=== PATIENT | male | born 1930 | race Caucasian/White ===

== ENCOUNTER 2016-07-27 09:25 | Inpatient (IN) | payer MEDICARE, BC ==
[2016-07-27] MEDS ORDERED: Sodium Chloride 0.9% 1,000 ML IV SCH (10:00)
[2016-07-27] MEDS ORDERED: Sodium Chloride 0.9% 10 ML Syringe FLUSH PRN (10:00)
--- NOTE | 2016-07-27 10:07 | EDM.PDOC ---
ED HPI GENERAL MEDICAL PROBLEM - General Chief Complaint: General Stated Complaint: MEDICAL VIA TRI Time Seen by Provider: 07/27/16 09:48 Source of Information: Reports: Patient, RN notes reviewed History Limitations: Reports: No limitations - History of Present Illness INITIAL COMMENTS - FREE TEXT/NARRATIVE: 86-year-old gentleman presents emergency department today with complaint of blood per rectum, he does have a history of GI bleed thought to be related to complications secondary to polypectomy he estimates about 8 years ago. For this particular event he had a large bloody stool this morning has had difficulty with constipation in the last couple of days denies any symptoms of dizziness chest pain shortness of breath or abdominal discomfort has only had the one event - Related Data Allergies Allergy/AdvReac Type Severity Reaction Status Date / Time aspirin Allergy Unknown Hives Verified 05/08/16 10:55 piroxicam [From Feldene] Allergy Rash Verified 05/08/16 10:55 Home Meds: Home Meds Acetaminophen [Tylenol Extra Strength] 500 mg PO Q4H PRN 01/09/13 [History] Ascorbic Acid [Vitamin C] 100 mg PO DAILY 01/09/13 [History] Aspirin [Elías Chewable Aspirin] 81 mg PO DAILY 01/09/13 [History] Cholecalciferol (Vitamin D3) [Vitamin D3] 1,000 unit PO DAILY 01/09/13 [History] Losartan [Cozaar] 0.5 tab PO DAILY 01/09/13 [History] Nitroglycerin 0.4 mg SL ASDIRECTED PRN 01/09/13 [History] Sennosides/Docusate Sodium [Senna S] 8.6 mg PO ONETIME PRN 01/09/13 [History] diphenhydrAMINE [Benadryl] 25 mg PO BEDTIME PRN 01/09/13 [History] atorvaSTATin [Lipitor] 20 mg PO BEDTIME 07/01/14 [History] Clopidogrel Bisulfate [Clopidogrel] 75 mg PO DAILY 12/21/15 [History] Acetaminophen/oxyCODONE [Percocet 325-5 MG] 1 - 2 tab PO Q4H PRN #80 tablet [Rx] Carvedilol 3.255 mg PO BID 03/26/16 [History] Isosorbide Mononitrate [Imdur] 30 mg PO DAILY #30 tab.er 03/27/16 [Rx] Cyanocobalamin (Vitamin B12) [Vitamin B12] 1,000 mcg PO DAILY 05/06/16 [History] Pregabalin [Lyrica] 50 mg PO TID 05/06/16 [History] Pentoxifylline [TRENtal] 1 tab PO TID 05/07/16 [History] Past Medical History HEENT History: Reports: Cataract, Impaired vision Cardiovascular History: Reports: Angina, Arrhythmia, CAD, High cholesterol, Hypertension, [place], SOB on exertion, Stents Respiratory History: Reports: Other (see below) Other Respiratory History: seeing a lung specialist in [place]. Spot on lung to investigate Gastrointestinal History: Reports: GERD Genitourinary History: Reports: Retention, urinary, Other (see below) Other Genitourinary History: surapubic catheter Musculoskeletal History: Reports: Back pain, chronic, Fracture, Osteoarthritis Hematologic History: Reports: Blood transfusion(s) Oncologic (Cancer) History: Reports: Prostate - Infectious Disease History Infectious Disease History: Reports: Chicken pox, Measles, Mumps - Past Surgical History HEENT Surgical History: Reports: Cataract surgery, Oral surgery, Tonsillectomy Cardiovascular Surgical History: Reports: Coronary artery bypass, Coronary artery stent GI Surgical History: Reports: Colonoscopy, EGD Other Male Surgeries/Procedures: Supra-pubic catheter Musculoskeletal Surgical History: Reports: Knee replacement Other Musculoskeletal Surgeries/Procedures:: both knees Social & Family History - Family History Family Medical History: Noncontributory - Tobacco Use Smoking Status *Q: Never Smoker Second Hand Smoke Exposure: No - Alcohol Use Days Per Week of Alcohol Use: 0 Number of Drinks Per Day: 1 Total Drinks Per Week: 0 - Recreational Drug Use Recreational Drug Use: No ED ROS GENERAL - Review of Systems Review Of Systems: See Below Constitutional: Reports: no symptoms HEENT: Reports: No symptoms Respiratory: Reports: No Symptoms Cardiovascular: Reports: No symptoms GI/Abdominal: Reports: Bloody stool, Constipation. Denies: Abdominal pain, Nausea, Vomiting : Reports: no symptoms Musculoskeletal: Reports: no symptoms ED EXAM, GENERAL - Physical Exam Exam: See Below Free Text/Narrative:: General: Elderly male, not in any distress, alert and oriented x3 HEENT: head is atraumatic normocephalic, eyes pupils equal round reactive to light, sclera clear no conjunctivitis appreciated. Ears tympanic membranes clear and bowles landmarks and light reflex are present bilaterally canals are clear. Nose no septal deviation, nares are clear, no blood present. Mouth mucosa is moist and pink no erythema or exudate noted in soft palate, tongue is midline uvula is midline, dentition is intact. Neck: Supple no thyromegaly no tracheal deviation. Nodes: Cervical nodes subclavicular nodes nontender no palpable lymphadenopathy noted. Lungs: clear to auscultation bilaterally with symmetrical respirations, no adventitious noise appreciated. CV: Regular rate and rhythm S1 and S2 appreciated no murmurs rubs or gallops noted. Abdomen: Soft, nontender, no palpable masses or organomegaly appreciated, no distention no guarding bowel sounds are present, rectal exam in the presence of nursing staff with an anoscope he reveals gross bright red blood with black tarry stool I could not appreciate any fissure there is no hemorrhoids good sphincter tone no masses. Neuro: Cranial nerves II through XII grossly intact Skin: Warm and dry, intact Extremities: No lower extremity edema appreciated, pedal pulse is +2. Course - Vital Signs Last Recorded V/S: Last Vital Signs Temp 98.8 F 07/27/16 09:28 Pulse 84 07/27/16 09:28 Resp 18 07/27/16 09:28 BP 107/57 L 07/27/16 09:28 Pulse Ox 95 07/27/16 09:28 - Orders/Labs/Meds Orders: Active Orders 24 hr Category Date Time Status Peripheral IV Care [RC] . DIRECTED Care 07/27/16 10:00 Active RED BLOOD CELLS LP [BBK] Urgent Lab 07/27/16 10:17 Received TYPE AND SCREEN [BBK] Urgent Lab 07/27/16 10:17 Received Sodium Chloride 0.9% [Normal Saline] 1,000 ml Med 07/27/16 10:00 Active IV ASDIRECTED Sodium Chloride 0.9% [Saline Flush] Med 07/27/16 10:00 Active 10 ml FLUSH ASDIRECTED PRN Peripheral IV Insertion Adult [OM.PC] Urgent Oth 07/27/16 10:00 Ordered Medication Orders Sodium Chloride (Normal Saline) 1,000 mls @ 500 mls/hr IV ASDIRECTED RUTHIE Last Admin: 07/27/16 10:18 Dose: 500 mls/hr Sodium Chloride (Saline Flush) 10 ml FLUSH ASDIRECTED PRN PRN Reason: Keep Vein Open Last Admin: 07/27/16 10:18 Dose: 10 ml Labs: Laboratory Tests 07/27/16 07/27/16 07/27/16 Range/Units 10:17 10:17 10:17 WBC 8.6 (4.5-11.0) K/uL RBC 3.47 L (4.30-5.90) M/uL Hgb 11.2 L D (12.0-15.0) g/dL Hct 35.2 L (40.0-54.0) % MCV 101 H (80-98) fL MCH 32 H (27-31) pg MCHC 32 (32-36) % Plt Count 239 (150-400) K/uL Neut % (Auto) 76 H (36-66) % Lymph % (Auto) 13 L (24-44) % [place] % (Auto) 9 H (2-6) % Eos % (Auto) 2 (2-4) % Baso % (Auto) 1 (0-1) % PT 10.7 (9.5-12.0) sec INR 1.01 (0.80-1.20) APTT 23.1 L (27.0-36.0) sec Sodium 142 (140-148) mmol/L Potassium 4.6 (3.6-5.2) mmol/L Chloride 107 (100-108) mmol/L Carbon Dioxide 27 (21-32) mmol/L Anion Gap 7.8 (5.0-14.0) mmol/L BUN 25 H (7-18) mg/dL Creatinine 1.2 (0.8-1.3) mg/dL Est Cr Clr Drug Dosing 49.01 mL/min Estimated GFR (MDRD) 57 L (>60) Glucose 128 H (74-106) mg/dL Calcium 8.2 L (8.5-10.1) mg/dL Total Bilirubin 0.5 (0.2-1.0) mg/dL AST 15 (15-37) U/L ALT 18 (12-78) U/L Alkaline Phosphatase 94 (46-116) U/L Troponin I (0.000-0.056) ng/mL Total Protein 6.2 L (6.4-8.2) g/dL Albumin 3.1 L (3.4-5.0) g/dL Globulin 3.1 (2.3-3.5) g/dL Albumin/Globulin Ratio 1.0 L (1.2-2.2) 07/27/16 Range/Units 10:17 WBC (4.5-11.0) K/uL RBC (4.30-5.90) M/uL Hgb (12.0-15.0) g/dL Hct (40.0-54.0) % MCV (80-98) fL MCH (27-31) pg MCHC (32-36) % Plt Count (150-400) K/uL Neut % (Auto) (36-66) % Lymph % (Auto) (24-44) % [place] % (Auto) (2-6) % Eos % (Auto) (2-4) % Baso % (Auto) (0-1) % PT (9.5-12.0) sec INR (0.80-1.20) APTT (27.0-36.0) sec Sodium (140-148) mmol/L Potassium (3.6-5.2) mmol/L Chloride (100-108) mmol/L Carbon Dioxide (21-32) mmol/L Anion Gap (5.0-14.0) mmol/L BUN (7-18) mg/dL Creatinine (0.8-1.3) mg/dL Est Cr Clr Drug Dosing mL/min Estimated GFR (MDRD) (>60) Glucose (74-106) mg/dL Calcium (8.5-10.1) mg/dL Total Bilirubin (0.2-1.0) mg/dL AST (15-37) U/L ALT (12-78) U/L Alkaline Phosphatase (46-116) U/L Troponin I 0.021 (0.000-0.056) ng/mL Total Protein (6.4-8.2) g/dL Albumin (3.4-5.0) g/dL Globulin (2.3-3.5) g/dL Albumin/Globulin Ratio (1.2-2.2) Meds: Medications Generic Name Dose Route Start Last Admin Trade Name Freq PRN Reason Stop Dose Admin Sodium Chloride 1,000 mls @ 500 mls/hr 07/27/16 10:00 07/27/16 10:18 Normal Saline IV 500 mls/hr ASDIRECTED RUTHIE Administration Sodium Chloride 10 ml 07/27/16 10:00 07/27/16 10:18 Saline Flush FLUSH 10 ml ASDIRECTED PRN Administration Keep Vein Open Departure - Departure Time of Disposition: 11:01 Disposition: Admitted As Inpatient 65 Condition: good Clinical Impression: Blood per rectum Forms: ED Department Discharge - My Orders Last 24 Hours: My Active Orders 07/27/16 10:00 Peripheral IV Care [RC] . DIRECTED Sodium Chloride 0.9% [Normal Saline] 1,000 ml IV ASDIRECTED Sodium Chloride 0.9% [Saline Flush] 10 ml FLUSH ASDIRECTED PRN Peripheral IV Insertion Adult [OM.PC] Urgent 07/27/16 10:17 RED BLOOD CELLS LP [BBK] Urgent TYPE AND SCREEN [BBK] Urgent - Assessment/Plan Last 24 Hours: My Active Orders 07/27/16 10:00 Peripheral IV Care [RC] . DIRECTED Sodium Chloride 0.9% [Normal Saline] 1,000 ml IV ASDIRECTED Sodium Chloride 0.9% [Saline Flush] 10 ml FLUSH ASDIRECTED PRN Peripheral IV Insertion Adult [OM.PC] Urgent 07/27/16 10:17 RED BLOOD CELLS LP [BBK] Urgent TYPE AND SCREEN [BBK] Urgent Plan: Assessment Acuity = acute Site and laterality = bright red blood per rectum complicating the patient with known history of GI bleed with transfusion, coronary artery disease Etiology = unknown etiology Manifestations = none Location of injury = home Lab values = hemoglobin low at 11.7 consistent with the macro chromic anemia INR normal 1.1 albumin low at 2.1 consistent hypoalbuminemia troponin normal at 0.021 Plan Discussed the case with hospitalist fusion analyst he agreed to come and evaluate the patient in the for admission, 2 units of blood have been cross matched and are held Patient was in agreement with the plan all questions were answered This note was dictated using [employer] voice recognition software please call with any questions.
--- NOTE | 2016-07-27 13:23 | PCM.HP ---
H&P History of Present Illness - General Date of Service: 07/27/16 Admit Problem/Dx: Admission Diagnosis/Problem Admission Diagnosis/Problem Gastrointestinal hemorrhage Source of Information: Patient, Provider History Limitations: Reports: No limitations - History of Present Illness Initial Comments - Free Text/Narative: Ambrosio presents to the emergency room today after having a large bloody bowel movement this morning. He reports that he was feeling well up until this morning. While he was in the process of getting out of bed this morning he suddenly had the urgency to have a bowel movement. Despite his rodriguez to the bathroom he still had some incontinence of bowel and when he did have his bowel movement there was a very large amount of red blood in the toilet bowl. He reports that he had to flush 3 times to get all of it washed down. He reports constipation for the 3 days prior to today. Last night he had to moderate size bowel movements that were very hard and required a lot of straining to pass. He did not notice any blood at that time. He did not have any abdominal pain this morning with a bowel movement or afterwards. He has not had any fevers or chills. No nausea or vomiting. His appetite has been normal. He thinks that he's been drinking about his usual amount of water. He has had one episode of blood in his stool years ago following a polypectomy. This did cause significant enough bleeding to require him to receive 8 units of blood via transfusion and lead to hospitalization and surgical intervention in [place]. Workup in the emergency room has revealed a hemoglobin of 11 and stable vital signs. And there is concern that this represents a significant gastrointestinal hemorrhage and he will require hospital admission for additional workup and management. Lower Posterior Back Pain Score (Numeric/FACES): 2 - Related Data Allergies/Adverse Reactions: Allergies Allergy/AdvReac Type Severity Reaction Status Date / Time aspirin Allergy Unknown Hives Verified 05/08/16 10:55 piroxicam [From Feldene] Allergy Rash Verified 05/08/16 10:55 Home Medications: Home Meds Acetaminophen [Tylenol Extra Strength] 500 mg PO Q4H PRN 01/09/13 [History] Ascorbic Acid [Vitamin C] 100 mg PO DAILY 01/09/13 [History] Aspirin [Elías Chewable Aspirin] 81 mg PO DAILY 01/09/13 [History] Cholecalciferol (Vitamin D3) [Vitamin D3] 1,000 unit PO DAILY 01/09/13 [History] Losartan [Cozaar] 0.5 tab PO DAILY 01/09/13 [History] Nitroglycerin 0.4 mg SL ASDIRECTED PRN 01/09/13 [History] Sennosides/Docusate Sodium [Senna S] 8.6 mg PO ONETIME PRN 01/09/13 [History] diphenhydrAMINE [Benadryl] 25 mg PO BEDTIME PRN 01/09/13 [History] atorvaSTATin [Lipitor] 20 mg PO BEDTIME 07/01/14 [History] Clopidogrel Bisulfate [Clopidogrel] 75 mg PO DAILY 12/21/15 [History] Acetaminophen/oxyCODONE [Percocet 325-5 MG] 1 - 2 tab PO Q4H PRN #80 tablet [Rx] Carvedilol 3.125 mg PO BID 03/26/16 [History] Isosorbide Mononitrate [Imdur] 30 mg PO DAILY #30 tab.er 03/27/16 [Rx] Cyanocobalamin (Vitamin B12) [Vitamin B12] 1,000 mcg PO DAILY 05/06/16 [History] Pregabalin [Lyrica] 50 mg PO TID 05/06/16 [History] Pentoxifylline [TRENtal] 1 tab PO TID 05/07/16 [History] Past Medical History HEENT History: Reports: Cataract, Impaired vision Cardiovascular History: Reports: Angina, Arrhythmia, CAD, High cholesterol, Hypertension, [place], SOB on exertion, Stents Respiratory History: Reports: Other (see below) Other Respiratory History: [place] lung specialist [place] Spot on lung to investigate Gastrointestinal History: Reports: GERD Genitourinary History: Reports: Retention, urinary, Other (see below) Other Genitourinary History: surapubic catheter Musculoskeletal History: Reports: Back pain, chronic, Fracture, Osteoarthritis Hematologic History: Reports: Blood transfusion(s) Oncologic (Cancer) History: Reports: Prostate - Infectious Disease History Infectious Disease History: Reports: Chicken pox, Measles, Mumps - Past Surgical History HEENT Surgical History: Reports: Cataract surgery, Oral surgery, Tonsillectomy Cardiovascular Surgical History: Reports: Coronary artery bypass, Coronary artery stent GI Surgical History: Reports: Colonoscopy, EGD Other Male Surgeries/Procedures: Supra-pubic catheter Musculoskeletal Surgical History: Reports: Knee replacement Other Musculoskeletal Surgeries/Procedures:: both knees Social & Family History - Family History Family Medical History: Noncontributory - Tobacco Use Smoking Status *Q: Never Smoker Second Hand Smoke Exposure: No - Alcohol Use Days Per Week of Alcohol Use: 0 Number of Drinks Per Day: 1 Total Drinks Per Week: 0 - Recreational Drug Use Recreational Drug Use: No H&P Review of Systems - Review of Systems: Review Of Systems: See Below Free Text/Narrative: A complete 12 point review of systems was obtained. Pertinent positives and negatives are noted in the history of present illness. All other systems were reviewed and were negative except as noted. Exam - Exam Exam: See Below - Vital Signs Vital Signs: Last Vital Signs Temp 37.1 C 07/27/16 09:28 Pulse 84 07/27/16 09:28 Resp 18 07/27/16 09:28 BP 107/57 L 07/27/16 09:28 Pulse Ox 95 07/27/16 09:28 Weight: 80.739 kg - Exam Quality Assessment: urinary catheter (suprapubic). No: supplemental oxygen General: alert, oriented, cooperative. No: mild distress HEENT: Conjunctiva clear, Mucosa moist & pink, Posterior pharynx clear. No: Scleral icterus Neck: supple, trachea midline Lungs: Clear to auscultation, Normal respiratory effort Cardiovascular: regular rate, regular rhythm, systolic murmur Abdomen: normal bowel sounds, soft, tenderness (moderate LLQ). No: distention, guarding Back Exam: normal inspection. No: full range of motion Extremities: normal inspection. No: edema Peripheral Pulses: 2+: dorsalis pedis (L), dorsalis pedis (R) Skin: warm, dry Neuro Extensive - Mental Status: alert, oriented x3, nl response to commands Neuro Extensive - Motor, Sensory, Reflexes: CN II-XII intact. No: dysarthria, abnormal motor, tremor Psychiatric: alert, normal affect - Patient Data Lab Results last 24 hrs: Laboratory Results - last 24 hr 07/27/16 07/27/16 07/27/16 Range/Units 10:17 10:17 10:17 WBC 8.6 (4.5-11.0) K/uL RBC 3.47 L (4.30-5.90) M/uL Hgb 11.2 L D (12.0-15.0) g/dL Hct 35.2 L (40.0-54.0) % MCV 101 H (80-98) fL MCH 32 H (27-31) pg MCHC 32 (32-36) % Plt Count 239 (150-400) K/uL Neut % (Auto) 76 H (36-66) % Lymph % (Auto) 13 L (24-44) % [place] % (Auto) 9 H (2-6) % Eos % (Auto) 2 (2-4) % Baso % (Auto) 1 (0-1) % PT 10.7 (9.5-12.0) sec INR 1.01 (0.80-1.20) APTT 23.1 L (27.0-36.0) sec Sodium 142 (140-148) mmol/L Potassium 4.6 (3.6-5.2) mmol/L Chloride 107 (100-108) mmol/L Carbon Dioxide 27 (21-32) mmol/L Anion Gap 7.8 (5.0-14.0) mmol/L BUN 25 H (7-18) mg/dL Creatinine 1.2 (0.8-1.3) mg/dL Est Cr Clr Drug Dosing 49.01 mL/min Estimated GFR (MDRD) 57 L (>60) Glucose 128 H (74-106) mg/dL Calcium 8.2 L (8.5-10.1) mg/dL Total Bilirubin 0.5 (0.2-1.0) mg/dL AST 15 (15-37) U/L ALT 18 (12-78) U/L Alkaline Phosphatase 94 (46-116) U/L Troponin I (0.000-0.056) ng/mL Total Protein 6.2 L (6.4-8.2) g/dL Albumin 3.1 L (3.4-5.0) g/dL Globulin 3.1 (2.3-3.5) g/dL Albumin/Globulin Ratio 1.0 L (1.2-2.2) Blood Type Gel Antibody Screen Crossmatch 07/27/16 07/27/16 Range/Units 10:17 10:17 WBC (4.5-11.0) K/uL RBC (4.30-5.90) M/uL Hgb (12.0-15.0) g/dL Hct (40.0-54.0) % MCV (80-98) fL MCH (27-31) pg MCHC (32-36) % Plt Count (150-400) K/uL Neut % (Auto) (36-66) % Lymph % (Auto) (24-44) % [place] % (Auto) (2-6) % Eos % (Auto) (2-4) % Baso % (Auto) (0-1) % PT (9.5-12.0) sec INR (0.80-1.20) APTT (27.0-36.0) sec Sodium (140-148) mmol/L Potassium (3.6-5.2) mmol/L Chloride (100-108) mmol/L Carbon Dioxide (21-32) mmol/L Anion Gap (5.0-14.0) mmol/L BUN (7-18) mg/dL Creatinine (0.8-1.3) mg/dL Est Cr Clr Drug Dosing mL/min Estimated GFR (MDRD) (>60) Glucose (74-106) mg/dL Calcium (8.5-10.1) mg/dL Total Bilirubin (0.2-1.0) mg/dL AST (15-37) U/L ALT (12-78) U/L Alkaline Phosphatase (46-116) U/L Troponin I 0.021 (0.000-0.056) ng/mL Total Protein (6.4-8.2) g/dL Albumin (3.4-5.0) g/dL Globulin (2.3-3.5) g/dL Albumin/Globulin Ratio (1.2-2.2) Blood Type O POSITIVE Gel Antibody Screen Negative Crossmatch See Detail Result Diagrams: 07/27/16 16:18 07/27/16 10:17 *Q Meaningful Use (ADM) - VTE *Q VTE Criteria *Q: VTE Pharmacological Contraindications *Q: Active Hemorrhage - Stroke *Q Stroke Criteria *Q: - AMI *Q AMI Criteria *Q: - Problem List (1) Acute lower gastrointestinal hemorrhage SNOMED Code(s): 31009195 ICD Code: K92.2 - GASTROINTESTINAL HEMORRHAGE, UNSPECIFIED Status: Acute Current Visit: Yes (2) Coronary artery disease SNOMED Code(s): 02749085 ICD Code: I25.10 - ATHSCL HEART DISEASE OF [place] CORONARY ARTERY W/O ANG PCTRS Status: Chronic Current Visit: No Qualifiers: Coronary Disease-Associated Artery/Lesion type: [place] artery [place] vs. transplanted heart: che[place]-na heart Associated angina: angina presence unspecified Qualified Code(s): I25.10 - Atherosclerotic heart disease of [place] coronary artery without angina pectoris (3) Lumbar radiculopathy, chronic SNOMED Code(s): 855306239 ICD Code: M54.16 - RADICULOPATHY, LUMBAR REGION Status: Chronic Current Visit: No Problem List Initiated/Reviewed/Updated: Yes Orders Last 24hrs: Active Orders 24 hr Category Date Time Status Patient Status Manage Transfer [TRANSFER] Routine ADT 07/27/16 13:11 Ordered Peripheral IV Care [RC] . DIRECTED Care 07/27/16 10:00 Active PATIENT RETYPE [BBK] Urgent Lab 07/27/16 10:17 Results RED BLOOD CELLS LP [BBK] Urgent Lab 07/27/16 10:17 Results TYPE AND SCREEN [BBK] Urgent Lab 07/27/16 10:17 Results Sodium Chloride 0.9% [Normal Saline] 1,000 ml Med 07/27/16 10:00 Active IV ASDIRECTED Sodium Chloride 0.9% [Saline Flush] Med 07/27/16 10:00 Active 10 ml FLUSH ASDIRECTED PRN Peripheral IV Insertion Adult [OM.PC] Urgent Oth 07/27/16 10:00 Ordered Resuscitation Status Routine Resus Stat 07/27/16 13:13 Ordered Medication Orders Sodium Chloride (Normal Saline) 1,000 mls @ 500 mls/hr IV ASDIRECTED RUTHIE Last Admin: 07/27/16 10:18 Dose: 500 mls/hr Sodium Chloride (Saline Flush) 10 ml FLUSH ASDIRECTED PRN PRN Reason: Keep Vein Open Last Admin: 07/27/16 10:18 Dose: 10 ml Assessment/Plan Comment:: Assessment and plan - Acute gastrointestinal hemorrhage - suspect lower GI hemorrhage with red blood. He did have recent constipation and I suspect this may have led to a diverticular bleed. Currently his hemoglobin is 11 but I doubt that he has had time to re-equilibrate and this may be a falsely reassuring level. Blood pressure is currently normal and is not tachycardic. He has [address] He is currently on dual antiplatelet therapy. -Admit to the intensive care unit -IV fluids -Serial hemoglobin levels -hold antiplatelet therapy today -Stay 2 units ahead for potential blood transfusions -Consider surgical consultation if bleeding persists Coronary artery disease - no active symptoms at this time. He is on dual antiplatelet therapy with recent stenting. -Continue medical management -restart dual antiplatelet therapy tomorrow if stable overnight Chronic severe back pain with lumbar radiculopathy - pain not well-controlled, functional status declining inpatient uncomfortable day and night. Surgical intervention very dangerous based on cardiac status and age. Pain pills do help make the pain more bearable. -Trial of OxyContin -as needed oxycodone Maintenance issues - - DVT prophylaxis - mechanical - GI prophylaxis - PPI - Nutrition - full liquids - [place] catheter - chronic indwelling suprapubic catheter CODE STATUS - DO NOT RESUSCITATE/DO NOT INTUBATE Admission justification - This patient will be admitted for inpatient services and is medically appropriate meeting medical necessity for inpatient admission as outlined in my documentation. I reasonably expect the patient will require inpatient services that span a period time over 2 midnights. I reasonably expect this patient to be discharged or transferred within 96 hours [facility]. Disposition - anticipate discharge to home after the hospital stay Primary care physician - Ashwini Rojas NP / Dr Katalina Jaramillo M.D.
[2016-07-27] MEDS ORDERED: Ondansetron 4 MG Tab.DIS PO PRN (14:04)
[2016-07-27] MEDS ORDERED: Albuterol 0.083% 2.5 MG/3 ML Neb Soln NEB PRN (14:04)
[2016-07-27] MEDS ORDERED: Magnesium Hydroxide 400 MG/5 ML Susp 30 ML Cup PO PRN (14:04)
[2016-07-27] MEDS ORDERED: Ondansetron 4 MG/2 ML SDV IV PRN (14:04)
[2016-07-27] MEDS ORDERED: Acetaminophen 325 MG Tab PO PRN (14:04)
[2016-07-27] MEDS: Sodium Chloride 0.9% 1,000 ML IV SCH ×2 (15:05→23:15)
[2016-07-27] MEDS: Acetaminophen/oxyCODONE 325-5 MG Tab PO PRN (15:12)
[2016-07-27] MEDS: Pantoprazole 40 MG Tab.CR PO SCH (16:18)
[2016-07-27] MEDS: atorvaSTATin 20 MG Tab PO SCH (20:45)
[2016-07-27] MEDS: Carvedilol 3.125 MG Tab PO SCH (20:45)
[2016-07-27] MEDS: oxyCODONE ER 10 MG TAB.ER PO SCH (20:47)
[2016-07-27] MEDS ORDERED: Non-Formulary Medication 1 Each (Atorvastatin [Lipitor] 20 MG) PO SCH (21:00)
[2016-07-27] MEDS: diphenhydrAMINE 25 MG Cap PO PRN (23:23)
[2016-07-28] MEDS: Acetaminophen/oxyCODONE 325-5 MG Tab PO PRN ×3 (03:14→21:56)
[2016-07-28] MEDS: Sodium Chloride 0.9% 1,000 ML IV SCH ×3 (06:11→21:58)
[2016-07-28] MEDS: Pantoprazole 40 MG Tab.CR PO SCH ×2 (07:58→20:27)
--- NOTE | 2016-07-28 08:47 | PCM.PN ---
- General Info Date of Service: 07/28/16 Functional Status: Reports: pain controlled, tolerating diet - Review of Systems General: Denies: Fever Gastrointestinal: Reports: Abdominal pain (mild epigastric). Denies: Hematochezia, Melena Systems Review Comment:: No acute events since the time of admission. He has not had additional hematochezia or melena. Blood pressures have been stable though up and down a little bit. No complaints of abdominal pain today. He does endorse moderate back pain as well as some neuropathic pain in his feet. He has not had any fevers, nausea or vomiting. - Patient Data Vitals - most recent: Last Vital Signs Temp 35.9 C 07/28/16 08:00 Pulse 95 07/28/16 08:00 Resp 14 07/28/16 08:00 BP 125/65 07/28/16 08:00 Pulse Ox 95 07/28/16 08:00 Weight - most recent: 80.739 kg I&O - last 24 hours: Intake & Output 07/27/16 07/28/16 07/28/16 22:59 06:59 14:59 Intake Total 991 2269 Output Total 1900 930 Balance -909 1339 Lab Results last 24 hrs: Laboratory Results - last 24 hr 07/27/16 07/27/16 07/28/16 Range/Units 16:18 22:03 05:39 WBC 7.7 (4.5-11.0) K/uL RBC 2.86 L (4.30-5.90) M/uL Hgb 9.9 L 10.0 L 9.1 L (12.0-15.0) g/dL Hct 29.5 L (40.0-54.0) % MCV 103 H (80-98) fL MCH 32 H (27-31) pg MCHC 31 L (32-36) % Plt Count 196 (150-400) K/uL Sodium (140-148) mmol/L Potassium (3.6-5.2) mmol/L Chloride (100-108) mmol/L Carbon Dioxide (21-32) mmol/L Anion Gap (5.0-14.0) mmol/L BUN (7-18) mg/dL Creatinine (0.8-1.3) mg/dL Est Cr Clr Drug Dosing mL/min Estimated GFR (MDRD) (>60) Glucose (74-106) mg/dL Calcium (8.5-10.1) mg/dL Magnesium (1.8-2.4) mg/dL 07/28/16 Range/Units 05:39 WBC (4.5-11.0) K/uL RBC (4.30-5.90) M/uL Hgb (12.0-15.0) g/dL Hct (40.0-54.0) % MCV (80-98) fL MCH (27-31) pg MCHC (32-36) % Plt Count (150-400) K/uL Sodium 145 (140-148) mmol/L Potassium 4.1 (3.6-5.2) mmol/L Chloride 112 H (100-108) mmol/L Carbon Dioxide 28 (21-32) mmol/L Anion Gap 9.1 (5.0-14.0) mmol/L BUN 16 (7-18) mg/dL Creatinine 1.0 (0.8-1.3) mg/dL Est Cr Clr Drug Dosing 58.53 mL/min Estimated GFR (MDRD) > 60 (>60) Glucose 98 (74-106) mg/dL Calcium 7.8 L (8.5-10.1) mg/dL Magnesium 1.8 (1.8-2.4) mg/dL Med Orders - Current: Current Medications Acetaminophen (Tylenol) 650 mg PO Q4H PRN PRN Reason: Pain (Mild 1-3)/fever Albuterol (Proventil Neb Soln) 2.5 mg NEB Q4H PRN PRN Reason: Shortness Of Breath/wheezing Atorvastatin Calcium (Lipitor) 20 mg PO BEDTIME [facility] Last Admin: 07/27/16 20:45 Dose: 20 mg Carvedilol (Coreg) 3.125 mg PO BID [facility] Last Admin: 07/27/16 20:45 Dose: 3.125 mg Diphenhydramine HCl (Benadryl) 25 - 50 mg PO BEDTIME PRN PRN Reason: Sleep Last Admin: 07/27/16 23:23 Dose: 50 mg Sodium Chloride (Normal Saline) 1,000 mls @ 125 mls/hr IV ASDIRECTED [facility] Last Admin: 07/28/16 06:11 Dose: 125 mls/hr Magnesium Hydroxide (Milk Of Magnesia) 30 ml PO Q12H PRN PRN Reason: Constipation Ondansetron HCl (Zofran Odt) 4 mg PO Q6H PRN PRN Reason: Nausea able to take PO Ondansetron HCl (Zofran) 4 mg IV Q6H PRN PRN Reason: Nausea/Vomiting Oxycodone HCl (Oxycontin) 10 mg PO Q12H [facility] Last Admin: 07/27/16 20:47 Dose: 10 mg Oxycodone/Acetaminophen (Percocet 325-5 Mg) 1 - 2 tab PO Q4H PRN PRN Reason: Pain Last Admin: 07/28/16 03:14 Dose: 2 tab Pantoprazole Sodium (Protonix) 40 mg PO BIDAC [facility] Last Admin: 07/28/16 07:58 Dose: 40 mg Polyethylene Glycol (Miralax) 17 gm PO DAILY PRN PRN Reason: Constipation Senna/Docusate Sodium (Senna Plus) 1 tab PO BID [facility] Last Admin: 07/27/16 20:45 Dose: 1 tab Sodium Chloride (Saline Flush) 10 ml FLUSH ASDIRECTED PRN PRN Reason: Keep Vein Open Last Admin: 07/27/16 10:18 Dose: 10 ml Discontinued Medications Sodium Chloride (Normal Saline) 1,000 mls @ 500 mls/hr IV ASDIRECTED [facility] Last Admin: 07/27/16 10:18 Dose: 500 mls/hr - Exam Quality Assessment: No: supplemental oxygen General: alert, oriented, cooperative, no acute distress Neck: supple Lungs: Clear to auscultation, Normal respiratory effort Cardiovascular: Regular Rate, Regular Rhythm, Murmurs Abdomen: bowel sounds present, soft, no tenderness, no distension Extremities: no edema, no cyanosis Skin: warm, dry Psy/Mental Status: alert, normal affect - Problem List & Annotations (1) Acute lower gastrointestinal hemorrhage SNOMED Code(s): 95393336 Code(s): K92.2 - GASTROINTESTINAL HEMORRHAGE, UNSPECIFIED Status: Acute Current Visit: Yes (2) Coronary artery disease SNOMED Code(s): 90196784 Code(s): I25.10 - ATHSCL HEART DISEASE OF [place] CORONARY ARTERY W/O ANG PCTRS Status: Chronic Current Visit: No Qualifiers: Coronary Disease-Associated Artery/Lesion type: [place] artery [place] vs. transplanted heart: [place] heart Associated angina: angina presence unspecified Qualified Code(s): I25.10 - Atherosclerotic heart disease of [place] coronary artery without angina pectoris (3) Lumbar radiculopathy, chronic SNOMED Code(s): 510610461 Code(s): M54.16 - RADICULOPATHY, LUMBAR REGION Status: Chronic Current Visit: No - Problem List Review Problem List Initiated/Reviewed/Updated: Yes - My Orders Last 24 Hours: My Active Orders 07/27/16 13:13 Resuscitation Status Routine 07/27/16 14:04 Patient Status [ADT] Routine Bedrest Bedside Commode [RC] ASDIRECTED Cardiac Monitoring [RC] CONTINUOUS Intake and Output [RC] QSHIFT Notify Provider Vital Signs [RC] ASDIRECTED Oxygen Therapy [RC] PRN Pulse Oximetry [RC] CONTINUOUS RT Aerosol Therapy [RC] ASDIRECTED VTE/DVT Education [RC] Per Unit Routine Vital Signs [RC] Q2HR Acetaminophen [Tylenol] 650 mg PO Q4H PRN Albuterol [Proventil Neb Soln] 2.5 mg NEB Q4H PRN Magnesium Hydroxide [Milk of Magnesia] 30 ml PO Q12H PRN Ondansetron [Zofran ODT] 4 mg PO Q6H PRN Ondansetron [Zofran] 4 mg IV Q6H PRN Polyethylene Glycol 3350 [MiraLAX] 17 gm PO DAILY PRN Sodium Chloride 0.9% [Normal Saline] 1,000 ml IV ASDIRECTED Antiembolic Hose [OM.PC] Per Unit Routine VTE Pharmacological Contraindications [AST] Per Unit Routine 07/27/16 16:30 Pantoprazole [ProTONIX] 40 mg PO BIDAC 07/27/16 21:00 Docusate Sodium/Sennosides [Senna Plus] 1 tab PO BID atorvaSTATin [Lipitor] 20 mg PO BEDTIME oxyCODONE ER [OxyCONTIN] 10 mg PO Q12H 07/27/16 23:07 diphenhydrAMINE [Benadryl] 25 - 50 mg PO BEDTIME PRN 07/28/16 15:00 HGB [HEMOGLOBIN] [HEME] Timed 07/28/16 Lunch Heart Healthy Diet [DIET] 07/29/16 05:00 BASIC METABOLIC PANEL,BMP [CHEM] Timed CBC W/O DIFF,HEMOGRAM [HEME] Timed (1) - Plan Plan:: Assessment and plan - Acute gastrointestinal hemorrhage - suspect lower GI hemorrhage with red blood. He did have recent constipation and I suspect this may have led to a diverticular bleed. Hemoglobin has been trending down but he has not had additional bleeding. I suspect this is diverticular bleeding and I don't believe that endoscopy will be needed unless he has additional episodes of bleeding. -Gentle IV fluids -Serial hemoglobin levels -Restart antiplatelet therapy -Stay 2 units ahead for potential blood transfusions -Consider surgical consultation if bleeding returns Coronary artery disease - no active symptoms at this time. He is on dual antiplatelet therapy with recent stenting. -Continue medical management -restart dual antiplatelet therapy Chronic severe back pain with lumbar radiculopathy - pain not well-controlled, functional status declining inpatient uncomfortable day and night. Surgical intervention very dangerous based on cardiac status and age. Pain pills do help make the pain more bearable. -Trial of OxyContin -as needed oxycodone Maintenance issues - - DVT prophylaxis - mechanical - GI prophylaxis - PPI - Nutrition - heart healthy diet - Christianson catheter - chronic indwelling suprapubic catheter Disposition - anticipate discharge to home after the hospital stay, probably tomorrow if stable overnight Primary care physician - Ashwini Rojas NP / Dr Katalina Jaramillo M.D.
[2016-07-28] MEDS: oxyCODONE ER 10 MG TAB.ER PO SCH ×2 (08:54→20:27)
[2016-07-28] MEDS: Carvedilol 3.125 MG Tab PO SCH ×2 (08:54→20:27)
[2016-07-28] MEDS ORDERED: Sodium Chloride 0.9% 500 ML IV SCH (19:00)
[2016-07-28] MEDS: Aspirin 81 MG Tab.EC PO SCH (19:25)
[2016-07-28] MEDS: Clopidogrel 75 MG Tab PO SCH (19:25)
[2016-07-28] MEDS: atorvaSTATin 20 MG Tab PO SCH (20:27)
[2016-07-28] MEDS ORDERED: Oxybutynin 5 MG Tab PO ONE (21:39)
[2016-07-29] MEDS: diphenhydrAMINE 25 MG Cap PO PRN (00:06)
[2016-07-29] MEDS: Acetaminophen/oxyCODONE 325-5 MG Tab PO PRN ×5 (02:31→22:42)
[2016-07-29] MEDS: Sodium Chloride 0.9% 1,000 ML IV SCH (05:49)
[2016-07-29] MEDS: Pantoprazole 40 MG Tab.CR PO SCH ×2 (07:35→17:08)
[2016-07-29] MEDS: Aspirin 81 MG Tab.EC PO SCH (09:44)
[2016-07-29] MEDS: oxyCODONE ER 10 MG TAB.ER PO SCH ×2 (09:44→20:56)
[2016-07-29] MEDS: Carvedilol 3.125 MG Tab PO SCH ×2 (09:44→20:57)
[2016-07-29] MEDS: Clopidogrel 75 MG Tab PO SCH (09:46)
--- NOTE | 2016-07-29 10:20 | PCM.PN ---
- General Info Date of Service: 07/29/16 Functional Status: Reports: tolerating diet - Review of Systems General: Reports: Weakness. Denies: Fever, Chills Pulmonary: Reports: no symptoms Cardiovascular: Reports: No Symptoms Gastrointestinal: Reports: Constipation. Denies: Hematochezia, Melena, Nausea, Vomiting Musculoskeletal: Reports: back pain Systems Review Comment:: Rev. Light show no further evidence of active bleeding, since yesterday. He has had ongoing difficulty with back pain and now this morning has had severe bladder spasms. He does have an indwelling suprapubic catheter for management of chronic urinary retention. He reports that he typically has more difficulty with bladder spasms when he is constipated. - Patient Data Vitals - most recent: Last Vital Signs Temp 97.1 F 07/29/16 08:00 Pulse 72 07/29/16 09:44 Resp 20 07/29/16 08:00 BP 95/52 L 07/29/16 08:00 Pulse Ox 100 07/29/16 08:00 Weight - most recent: 178 lb I&O - last 24 hours: Intake & Output 07/28/16 07/29/16 07/29/16 22:59 06:59 14:59 Intake Total 1959 1973 Output Total 775 500 Balance 1184 1473 Lab Results last 24 hrs: Laboratory Results - last 24 hr 07/28/16 07/29/16 07/29/16 Range/Units 15:00 05:00 05:00 WBC 8.1 (4.5-11.0) K/uL RBC 2.93 L (4.30-5.90) M/uL Hgb 9.8 L 9.2 L (12.0-15.0) g/dL Hct 30.3 L (40.0-54.0) % MCV 103 H (80-98) fL MCH 31 (27-31) pg MCHC 30 L (32-36) % Plt Count 209 (150-400) K/uL Sodium 148 (140-148) mmol/L Potassium 4.1 (3.6-5.2) mmol/L Chloride 113 H (100-108) mmol/L Carbon Dioxide 26 (21-32) mmol/L Anion Gap 13.1 (5.0-14.0) mmol/L BUN 19 H (7-18) mg/dL Creatinine 1.1 (0.8-1.3) mg/dL Est Cr Clr Drug Dosing 53.21 mL/min Estimated GFR (MDRD) > 60 (>60) Glucose 114 H (74-106) mg/dL Calcium 7.5 L (8.5-10.1) mg/dL Med Orders - Current: Current Medications Acetaminophen (Tylenol) 650 mg PO Q4H PRN PRN Reason: Pain (Mild 1-3)/fever Albuterol (Proventil Neb Soln) 2.5 mg NEB Q4H PRN PRN Reason: Shortness Of Breath/wheezing Aspirin (Halfprin) 81 mg PO DAILY [facility] Last Admin: 07/29/16 09:44 Dose: 81 mg Atorvastatin Calcium (Lipitor) 20 mg PO BEDTIME [facility] Last Admin: 07/28/16 20:27 Dose: 20 mg Carvedilol (Coreg) 3.125 mg PO BID [facility] Last Admin: 07/29/16 09:44 Dose: 3.125 mg Clopidogrel Bisulfate (Plavix) 75 mg PO DAILY [facility] Last Admin: 07/29/16 09:46 Dose: 75 mg Diphenhydramine HCl (Benadryl) 25 - 50 mg PO BEDTIME PRN PRN Reason: Sleep Last Admin: 07/29/16 00:06 Dose: 50 mg Sodium Chloride (Normal Saline) 1,000 mls @ 125 mls/hr IV ASDIRECTED [facility] Last Admin: 07/29/16 05:49 Dose: 125 mls/hr Magnesium Hydroxide (Milk Of Magnesia) 30 ml PO Q12H PRN PRN Reason: Constipation Ondansetron HCl (Zofran Odt) 4 mg PO Q6H PRN PRN Reason: Nausea able to take PO Ondansetron HCl (Zofran) 4 mg IV Q6H PRN PRN Reason: Nausea/Vomiting Oxycodone HCl (Oxycontin) 10 mg PO Q12H [facility] Last Admin: 07/29/16 09:44 Dose: 10 mg Oxycodone/Acetaminophen (Percocet 325-5 Mg) 1 - 2 tab PO Q4H PRN PRN Reason: Pain Last Admin: 07/29/16 07:34 Dose: 2 tab Pantoprazole Sodium (Protonix) 40 mg PO BIDAC [facility] Last Admin: 07/29/16 07:35 Dose: 40 mg Polyethylene Glycol (Miralax) 17 gm PO DAILY PRN PRN Reason: Constipation Senna/Docusate Sodium (Senna Plus) 1 tab PO BID [facility] Last Admin: 07/29/16 09:44 Dose: 1 tab Sodium Chloride (Saline Flush) 10 ml FLUSH ASDIRECTED PRN PRN Reason: Keep Vein Open Last Admin: 07/27/16 10:18 Dose: 10 ml Discontinued Medications Sodium Chloride (Normal Saline) 1,000 mls @ 500 mls/hr IV ASDIRECTED [facility] Last Admin: 07/27/16 10:18 Dose: 500 mls/hr Sodium Chloride (Normal Saline) 500 mls @ 500 mls/hr IV ASDIRECTED [facility] Last Admin: 07/28/16 19:00 Dose: 500 mls/hr Oxybutynin Chloride (Oxybutynin) 5 mg PO DAILY ONE Stop: 07/28/16 21:40 Last Admin: 07/28/16 21:51 Dose: 5 mg - Exam General: alert, oriented, cooperative, moderate distress Lungs: Clear to auscultation, Normal respiratory effort Cardiovascular: Regular Rate, Regular Rhythm, Murmurs Abdomen: bowel sounds present, soft, no tenderness, no distension Extremities: no edema Skin: warm, dry, intact - Problem List Review Problem List Initiated/Reviewed/Updated: Yes - My Orders Last 24 Hours: My Active Orders 07/29/16 09:10 UA W/MICROSCOPIC [URIN] Stat 07/29/16 10:01 Patient Status Manage Transfer [TRANSFER] Routine - Plan Plan:: Assessment and plan - Acute gastrointestinal hemorrhage - suspect lower GI hemorrhage with red blood. He did have recent constipation and I suspect this may have led to a diverticular bleed. No further evidence of active bleeding over the past 24 hours. -Saline lock IV -Serial hemoglobin levels -Restart antiplatelet therapy -Stay 2 units ahead for potential blood transfusions -Consider surgical consultation if bleeding returns Severe bladder spasms-typically does have bladder spasms every day but they're fairly limited in frequency and duration. This morning is had several more prolonged spasms that had been very uncomfortable. -Urinalysis -Hyoscyamine 0.125 mg by mouth every 4 hours Constipation-likely that this causes difficulty with recent lower GI bleed and may be contributing to current bladder spasm -Senna-S 3 tablets this morning -Consider daily bowel regimen as long as he is on narcotics Coronary artery disease - no active symptoms at this time. He is on dual antiplatelet therapy with recent stenting. -Continue medical management -restart dual antiplatelet therapy Chronic severe back pain with lumbar radiculopathy - pain not well-controlled, functional status declining inpatient uncomfortable day and night. Surgical intervention very dangerous based on cardiac status and age. Pain pills do help make the pain more bearable. -Trial of OxyContin -as needed oxycodone Maintenance issues - - DVT prophylaxis - mechanical - GI prophylaxis - PPI - Nutrition - heart healthy diet - Christianson catheter - chronic indwelling suprapubic catheter Disposition - anticipate discharge to home after the hospital stay, probably tomorrow if stable overnight Primary care physician - Ashwini Rojas NP / Dr Darden
[2016-07-29] MEDS: Hyoscyamine 0.125 MG Tab.SL SL PRN ×2 (12:34→17:56)
[2016-07-29] MEDS: cefTRIAXone 1 GM in Sodium Chloride 0.9% 50 ML IV SCH (14:26)
[2016-07-29] MEDS: atorvaSTATin 20 MG Tab PO SCH (20:56)
[2016-07-30] MEDS: diphenhydrAMINE 25 MG Cap PO PRN ×2 (00:39→22:18)
[2016-07-30] MEDS: Hyoscyamine 0.125 MG Tab.SL SL PRN ×4 (00:48→15:29)
[2016-07-30] MEDS: Acetaminophen/oxyCODONE 325-5 MG Tab PO PRN ×4 (04:06→22:18)
[2016-07-30] MEDS: Pantoprazole 40 MG Tab.CR PO SCH ×2 (09:12→16:57)
[2016-07-30] MEDS: Carvedilol 3.125 MG Tab PO SCH ×2 (09:12→20:58)
[2016-07-30] MEDS: Aspirin 81 MG Tab.EC PO SCH (09:12)
[2016-07-30] MEDS: Clopidogrel 75 MG Tab PO SCH (09:13)
[2016-07-30] MEDS: oxyCODONE ER 10 MG TAB.ER PO SCH ×2 (09:21→20:59)
[2016-07-30] MEDS: Polyethylene Glycol 3350 Powder 17 GM Packet PO PRN (09:36)
[2016-07-30] MEDS: cefTRIAXone 1 GM in Sodium Chloride 0.9% 50 ML IV SCH (15:09)
--- NOTE | 2016-07-30 17:46 | PCM.PN ---
- General Info Date of Service: 07/30/16 Functional Status: Reports: pain controlled, tolerating diet - Review of Systems General: Reports: Weakness. Denies: Fever, Chills Pulmonary: Reports: no symptoms Cardiovascular: Reports: No Symptoms Gastrointestinal: Reports: Constipation. 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 He did have a small bowel movement yesterday, but none today. Likely that constipation and bladder infection or contributing to current bladder spasms. Hemoglobin has remained stable with no evidence of further active bleeding. Vital signs have been stable and he has remained afebrile. - Patient Data Vitals - most recent: Last Vital Signs Temp 97.8 F 07/30/16 16:26 Pulse 82 07/30/16 16:26 Resp 16 07/30/16 16:26 BP 118/67 07/30/16 16:26 Pulse Ox 96 07/30/16 16:26 Weight - most recent: 178 lb I&O - last 24 hours: Intake & Output 07/30/16 07/30/16 07/30/16 06:59 14:59 22:59 Intake Total 200 1260 Output Total 217 439 3220 Balance -700 510 -1400 Lab Results last 24 hrs: Laboratory Results - last 24 hr 07/30/16 07/30/16 Range/Units 04:33 04:33 WBC 8.4 (4.5-11.0) K/uL RBC 2.88 L (4.30-5.90) M/uL Hgb 9.3 L (12.0-15.0) g/dL Hct 29.5 L (40.0-54.0) % MCV 102 H (80-98) fL MCH 32 H (27-31) pg MCHC 32 (32-36) % Plt Count 216 (150-400) K/uL Neut % (Auto) 60 (36-66) % Lymph % (Auto) 23 L (24-44) % [place] % (Auto) 11 H (2-6) % Eos % (Auto) 7 H (2-4) % Baso % (Auto) 0 (0-1) % Sodium 145 (140-148) mmol/L Potassium 4.0 (3.6-5.2) mmol/L Chloride 111 H (100-108) mmol/L Carbon Dioxide 27 (21-32) mmol/L Anion Gap 11.0 (5.0-14.0) mmol/L BUN 16 (7-18) mg/dL Creatinine 1.1 (0.8-1.3) mg/dL Est Cr Clr Drug Dosing 53.21 mL/min Estimated GFR (MDRD) > 60 (>60) Glucose 115 H (74-106) mg/dL Calcium 7.9 L (8.5-10.1) mg/dL Med Orders - Current: Current Medications Acetaminophen (Tylenol) 650 mg PO Q4H PRN PRN Reason: Pain (Mild 1-3)/fever Albuterol (Proventil Neb Soln) 2.5 mg NEB Q4H PRN PRN Reason: Shortness Of Breath/wheezing Aspirin (Halfprin) 81 mg PO DAILY [facility] Last Admin: 07/30/16 09:12 Dose: 81 mg Atorvastatin Calcium (Lipitor) 20 mg PO BEDTIME [facility] Last Admin: 07/29/16 20:56 Dose: 20 mg Carvedilol (Coreg) 3.125 mg PO BID [facility] Last Admin: 07/30/16 09:12 Dose: 3.125 mg Clopidogrel Bisulfate (Plavix) 75 mg PO DAILY [facility] Last Admin: 07/30/16 09:13 Dose: 75 mg Diphenhydramine HCl (Benadryl) 25 - 50 mg PO BEDTIME PRN PRN Reason: Sleep Last Admin: 07/30/16 00:39 Dose: 50 mg Hyoscyamine (Hyomax-Sl) 0.125 mg SL Q4H PRN PRN Reason: Other Last Admin: 07/30/16 15:29 Dose: 0.125 mg Ceftriaxone Sodium 1 gm/ (Sodium Chloride) 50 mls @ 100 mls/hr IV Q24H [facility] Last Admin: 07/30/16 15:09 Dose: 100 mls/hr Magnesium Hydroxide (Milk Of Magnesia) 30 ml PO Q12H PRN PRN Reason: Constipation Ondansetron HCl (Zofran Odt) 4 mg PO Q6H PRN PRN Reason: Nausea able to take PO Ondansetron HCl (Zofran) 4 mg IV Q6H PRN PRN Reason: Nausea/Vomiting Oxycodone HCl (Oxycontin) 10 mg PO Q12H [facility] Last Admin: 07/30/16 09:21 Dose: 10 mg Oxycodone/Acetaminophen (Percocet 325-5 Mg) 1 - 2 tab PO Q4H PRN PRN Reason: Pain Last Admin: 07/30/16 16:57 Dose: 2 tab Pantoprazole Sodium (Protonix) 40 mg PO BIDAC [facility] Last Admin: 07/30/16 16:57 Dose: 40 mg Polyethylene Glycol (Miralax) 17 gm PO DAILY PRN PRN Reason: Constipation Last Admin: 07/30/16 09:36 Dose: 17 gm Senna/Docusate Sodium (Senna Plus) 1 tab PO BID [facility] Last Admin: 07/30/16 09:13 Dose: 1 tab Sodium Chloride (Saline Flush) 10 ml FLUSH ASDIRECTED PRN PRN Reason: Keep Vein Open Last Admin: 07/27/16 10:18 Dose: 10 ml Discontinued Medications Sodium Chloride (Normal Saline) 1,000 mls @ 500 mls/hr IV ASDIRECTED [facility] Last Admin: 07/27/16 10:18 Dose: 500 mls/hr Sodium Chloride (Normal Saline) 1,000 mls @ 125 mls/hr IV ASDIRECTED [facility] Last Admin: 07/29/16 05:49 Dose: 125 mls/hr Sodium Chloride (Normal Saline) 500 mls @ 500 mls/hr IV ASDIRECTED [facility] Last Admin: 07/28/16 19:00 Dose: 500 mls/hr Oxybutynin Chloride (Oxybutynin) 5 mg PO DAILY ONE Stop: 07/28/16 21:40 Last Admin: 07/28/16 21:51 Dose: 5 mg Senna/Docusate Sodium (Senna Plus) 2 tab PO ONETIME ONE Stop: 07/29/16 11:01 Last Admin: 07/29/16 10:36 Dose: 2 tab - Exam Quality Assessment: urine catheter General: alert, oriented, cooperative, mild distress Lungs: Clear to auscultation, Normal respiratory effort Cardiovascular: Regular Rate, Regular Rhythm, No Murmurs Abdomen: bowel sounds present, soft, no tenderness, no distension Extremities: no edema Skin: warm, dry, intact - Problem List Review Problem List Initiated/Reviewed/Updated: Yes - My Orders Last 24 Hours: My Active Orders 07/31/16 05:11 HGB [HEMOGLOBIN] [HEME] AM - Plan Plan:: Assessment and plan - Acute gastrointestinal hemorrhage - suspect lower GI hemorrhage with red blood. He did have recent constipation and I suspect this may have led to a diverticular bleed. No further evidence of active bleeding over the past 48 hours. Discussed options for further management including colonoscopy, unless he has further bleeding patient does not want to consider further evaluation area -Saline lock IV -Serial hemoglobin levels -Restart antiplatelet therapy Severe bladder spasms-typically does have bladder spasms every day but they're fairly limited in frequency and duration. He has had ongoing difficulty with bladder spasms over the past 24 hours. Urinalysis did show evidence of urinary tract infection. -Urine culture pending -Continue Rocephin 1 g IV every 24 hours -Hyoscyamine 0.125 mg by mouth every 4 hours Constipation-likely that this causes difficulty with recent lower GI bleed and may be contributing to current bladder spasm. He did have a small bowel movement yesterday but none yet today -Consider daily bowel regimen as long as he is on narcotics Coronary artery disease - no active symptoms at this time. He is on dual antiplatelet therapy with recent stenting. -Continue medical management -restart dual antiplatelet therapy Chronic severe back pain with lumbar radiculopathy - pain not well-controlled, functional status declining inpatient uncomfortable day and night. Surgical intervention very dangerous based on cardiac status and age. Pain pills do help make the pain more bearable. -Trial of OxyContin -as needed oxycodone Maintenance issues - - DVT prophylaxis - mechanical - GI prophylaxis - PPI - Nutrition - heart healthy diet - Christianson catheter - chronic indwelling suprapubic catheter Disposition - anticipate discharge to home after the hospital stay, probably tomorrow if stable overnight Primary care physician - Ashwini Rojas NP / Dr Darden
[2016-07-30] MEDS: atorvaSTATin 20 MG Tab PO SCH (20:58)
[2016-07-31] MEDS: Acetaminophen/oxyCODONE 325-5 MG Tab PO PRN ×3 (02:19→16:17)
[2016-07-31] MEDS: Hyoscyamine 0.125 MG Tab.SL SL PRN ×3 (02:30→11:15)
[2016-07-31] MEDS: Polyethylene Glycol 3350 Powder 17 GM Packet PO PRN (03:39)
[2016-07-31] MEDS: Pantoprazole 40 MG Tab.CR PO SCH ×2 (07:34→17:19)
[2016-07-31] MEDS: Carvedilol 3.125 MG Tab PO SCH ×2 (08:26→20:51)
[2016-07-31] MEDS: Aspirin 81 MG Tab.EC PO SCH (08:26)
[2016-07-31] MEDS: Clopidogrel 75 MG Tab PO SCH (08:27)
[2016-07-31] MEDS: oxyCODONE ER 10 MG TAB.ER PO SCH ×2 (08:31→20:50)
--- NOTE | 2016-07-31 11:51 | PCM.PN ---
- General Info Date of Service: 07/31/16 Functional Status: Reports: tolerating diet, ambulating - Review of Systems General: Reports: Weakness. 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 Will signs have been stable and he has remained afebrile. Globulin level has been stable with no further evidence of active bleeding. - Patient Data Vitals - most recent: Last Vital Signs Temp 97.9 F 07/31/16 10:45 Pulse 63 07/31/16 10:45 Resp 16 07/31/16 10:45 BP 111/77 07/31/16 10:45 Pulse Ox 92 L 07/31/16 10:45 Weight - most recent: 178 lb I&O - last 24 hours: Intake & Output 07/30/16 07/31/16 07/31/16 22:59 06:59 14:59 Intake Total 1040 Output Total 1600 250 Balance -560 -250 Lab Results last 24 hrs: Laboratory Results - last 24 hr 07/31/16 Range/Units 05:01 Hgb 10.2 L (12.0-15.0) g/dL [facility] Results last 24 hrs: Microbiology 07/29/16 13:48 Urine Culture - Preliminary Urine, Suprapubic Bladder Asp Med Orders - Current: Current Medications Acetaminophen (Tylenol) 650 mg PO Q4H PRN PRN Reason: Pain (Mild 1-3)/fever Albuterol (Proventil Neb Soln) 2.5 mg NEB Q4H PRN PRN Reason: Shortness Of Breath/wheezing Aspirin (Halfprin) 81 mg PO DAILY [facility] Last Admin: 07/31/16 08:26 Dose: 81 mg Atorvastatin Calcium (Lipitor) 20 mg PO BEDTIME [facility] Last Admin: 07/30/16 20:58 Dose: 20 mg Carvedilol (Coreg) 3.125 mg PO BID [facility] Last Admin: 07/31/16 08:26 Dose: 3.125 mg Clopidogrel Bisulfate (Plavix) 75 mg PO DAILY [facility] Last Admin: 07/31/16 08:27 Dose: 75 mg Diphenhydramine HCl (Benadryl) 25 - 50 mg PO BEDTIME PRN PRN Reason: Sleep Last Admin: 07/30/16 22:18 Dose: 50 mg Hyoscyamine (Hyomax-Sl) 0.125 mg SL Q4H [facility] Ceftriaxone Sodium 1 gm/ (Sodium Chloride) 50 mls @ 100 mls/hr IV Q24H [facility] Last Admin: 07/30/16 15:09 Dose: 100 mls/hr Magnesium Hydroxide (Milk Of Magnesia) 30 ml PO Q12H PRN PRN Reason: Constipation Last Admin: 07/31/16 07:09 Dose: 30 ml Ondansetron HCl (Zofran Odt) 4 mg PO Q6H PRN PRN Reason: Nausea able to take PO Ondansetron HCl (Zofran) 4 mg IV Q6H PRN PRN Reason: Nausea/Vomiting Oxycodone HCl (Oxycontin) 10 mg PO Q12H [facility] Last Admin: 07/31/16 08:31 Dose: 10 mg Oxycodone/Acetaminophen (Percocet 325-5 Mg) 1 - 2 tab PO Q4H PRN PRN Reason: Pain Last Admin: 07/31/16 06:26 Dose: 2 tab Pantoprazole Sodium (Protonix) 40 mg PO BIDAC [facility] Last Admin: 07/31/16 07:34 Dose: 40 mg Polyethylene Glycol (Miralax) 17 gm PO DAILY PRN PRN Reason: Constipation Last Admin: 07/31/16 03:39 Dose: 17 gm Senna/Docusate Sodium (Senna Plus) 1 tab PO BID [facility] Last Admin: 07/31/16 08:27 Dose: 1 tab Senna/Docusate Sodium (Senna Plus) 2 tab PO ONETIME ONE Stop: 07/31/16 11:47 Sodium Chloride (Saline Flush) 10 ml FLUSH ASDIRECTED PRN PRN Reason: Keep Vein Open Last Admin: 07/27/16 10:18 Dose: 10 ml Discontinued Medications Hyoscyamine (Hyomax-Sl) 0.125 mg SL Q4H PRN PRN Reason: Other Last Admin: 07/31/16 11:15 Dose: 0.125 mg Sodium Chloride (Normal Saline) 1,000 mls @ 500 mls/hr IV ASDIRECTED [facility] Last Admin: 07/27/16 10:18 Dose: 500 mls/hr Sodium Chloride (Normal Saline) 1,000 mls @ 125 mls/hr IV ASDIRECTED [facility] Last Admin: 07/29/16 05:49 Dose: 125 mls/hr Sodium Chloride (Normal Saline) 500 mls @ 500 mls/hr IV ASDIRECTED [facility] Last Admin: 07/28/16 19:00 Dose: 500 mls/hr Oxybutynin Chloride (Oxybutynin) 5 mg PO DAILY ONE Stop: 07/28/16 21:40 Last Admin: 07/28/16 21:51 Dose: 5 mg Senna/Docusate Sodium (Senna Plus) 2 tab PO ONETIME ONE Stop: 07/29/16 11:01 Last Admin: 07/29/16 10:36 Dose: 2 tab - Exam Quality Assessment: urine catheter, DVT prophylaxis General: alert, oriented, cooperative, moderate distress Lungs: Clear to auscultation, Normal respiratory effort Cardiovascular: Regular Rate, Regular Rhythm, Murmurs Abdomen: bowel sounds present, soft, no tenderness, no distension Extremities: no edema Skin: warm, dry, intact - Problem List Review Problem List Initiated/Reviewed/Updated: Yes - My Orders Last 24 Hours: My Active Orders 07/31/16 11:45 Hyoscyamine [Hyomax-SL] 0.125 mg SL Q4H 07/31/16 11:46 Docusate Sodium/Sennosides [Senna Plus] 2 tab PO ONETIME ONE - Plan Plan:: Assessment and plan - Acute gastrointestinal hemorrhage - no further evidence of active bleeding, hemoglobin level has remained stable -Saline lock IV -Restart antiplatelet therapy Severe bladder spasms-typically does have bladder spasms every day but they're fairly limited in frequency and duration. He has had ongoing difficulty with bladder spasms over the past 24 hours. Urinalysis did show evidence of urinary tract infection. -Urine culture pending -Continue Rocephin 1 g IV every 24 hours -Hyoscyamine 0.125 mg by mouth every 4 hours Constipation-likely that this causes difficulty with recent lower GI bleed and may be contributing to current bladder spasm. He did have a small bowel movement yesterday but none yet today -Consider daily bowel regimen as long as he is on narcotics -Senokot S 2 additional tablets by mouth today Coronary artery disease - no active symptoms at this time. He is on dual antiplatelet therapy with recent stenting. 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
[2016-07-31] MEDS: cefTRIAXone 1 GM in Sodium Chloride 0.9% 50 ML IV SCH (15:09)
[2016-07-31] MEDS: Hyoscyamine 0.125 MG Tab.SL SL SCH ×3 (17:19→23:57)
[2016-07-31] MEDS: diphenhydrAMINE 25 MG Cap PO PRN (20:50)
[2016-07-31] MEDS: atorvaSTATin 20 MG Tab PO SCH (20:52)
[2016-08-01] MEDS: Acetaminophen/oxyCODONE 325-5 MG Tab PO PRN ×3 (02:17→23:25)
[2016-08-01] MEDS: Hyoscyamine 0.125 MG Tab.SL SL SCH ×6 (03:48→23:29)
[2016-08-01] MEDS: Pantoprazole 40 MG Tab.CR PO SCH ×2 (07:08→16:35)
[2016-08-01] MEDS: Aspirin 81 MG Tab.EC PO SCH (08:25)
[2016-08-01] MEDS: oxyCODONE ER 10 MG TAB.ER PO SCH ×2 (08:26→20:50)
[2016-08-01] MEDS: Clopidogrel 75 MG Tab PO SCH (08:26)
[2016-08-01] MEDS: Carvedilol 3.125 MG Tab PO SCH ×2 (08:26→20:51)
[2016-08-01] MEDS ORDERED: Furosemide 40 MG/4 ML VIAL IVPUSH ONE (12:30)
[2016-08-01] MEDS: cefTRIAXone 1 GM in Sodium Chloride 0.9% 50 ML IV SCH (14:37)
--- NOTE | 2016-08-01 15:01 | PCM.PN ---
- General Info Date of Service: 08/01/16 Functional Status: Reports: pain controlled, tolerating diet, ambulating - Review of Systems General: Reports: Weakness. Denies: Fever, Chills Pulmonary: Reports: no symptoms Cardiovascular: Reports: No Symptoms Gastrointestinal: Reports: No symptoms Genitourinary: Reports: other (Recurrent frequent bladder spasms) Systems Review Comment:: Rev. Cruz continues to experience difficulty with bladder spasms, over the past 24 hours is had 3 bowel movements. He is still concerned that he has ongoing constipation which is contributing to the bladder spasms. Urine has cleared, final ID and sensitivities are pending an Escherichia coli grown from the urine. Vital signs have been stable and he has remained afebrile - Patient Data Vitals - most recent: Last Vital Signs Temp 98.4 F 08/01/16 11:02 Pulse 74 08/01/16 11:02 Resp 20 08/01/16 11:02 BP 92/53 L 08/01/16 11:02 Pulse Ox 96 08/01/16 11:02 Weight - most recent: 178 lb I&O - last 24 hours: Intake & Output 07/31/16 08/01/16 08/01/16 22:59 06:59 14:59 Intake Total 50 480 600 Output Total 2131 782 4630 Balance -1200 -320 -400 [facility] Results last 24 hrs: Microbiology 07/29/16 13:48 Urine Culture - Final Urine, Suprapubic Bladder Asp Escherichia Coli#2 Escherichia Coli Med Orders - Current: Current Medications Acetaminophen (Tylenol) 650 mg PO Q4H PRN PRN Reason: Pain (Mild 1-3)/fever Albuterol (Proventil Neb Soln) 2.5 mg NEB Q4H PRN PRN Reason: Shortness Of Breath/wheezing Aspirin (Halfprin) 81 mg PO DAILY [facility] Last Admin: 08/01/16 08:25 Dose: 81 mg Atorvastatin Calcium (Lipitor) 20 mg PO BEDTIME [facility] Last Admin: 07/31/16 20:52 Dose: 20 mg Carvedilol (Coreg) 3.125 mg PO BID [facility] Last Admin: 08/01/16 08:26 Dose: 3.125 mg Clopidogrel Bisulfate (Plavix) 75 mg PO DAILY [facility] Last Admin: 08/01/16 08:26 Dose: 75 mg Diphenhydramine HCl (Benadryl) 25 - 50 mg PO BEDTIME PRN PRN Reason: Sleep Last Admin: 07/31/16 20:50 Dose: 50 mg Hyoscyamine (Hyomax-Sl) 0.25 mg SL Q4H [facility] Ceftriaxone Sodium 1 gm/ (Sodium Chloride) 50 mls @ 100 mls/hr IV Q24H [facility] Last Admin: 08/01/16 14:37 Dose: 100 mls/hr Magnesium Hydroxide (Milk Of Magnesia) 30 ml PO Q12H PRN PRN Reason: Constipation Last Admin: 07/31/16 07:09 Dose: 30 ml Ondansetron HCl (Zofran Odt) 4 mg PO Q6H PRN PRN Reason: Nausea able to take PO Ondansetron HCl (Zofran) 4 mg IV Q6H PRN PRN Reason: Nausea/Vomiting Oxycodone HCl (Oxycontin) 10 mg PO Q12H [facility] Last Admin: 08/01/16 08:26 Dose: 10 mg Oxycodone/Acetaminophen (Percocet 325-5 Mg) 1 - 2 tab PO Q4H PRN PRN Reason: Pain Last Admin: 08/01/16 14:41 Dose: 2 tab Pantoprazole Sodium (Protonix) 40 mg PO BIDAC [facility] Last Admin: 08/01/16 07:08 Dose: 40 mg Polyethylene Glycol (Miralax) 17 gm PO DAILY PRN PRN Reason: Constipation Last Admin: 07/31/16 03:39 Dose: 17 gm Senna/Docusate Sodium (Senna Plus) 1 tab PO BID [facility] Last Admin: 08/01/16 08:26 Dose: 1 tab Sodium Chloride (Saline Flush) 10 ml FLUSH ASDIRECTED PRN PRN Reason: Keep Vein Open Last Admin: 07/27/16 10:18 Dose: 10 ml Discontinued Medications Furosemide (Lasix) 40 mg IVPUSH NOW ONE Stop: 08/01/16 12:31 Last Admin: 08/01/16 13:11 Dose: 40 mg Hyoscyamine (Hyomax-Sl) 0.125 mg SL Q4H PRN PRN Reason: Other Last Admin: 07/31/16 11:15 Dose: 0.125 mg Hyoscyamine (Hyomax-Sl) 0.125 mg SL Q4H [facility] Last Admin: 08/01/16 12:05 Dose: 0.125 mg Sodium Chloride (Normal Saline) 1,000 mls @ 500 mls/hr IV ASDIRECTED [facility] Last Admin: 07/27/16 10:18 Dose: 500 mls/hr Sodium Chloride (Normal Saline) 1,000 mls @ 125 mls/hr IV ASDIRECTED [facility] Last Admin: 07/29/16 05:49 Dose: 125 mls/hr Sodium Chloride (Normal Saline) 500 mls @ 500 mls/hr IV ASDIRECTED [facility] Last Admin: 07/28/16 19:00 Dose: 500 mls/hr Oxybutynin Chloride (Oxybutynin) 5 mg PO DAILY ONE Stop: 07/28/16 21:40 Last Admin: 07/28/16 21:51 Dose: 5 mg Senna/Docusate Sodium (Senna Plus) 2 tab PO ONETIME ONE Stop: 07/29/16 11:01 Last Admin: 07/29/16 10:36 Dose: 2 tab Senna/Docusate Sodium (Senna Plus) 2 tab PO ONETIME ONE Stop: 07/31/16 13:01 Last Admin: 07/31/16 13:43 Dose: 2 tab Senna/Docusate Sodium (Senna Plus) 2 tab PO ONETIME ONE Stop: 08/01/16 13:01 Last Admin: 08/01/16 13:07 Dose: 2 tab - Exam Quality Assessment: urine catheter, DVT prophylaxis General: alert, oriented, cooperative, moderate distress Lungs: Clear to auscultation, Normal respiratory effort Cardiovascular: Regular Rate, No Murmurs, Irregular Rhythm, Murmurs. No: Bradycardia, Tachycardia Abdomen: bowel sounds present, soft, no tenderness, no distension Extremities: edema Skin: warm, dry, intact - Problem List Review Problem List Initiated/Reviewed/Updated: Yes - My Orders Last 24 Hours: My Active Orders 08/01/16 16:00 Hyoscyamine [Hyomax-SL] 0.25 mg SL Q4H 08/02/16 05:00 BASIC METABOLIC PANEL,BMP [CHEM] Timed - Plan Plan:: Assessment and plan - Acute gastrointestinal hemorrhage - no further evidence of active bleeding, hemoglobin level has remained stable -Saline lock IV -Restart antiplatelet therapy Severe bladder spasms-typically does have bladder spasms every day but they're fairly limited in frequency and duration. He has had ongoing difficulty with bladder spasms over the past 24 hours. Urinalysis did show evidence of urinary tract infection. -Urine culture pending -Continue Rocephin 1 g IV every 24 hours -Hyoscyamine 0.25 mg by mouth every 4 hours Constipation-likely that this causes difficulty with recent lower GI bleed and may be contributing to current bladder spasm. He's had 3 bowel movements over the past 24 hours, still feels as though he is constipated -Consider daily bowel regimen as long as he is on narcotics -Senokot S 2 additional tablets by mouth today Coronary artery disease - no active symptoms at this time. He is on dual antiplatelet therapy with recent stenting. 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
[2016-08-01] MEDS ORDERED: Bisacodyl 10 MG Supp RECTAL ONE (16:31)
[2016-08-01] MEDS: atorvaSTATin 20 MG Tab PO SCH (20:52)
[2016-08-01] MEDS: diphenhydrAMINE 25 MG Cap PO PRN (23:25)
[2016-08-02] MEDS: Hyoscyamine 0.125 MG Tab.SL SL SCH ×3 (03:18→11:24)
[2016-08-02] MEDS: Pantoprazole 40 MG Tab.CR PO SCH (07:08)
[2016-08-02] MEDS: oxyCODONE ER 10 MG TAB.ER PO SCH (08:45)
[2016-08-02] MEDS: Clopidogrel 75 MG Tab PO SCH (08:45)
[2016-08-02] MEDS: Aspirin 81 MG Tab.EC PO SCH (08:45)
[2016-08-02] MEDS: Carvedilol 3.125 MG Tab PO SCH (08:46)
[2016-08-02 10:23] VITALS: BP 129/69
[2016-08-02] MEDS ORDERED: Furosemide 40 MG/4 ML VIAL IVPUSH ONE (11:15)
[2016-08-02] MEDS: Acetaminophen/oxyCODONE 325-5 MG Tab PO PRN (11:25)
--- NOTE | 2016-08-02 11:47 | PCM.DCSUM1 ---
Discharge Summary - Hospital Course Brief History: RevShiela Cruz 76-year-old gentleman who was admitted through the emergency department for further evaluation and management of acute blood loss anemia secondary to a lower GI bleed. - Discharge Data Discharge Date: 08/02/16 Discharge Disposition: Home, Self-Care 01 Condition: Fair - Discharge Diagnosis/Problem(s) (1) UTI (urinary tract infection) SNOMED Code(s): 28504554 ICD Code: N39.0 - URINARY TRACT INFECTION, SITE NOT SPECIFIED Status: Acute Current Visit: Yes (2) Bladder spasm Status: Acute Current Visit: Yes (3) Constipation SNOMED Code(s): 35457221 ICD Code: K59.00 - CONSTIPATION, UNSPECIFIED Status: Acute Current Visit : Yes (4) Acute lower gastrointestinal hemorrhage SNOMED Code(s): 50086027 ICD Code: K92.2 - GASTROINTESTINAL HEMORRHAGE, UNSPECIFIED Status: Acute Current Visit: Yes (5) Coronary artery disease SNOMED Code(s): 38596509 ICD Code: I25.10 - ATHSCL HEART DISEASE OF [place] CORONARY ARTERY W/O ANG PCTRS Status: Chronic Current Visit: No Qualifiers: Coronary Disease-Associated Artery/Lesion type: [place] artery [place] vs. 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 He had a large bowel movement prior to admission and following that did have significant lower GI bleeding. On evaluation emergency room department his hemoglobin was down from baseline. He was admitted and given IV fluids for hydration. Serial hemoglobin levels were monitored and remained stable throughout his hospital stay. There was no further evidence of active or significant GI bleeding. Further evaluation with colonoscopy was discussed with the patient, because of his severe coronary artery disease it was decided to forego the colonoscopy unless he develops further significant bleeding. He understands that there is some risk of undiagnosed malignancy or other problem in his colon without proceeding with the colonoscopy. His hospital course was otherwise complicated by persistent constipation as well as recurrent severe bladder spasms. He received aggressive bowel regimen and by the time of discharge was having regular bowel movements. Improvement in the constipation also seemed to improve the bladder spasms although they remain in intermittent problem occurring several times per day in leaving him very uncomfortable. Because of the ongoing severe pain additional pain medication was added to his regimen and he will be discharged on OxyContin 10 mg twice daily in addition to his usual oxycodone. He will also be discharged on hyoscyamine for management of his bladder spasms. Urinalysis obtained during hospital stay did show evidence of obvious urinary tract infection and he was treated with Rocephin while hospitalized. Prior to discharge ID and sensitivities are cultures were available, there were 2 species of Escherichia coli, resistant to fluoroquinolones but otherwise pansensitive. He will be discharged with an additional 3 days of trimethoprim sulfamethoxazole double strength one twice daily. Activity will be as tolerated and he will be scheduled to see his primary care provider within one week. He will plan to resume his usual diet. - Patient Instructions Diet: Usual Diet as Tolerated Activity: As Tolerated Other/Special Instructions: Schedule followup appointment with primary care provider within one week. Please obtain CBC for followup of hemoglobin at the time of followup appointment. - Discharge Plan Prescriptions/Med Rec: Hyoscyamine [Hyomax-SL] 0.125 mg SL Q4H PRN #60 tab.sl PRN Reason: Other Sulfamethoxazole/Trimethoprim [Septra DS] 1 each PO BID #6 tab oxyCODONE ER [OxyCONTIN] 10 mg PO Q12H #30 tab.er Home Medications: Home Meds Acetaminophen [Tylenol Extra Strength] 500 mg PO Q4H PRN 01/09/13 [History] Ascorbic Acid [Vitamin C] 100 mg PO DAILY 01/09/13 [History] Aspirin [Elías Chewable Aspirin] 81 mg PO DAILY 01/09/13 [History] Cholecalciferol (Vitamin D3) [Vitamin D3] 1,000 unit PO DAILY 01/09/13 [History] Losartan [Cozaar] 0.5 tab PO DAILY 01/09/13 [History] Nitroglycerin 0.4 mg SL ASDIRECTED PRN 01/09/13 [History] Sennosides/Docusate Sodium [Senna S] 8.6 mg PO ONETIME PRN 01/09/13 [History] diphenhydrAMINE [Benadryl] 25 mg PO BEDTIME PRN 01/09/13 [History] atorvaSTATin [Lipitor] 20 mg PO BEDTIME 07/01/14 [History] Clopidogrel Bisulfate [Clopidogrel] 75 mg PO DAILY 12/21/15 [History] Acetaminophen/oxyCODONE [Percocet 325-5 MG] 1 - 2 tab PO Q4H PRN #80 tablet [Rx] Carvedilol 3.125 mg PO BID 03/26/16 [History] Isosorbide Mononitrate [Imdur] 30 mg PO DAILY #30 tab.er 03/27/16 [Rx] Cyanocobalamin (Vitamin B12) [Vitamin B12] 1,000 mcg PO DAILY 05/06/16 [History] Pregabalin [Lyrica] 50 mg PO TID 05/06/16 [History] Pentoxifylline [TRENtal] 1 tab PO TID 05/07/16 [History] Hyoscyamine [Hyomax-SL] 0.125 mg SL Q4H PRN #60 tab.sl 08/02/16 [Rx] Sulfamethoxazole/Trimethoprim [Septra DS] 1 each PO BID #6 tab 08/02/16 [Rx] oxyCODONE ER [OxyCONTIN] 10 mg PO Q12H #30 tab.er 08/02/16 [Rx] Referrals: Ashwini Rojas, [employer] [Primary Care Provider] - - Patient Data Vitals - Most Recent: Last Vital Signs Temp 97.9 F 08/02/16 10:21 Pulse 92 08/02/16 10:21 Resp 20 08/02/16 10:21 BP 129/69 08/02/16 11:24 Pulse Ox 97 08/02/16 10:21 Weight - Most Recent: 178 lb I&O - Last 24 hours: Intake & Output 08/01/16 08/02/16 08/02/16 22:59 06:59 14:59 Intake Total 120 520 Output Total 1250 200 Balance -1130 320 Lab Results - Last 24 hrs: Laboratory Results - last 24 hr 08/02/16 Range/Units 05:00 Sodium 143 (140-148) mmol/L Potassium 4.0 (3.6-5.2) mmol/L Chloride 106 (100-108) mmol/L Carbon Dioxide 30 (21-32) mmol/L Anion Gap 7.0 (5.0-14.0) mmol/L BUN 18 (7-18) mg/dL Creatinine 1.3 (0.8-1.3) mg/dL Est Cr Clr Drug Dosing 45.03 mL/min Estimated GFR (MDRD) 52 L (>60) Glucose 113 H (74-106) mg/dL Calcium 8.2 L (8.5-10.1) mg/dL [facility] Results - Last 24 hrs: Microbiology 07/29/16 13:48 Urine Culture - Final Urine, Suprapubic Bladder Asp Escherichia Coli#2 Escherichia Coli Med Orders - Current: Current Medications Acetaminophen (Tylenol) 650 mg PO Q4H PRN PRN Reason: Pain (Mild 1-3)/fever Albuterol (Proventil Neb Soln) 2.5 mg NEB Q4H PRN PRN Reason: Shortness Of Breath/wheezing Aspirin (Halfprin) 81 mg PO DAILY [facility] Last Admin: 08/02/16 08:45 Dose: 81 mg Atorvastatin Calcium (Lipitor) 20 mg PO BEDTIME [facility] Last Admin: 08/01/16 20:52 Dose: 20 mg Carvedilol (Coreg) 3.125 mg PO BID [facility] Last Admin: 08/02/16 08:46 Dose: 3.125 mg Clopidogrel Bisulfate (Plavix) 75 mg PO DAILY [facility] Last Admin: 08/02/16 08:45 Dose: 75 mg Diphenhydramine HCl (Benadryl) 25 - 50 mg PO BEDTIME PRN PRN Reason: Sleep Last Admin: 08/01/16 23:25 Dose: 50 mg Hyoscyamine (Hyomax-Sl) 0.25 mg SL Q4H [facility] Last Admin: 08/02/16 11:24 Dose: 0.25 mg Ceftriaxone Sodium 1 gm/ (Sodium Chloride) 50 mls @ 100 mls/hr IV Q24H [facility] Last Admin: 08/01/16 14:37 Dose: 100 mls/hr Magnesium Hydroxide (Milk Of Magnesia) 30 ml PO Q12H PRN PRN Reason: Constipation Last Admin: 07/31/16 07:09 Dose: 30 ml Ondansetron HCl (Zofran Odt) 4 mg PO Q6H PRN PRN Reason: Nausea able to take PO Ondansetron HCl (Zofran) 4 mg IV Q6H PRN PRN Reason: Nausea/Vomiting Oxycodone HCl (Oxycontin) 10 mg PO Q12H [facility] Last Admin: 08/02/16 08:45 Dose: 10 mg Oxycodone/Acetaminophen (Percocet 325-5 Mg) 1 - 2 tab PO Q4H PRN PRN Reason: Pain Last Admin: 08/02/16 11:25 Dose: 2 tab Pantoprazole Sodium (Protonix) 40 mg PO BIDAC [facility] Last Admin: 08/02/16 07:08 Dose: 40 mg Polyethylene Glycol (Miralax) 17 gm PO DAILY PRN PRN Reason: Constipation Last Admin: 07/31/16 03:39 Dose: 17 gm Senna/Docusate Sodium (Senna Plus) 1 tab PO BID [facility] Last Admin: 08/02/16 08:45 Dose: 1 tab Sodium Chloride (Saline Flush) 10 ml FLUSH ASDIRECTED PRN PRN Reason: Keep Vein Open Last Admin: 07/27/16 10:18 Dose: 10 ml Discontinued Medications Bisacodyl (Dulcolax) 10 mg RECTAL ONETIME ONE Stop: 08/01/16 16:32 Last Admin: 08/01/16 17:22 Dose: 10 mg Furosemide (Lasix) 40 mg IVPUSH NOW ONE Stop: 08/01/16 12:31 Last Admin: 08/01/16 13:11 Dose: 40 mg Furosemide (Lasix) 40 mg IVPUSH NOW ONE Stop: 08/02/16 11:16 Last Admin: 08/02/16 11:24 Dose: 40 mg Hyoscyamine (Hyomax-Sl) 0.125 mg SL Q4H PRN PRN Reason: Other Last Admin: 07/31/16 11:15 Dose: 0.125 mg Hyoscyamine (Hyomax-Sl) 0.125 mg SL Q4H [facility] Last Admin: 08/01/16 12:05 Dose: 0.125 mg Sodium Chloride (Normal Saline) 1,000 mls @ 500 mls/hr IV ASDIRECTED [facility] Last Admin: 07/27/16 10:18 Dose: 500 mls/hr Sodium Chloride (Normal Saline) 1,000 mls @ 125 mls/hr IV ASDIRECTED [facility] Last Admin: 07/29/16 05:49 Dose: 125 mls/hr Sodium Chloride (Normal Saline) 500 mls @ 500 mls/hr IV ASDIRECTED [facility] Last Admin: 07/28/16 19:00 Dose: 500 mls/hr Oxybutynin Chloride (Oxybutynin) 5 mg PO DAILY ONE Stop: 07/28/16 21:40 Last Admin: 07/28/16 21:51 Dose: 5 mg Senna/Docusate Sodium (Senna Plus) 2 tab PO ONETIME ONE Stop: 07/29/16 11:01 Last Admin: 07/29/16 10:36 Dose: 2 tab Senna/Docusate Sodium (Senna Plus) 2 tab PO ONETIME ONE Stop: 07/31/16 13:01 Last Admin: 07/31/16 13:43 Dose: 2 tab Senna/Docusate Sodium (Senna Plus) 2 tab PO ONETIME ONE Stop: 08/01/16 13:01 Last Admin: 08/01/16 13:07 Dose: 2 tab *Q Meaningful Use (DIS) - VTE *Q VTE Criteria *Q: VTE Pharmacological Contraindications *Q: Active Hemorrhage - Stroke *Q Stroke Criteria *Q: - AMI *Q AMI Criteria *Q:
[2016-08-02] MEDS: cefTRIAXone 1 GM in Sodium Chloride 0.9% 50 ML IV SCH (12:09)
== END 2016-08-02 14:58 | disposition home or self-care (01) | DRG 378 ==
LOC: JP.ED 09:25 → JP.ICU 13:11 → JP.MS 07-29 15:25
PROVIDERS: ADMIT Internal Medicine; ATTEND Hospitalist
DX: K92.2 Gastrointestinal hemorrhage, unspecified (principal); D62 Acute posthemorrhagic anemia; N39.0 Urinary tract infection, site not specified; M54.9 Dorsalgia, unspecified; M54.16 Radiculopathy, lumbar region; G89.29 Other chronic pain; Z66 Do not resuscitate; K62.5 Hemorrhage of anus and rectum; K59.00 Constipation, unspecified; N32.89 Other specified disorders of bladder; I25.119 Atherosclerotic heart disease of native coronary artery with unspecified angina pectoris; I10 Essential (primary) hypertension; Z95.1 Presence of aortocoronary bypass graft; Z95.5 Presence of coronary angioplasty implant and graft; E78.00 Pure hypercholesterolemia, unspecified; I25.2 Old myocardial infarction; M19.90 Unspecified osteoarthritis, unspecified site; B96.20 Unspecified Escherichia coli [E. coli] as the cause of diseases classified elsewhere; R33.8 Other retention of urine; H54.7 Unspecified visual loss; Z88.6 Allergy status to analgesic agent; Z88.8 Allergy status to other drugs, medicaments and biological substances; Z79.82 Long term (current) use of aspirin; Z96.659 Presence of unspecified artificial knee joint
CPT/HCPCS: 36415; 80053; 84484; 85025; 85610; 85730; 86850; 86900; 86901; 86920; 86922; 96360; 96361; 99284; 99285; J7040; J7050; 80048; 81001; 83735; 85018; 85027; 87086; 87088; 87186; A9270-GY; J0696; J1940

== ENCOUNTER 2016-08-09 01:33 | Emergency (ER) | payer MEDICARE, BC ==
[2016-08-09 01:52] VITALS: BP 139/76
--- NOTE | 2016-08-09 03:31 | EDM.PDOC ---
ED HPI RENAL/ - General Chief Complaint: Genitourinary Problem Stated Complaint: SUPRA PUBIC CATH ISSUE Time Seen by Provider: 08/09/16 03:27 Source: Reports: Patient History Limitations: Reports: No limitations - History of Present Illness INITIAL COMMENTS - FREE TEXT/NARRATIVE: History of present illness: [86-year-old male presenting with a suprapubic catheter overall which she is leaking. It was recently changed and so this is somewhat confusing to him that he is having trouble. He is having some bladder spasms as well. He tried to irrigate it at home without success. He's had no fevers or chills no nausea or vomiting and is otherwise feeling well.] Review of systems: As per history of present illness and below otherwise all systems reviewed and negative. Past medical history: As per history of present illness and as reviewed below otherwise noncontributory. Surgical history: As per history of present illness and as reviewed below otherwise noncontributory. Social history: No reported history of drug or alcohol abuse. Family history: As per history of present illness and as reviewed below otherwise noncontributory. Physical exam: HEENT: Atraumatic, normocephalic, pupils reactive, negative for conjunctival pallor or scleral icterus, mucous membranes moist, throat clear, neck supple, nontender, trachea midline. Lungs: Clear to auscultation, breath sounds equal bilaterally, chest nontender. Heart: S1S2, regular, negative for clicks, rubs, or JVD. Abdomen: Soft, nondistended, nontender. Negative for masses or hepatosplenomegaly. Negative for costovertebral tenderness. Pelvis: Stable nontender. Genitourinary: We attempted to irrigate the suprapubic catheter but were unsuccessful and so it was replaced by one of the RNs without incident. It is now draining successfully and his spasms have resolved. He is happy. Diagnostics: [] Therapeutics: [] Impression: [Suprapubic cath replacement] Plan: [Followup as needed] Definitive disposition and diagnosis as appropriate pending reevaluation and review of above. - Related Data Allergies/ADRs: Allergies Allergy/AdvReac Type Severity Reaction Status Date / Time aspirin Allergy Unknown Hives Verified 05/08/16 10:55 piroxicam [From Feldene] Allergy Rash Verified 05/08/16 10:55 Home Meds: Home Meds Acetaminophen [Tylenol Extra Strength] 500 mg PO Q4H PRN 01/09/13 [History] Ascorbic Acid [Vitamin C] 100 mg PO DAILY 01/09/13 [History] Aspirin [Elías Chewable Aspirin] 81 mg PO DAILY 01/09/13 [History] Cholecalciferol (Vitamin D3) [Vitamin D3] 1,000 unit PO DAILY 01/09/13 [History] Losartan [Cozaar] 0.5 tab PO DAILY 01/09/13 [History] Nitroglycerin 0.4 mg SL ASDIRECTED PRN 01/09/13 [History] Sennosides/Docusate Sodium [Senna S] 8.6 mg PO ONETIME PRN 01/09/13 [History] diphenhydrAMINE [Benadryl] 25 mg PO BEDTIME PRN 01/09/13 [History] atorvaSTATin [Lipitor] 20 mg PO BEDTIME 07/01/14 [History] Clopidogrel Bisulfate [Clopidogrel] 75 mg PO DAILY 12/21/15 [History] Acetaminophen/oxyCODONE [Percocet 325-5 MG] 1 - 2 tab PO Q4H PRN #80 tablet [Rx] Carvedilol 3.125 mg PO BID 03/26/16 [History] Isosorbide Mononitrate [Imdur] 30 mg PO DAILY #30 tab.er 03/27/16 [Rx] Cyanocobalamin (Vitamin B12) [Vitamin B12] 1,000 mcg PO DAILY 05/06/16 [History] Pregabalin [Lyrica] 50 mg PO TID 05/06/16 [History] Pentoxifylline [TRENtal] 1 tab PO TID 05/07/16 [History] Benzocaine/Menthol [Cepacol Sore Throat Lozenge] 1 each MM Q4H PRN #30 lozenge 08/02/16 [Rx] Hyoscyamine [Hyomax-SL] 0.125 mg SL Q4H PRN #60 tab.sl 08/02/16 [Rx] Sulfamethoxazole/Trimethoprim [Septra DS] 1 each PO BID #6 tab 08/02/16 [Rx] oxyCODONE ER [OxyCONTIN] 10 mg PO Q12H #30 tab.er 08/02/16 [Rx] Past Medical History HEENT History: Reports: Cataract, Impaired vision Cardiovascular History: Reports: Angina, Arrhythmia, CAD, High cholesterol, Hypertension, [place], SOB on exertion, Stents Respiratory History: Reports: Other (see below) Other Respiratory History: seeing a lung specialist in [place]. Spot on lung to investigate Gastrointestinal History: Reports: GERD Genitourinary History: Reports: Retention, urinary, Other (see below) Other Genitourinary History: surapubic catheter Musculoskeletal History: Reports: Back pain, chronic, Fracture, Osteoarthritis Hematologic History: Reports: Blood transfusion(s) Oncologic (Cancer) History: Reports: Prostate - Infectious Disease History Infectious Disease History: Reports: Chicken pox, Measles, Mumps - Past Surgical History HEENT Surgical History: Reports: Cataract surgery, Oral surgery, Tonsillectomy Cardiovascular Surgical History: Reports: Coronary artery bypass, Coronary artery stent GI Surgical History: Reports: Colonoscopy, EGD Other Male Surgeries/Procedures: Supra-pubic catheter Musculoskeletal Surgical History: Reports: Knee replacement Other Musculoskeletal Surgeries/Procedures:: both knees Social & Family History - Family History Family Medical History: Noncontributory - Tobacco Use Smoking Status *Q: Never Smoker Second Hand Smoke Exposure: No - Caffeine Use Caffeine Use: Reports: None - Alcohol Use Days Per Week of Alcohol Use: 0 Number of Drinks Per Day: 1 Total Drinks Per Week: 0 - Recreational Drug Use Recreational Drug Use: No Recreational Drug Type: Reports: Marijuana/Hashish Recreational Drug Use Frequency: Rarely ED ROS GENERAL - Review of Systems Review Of Systems: ROS reveals no pertinent complaints other than HPI. ED EXAM, RENAL/ - Physical Exam Exam: See Below Course - Vital Signs Last Recorded V/S: Last Vital Signs Temp 36.4 C 08/09/16 01:52 Pulse 96 08/09/16 01:52 Resp 20 08/09/16 01:52 BP 139/76 08/09/16 01:52 Pulse Ox 94 L 08/09/16 01:52 - Orders/Labs/Meds Orders: Active Orders 24 hr Category Date Time Status Urinary Catheter Assessment [RC] ASDIRECTED Care 08/09/16 03:18 Active Urinary Catheter Insertion [Insert Urinary Catheter] [ Care 08/09/16 03:00 Ordered OM.PC] Stat Departure - Departure Time of Disposition: 03:30 Disposition: Home, Self-Care 01 Condition: good Clinical Impression: Suprapubic catheter dysfunction Qualifiers: Encounter type: initial encounter Qualified Code(s): T83.010A - Breakdown ( mechanical) of cystostomy catheter, initial encounter Forms: ED Department Discharge Additional Instructions: We're happy to have been able to help you and we are always available if you need help in the future - My Orders Last 24 Hours: My Active Orders 08/09/16 03:00 Urinary Catheter Insertion [Insert Urinary Catheter] [OM.PC] Stat 08/09/16 03:18 Urinary Catheter Assessment [RC] ASDIRECTED - Assessment/Plan Last 24 Hours: My Active Orders 08/09/16 03:00 Urinary Catheter Insertion [Insert Urinary Catheter] [OM.PC] Stat 08/09/16 03:18 Urinary Catheter Assessment [RC] ASDIRECTED
== END 2016-08-09 03:45 | disposition home or self-care (01) ==
LOC: JP.ED 01:33
DX: T83.010A Breakdown (mechanical) of cystostomy catheter, initial encounter (principal); I20.9 Angina pectoris, unspecified; I25.10 Atherosclerotic heart disease of native coronary artery without angina pectoris; I10 Essential (primary) hypertension; I25.2 Old myocardial infarction; E78.00 Pure hypercholesterolemia, unspecified; K21.9 Gastro-esophageal reflux disease without esophagitis; Z95.1 Presence of aortocoronary bypass graft; Z85.46 Personal history of malignant neoplasm of prostate; Z95.5 Presence of coronary angioplasty implant and graft; Z96.652 Presence of left artificial knee joint; Z96.651 Presence of right artificial knee joint; Z98.890 Other specified postprocedural states; Z79.82 Long term (current) use of aspirin; Z79.02 Long term (current) use of antithrombotics/antiplatelets; Z79.899 Other long term (current) drug therapy; Z88.8 Allergy status to other drugs, medicaments and biological substances
CPT/HCPCS: 51702; 99282; 99283; A4217

== ENCOUNTER 2016-08-13 10:13 | Inpatient (IN) | payer MEDICARE, BC ==
--- NOTE | 2016-08-13 10:41 | EDM.PDOC ---
ED HPI GI/ABDOMINAL - General Chief Complaint: Gastrointestinal Problem Stated Complaint: MED VIA TRI Time Seen by Provider: 08/13/16 10:35 Source: Reports: Patient History Limitations: Reports: No limitations - History of Present Illness INITIAL COMMENTS - FREE TEXT/NARRATIVE: Pt arrived with a history of a fair amount of bright red bleeding. He had a normal soft bm yesterday and just started to pass the blood this am. About 2 weeks ago he had bleeding which he was hospitalized for. He did not have a colonoscopy. Timing/Duration: Reports: Hour(s): Location: other (Pt is not having pain.) Associated Symptoms: Reports: bloody stools - Related Data Allergies/ADRs: Allergies Allergy/AdvReac Type Severity Reaction Status Date / Time aspirin Allergy Unknown Hives Verified 05/08/16 10:55 piroxicam [From Feldene] Allergy Rash Verified 05/08/16 10:55 Home Meds: Home Meds Acetaminophen [Tylenol Extra Strength] 500 mg PO Q4H PRN 01/09/13 [History] Ascorbic Acid [Vitamin C] 100 mg PO DAILY 01/09/13 [History] Aspirin [Elías Chewable Aspirin] 81 mg PO DAILY 01/09/13 [History] Cholecalciferol (Vitamin D3) [Vitamin D3] 1,000 unit PO DAILY 01/09/13 [History] Losartan [Cozaar] 0.5 tab PO DAILY 01/09/13 [History] Nitroglycerin 0.4 mg SL ASDIRECTED PRN 01/09/13 [History] Sennosides/Docusate Sodium [Senna S] 8.6 mg PO ONETIME PRN 01/09/13 [History] diphenhydrAMINE [Benadryl] 25 mg PO BEDTIME PRN 01/09/13 [History] atorvaSTATin [Lipitor] 20 mg PO BEDTIME 07/01/14 [History] Clopidogrel Bisulfate [Clopidogrel] 75 mg PO DAILY 12/21/15 [History] Acetaminophen/oxyCODONE [Percocet 325-5 MG] 1 - 2 tab PO Q4H PRN #80 tablet [Rx] Carvedilol 3.125 mg PO BID 03/26/16 [History] Isosorbide Mononitrate [Imdur] 30 mg PO DAILY #30 tab.er 03/27/16 [Rx] Cyanocobalamin (Vitamin B12) [Vitamin B12] 1,000 mcg PO DAILY 05/06/16 [History] Pregabalin [Lyrica] 50 mg PO TID 05/06/16 [History] Pentoxifylline [TRENtal] 1 tab PO TID 05/07/16 [History] Benzocaine/Menthol [Cepacol Sore Throat Lozenge] 1 each MM Q4H PRN #30 lozenge 08/02/16 [Rx] Hyoscyamine [Hyomax-SL] 0.125 mg SL Q4H PRN #60 tab.sl 08/02/16 [Rx] Sulfamethoxazole/Trimethoprim [Septra DS] 1 each PO BID #6 tab 08/02/16 [Rx] oxyCODONE ER [OxyCONTIN] 10 mg PO Q12H #30 tab.er 08/02/16 [Rx] Past Medical History HEENT History: Reports: Cataract, Impaired vision Cardiovascular History: Reports: Angina, Arrhythmia, CAD, High cholesterol, Hypertension, [place], SOB on exertion, Stents Respiratory History: Reports: Other (see below) Other Respiratory History: seeing a lung specialist in [place]. Spot on lung to investigate Gastrointestinal History: Reports: GERD Genitourinary History: Reports: Retention, urinary, Other (see below) Other Genitourinary History: surapubic catheter Musculoskeletal History: Reports: Back pain, chronic, Fracture, Osteoarthritis Hematologic History: Reports: Blood transfusion(s) Oncologic (Cancer) History: Reports: Prostate - Infectious Disease History Infectious Disease History: Reports: Chicken pox, Measles, Mumps - Past Surgical History HEENT Surgical History: Reports: Cataract surgery, Oral surgery, Tonsillectomy Cardiovascular Surgical History: Reports: Coronary artery bypass, Coronary artery stent GI Surgical History: Reports: Colonoscopy, EGD Other Male Surgeries/Procedures: Supra-pubic catheter Musculoskeletal Surgical History: Reports: Knee replacement Other Musculoskeletal Surgeries/Procedures:: both knees Social & Family History - Family History Family Medical History: Noncontributory - Tobacco Use Smoking Status *Q: Never Smoker Second Hand Smoke Exposure: No - Caffeine Use Caffeine Use: Reports: None - Alcohol Use Days Per Week of Alcohol Use: 0 Number of Drinks Per Day: 1 Total Drinks Per Week: 0 - Recreational Drug Use Recreational Drug Use: No Recreational Drug Type: Reports: Marijuana/Hashish Recreational Drug Use Frequency: Rarely ED ROS GENERAL - Review of Systems Review Of Systems: See Below Constitutional: Reports: no symptoms HEENT: Reports: No symptoms Respiratory: Reports: No Symptoms Cardiovascular: Reports: No symptoms Endocrine: Reports: no symptoms GI/Abdominal: Reports: Bloody stool, Other (Pt passed a painless bright red bloody stool. ) : Reports: no symptoms Musculoskeletal: Reports: no symptoms Skin: Reports: no symptoms ED EXAM, GI/ABD - Physical Exam Exam: See Below Text/Narrative:: Pt arrived with a bp of 124/80. He gave a history of bloody stool which was fairly large this am. There was no pain connected to the bm. Exam Limited By: No limitations General Appearance: alert, anxious, mild distress, other ( very pale appearing. ) Ears: normal TMs Nose: normal inspection Throat/Mouth: Normal inspection Head: atraumatic Neck: normal inspection Respiratory/Chest: no respiratory distress Cardiovascular: regular rate, rhythm GI/Abdominal: soft, non tender (Male) Exam: Deferred Rectal (Males) Exam: Other ( There is no mass present. The rectum is filled with current jelly colored blood. There does not appear to be blood connected to the stool. ) Extremities: normal inspection Neurological: alert, oriented, normal cognition, other ( very pale. ) Psychiatric: normal affect Course - Vital Signs Last Recorded V/S: Last Vital Signs Temp 36.2 C 08/13/16 10:19 Pulse 79 08/13/16 10:19 Resp 14 08/13/16 10:19 BP 124/65 08/13/16 10:19 Pulse Ox 98 08/13/16 10:19 - Orders/Labs/Meds Orders: Active Orders 24 hr Category Date Time Status RED BLOOD CELLS LP [BBK] Stat Lab 08/13/16 10:58 Ordered TYPE AND SCREEN [BBK] Stat Lab 08/13/16 10:58 Ordered UA W/MICROSCOPIC [URIN] Urgent Lab 08/13/16 10:26 Uncollected Sodium Chloride 0.9% [Normal Saline] 1,000 ml Med 08/13/16 11:00 Active IV ASDIRECTED Medication Orders Sodium Chloride (Normal Saline) 1,000 mls @ 250 mls/hr IV ASDIRECTED RUTHIE Last Admin: 08/13/16 11:02 Dose: 250 mls/hr Labs: Laboratory Tests 08/13/16 08/13/16 08/13/16 Range/Units 10:25 10:25 10:34 WBC 8.3 (4.5-11.0) K/uL RBC 2.77 L (4.30-5.90) M/uL Hgb 8.5 L (12.0-15.0) g/dL Hct 27.8 L (40.0-54.0) % MCV 100 H (80-98) fL MCH 31 (27-31) pg MCHC 31 L (32-36) % Plt Count 363 (150-400) K/uL Neut % (Auto) 65 (36-66) % Lymph % (Auto) 21 L (24-44) % Potter % (Auto) 10 H (2-6) % Eos % (Auto) 3 (2-4) % Baso % (Auto) 0 (0-1) % PT (9.5-12.0) sec INR (0.80-1.20) APTT 21.8 L (27.0-36.0) sec Sodium 141 (140-148) mmol/L Potassium 4.3 (3.6-5.2) mmol/L Chloride 107 (100-108) mmol/L Carbon Dioxide 28 (21-32) mmol/L Anion Gap 6.5 (5.0-14.0) mmol/L BUN 27 H (7-18) mg/dL Creatinine 1.0 (0.8-1.3) mg/dL Est Cr Clr Drug Dosing 58.53 mL/min Estimated GFR (MDRD) > 60 (>60) Glucose 129 H (74-106) mg/dL Calcium 8.0 L (8.5-10.1) mg/dL Total Bilirubin 0.4 (0.2-1.0) mg/dL AST 20 (15-37) U/L ALT 18 (12-78) U/L Alkaline Phosphatase 75 (46-116) U/L Total Protein 6.1 L (6.4-8.2) g/dL Albumin 3.0 L (3.4-5.0) g/dL Globulin 3.1 (2.3-3.5) g/dL Albumin/Globulin Ratio 1.0 L (1.2-2.2) 08/13/16 Range/Units 10:34 WBC (4.5-11.0) K/uL RBC (4.30-5.90) M/uL Hgb (12.0-15.0) g/dL Hct (40.0-54.0) % MCV (80-98) fL MCH (27-31) pg MCHC (32-36) % Plt Count (150-400) K/uL Neut % (Auto) (36-66) % Lymph % (Auto) (24-44) % Potter % (Auto) (2-6) % Eos % (Auto) (2-4) % Baso % (Auto) (0-1) % PT 10.9 (9.5-12.0) sec INR 1.03 (0.80-1.20) APTT (27.0-36.0) sec Sodium (140-148) mmol/L Potassium (3.6-5.2) mmol/L Chloride (100-108) mmol/L Carbon Dioxide (21-32) mmol/L Anion Gap (5.0-14.0) mmol/L BUN (7-18) mg/dL Creatinine (0.8-1.3) mg/dL Est Cr Clr Drug Dosing mL/min Estimated GFR (MDRD) (>60) Glucose (74-106) mg/dL Calcium (8.5-10.1) mg/dL Total Bilirubin (0.2-1.0) mg/dL AST (15-37) U/L ALT (12-78) U/L Alkaline Phosphatase (46-116) U/L Total Protein (6.4-8.2) g/dL Albumin (3.4-5.0) g/dL Globulin (2.3-3.5) g/dL Albumin/Globulin Ratio (1.2-2.2) Meds: Medications Generic Name Dose Route Start Last Admin Trade Name Freq PRN Reason Stop Dose Admin Sodium Chloride 1,000 mls @ 250 mls/hr 08/13/16 11:00 08/13/16 11:02 Normal Saline IV 250 mls/hr ASDIRECTED [facility] Administration - Re-Assessments/Exams Free Text/Narrative Re-Assessment/Exam: 08/13/16 11:36 Pt was found to have a hg of 8.5. He has been typed for 2 units of packed cells. He has not had any bloody stools while he is in the hosp. He is painfree. 08/13/16 11:41 will plan to admit to Dr guerrero. Departure - Departure Time of Disposition: 11:42 Disposition: Admitted As Inpatient 65 Condition: fair Clinical Impression: GI bleeding, Anemia Coronary artery disease Qualifiers: Coronary Disease-Associated Artery/Lesion type: kaw artery [place] vs. transplanted heart: kaw heart Associated angina: angina presence unspecified Qualified Code(s): I25.10 - Atherosclerotic heart disease of kaw coronary artery without angina pectoris Forms: ED Department Discharge Care Plan Goals: admit to Dr guerrero. - My Orders Last 24 Hours: My Active Orders 08/13/16 10:26 UA W/MICROSCOPIC [URIN] Urgent 08/13/16 10:58 RED BLOOD CELLS LP [BBK] Stat TYPE AND SCREEN [BBK] Stat 08/13/16 11:00 Sodium Chloride 0.9% [Normal Saline] 1,000 ml IV ASDIRECTED - Assessment/Plan Last 24 Hours: My Active Orders 08/13/16 10:26 UA W/MICROSCOPIC [URIN] Urgent 08/13/16 10:58 RED BLOOD CELLS LP [BBK] Stat TYPE AND SCREEN [BBK] Stat 08/13/16 11:00 Sodium Chloride 0.9% [Normal Saline] 1,000 ml IV ASDIRECTED
[2016-08-13] MEDS ORDERED: Sodium Chloride 0.9% 1,000 ML IV SCH (11:00)
--- NOTE | 2016-08-13 13:18 | PCM.HP ---
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 He was hospitalized at this facility about 3 weeks ago, at that time he had an isolated episode of lower GI bleeding. There was no recurrent bleeding after admission and his hemoglobin level remains stable. Because of his history of significant cardiac disease as well as his advanced age and other medical issues it was decided not to pursue colonoscopy at that time. He is done relatively well since discharge with no further evidence of GI bleeding until this morning when he had a large bloody bowel movement. He's felt weak and lightheaded with this but denies any symptoms of chest pain or shortness of breath. On evaluation in the emergency department he is been found to have a hemoglobin level of 8.5, it was 10.2 prior to discharge from his previous hospitalization. - Related Data Allergies/Adverse Reactions: Allergies Allergy/AdvReac Type Severity Reaction Status Date / Time aspirin Allergy Unknown Hives Verified 05/08/16 10:55 piroxicam [From Feldene] Allergy Rash Verified 05/08/16 10:55 Home Medications: Home Meds Acetaminophen [Tylenol Extra Strength] 500 mg PO Q4H PRN 01/09/13 [History] Ascorbic Acid [Vitamin C] 100 mg PO DAILY 01/09/13 [History] Aspirin [Elías Chewable Aspirin] 81 mg PO DAILY 01/09/13 [History] Cholecalciferol (Vitamin D3) [Vitamin D3] 1,000 unit PO DAILY 01/09/13 [History] Losartan [Cozaar] 0.5 tab PO DAILY 01/09/13 [History] Nitroglycerin 0.4 mg SL ASDIRECTED PRN 01/09/13 [History] Sennosides/Docusate Sodium [Senna S] 8.6 mg PO ONETIME PRN 01/09/13 [History] diphenhydrAMINE [Benadryl] 25 mg PO BEDTIME PRN 09/14/13 [History] atorvaSTATin [Lipitor] 20 mg PO BEDTIME 07/01/14 [History] Clopidogrel Bisulfate [Clopidogrel] 75 mg PO DAILY 12/21/15 [History] Acetaminophen/oxyCODONE [Percocet 325-5 MG] 1 - 2 tab PO Q4H PRN #80 tablet [Rx] Carvedilol 3.125 mg PO BID 03/26/16 [History] Isosorbide Mononitrate [Imdur] 30 mg PO DAILY #30 tab.er 03/27/16 [Rx] Cyanocobalamin (Vitamin B12) [Vitamin B12] 1,000 mcg PO DAILY 05/06/16 [History] Pregabalin [Lyrica] 50 mg PO TID 05/06/16 [History] Pentoxifylline [TRENtal] 1 tab PO TID 05/07/16 [History] Benzocaine/Menthol [Cepacol Sore Throat Lozenge] 1 each MM Q4H PRN #30 lozenge 08/02/16 [Rx] Hyoscyamine [Hyomax-SL] 0.125 mg SL Q4H PRN #60 tab.sl 08/02/16 [Rx] Sulfamethoxazole/Trimethoprim [Septra DS] 1 each PO BID #6 tab 08/02/16 [Rx] oxyCODONE ER [OxyCONTIN] 10 mg PO Q12H #30 tab.er 08/02/16 [Rx] Past Medical History HEENT History: Reports: Cataract, Impaired vision Cardiovascular History: Reports: Angina, Arrhythmia, CAD, High cholesterol, Hypertension, [place], SOB on exertion, Stents Respiratory History: Reports: Other (see below) Other Respiratory History: seeing a lung specialist in [place]. Spot on lung to investigate Gastrointestinal History: Reports: GERD Genitourinary History: Reports: Retention, urinary, Other (see below) Other Genitourinary History: surapubic catheter Musculoskeletal History: Reports: Back pain, chronic, Fracture, Osteoarthritis Hematologic History: Reports: Blood transfusion(s) Oncologic (Cancer) History: Reports: Prostate - Infectious Disease History Infectious Disease History: Reports: Chicken pox, Measles, Mumps - Past Surgical History HEENT Surgical History: Reports: Cataract surgery, Oral surgery, Tonsillectomy Cardiovascular Surgical History: Reports: Coronary artery bypass, Coronary artery stent GI Surgical History: Reports: Colonoscopy, EGD Other Male Surgeries/Procedures: Supra-pubic catheter Musculoskeletal Surgical History: Reports: Knee replacement Other Musculoskeletal Surgeries/Procedures:: both knees Social & Family History - Family History Family Medical History: Noncontributory - Tobacco Use Smoking Status *Q: Never Smoker Second Hand Smoke Exposure: No - Caffeine Use Caffeine Use: Reports: None - Alcohol Use Days Per Week of Alcohol Use: 0 Number of Drinks Per Day: 1 Total Drinks Per Week: 0 - Recreational Drug Use Recreational Drug Use: No Recreational Drug Type: Reports: Marijuana/Hashish Recreational Drug Use Frequency: Rarely H&P Review of Systems - Review of Systems: Review Of Systems: See Below General: Reports: weakness. Denies: fever, chills, diaphoresis HEENT: Reports: no symptoms Pulmonary: Reports: No Symptoms Cardiovascular: Reports: no symptoms Gastrointestinal: Reports: Decreased appetite, Hematochezia. Denies: Abdominal pain, Constipation, Diarrhea, Difficulty swallowing, Distension, Nausea, Vomiting Genitourinary: Reports: other (Suprapubic catheter, occasional bladder spasms) Musculoskeletal: Reports: back pain Skin: Reports: no symptoms Psychiatric: Reports: no symptoms Neurological: Reports: No Symptoms Hematologic/Lymphatic: Reports: no symptoms Immunologic: Reports: no symptoms Exam - Exam Exam: See Below - Vital Signs Vital Signs: Last Vital Signs Temp 97.2 F 08/13/16 10:19 Pulse 79 08/13/16 10:19 Resp 14 08/13/16 10:19 BP 124/65 08/13/16 10:19 Pulse Ox 98 08/13/16 10:19 Weight: 177 lb 15.984 oz - Exam Quality Assessment: urinary catheter, DVT prophylaxis General: alert, oriented, cooperative, mild distress HEENT: Conjunctiva clear, Hearing intact, Mucosa moist & pink, Nares patent, Normal nasal septum, Posterior pharynx clear, Pupils equal, Pupils reactive Neck: supple, trachea midline, +2 carotid pulse wo bruit Lungs: Clear to auscultation, Normal respiratory effort Cardiovascular: regular rate, regular rhythm, normal S1, normal S2 Abdomen: normal bowel sounds, soft Back Exam: normal inspection, full range of motion, NT Extremities: 3, normal inspection, 10 Skin: warm, dry, intact Neurological: cranial nerves intact, strength equal bilateral, normal speech, normal tone, sensation intact. No: focal deficit Neuro Extensive - Mental Status: alert, oriented x3, normal mood/affect, normal cognition, memory intact - Patient Data Lab Results last 24 hrs: Laboratory Results - last 24 hr 08/13/16 08/13/16 08/13/16 Range/Units 10:25 10:25 10:34 WBC 8.3 (4.5-11.0) K/uL RBC 2.77 L (4.30-5.90) M/uL Hgb 8.5 L (12.0-15.0) g/dL Hct 27.8 L (40.0-54.0) % MCV 100 H (80-98) fL MCH 31 (27-31) pg MCHC 31 L (32-36) % Plt Count 363 (150-400) K/uL Neut % (Auto) 65 (36-66) % Lymph % (Auto) 21 L (24-44) % [place] % (Auto) 10 H (2-6) % Eos % (Auto) 3 (2-4) % Baso % (Auto) 0 (0-1) % PT (9.5-12.0) sec INR (0.80-1.20) APTT 21.8 L (27.0-36.0) sec Sodium 141 (140-148) mmol/L Potassium 4.3 (3.6-5.2) mmol/L Chloride 107 (100-108) mmol/L Carbon Dioxide 28 (21-32) mmol/L Anion Gap 6.5 (5.0-14.0) mmol/L BUN 27 H (7-18) mg/dL Creatinine 1.0 (0.8-1.3) mg/dL Est Cr Clr Drug Dosing 58.53 mL/min Estimated GFR (MDRD) > 60 (>60) Glucose 129 H (74-106) mg/dL Calcium 8.0 L (8.5-10.1) mg/dL Total Bilirubin 0.4 (0.2-1.0) mg/dL AST 20 (15-37) U/L ALT 18 (12-78) U/L Alkaline Phosphatase 75 (46-116) U/L Total Protein 6.1 L (6.4-8.2) g/dL Albumin 3.0 L (3.4-5.0) g/dL Globulin 3.1 (2.3-3.5) g/dL Albumin/Globulin Ratio 1.0 L (1.2-2.2) Blood Type Gel Antibody Screen Crossmatch 08/13/16 08/13/16 Range/Units 10:34 10:58 WBC (4.5-11.0) K/uL RBC (4.30-5.90) M/uL Hgb (12.0-15.0) g/dL Hct (40.0-54.0) % MCV (80-98) fL MCH (27-31) pg MCHC (32-36) % Plt Count (150-400) K/uL Neut % (Auto) (36-66) % Lymph % (Auto) (24-44) % [place] % (Auto) (2-6) % Eos % (Auto) (2-4) % Baso % (Auto) (0-1) % PT 10.9 (9.5-12.0) sec INR 1.03 (0.80-1.20) APTT (27.0-36.0) sec Sodium (140-148) mmol/L Potassium (3.6-5.2) mmol/L Chloride (100-108) mmol/L Carbon Dioxide (21-32) mmol/L Anion Gap (5.0-14.0) mmol/L BUN (7-18) mg/dL Creatinine (0.8-1.3) mg/dL Est Cr Clr Drug Dosing mL/min Estimated GFR (MDRD) (>60) Glucose (74-106) mg/dL Calcium (8.5-10.1) mg/dL Total Bilirubin (0.2-1.0) mg/dL AST (15-37) U/L ALT (12-78) U/L Alkaline Phosphatase (46-116) U/L Total Protein (6.4-8.2) g/dL Albumin (3.4-5.0) g/dL Globulin (2.3-3.5) g/dL Albumin/Globulin Ratio (1.2-2.2) Blood Type O POSITIVE Gel Antibody Screen Negative Crossmatch See Detail Result Diagrams: 08/13/16 10:25 08/13/16 10:25 *Q Meaningful Use (ADM) - VTE *Q VTE Criteria *Q: VTE Pharmacological Contraindications *Q: Active Hemorrhage - VTE Risk Assess *Q Each Risk Factor Represents 1 Point: None Total Score 1 Point Risk Factors: 0 Each Risk Factor Represents 2 Points: Previous Malignancy Total Score 2 Point Risk Factors: 2 Each Risk Factor Represents 3 Points: Age 75 Years or Greater Total Score 3 Point Risk Factors: 3 Each Risk Factor Represents 5 Points: None Total Score 5 Point Risk Factors: 0 Venous Thromboembolism Risk Factor Score *Q: 5 - Stroke *Q Stroke Criteria *Q: - AMI *Q AMI Criteria *Q: Problem List Initiated/Reviewed/Updated: Yes Orders Last 24hrs: Active Orders 24 hr Category Date Time Status Patient Status Manage Transfer [TRANSFER] Routine ADT 08/13/16 12:39 Active Cardiac Monitoring [RC] .As Directed Care 08/13/16 12:39 Active RED BLOOD CELLS LP [BBK] Stat Lab 08/13/16 10:58 Results TYPE AND SCREEN [BBK] Stat Lab 08/13/16 10:58 Results UA W/MICROSCOPIC [URIN] Urgent Lab 08/13/16 10:26 Uncollected Sodium Chloride 0.9% [Normal Saline] 1,000 ml Med 08/13/16 11:00 Active IV ASDIRECTED Resuscitation Status Routine Resus Stat 08/13/16 12:44 Ordered Medication Orders Sodium Chloride (Normal Saline) 1,000 mls @ 250 mls/hr IV ASDIRECTED RUTHIE Last Admin: 08/13/16 11:02 Dose: 250 mls/hr Assessment/Plan Comment:: ASSESSMENT AND PLAN ACUTE LOWER GI HEMORRHAGE-previous episode occurred over 2 weeks ago, with no further bleeding during hospitalization. Because of his significant cardiac disease, decision was made not to pursue further invasive evaluation. He now is had a recurrent episode of bleeding this morning and his hemoglobin is down to 8.5. -Given active bleeding will transfuse 2 units of red blood cells -Type and cross to hold 4 units of red blood cells -Serial hemoglobin levels -Admit to ICU for more close observation and hemodynamic monitoring -Protonix 40 mg IV daily -Consult Dr. Trejo for colonoscopy in a.m. -Colonoscopy prep CORONARY ARTERY DISEASE-status post angioplasty and stent one month ago -Because of recent stent will need to continue aspirin and Plavix -Continue outpatient medical management CHRONIC LOW BACK PAIN-he is in the process of exploring placement of a nerve block implant -Continue pain medication during hospitalization INDWELLING SUPRAPUBIC CATHETER -Urinalysis pending -Hyoscyamine as needed for bladder spasms MAINTENANCE ISSUES -DVT prophylaxis; SCUDs, hold on anticoagulation given acute GI bleed -GI prophylaxis; Protonix as above -[place] catheter; suprapubic catheter -Nutrition; n.p.o. -Nicotine dependence; not required CODE STATUS-DNR/DNI ADMISSION STATUS-patient will be admitted to inpatient status, expect at least a 2 night hospital stay for evaluation and management of problems as outlined above. At the time of this admission I do not reasonably expected evaluation and management of this problem will require more than a 96 hour hospital stay. DISPOSITION-anticipate discharge to home after the hospital stay. PRIMARY CARE PROVIDER-Dr. Darden
[2016-08-13] MEDS ORDERED: Acetaminophen 325 MG Tab PO PRN (13:57)
[2016-08-13] MEDS ORDERED: Sodium Chloride 0.9% 10 ML Syringe FLUSH PRN (13:57)
[2016-08-13] MEDS ORDERED: Albuterol 0.083% 2.5 MG/3 ML Neb Soln NEB PRN (13:57)
[2016-08-13] MEDS ORDERED: Ondansetron 4 MG/2 ML SDV IV PRN (13:57)
[2016-08-13] MEDS ORDERED: Hyoscyamine 0.125 MG Tab.SL SL PRN (13:57)
[2016-08-13] MEDS ORDERED: Magnesium Hydroxide 400 MG/5 ML Susp 30 ML Cup PO PRN (13:57)
[2016-08-13] MEDS ORDERED: Polyethylene Glycol 3350 Powder 17 GM Packet PO PRN (13:57)
[2016-08-13] MEDS ORDERED: Docusate Sodium 100 MG Cap PO PRN (13:57)
[2016-08-13] MEDS ORDERED: Sodium Chloride 0.9% 500 ML IV SCH (13:57)
[2016-08-13] MEDS ORDERED: Bisacodyl 5 MG Tab PO ONE ×2 (14:15→21:00)
[2016-08-13] MEDS: Pregabalin 50 MG Cap PO SCH ×2 (14:46→22:58)
[2016-08-13] MEDS: Pentoxifylline 400 MG Tab.ER PO SCH ×2 (14:58→20:58)
[2016-08-13] MEDS ORDERED: Pantoprazole 40 MG Vial IV SCH (15:00)
[2016-08-13] MEDS: Acetaminophen/oxyCODONE 325-5 MG Tab PO PRN ×2 (16:00→22:50)
[2016-08-13] MEDS ORDERED: Polyethylene Glycol 3350 Powder 238 GM Bot PO ONE (17:00)
[2016-08-13] MEDS: oxyCODONE ER 10 MG TAB.ER PO SCH (19:36)
[2016-08-13] MEDS: Sodium Chloride 0.9% 1,000 ML IV SCH (20:50)
[2016-08-13] MEDS: atorvaSTATin 20 MG Tab PO SCH (20:57)
[2016-08-13] MEDS: Carvedilol 3.125 MG Tab PO SCH (20:57)
[2016-08-13] MEDS: Pantoprazole 40 MG Vial IV SCH (20:57)
[2016-08-13] MEDS ORDERED: Non-Formulary Medication 1 Each (Atorvastatin [Lipitor] 20 MG) PO SCH (21:00)
[2016-08-13] MEDS: diphenhydrAMINE 25 MG Cap PO PRN (22:50)
[2016-08-14] MEDS: Sodium Chloride 0.9% 1,000 ML IV SCH (04:17)
[2016-08-14] MEDS ORDERED: fentaNYL 100 MCG/2 ML SDV ONE (07:06)
[2016-08-14] MEDS ORDERED: Propofol 200 MG/20 ML SDV ONE (07:06)
[2016-08-14] MEDS: Losartan 50 MG Tab PO SCH (08:49)
[2016-08-14] MEDS: Isosorbide Mononitrate 30 MG Tab.ER PO SCH (08:49)
[2016-08-14] MEDS: Pentoxifylline 400 MG Tab.ER PO SCH ×3 (08:49→20:03)
[2016-08-14] MEDS: Carvedilol 3.125 MG Tab PO SCH ×2 (08:49→20:00)
[2016-08-14] MEDS: Aspirin 81 MG Tab.Chew PO SCH (08:50)
[2016-08-14] MEDS: Clopidogrel 75 MG Tab PO SCH (08:50)
[2016-08-14] MEDS: oxyCODONE ER 10 MG TAB.ER PO SCH ×2 (08:51→19:58)
--- NOTE | 2016-08-14 09:03 | PCM.PN ---
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 EGD was performed this morning by Dr. Trjeo and showed mild gastritis , this was not likely felt to be a bleeding source. Colonoscopy showed only diverticulosis with no evidence of active bleeding or fresh blood. Assuming that the diverticular disease is the likely source of recent bleeding. He is otherwise feeling well and denies any chest pain or pressure shortness of breath or abdominal pain. - Patient Data Vitals - most recent: Last Vital Signs Temp 97.9 F 08/14/16 08:22 Pulse 72 08/14/16 08:49 Resp 16 08/14/16 08:25 BP 135/58 L 08/14/16 08:49 Pulse Ox 99 08/14/16 08:25 Weight - most recent: 170 lb 13.732 oz I&O - last 24 hours: Intake & Output 08/13/16 08/14/16 08/14/16 22:59 06:59 14:59 Intake Total 650 3006 Output Total 500 3000 Balance 150 6 Lab Results last 24 hrs: Laboratory Results - last 24 hr 08/13/16 08/13/16 08/13/16 Range/Units 14:29 17:53 23:00 WBC (4.5-11.0) K/uL RBC (4.30-5.90) M/uL Hgb 9.4 L 11.1 L (12.0-15.0) g/dL Hct (40.0-54.0) % MCV (80-98) fL MCH (27-31) pg MCHC (32-36) % Plt Count (150-400) K/uL Neut % (Auto) (36-66) % Lymph % (Auto) (24-44) % [place] % (Auto) (2-6) % Eos % (Auto) (2-4) % Baso % (Auto) (0-1) % Sodium (140-148) mmol/L Potassium (3.6-5.2) mmol/L Chloride (100-108) mmol/L Carbon Dioxide (21-32) mmol/L Anion Gap (5.0-14.0) mmol/L BUN (7-18) mg/dL Creatinine (0.8-1.3) mg/dL Est Cr Clr Drug Dosing mL/min Estimated GFR (MDRD) (>60) Glucose (74-106) mg/dL Calcium (8.5-10.1) mg/dL Urine Color Yellow Urine Appearance Clear Urine pH 7.0 (4.5-8.0) Ur Specific [place] 1.010 (1.008-1.030) Urine Protein Negative (NEGATIVE) mg/dL Urine Glucose (UA) Normal (NEGATIVE) mg/dL Urine Ketones Negative (NEGATIVE) mg/dL Urine Occult Blood Trace (NEGATIVE) Urine Nitrite Negative (NEGAITVE) Urine Bilirubin Negative (NEGATIVE) Urine Urobilinogen Normal (NORMAL) mg/dL Ur Leukocyte Esterase Negative (NEGATIVE) Urine RBC 5-10 H (0-5) Urine WBC 0-5 (0-5) Ur Epithelial Cells Few Amorphous Sediment Not seen Urine Bacteria Few Urine Mucus Few 08/14/16 08/14/16 Range/Units 04:30 04:30 WBC 6.8 (4.5-11.0) K/uL RBC 3.40 L (4.30-5.90) M/uL Hgb 10.4 L (12.0-15.0) g/dL Hct 32.8 L (40.0-54.0) % MCV 97 (80-98) fL MCH 31 (27-31) pg MCHC 32 (32-36) % Plt Count 321 (150-400) K/uL Neut % (Auto) 57 (36-66) % Lymph % (Auto) 29 (24-44) % [place] % (Auto) 10 H (2-6) % Eos % (Auto) 4 (2-4) % Baso % (Auto) 1 (0-1) % Sodium 143 (140-148) mmol/L Potassium 4.1 (3.6-5.2) mmol/L Chloride 110 H (100-108) mmol/L Carbon Dioxide 25 (21-32) mmol/L Anion Gap 12.1 (5.0-14.0) mmol/L BUN 19 H (7-18) mg/dL Creatinine 0.9 (0.8-1.3) mg/dL Est Cr Clr Drug Dosing 63.39 mL/min Estimated GFR (MDRD) > 60 (>60) Glucose 88 (74-106) mg/dL Calcium 7.9 L (8.5-10.1) mg/dL Urine Color Urine Appearance Urine pH (4.5-8.0) Ur Specific [place] (1.008-1.030) Urine Protein (NEGATIVE) mg/dL Urine Glucose (UA) (NEGATIVE) mg/dL Urine Ketones (NEGATIVE) mg/dL Urine Occult Blood (NEGATIVE) Urine Nitrite (NEGAITVE) Urine Bilirubin (NEGATIVE) Urine Urobilinogen (NORMAL) mg/dL Ur Leukocyte Esterase (NEGATIVE) Urine RBC (0-5) Urine WBC (0-5) Ur Epithelial Cells Amorphous Sediment Urine Bacteria Urine Mucus Med Orders - Current: Current Medications Acetaminophen (Tylenol) 650 mg PO Q4H PRN PRN Reason: Pain (Mild 1-3)/fever Albuterol (Proventil Neb Soln) 2.5 mg NEB Q4H PRN PRN Reason: Shortness Of Breath/wheezing Aspirin (Aspirin) 81 mg PO DAILY [facility] Last Admin: 08/14/16 08:50 Dose: 81 mg Atorvastatin Calcium (Lipitor) 20 mg PO BEDTIME [facility] Last Admin: 08/13/16 20:57 Dose: 20 mg Carvedilol (Coreg) 3.125 mg PO BID [facility] Last Admin: 08/14/16 08:49 Dose: 3.125 mg Clopidogrel Bisulfate (Plavix) 75 mg PO DAILY [facility] Last Admin: 08/14/16 08:50 Dose: 75 mg Diphenhydramine HCl (Benadryl) 25 mg PO BEDTIME PRN PRN Reason: Allergies Last Admin: 08/13/16 22:50 Dose: 25 mg Docusate Sodium (Colace) 100 mg PO BID PRN PRN Reason: Constipation Hyoscyamine (Hyomax-Sl) 0.125 mg SL Q4H PRN PRN Reason: Other Isosorbide Mononitrate (Imdur) 30 mg PO DAILY [facility] Last Admin: 08/14/16 08:49 Dose: 30 mg Losartan Potassium (Cozaar) 12.5 mg PO DAILY [facility] Last Admin: 08/14/16 08:49 Dose: 12.5 mg Magnesium Hydroxide (Milk Of Magnesia) 30 ml PO Q12H PRN PRN Reason: Constipation Ondansetron HCl (Zofran) 4 mg IV Q4H PRN PRN Reason: Nausea/Vomiting Oxycodone HCl (Oxycontin) 10 mg PO Q12H [facility] Last Admin: 08/14/16 08:51 Dose: 10 mg Oxycodone/Acetaminophen (Percocet 325-5 Mg) 1 - 2 tab PO Q4H PRN PRN Reason: Pain Last Admin: 08/13/16 22:50 Dose: 2 tab Pantoprazole Sodium (Protonix Iv) 40 mg IV Q24H [facility] Last Admin: 08/13/16 20:57 Dose: 40 mg Pentoxifylline (Trental) 400 mg PO TID [facility] Last Admin: 08/14/16 08:49 Dose: 400 mg Polyethylene Glycol (Miralax) 17 gm PO DAILY PRN PRN Reason: Constipation Senna/Docusate Sodium (Senna Plus) 1 tab PO BID PRN PRN Reason: Constipation Sodium Chloride (Saline Flush) 10 ml FLUSH ASDIRECTED PRN PRN Reason: Keep Vein Open Discontinued Medications Bisacodyl (Dulcolax) 10 mg PO ONETIME ONE Stop: 08/13/16 14:16 Last Admin: 08/13/16 14:59 Dose: 10 mg Bisacodyl (Dulcolax) 10 mg PO ONETIME ONE Stop: 08/13/16 21:01 Last Admin: 08/13/16 20:57 Dose: 10 mg Fentanyl (Sublimaze) Confirm Administered Dose 100 mcg .ROUTE .STK-MED ONE Stop: 08/14/16 07:07 Sodium Chloride (Normal Saline) 1,000 mls @ 250 mls/hr IV ASDIRECTED [facility] Last Admin: 08/13/16 11:02 Dose: 250 mls/hr Sodium Chloride (Normal Saline) 1,000 mls @ 125 mls/hr IV ASDIRECTED [facility] Last Admin: 08/14/16 04:17 Dose: 125 mls/hr Sodium Chloride (Normal Saline) 500 mls @ 250 mls/hr IV .BOLUS [facility] Stop: 08/13/16 17:58 Polyethylene Glycol (Miralax) 238 gm PO ONETIME ONE Stop: 08/13/16 17:01 Last Admin: 08/13/16 17:15 Dose: 1 applic Pregabalin (Lyrica) 50 mg PO TID [facility] Last Admin: 08/13/16 22:58 Dose: Not Given Propofol (Diprivan 20 Ml) Confirm Administered Dose 200 mg .ROUTE .STK-MED ONE Stop: 08/14/16 07:07 - Exam Quality Assessment: urine catheter, DVT prophylaxis General: alert, oriented, cooperative, no acute distress Lungs: Clear to auscultation, Normal respiratory effort Cardiovascular: Regular Rate, Regular Rhythm, Murmurs Abdomen: bowel sounds present, soft, no tenderness, no distension Extremities: no edema Skin: warm, dry, intact - Problem List Review Problem List Initiated/Reviewed/Updated: Yes - My Orders Last 24 Hours: My Active Orders 08/13/16 12:44 Resuscitation Status Routine 08/13/16 13:57 Patient Status [ADT] Routine Intake and Output [RC] QSHIFT Notify Provider Consults [RC] ASDIRECTED Notify Provider Vital Signs [RC] ASDIRECTED Oxygen Therapy [RC] PRN Peripheral IV Care [RC] . DIRECTED RT Aerosol Therapy [RC] ASDIRECTED Up With Assistance [RC] ASDIRECTED Vital Signs [RC] Q4H Acetaminophen [Tylenol] 650 mg PO Q4H PRN Albuterol [Proventil Neb Soln] 2.5 mg NEB Q4H PRN Docusate Sodium [Colace] 100 mg PO BID PRN Docusate Sodium/Sennosides [Senna Plus] 1 tab PO BID PRN Magnesium Hydroxide [Milk of Magnesia] 30 ml PO Q12H PRN Ondansetron [Zofran] 4 mg IV Q4H PRN Polyethylene Glycol 3350 [MiraLAX] 17 gm PO DAILY PRN Sodium Chloride 0.9% [Saline Flush] 10 ml FLUSH ASDIRECTED PRN Peripheral IV Insertion Adult [OM.PC] Routine Sequential Compression Device [OM.PC] Per Unit Routine Transfuse Red Blood Cells [COMM] Stat VTE Pharmacological Contraindications [AST] Per Unit Routine 08/13/16 21:00 Pantoprazole [ProTONIX IV] 40 mg IV Q24H atorvaSTATin [Lipitor] 20 mg PO BEDTIME 08/14/16 07:00 Consult to Physician [CONS] Routine 08/14/16 08:56 Convert IV to Saline Lock [OM.PC] Routine 08/14/16 17:00 HGB [HEMOGLOBIN] [HEME] Stat 08/14/16 Lunch Post Surgical Soft [Soft Diet] [DIET] 08/15/16 05:00 BASIC METABOLIC PANEL,BMP [CHEM] Timed CBC WITH AUTO DIFF [HEME] Timed - Plan Plan:: ASSESSMENT AND PLAN ACUTE LOWER GI HEMORRHAGE-likely diverticular in nature, no active bleeding since admission. Hemoglobin stable following transfusion of 2 units of red blood cells. -Soft diet -Type and cross to hold 4 units of red blood cells -Serial hemoglobin levels -Admit to ICU for more close observation and hemodynamic monitoring -Protonix 40 mg IV daily -Surgical followup per Dr. Trejo CORONARY ARTERY DISEASE-status post angioplasty and stent one month ago -Because of recent stent will need to continue aspirin and Plavix -Continue outpatient medical management CHRONIC LOW BACK PAIN-he is in the process of exploring placement of a nerve block implant -Continue pain medication during hospitalization INDWELLING SUPRAPUBIC CATHETER -Urinalysis pending -Hyoscyamine as needed for bladder spasms MAINTENANCE ISSUES -DVT prophylaxis; SCUDs, hold on anticoagulation given acute GI bleed -GI prophylaxis; Protonix as above -[place] catheter; suprapubic catheter -Nutrition; n.p.o. -Nicotine dependence; not required CODE STATUS-DNR/DNI ADMISSION STATUS-patient will be admitted to inpatient status, expect at least a 2 night hospital stay for evaluation and management of problems as outlined above. At the time of this admission I do not reasonably expected evaluation and management of this problem will require more than a 96 hour hospital stay. DISPOSITION-anticipate discharge to home after the hospital stay. PRIMARY CARE PROVIDER-Dr. Darden
[2016-08-14] MEDS: Acetaminophen/oxyCODONE 325-5 MG Tab PO PRN (14:54)
[2016-08-14] MEDS: Pantoprazole 40 MG Vial IV SCH (20:01)
[2016-08-14] MEDS: atorvaSTATin 20 MG Tab PO SCH (20:01)
[2016-08-15] MEDS: oxyCODONE ER 10 MG TAB.ER PO SCH ×2 (08:42→19:44)
[2016-08-15] MEDS: Isosorbide Mononitrate 30 MG Tab.ER PO SCH (08:43)
[2016-08-15] MEDS: Carvedilol 3.125 MG Tab PO SCH ×2 (08:43→21:28)
[2016-08-15] MEDS: Pentoxifylline 400 MG Tab.ER PO SCH ×3 (08:43→21:30)
[2016-08-15] MEDS: Losartan 50 MG Tab PO SCH (08:43)
[2016-08-15] MEDS: Aspirin 81 MG Tab.Chew PO SCH (08:44)
[2016-08-15] MEDS: Clopidogrel 75 MG Tab PO SCH (08:45)
--- NOTE | 2016-08-15 10:35 | PCM.PN ---
- General Info Date of Service: 08/15/16 Functional Status: Reports: pain controlled, tolerating diet - Review of Systems General: Reports: Weakness. Denies: Fever, Chills Pulmonary: Reports: no symptoms Cardiovascular: Reports: No Symptoms Gastrointestinal: Reports: No symptoms Systems Review Comment:: Patient stable over the past 24 hours with no further evidence of active bleeding. Vital signs have remained stable and he has been afebrile. Hemoglobin levels decreased yesterday afternoon, this morning are stable from then. Currently tolerating a soft low residue diet. - Patient Data Vitals - most recent: Last Vital Signs Temp 98.6 F 08/15/16 08:48 Pulse 73 08/15/16 08:48 Resp 16 08/15/16 08:48 BP 128/64 08/15/16 08:48 Pulse Ox 96 08/15/16 08:48 Weight - most recent: 170 lb 13.732 oz I&O - last 24 hours: Intake & Output 08/14/16 08/15/16 08/15/16 22:59 06:59 14:59 Intake Total 320 Output Total 525 250 Balance -205 -250 Lab Results last 24 hrs: Laboratory Results - last 24 hr 08/14/16 08/15/16 08/15/16 Range/Units 17:00 05:00 05:00 WBC 7.4 (4.5-11.0) K/uL RBC 2.99 L (4.30-5.90) M/uL Hgb 9.0 L 9.3 L (12.0-15.0) g/dL Hct 29.1 L (40.0-54.0) % MCV 97 (80-98) fL MCH 31 (27-31) pg MCHC 32 (32-36) % Plt Count 291 (150-400) K/uL Neut % (Auto) 53 (36-66) % Lymph % (Auto) 26 (24-44) % [place] % (Auto) 13 H (2-6) % Eos % (Auto) 8 H (2-4) % Baso % (Auto) 1 (0-1) % Sodium 143 (140-148) mmol/L Potassium 4.1 (3.6-5.2) mmol/L Chloride 111 H (100-108) mmol/L Carbon Dioxide 25 (21-32) mmol/L Anion Gap 11.1 (5.0-14.0) mmol/L BUN 17 (7-18) mg/dL Creatinine 0.9 (0.8-1.3) mg/dL Est Cr Clr Drug Dosing 63.39 mL/min Estimated GFR (MDRD) > 60 (>60) Glucose 93 (74-106) mg/dL Calcium 7.8 L (8.5-10.1) mg/dL [place] Results last 24 hrs: Microbiology 08/14/16 07:46 CLOtest - Final Stomach NEGATIVE CLOTEST Med Orders - Current: Current Medications Acetaminophen (Tylenol) 650 mg PO Q4H PRN PRN Reason: Pain (Mild 1-3)/fever Albuterol (Proventil Neb Soln) 2.5 mg NEB Q4H PRN PRN Reason: Shortness Of Breath/wheezing Aspirin (Aspirin) 81 mg PO DAILY [facility] Last Admin: 08/15/16 08:44 Dose: 81 mg Atorvastatin Calcium (Lipitor) 20 mg PO BEDTIME [facility] Last Admin: 08/14/16 20:01 Dose: 20 mg Carvedilol (Coreg) 3.125 mg PO BID [facility] Last Admin: 08/15/16 08:43 Dose: 3.125 mg Clopidogrel Bisulfate (Plavix) 75 mg PO DAILY [facility] Last Admin: 08/15/16 08:45 Dose: 75 mg Diphenhydramine HCl (Benadryl) 25 mg PO BEDTIME PRN PRN Reason: Allergies Last Admin: 08/13/16 22:50 Dose: 25 mg Docusate Sodium (Colace) 100 mg PO BID PRN PRN Reason: Constipation Hyoscyamine (Hyomax-Sl) 0.125 mg SL Q4H PRN PRN Reason: Other Isosorbide Mononitrate (Imdur) 30 mg PO DAILY [facility] Last Admin: 08/15/16 08:43 Dose: 30 mg Losartan Potassium (Cozaar) 12.5 mg PO DAILY [facility] Last Admin: 08/15/16 08:43 Dose: 12.5 mg Magnesium Hydroxide (Milk Of Magnesia) 30 ml PO Q12H PRN PRN Reason: Constipation Ondansetron HCl (Zofran) 4 mg IV Q4H PRN PRN Reason: Nausea/Vomiting Oxycodone HCl (Oxycontin) 10 mg PO Q12H [facility] Last Admin: 08/15/16 08:42 Dose: 10 mg Oxycodone/Acetaminophen (Percocet 325-5 Mg) 1 - 2 tab PO Q4H PRN PRN Reason: Pain Last Admin: 08/14/16 14:54 Dose: 2 tab Pantoprazole Sodium (Protonix) 40 mg PO DAILY [facility] Pentoxifylline (Trental) 400 mg PO TID [facility] Last Admin: 08/15/16 08:43 Dose: 400 mg Polyethylene Glycol (Miralax) 17 gm PO DAILY PRN PRN Reason: Constipation Senna/Docusate Sodium (Senna Plus) 1 tab PO BID PRN PRN Reason: Constipation Sodium Chloride (Saline Flush) 10 ml FLUSH ASDIRECTED PRN PRN Reason: Keep Vein Open Discontinued Medications Bisacodyl (Dulcolax) 10 mg PO ONETIME ONE Stop: 08/13/16 14:16 Last Admin: 08/13/16 14:59 Dose: 10 mg Bisacodyl (Dulcolax) 10 mg PO ONETIME ONE Stop: 08/13/16 21:01 Last Admin: 08/13/16 20:57 Dose: 10 mg Fentanyl (Sublimaze) Confirm Administered Dose 100 mcg .ROUTE .STK-MED ONE Stop: 08/14/16 07:07 Sodium Chloride (Normal Saline) 1,000 mls @ 250 mls/hr IV ASDIRECTED [facility] Last Admin: 08/13/16 11:02 Dose: 250 mls/hr Sodium Chloride (Normal Saline) 1,000 mls @ 125 mls/hr IV ASDIRECTED [facility] Last Admin: 08/14/16 04:17 Dose: 125 mls/hr Sodium Chloride (Normal Saline) 500 mls @ 250 mls/hr IV .BOLUS [facility] Stop: 08/13/16 17:58 Pantoprazole Sodium (Protonix Iv) 40 mg IV Q24H [facility] Last Admin: 08/14/16 20:01 Dose: 40 mg Polyethylene Glycol (Miralax) 238 gm PO ONETIME ONE Stop: 08/13/16 17:01 Last Admin: 08/13/16 17:15 Dose: 1 applic Pregabalin (Lyrica) 50 mg PO TID [facility] Last Admin: 08/13/16 22:58 Dose: Not Given Propofol (Diprivan 20 Ml) Confirm Administered Dose 200 mg .ROUTE .STK-MED ONE Stop: 08/14/16 07:07 - Exam Quality Assessment: urine catheter, DVT prophylaxis General: alert, oriented, cooperative, no acute distress Lungs: Clear to auscultation, Normal respiratory effort Cardiovascular: Regular Rate, Regular Rhythm, No Murmurs Abdomen: bowel sounds present, soft, no tenderness, no distension Extremities: no edema Skin: warm, dry, intact - Problem List Review Problem List Initiated/Reviewed/Updated: Yes - My Orders Last 24 Hours: My Active Orders 08/14/16 Lunch Post Surgical Soft [Soft Diet] [DIET] 08/15/16 10:32 Vital Signs [RC] Q4H 08/15/16 17:00 HGB [HEMOGLOBIN] [HEME] Stat 08/16/16 05:11 HGB [HEMOGLOBIN] [HEME] AM 08/16/16 09:00 Pantoprazole [ProTONIX] 40 mg PO DAILY - Plan Plan:: ASSESSMENT AND PLAN ACUTE LOWER GI HEMORRHAGE-likely diverticular in nature, no active bleeding over the past 24 hours. Hemoglobin stable since yesterday afternoon -Soft diet -Type and cross to hold 4 units of red blood cells -Serial hemoglobin levels -Transfer to medical surgical status -Protonix 40 mg by mouth daily -Surgical followup per Dr. Trejo CORONARY ARTERY DISEASE-status post angioplasty and stent one month ago -Because of recent stent will need to continue aspirin and Plavix -Continue outpatient medical management CHRONIC LOW BACK PAIN-he is in the process of exploring placement of a nerve block implant -Continue pain medication during hospitalization INDWELLING SUPRAPUBIC CATHETER -Urinalysis pending -Hyoscyamine as needed for bladder spasms MAINTENANCE ISSUES -DVT prophylaxis; SCUDs, hold on anticoagulation given acute GI bleed -GI prophylaxis; Protonix as above -[place] catheter; suprapubic catheter -Nutrition; n.p.o. -Nicotine dependence; not required CODE STATUS-DNR/DNI ADMISSION STATUS-patient will be admitted to inpatient status, expect at least a 2 night hospital stay for evaluation and management of problems as outlined above. At the time of this admission I do not reasonably expected evaluation and management of this problem will require more than a 96 hour hospital stay. DISPOSITION-anticipate discharge to home after the hospital stay. PRIMARY CARE PROVIDER-Dr. Darden
[2016-08-15] MEDS: Acetaminophen/oxyCODONE 325-5 MG Tab PO PRN (16:37)
[2016-08-15] MEDS ORDERED: Pantoprazole 40 MG Tab.CR PO SCH (21:00)
[2016-08-15] MEDS: atorvaSTATin 20 MG Tab PO SCH (21:29)
[2016-08-15] MEDS: diphenhydrAMINE 25 MG Cap PO PRN (22:37)
[2016-08-16 07:35] VITALS: BP 117/66
[2016-08-16] MEDS: oxyCODONE ER 10 MG TAB.ER PO SCH (07:47)
[2016-08-16] MEDS: Pentoxifylline 400 MG Tab.ER PO SCH (09:22)
[2016-08-16] MEDS: Aspirin 81 MG Tab.Chew PO SCH (09:22)
[2016-08-16] MEDS: Isosorbide Mononitrate 30 MG Tab.ER PO SCH (09:23)
[2016-08-16] MEDS: Clopidogrel 75 MG Tab PO SCH (09:24)
[2016-08-16] MEDS: Losartan 50 MG Tab PO SCH (09:24)
[2016-08-16] MEDS: Carvedilol 3.125 MG Tab PO SCH (09:25)
--- NOTE | 2016-08-16 10:58 | PCM.DCSUM1 ---
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 - Discharge Data Discharge Date: 08/16/16 Discharge Disposition: DC/Tfer to SNF 03 Condition: Good - Discharge Diagnosis/Problem(s) (1) Lower gastrointestinal hemorrhage SNOMED Code(s): 04889867 ICD Code: K92.2 - GASTROINTESTINAL HEMORRHAGE, UNSPECIFIED Status: Acute Current Visit: Yes (2) Acute blood loss anemia SNOMED Code(s): 318764749 ICD Code: D62 - ACUTE POSTHEMORRHAGIC ANEMIA Status: Acute Current Visit : Yes (3) Coronary artery disease SNOMED Code(s): 14168873 ICD Code: I25.10 - ATHSCL HEART DISEASE OF [place] CORONARY ARTERY W/O ANG PCTRS Status: Chronic Current Visit: No Qualifiers: Coronary Disease-Associated Artery/Lesion type: [place] artery [facility] vs. 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 Hemoglobin was found to be stable when checked in the emergency department but he did have bloody stool on rectal exam. He recently been hospitalized at this facility for lower GI bleed, because of several associated medical problems was decided not to pursue lower GI endoscopy at that time. After admission serial hemoglobin levels were obtained and he did receive transfusion of 2 units of red blood cells. He had no further evidence of active bleeding while in the hospital. Surgical consult was obtained with Dr. Trejo in upper and lower GI endoscopy were performed. EGD showed only mild gastritis which was not felt to be the source of probable bleeding. Colonoscopy showed evidence of old blood but no evidence of active bleeding. He was noted to have several diverticuli in this was felt to be likely source of his recent bleeding. Hemoglobin remains stable prior to discharge. Activity will be as tolerated and he will resume his usual diet. He will be discharged to [facility] for restorative physical therapy and occupational therapy. - Patient Instructions Diet: Usual Diet as Tolerated Activity: As Tolerated - Discharge Plan Home Medications: Home Meds Acetaminophen [Tylenol Extra Strength] 500 mg PO Q4H PRN 01/09/13 [History] Ascorbic Acid [Vitamin C] 100 mg PO DAILY 01/09/13 [History] Aspirin [Elías Chewable Aspirin] 81 mg PO DAILY 01/09/13 [History] Cholecalciferol (Vitamin D3) [Vitamin D3] 1,000 unit PO DAILY 01/09/13 [History] Losartan [Cozaar] 0.5 tab PO DAILY 01/09/13 [History] Nitroglycerin 0.4 mg SL ASDIRECTED PRN 01/09/13 [History] Sennosides/Docusate Sodium [Senna S] 8.6 mg PO ONETIME PRN 01/09/13 [History] diphenhydrAMINE [Benadryl] 25 mg PO BEDTIME PRN 01/09/13 [History] atorvaSTATin [Lipitor] 20 mg PO BEDTIME 07/01/14 [History] Clopidogrel Bisulfate [Clopidogrel] 75 mg PO DAILY 12/21/15 [History] Acetaminophen/oxyCODONE [Percocet 325-5 MG] 1 - 2 tab PO Q4H PRN #80 tablet [Rx] Carvedilol 3.125 mg PO BID 03/26/16 [History] Isosorbide Mononitrate [Imdur] 30 mg PO DAILY #30 tab.er 03/27/16 [Rx] Cyanocobalamin (Vitamin B12) [Vitamin B12] 1,000 mcg PO DAILY 05/06/16 [History] Pregabalin [Lyrica] 50 mg PO TID 05/06/16 [History] Pentoxifylline [TRENtal] 1 tab PO TID 05/07/16 [History] Benzocaine/Menthol [Cepacol Sore Throat Lozenge] 1 each MM Q4H PRN #30 lozenge 08/02/16 [Rx] Hyoscyamine [Hyomax-SL] 0.125 mg SL Q4H PRN #60 tab.sl 08/02/16 [Rx] oxyCODONE ER [OxyCONTIN] 10 mg PO Q12H #30 tab.er 08/02/16 [Rx] Forms: ED Department Discharge Referrals: Ashwini Rojas NP [Primary Care Provider] - - Patient Data Vitals - Most Recent: Last Vital Signs Temp 98.4 F 08/16/16 07:34 Pulse 72 08/16/16 09:25 Resp 18 08/16/16 07:34 BP 117/66 08/16/16 09:25 Pulse Ox 95 08/16/16 07:34 Weight - Most Recent: 170 lb 13.732 oz I&O - Last 24 hours: Intake & Output 08/15/16 08/16/16 08/16/16 22:59 06:59 14:59 Intake Total 240 200 300 Output Total 700 1150 Balance -460 -950 300 Lab Results - Last 24 hrs: Laboratory Results - last 24 hr 08/15/16 08/16/16 Range/Units 16:56 05:37 Hgb 9.2 L 9.1 L (12.0-15.0) g/dL [facility]RA Results - Last 24 hrs: Microbiology 08/14/16 07:46 CLOtest - Final Stomach NEGATIVE CLOTEST Med Orders - Current: Current Medications Acetaminophen (Tylenol) 650 mg PO Q4H PRN PRN Reason: Pain (Mild 1-3)/fever Albuterol (Proventil Neb Soln) 2.5 mg NEB Q4H PRN PRN Reason: Shortness Of Breath/wheezing Aspirin (Aspirin) 81 mg PO DAILY [facility] Last Admin: 08/16/16 09:22 Dose: 81 mg Atorvastatin Calcium (Lipitor) 20 mg PO BEDTIME [facility] Last Admin: 08/15/16 21:29 Dose: 20 mg Carvedilol (Coreg) 3.125 mg PO BID [facility] Last Admin: 08/16/16 09:25 Dose: 3.125 mg Clopidogrel Bisulfate (Plavix) 75 mg PO DAILY [facility] Last Admin: 08/16/16 09:24 Dose: 75 mg Diphenhydramine HCl (Benadryl) 25 mg PO BEDTIME PRN PRN Reason: Allergies Last Admin: 08/15/16 22:37 Dose: 25 mg Docusate Sodium (Colace) 100 mg PO BID PRN PRN Reason: Constipation Hyoscyamine (Hyomax-Sl) 0.125 mg SL Q4H PRN PRN Reason: Other Isosorbide Mononitrate (Imdur) 30 mg PO DAILY [facility] Last Admin: 08/16/16 09:23 Dose: 30 mg Losartan Potassium (Cozaar) 12.5 mg PO DAILY [facility] Last Admin: 08/16/16 09:24 Dose: 12.5 mg Magnesium Hydroxide (Milk Of Magnesia) 30 ml PO Q12H PRN PRN Reason: Constipation Ondansetron HCl (Zofran) 4 mg IV Q4H PRN PRN Reason: Nausea/Vomiting Oxycodone HCl (Oxycontin) 10 mg PO Q12H [facility] Last Admin: 08/16/16 07:47 Dose: 10 mg Oxycodone/Acetaminophen (Percocet 325-5 Mg) 1 - 2 tab PO Q4H PRN PRN Reason: Pain Last Admin: 08/15/16 16:37 Dose: 2 tab Pantoprazole Sodium (Protonix) 40 mg PO BEDTIME [facility] Last Admin: 08/15/16 21:29 Dose: 40 mg Pentoxifylline (Trental) 400 mg PO TID [facility] Last Admin: 08/16/16 09:22 Dose: 400 mg Polyethylene Glycol (Miralax) 17 gm PO DAILY PRN PRN Reason: Constipation Senna/Docusate Sodium (Senna Plus) 1 tab PO BID PRN PRN Reason: Constipation Sodium Chloride (Saline Flush) 10 ml FLUSH ASDIRECTED PRN PRN Reason: Keep Vein Open Discontinued Medications Bisacodyl (Dulcolax) 10 mg PO ONETIME ONE Stop: 08/13/16 14:16 Last Admin: 08/13/16 14:59 Dose: 10 mg Bisacodyl (Dulcolax) 10 mg PO ONETIME ONE Stop: 08/13/16 21:01 Last Admin: 08/13/16 20:57 Dose: 10 mg Fentanyl (Sublimaze) Confirm Administered Dose 100 mcg .ROUTE .STK-MED ONE Stop: 08/14/16 07:07 Sodium Chloride (Normal Saline) 1,000 mls @ 250 mls/hr IV ASDIRECTED [facility] Last Admin: 08/13/16 11:02 Dose: 250 mls/hr Sodium Chloride (Normal Saline) 1,000 mls @ 125 mls/hr IV ASDIRECTED [facility] Last Admin: 08/14/16 04:17 Dose: 125 mls/hr Sodium Chloride (Normal Saline) 500 mls @ 250 mls/hr IV .BOLUS RUTHIE Stop: 08/13/16 17:58 Pantoprazole Sodium (Protonix Iv) 40 mg IV Q24H [facility] Last Admin: 08/14/16 20:01 Dose: 40 mg Polyethylene Glycol (Miralax) 238 gm PO ONETIME ONE Stop: 08/13/16 17:01 Last Admin: 08/13/16 17:15 Dose: 1 applic Pregabalin (Lyrica) 50 mg PO TID [facility] Last Admin: 08/13/16 22:58 Dose: Not Given Propofol (Diprivan 20 Ml) Confirm Administered Dose 200 mg .ROUTE .STK-MED ONE Stop: 08/14/16 07:07 *Q Meaningful Use (DIS) - VTE *Q VTE Criteria *Q: VTE Pharmacological Contraindications *Q: Active Hemorrhage - Stroke *Q Stroke Criteria *Q: - AMI *Q AMI Criteria *Q:
--- NOTE | 2016-08-16 12:26 | OR ---
DATE OF PROCEDURE: 08/14/2016 PREOPERATIVE DIAGNOSIS: Gastrointestinal bleeding. POSTOPERATIVE DIAGNOSES: 1. Gastrointestinal bleeding most likely, but not definitively related to sigmoid colon diverticulosis. 2. Mild antral gastritis and duodenitis (clearly not likely a bleeding source recently). OPERATIVE PROCEDURE: 1. Esophagogastroduodenoscopy with biopsies of antrum for CLOtest. 2. Colonoscopy. ANESTHESIA: IV sedation. INDICATION FOR PROCEDURE: This is an 86-year-old male presenting with some recurrent GI bleeding. Plan is to proceed with an upper and lower endoscopy with biopsies as indicated. Potential risks including bleeding and perforation were discussed, and the patient wishes to proceed. DETAILS OF PROCEDURE: The patient was taken to the operating room and placed in a left lateral decubitus position. IV sedation was administered, after which the upper GI endoscope was passed orally through the length of the esophagus and the stomach with retroflexion view of the fundus, thereafter through the pyloric channel and into the proximal duodenum. Findings included a normal hypopharynx, larynx, upper esophageal sphincter, and esophageal body. At the EG junction, no significant inflammation was noted. A small hiatal hernia was present, but minimal inflammation identified. Proximal stomach was unremarkable. The antrum and the proximal duodenum did have some streaks of inflammation, but without erosions or ulcers, and the upper endoscopic exam no likely sites of recent bleeding. Biopsies obtained from the antrum and sent for CLOtest for H. pylori, and the upper GI endoscope removed. Attention was then taken to the colonoscopy. Initial digital rectal exam was performed and was unremarkable. Colonoscope was then passed into the rectum with retroflexion revealing uncomplicated hemorrhoidal columns. The scope was then passed eventually to the level of the cecum. The prep was actually quite good with there only being a small amount of blood- tinged fluid, as no fresh blood or active bleeding was noted at any point. The only abnormality noted was some diverticulosis on the left side of the colon. Otherwise, there were no areas of colitis and no polyps or other signs of neoplasia. No blood or bleeding seen. The scope was then withdrawn. The above findings reconfirmed, and the endoscope removed. The patient was taken to the recovery room in satisfactory condition. Overall statistically given the patient's bleeding history that was abrupt, fairly large red blood per rectum, the likely source of this has been the diverticulosis, although without active bleeding seen or blood lodged within the diverticular per se, this was not by any means definitive. Sarmad Trejo MD /[id number]
== END 2016-08-16 12:22 | DRG 378 ==
LOC: JP.ED 10:13 → JP.ICU 12:39 → JP.MS 08-15 13:39
PROVIDERS: ADMIT Hospitalist; ATTEND Hospitalist
PROC: 30233N1 Transfusion of Nonautologous Red Blood Cells into Peripheral Vein, Percutaneous Approach (ICD-10-PCS; principal; 2016-08-13)
PROC: 0DB68ZX Excision of Stomach, Via Natural or Artificial Opening Endoscopic, Diagnostic (ICD-10-PCS; 2016-08-15)
DX: K92.2 Gastrointestinal hemorrhage, unspecified (principal); K57.31 Diverticulosis of large intestine without perforation or abscess with bleeding; D62 Acute posthemorrhagic anemia; R53.1 Weakness; K62.5 Hemorrhage of anus and rectum; R42 Dizziness and giddiness; Z66 Do not resuscitate; K29.70 Gastritis, unspecified, without bleeding; K44.9 Diaphragmatic hernia without obstruction or gangrene; I25.119 Atherosclerotic heart disease of native coronary artery with unspecified angina pectoris; E78.00 Pure hypercholesterolemia, unspecified; I25.2 Old myocardial infarction; Z95.5 Presence of coronary angioplasty implant and graft; Z95.1 Presence of aortocoronary bypass graft; M54.9 Dorsalgia, unspecified; G89.29 Other chronic pain; H54.7 Unspecified visual loss; Z79.82 Long term (current) use of aspirin; Z88.6 Allergy status to analgesic agent; Z88.8 Allergy status to other drugs, medicaments and biological substances; Z85.46 Personal history of malignant neoplasm of prostate; Z96.659 Presence of unspecified artificial knee joint
CPT/HCPCS: 36415; 80053; 85025; 85610; 85730; 86850; 86900; 86901; 86920 ×2; 86922 ×2; 96360; 96361; 99285; J7040; 36430; 80048; 81001; 85018; 87081; A9270-GY; C9113; J2704; J3010; P9016

== ENCOUNTER 2016-11-21 13:36 | Emergency (ER) | payer MEDICARE, BC ==
--- NOTE | 2016-11-21 14:42 | EDM.PDOC ---
ED HPI GENERAL MEDICAL PROBLEM - General Chief Complaint: Gastrointestinal Problem Stated Complaint: GI BLEED Time Seen by Provider: 11/21/16 14:00 Source of Information: Reports: Patient History Limitations: Reports: No Limitations - History of Present Illness INITIAL COMMENTS - FREE TEXT/NARRATIVE: 86-year-old male with a known GI bleed received 2 units of packed RBCs just 3 days ago, has redeveloped melanotic stools today and his hemoglobin has dropped to 8.5. He has had an upper and lower GI in the last 3 months. His primary provider was arranging a gastroenterology consult for the patient before these latest symptoms develop. I discussed this with his primary provider and the hospitalist service and both recommended transferring to where there is gastroenterology available. The patient has no significant pain, shortness of breath, palpitations, but he does feel weak. Onset: Gradual (Over the past 1-2 days) Denies Pain Score (Numeric/FACES): 0 - Related Data Allergies Allergy/AdvReac Type Severity Reaction Status Date / Time aspirin Allergy Unknown Hives Verified 11/21/16 13:53 piroxicam [From Feldene] Allergy Rash Verified 11/21/16 13:53 Home Meds: Home Meds Acetaminophen [Tylenol Extra Strength] 500 mg PO Q4H PRN 01/09/13 [History] Ascorbic Acid [Vitamin C] 250 mg PO DAILY 01/09/13 [History] Aspirin [Elías Chewable Aspirin] 81 mg PO DAILY 01/09/13 [History] Cholecalciferol (Vitamin D3) [Vitamin D3] 1,000 unit PO DAILY 01/09/13 [History] Losartan [Cozaar] 0.5 tab PO DAILY 01/09/13 [History] Nitroglycerin 0.4 mg SL ASDIRECTED PRN 01/09/13 [History] Sennosides/Docusate Sodium [Senna S] 8.6 mg PO ONETIME PRN 01/09/13 [History] diphenhydrAMINE [Benadryl] 25 mg PO BEDTIME PRN 01/09/13 [History] atorvaSTATin [Lipitor] 20 mg PO BEDTIME 07/01/14 [History] Clopidogrel Bisulfate [Clopidogrel] 75 mg PO DAILY 12/21/15 [History] Acetaminophen/oxyCODONE [Percocet 325-5 MG] 1 - 2 tab PO Q4H PRN #80 tablet 08/ 26/16 [Rx] Carvedilol 3.125 mg PO BID 03/26/16 [History] Isosorbide Mononitrate [Imdur] 30 mg PO DAILY #30 tab.er 03/27/16 [Rx] Cyanocobalamin (Vitamin B12) [Vitamin B12] 1,000 mcg PO DAILY 05/06/16 [History] Pentoxifylline [TRENtal] 1 tab PO TID 05/07/16 [History] Benzocaine/Menthol [Cepacol Sore Throat Lozenge] 1 each MM Q4H PRN #30 lozenge 08/02/16 [Rx] Hyoscyamine [Hyomax-SL] 0.125 mg SL Q4H PRN #60 tab.sl 08/02/16 [Rx] oxyCODONE ER [OxyCONTIN] 10 mg PO Q12H #30 tab.er 08/02/16 [Rx] Pantoprazole Sodium [Protonix] 40 mg PO DAILY 11/21/16 [History] Past Medical History HEENT History: Reports: Cataract, Impaired Vision Cardiovascular History: Reports: Angina, Arrhythmia, CAD, High Cholesterol, Hypertension, [place], SOB on Exertion, Stents Respiratory History: Reports: Other (See Below) Other Respiratory History: [place] lung [place] in [place]. Spot on lung to investigate Gastrointestinal History: Reports: GERD Genitourinary History: Reports: Retention, Urinary Other Genitourinary History: surapubic catheter Musculoskeletal History: Reports: Back Pain, Chronic, Fracture, Osteoarthritis Hematologic History: Reports: Blood Transfusion(s) Oncologic (Cancer) History: Reports: Prostate - Infectious Disease History Infectious Disease History: Reports: Chicken Pox, Measles, Mumps - Past Surgical History HEENT Surgical History: Reports: Cataract Surgery, Oral Surgery, Tonsillectomy Cardiovascular Surgical History: Reports: Coronary Artery Bypass, Coronary Artery Stent GI Surgical History: Reports: Colonoscopy, EGD Male Surgical History: Reports: Suprapubic Catheter Placement Musculoskeletal Surgical History: Reports: Knee Replacement Social & Family History - Family History Family Medical History: Noncontributory - Tobacco Use Smoking Status *Q: Never Smoker Second Hand Smoke Exposure: No - Caffeine Use Caffeine Use: Reports: None - Alcohol Use Days Per Week of Alcohol Use: 0 Number of Drinks Per Day: 1 Total Drinks Per Week: 0 - Recreational Drug Use Recreational Drug Use: No Recreational Drug Type: Reports: Marijuana/Hashish Recreational Drug Use Frequency: Rarely ED ROS GENERAL - Review of Systems Review Of Systems: See Below Constitutional: Reports: Malaise. Denies: Fever, Chills Respiratory: Denies: Shortness of Breath, Cough Cardiovascular: Denies: Chest Pain GI/Abdominal: Reports: Abdominal Pain (Intermittent mild discomfort), Black Stool. Denies: Nausea, Vomiting Skin: Reports: Pallor ED EXAM, GI/ABD - Physical Exam Exam: See Below Exam Limited By: No Limitations General Appearance: Alert, No Apparent Distress Eyes: Bilateral: Pale Conjunctiva Respiratory/Chest: No Respiratory Distress, Lungs Clear Cardiovascular: Regular Rate, Rhythm GI/Abdominal Exam: Normal Bowel Sounds, Soft Extremities: No: Pedal Edema Neurological: Alert, Oriented Skin Exam: Pallor Course - Vital Signs Last Recorded V/S: Last Vital Signs Temp 98.8 F 11/21/16 15:01 Pulse 71 11/21/16 15:01 Resp 16 11/21/16 15:01 BP 106/63 11/21/16 15:01 Pulse Ox 96 11/21/16 15:01 - Orders/Labs/Meds Labs: Laboratory Tests 11/21/16 11/21/16 Range/Units 14:07 14:07 WBC 8.2 (4.5-11.0) K/uL RBC 3.02 L (4.30-5.90) M/uL Hgb 8.5 L (12.0-15.0) g/dL Hct 27.7 L (40.0-54.0) % MCV 92 (80-98) fL MCH 28 (27-31) pg MCHC 31 L (32-36) % Plt Count 314 (150-400) K/uL Neut % (Auto) 64 (36-66) % Lymph % (Auto) 21 L (24-44) % Ross % (Auto) 11 H (2-6) % Eos % (Auto) 4 (2-4) % Baso % (Auto) 0 (0-1) % Sodium 141 (140-148) mmol/L Potassium 3.9 (3.6-5.2) mmol/L Chloride 107 (100-108) mmol/L Carbon Dioxide 28 (21-32) mmol/L Anion Gap 5.8 (5.0-14.0) mmol/L BUN 20 H (7-18) mg/dL Creatinine 1.2 (0.8-1.3) mg/dL Est Cr Clr Drug Dosing 48.41 mL/min Estimated GFR (MDRD) 57 L (>60) Glucose 152 H (74-106) mg/dL Calcium 8.2 L (8.5-10.1) mg/dL Meds: Medications Discontinued Medications Generic Name Dose Route Start Last Admin Trade Name Freq PRN Reason Stop Dose Admin Sodium Chloride 1,000 mls @ 500 mls/hr 11/21/16 14:45 11/21/16 14:48 Normal Saline IV 500 mls/hr ASDIRECTED RUTHIE Administration Sodium Chloride 10 ml 11/21/16 15:08 Saline Flush FLUSH ASDIRECTED PRN Keep Vein Open - Re-Assessments/Exams Free Text/Narrative Re-Assessment/Exam: 11/21/16 14:39 An IV was initiated and a CBC and BMP were obtained. The BMP was reassuring with a slight elevation and BUN of only 20, other electrolytes are normal. However his CBC revealed a hemoglobin of 8.5. These findings were discussed with the hospitalist service in [place] at [facility] and Dr. Novoa kindly accepted the patient to transfer for further evaluation. Departure - Departure Time of Disposition: 15:25 Disposition: DC/Tfer to Other Condition: Fair Clinical Impression: GI bleeding Qualifiers: GI bleed type/associated pathology: melena Qualified Code(s): K92.1 - Melena Anemia Qualifiers: Iron deficiency anemia type: chronic blood loss - Discharge Information Referrals: Jayden Darden MD [Primary Care Provider] - Forms: ED Department Discharge Care Plan Goals: Patient is to be transferred by ambulance to [facility] for inpatient evaluation of gastrointestinal blood loss.
[2016-11-21] MEDS ORDERED: Sodium Chloride 0.9% 1,000 ML IV SCH (14:45)
[2016-11-21 15:03] VITALS: BP 106/63
[2016-11-21] MEDS ORDERED: Ketorolac 30 MG/ML SDV IVPUSH ONE (15:07)
[2016-11-21] MEDS ORDERED: Sodium Chloride 0.9% 10 ML Syringe FLUSH PRN (15:08)
== END 2016-11-21 15:25 | disposition other institution (70) ==
LOC: JP.ED 13:36
DX: K92.2 Gastrointestinal hemorrhage, unspecified (principal); K92.1 Melena; D50.0 Iron deficiency anemia secondary to blood loss (chronic); I25.10 Atherosclerotic heart disease of native coronary artery without angina pectoris; E78.00 Pure hypercholesterolemia, unspecified; I10 Essential (primary) hypertension; I25.2 Old myocardial infarction; K21.9 Gastro-esophageal reflux disease without esophagitis; M19.90 Unspecified osteoarthritis, unspecified site; Z98.49 Cataract extraction status, unspecified eye; Z98.890 Other specified postprocedural states; Z95.1 Presence of aortocoronary bypass graft; Z95.5 Presence of coronary angioplasty implant and graft; Z96.659 Presence of unspecified artificial knee joint; Z79.82 Long term (current) use of aspirin; Z79.899 Other long term (current) drug therapy; Z96.0 Presence of urogenital implants; Z88.8 Allergy status to other drugs, medicaments and biological substances; Z88.6 Allergy status to analgesic agent
CPT/HCPCS: 36415; 80048; 85025; 96360; 96361; 99283; J7040; 99284

== ENCOUNTER 2017-01-04 22:23 | Emergency (ER) | payer MEDICARE, BC ==
[2017-01-04 23:59] VITALS: BP 130/66
--- NOTE | 2017-01-05 00:23 | EDM.PDOC ---
ED HPI GENERAL MEDICAL PROBLEM - General Chief Complaint: Genitourinary Problem Stated Complaint: BLADDER SPASMS Time Seen by Provider: 01/05/17 00:11 Source of Information: Reports: Patient History Limitations: Reports: No Limitations - History of Present Illness INITIAL COMMENTS - FREE TEXT/NARRATIVE: History of present illness: [86-year-old male presenting with bladder spasms. He has a suprapubic catheter and this evening he was having many more spasms than usual and finally decided to come in. His catheter is functioning well is not leaking his bags got three quarters of urine in it but since he's arrived here is only had one spasm and he is been here for about an hour and a half waiting and so he is feeling much better now and isn't sure that he really needed to be seen. 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 Past medical history: As per history of present illness and as reviewed below otherwise noncontributory. Surgical history: As per history of present illness and as reviewed below otherwise noncontributory. Social history: No reported history of drug or alcohol abuse. Family history: As per history of present illness and as reviewed below otherwise noncontributory. Physical exam: HEENT: Atraumatic, normocephalic, pupils reactive, negative for conjunctival pallor or scleral icterus, mucous membranes moist, throat clear, neck supple, nontender, trachea midline. Lungs: Clear to auscultation, breath sounds equal bilaterally, chest nontender. Heart: S1S2, regular, negative for clicks, rubs, or JVD. Abdomen: Soft, nondistended, nontender. Negative for masses or hepatosplenomegaly. Negative for costovertebral tenderness. Suprapubic catheter in place Pelvis: Stable nontender. Genitourinary: Deferred. Rectal: Deferred. Extremities: Atraumatic, negative for cords or calf pain. Neurovascular unremarkable. Neuro: Awake, alert, oriented. Cranial nerves II through XII unremarkable. Cerebellum unremarkable. Motor and sensory unremarkable throughout. Exam nonfocal. Diagnostics: [] Therapeutics: [] Impression: [Bladder spasms] Plan: [He does have anaspaz didn't understand that he could take 1-2 every 4 hours as needed for spasm and so he'll just go ahead and increase the dose and he plans to call in and get his catheter changed next Friday] Definitive disposition and diagnosis as appropriate pending reevaluation and review of above. - Related Data Allergies Allergy/AdvReac Type Severity Reaction Status Date / Time aspirin Allergy Unknown Hives Verified 01/05/17 00:12 piroxicam [From Feldene] Allergy Rash Verified 01/05/17 00:12 Home Meds: Home Meds Acetaminophen [Tylenol Extra Strength] 500 mg PO Q4H PRN 01/09/13 [History] Ascorbic Acid [Vitamin C] 250 mg PO DAILY 01/09/13 [History] Aspirin [Elías Chewable Aspirin] 81 mg PO DAILY 01/09/13 [History] Cholecalciferol (Vitamin D3) [Vitamin D3] 1,000 unit PO DAILY 01/09/13 [History] Losartan [Cozaar] 0.5 tab PO DAILY 01/09/13 [History] Nitroglycerin 0.4 mg SL ASDIRECTED PRN 01/09/13 [History] Sennosides/Docusate Sodium [Senna S] 8.6 mg PO ONETIME PRN 01/09/13 [History] diphenhydrAMINE [Benadryl] 25 mg PO BEDTIME PRN 01/09/13 [History] atorvaSTATin [Lipitor] 20 mg PO BEDTIME 07/01/14 [History] Clopidogrel Bisulfate [Clopidogrel] 75 mg PO DAILY 12/21/15 [History] Acetaminophen/oxyCODONE [Percocet 325-5 MG] 1 - 2 tab PO Q4H PRN #80 tablet [Rx] Carvedilol 3.125 mg PO BID 03/26/16 [History] Isosorbide Mononitrate [Imdur] 30 mg PO DAILY #30 tab.er 03/27/16 [Rx] Cyanocobalamin (Vitamin B12) [Vitamin B12] 1,000 mcg PO DAILY 05/06/16 [History] Pentoxifylline [TRENtal] 1 tab PO TID 05/07/16 [History] Benzocaine/Menthol [Cepacol Sore Throat Lozenge] 1 each MM Q4H PRN #30 lozenge 08/02/16 [Rx] Hyoscyamine [Hyomax-SL] 0.125 mg SL Q4H PRN #60 tab.sl 08/02/16 [Rx] oxyCODONE ER [OxyCONTIN] 10 mg PO Q12H #30 tab.er 08/02/16 [Rx] Pantoprazole Sodium [Protonix] 40 mg PO DAILY 11/21/16 [History] Past Medical History HEENT History: Reports: Cataract, Impaired Vision Cardiovascular History: Reports: Angina, Arrhythmia, CAD, High Cholesterol, Hypertension, [place], SOB on Exertion, Stents Respiratory History: Reports: Other (See Below) Other Respiratory History: seeing a lung specialist in [place]. Spot on lung to investigate Gastrointestinal History: Reports: GERD Genitourinary History: Reports: Retention, Urinary Other Genitourinary History: surapubic catheter Musculoskeletal History: Reports: Back Pain, Chronic, Fracture, Osteoarthritis Hematologic History: Reports: Blood Transfusion(s) Oncologic (Cancer) History: Reports: Prostate - Infectious Disease History Infectious Disease History: Reports: Chicken Pox, Measles, Mumps - Past Surgical History HEENT Surgical History: Reports: Cataract Surgery, Oral Surgery, Tonsillectomy Cardiovascular Surgical History: Reports: Coronary Artery Bypass, Coronary Artery Stent GI Surgical History: Reports: Colonoscopy, EGD Male Surgical History: Reports: Suprapubic Catheter Placement Musculoskeletal Surgical History: Reports: Knee Replacement Social & Family History - Family History Family Medical History: Noncontributory - Tobacco Use Smoking Status *Q: Never Smoker Second Hand Smoke Exposure: No - Caffeine Use Caffeine Use: Reports: None - Alcohol Use Days Per Week of Alcohol Use: 0 Number of Drinks Per Day: 1 Total Drinks Per Week: 0 - Recreational Drug Use Recreational Drug Use: No Recreational Drug Type: Reports: Marijuana/Hashish Recreational Drug Use Frequency: Rarely ED ROS GENERAL - Review of Systems Review Of Systems: ROS reveals no pertinent complaints other than HPI. ED EXAM, GENERAL - Physical Exam Exam: See Below Course - Vital Signs Last Recorded V/S: Last Vital Signs Temp 36.3 C 01/04/17 23:57 Pulse 72 01/04/17 23:57 Resp 16 01/04/17 23:57 BP 130/66 01/04/17 23:57 Pulse Ox 97 01/04/17 23:57 Departure - Departure Time of Disposition: 00:21 Disposition: Home, Self-Care 01 Condition: Good Clinical Impression: Bladder spasms - Discharge Information Referrals: Ashwini Rojas NP [Primary Care Provider] - Additional Instructions: As per our discussion you can take 1-2 of your anti-spasmodic medication pills every 4 hours as needed for spasm and as you're already planning I do think it would be good to get your catheter changed on Friday as you've planned.
== END 2017-01-05 00:43 | disposition home or self-care (01) ==
LOC: JP.ED 22:23
DX: N32.89 Other specified disorders of bladder (principal); I25.10 Atherosclerotic heart disease of native coronary artery without angina pectoris; E78.00 Pure hypercholesterolemia, unspecified; I10 Essential (primary) hypertension; I25.2 Old myocardial infarction; K21.9 Gastro-esophageal reflux disease without esophagitis; M19.90 Unspecified osteoarthritis, unspecified site; Z98.49 Cataract extraction status, unspecified eye; Z95.1 Presence of aortocoronary bypass graft; Z96.659 Presence of unspecified artificial knee joint; Z79.82 Long term (current) use of aspirin; Z79.899 Other long term (current) drug therapy; Z88.6 Allergy status to analgesic agent; Z88.8 Allergy status to other drugs, medicaments and biological substances
CPT/HCPCS: 99283

== ENCOUNTER 2017-01-08 17:05 | Observation (INO) | payer MEDICARE, BC ==
[2017-01-08] MEDS ORDERED: Belladonna Alkaloids/Opium 16.2-30 MG Supp RECTAL ONE (17:39)
--- NOTE | 2017-01-08 17:50 | EDM.PDOC ---
<Vesta Prieto - Last Filed: 01/08/17 18:03> ED HPI GENERAL MEDICAL PROBLEM - General Chief Complaint: Genitourinary Problem Stated Complaint: MEDICAL VIA TRI Time Seen by Provider: 01/08/17 17:46 Source of Information: Reports: Patient History Limitations: Reports: No Limitations - History of Present Illness INITIAL COMMENTS - FREE TEXT/NARRATIVE: pt is having nearly nonstop bladder spasms. He had his suprapupic changed last pm and he did well for a few hours and since that time he has been very uncomfortable. Onset: Today, Other ( started about 10 pm. ) Duration: Hour(s): Associated Symptoms: Reports: Other (p has a known UTI. ) Pelvic Pain Score (Numeric/FACES): 9 - Related Data Allergies Allergy/AdvReac Type Severity Reaction Status Date / Time aspirin Allergy Unknown Hives Verified 01/05/17 00:12 piroxicam [From Feldene] Allergy Rash Verified 01/05/17 00:12 Home Meds: Home Meds Acetaminophen [Tylenol Extra Strength] 500 mg PO Q4H PRN 01/09/13 [History] Ascorbic Acid [Vitamin C] 250 mg PO DAILY 01/09/13 [History] Aspirin [Elías Chewable Aspirin] 81 mg PO DAILY 01/09/13 [History] Cholecalciferol (Vitamin D3) [Vitamin D3] 1,000 unit PO DAILY 01/09/13 [History] Losartan [Cozaar] 0.5 tab PO DAILY 01/09/13 [History] Nitroglycerin 0.4 mg SL ASDIRECTED PRN 01/09/13 [History] Sennosides/Docusate Sodium [Senna S] 8.6 mg PO ONETIME PRN 01/09/13 [History] diphenhydrAMINE [Benadryl] 25 mg PO BEDTIME PRN 01/09/13 [History] atorvaSTATin [Lipitor] 20 mg PO BEDTIME 07/01/14 [History] Clopidogrel Bisulfate [Clopidogrel] 75 mg PO DAILY 12/21/15 [History] Acetaminophen/oxyCODONE [Percocet 325-5 MG] 1 - 2 tab PO Q4H PRN #80 tablet [Rx] Carvedilol 3.125 mg PO BID 03/26/16 [History] Isosorbide Mononitrate [Imdur] 30 mg PO DAILY #30 tab.er 03/27/16 [Rx] Cyanocobalamin (Vitamin B12) [Vitamin B12] 1,000 mcg PO DAILY 05/06/16 [History] Pentoxifylline [TRENtal] 1 tab PO TID 05/07/16 [History] Benzocaine/Menthol [Cepacol Sore Throat Lozenge] 1 each MM Q4H PRN #30 lozenge 08/02/16 [Rx] Hyoscyamine [Hyomax-SL] 0.125 mg SL Q4H PRN #60 tab.sl 08/02/16 [Rx] oxyCODONE ER [OxyCONTIN] 10 mg PO Q12H #30 tab.er 08/02/16 [Rx] Pantoprazole Sodium [Protonix] 40 mg PO DAILY 11/21/16 [History] Past Medical History HEENT History: Reports: Cataract, Impaired Vision Cardiovascular History: Reports: Angina, Arrhythmia, CAD, High Cholesterol, Hypertension, [place], SOB on Exertion, Stents Respiratory History: Reports: Other (See Below) Other Respiratory History: seeing a lung specialist in [place]. Spot on lung to investigate Gastrointestinal History: Reports: GERD Genitourinary History: Reports: Retention, Urinary Other Genitourinary History: surapubic catheter Musculoskeletal History: Reports: Back Pain, Chronic, Fracture, Osteoarthritis Neurological History: Reports: None Psychiatric History: Reports: None Endocrine/Metabolic History: Reports: None Hematologic History: Reports: Blood Transfusion(s) Immunologic History: Reports: None Oncologic (Cancer) History: Reports: Prostate Dermatologic History: Reports: None - Infectious Disease History Infectious Disease History: Reports: Chicken Pox, Measles, Mumps - Past Surgical History HEENT Surgical History: Reports: Cataract Surgery, Oral Surgery, Tonsillectomy Cardiovascular Surgical History: Reports: Coronary Artery Bypass, Coronary Artery Stent GI Surgical History: Reports: Colonoscopy, EGD Male Surgical History: Reports: Suprapubic Catheter Placement Endocrine Surgical History: Reports: None Neurological Surgical History: Reports: None Musculoskeletal Surgical History: Reports: Knee Replacement Dermatological Surgical History: Reports: None Social & Family History - Family History Family Medical History: Noncontributory - Tobacco Use Smoking Status *Q: Never Smoker Second Hand Smoke Exposure: No - Caffeine Use Caffeine Use: Reports: None - Alcohol Use Days Per Week of Alcohol Use: 0 Number of Drinks Per Day: 1 Total Drinks Per Week: 0 - Recreational Drug Use Recreational Drug Use: No Recreational Drug Type: Reports: Marijuana/Hashish Recreational Drug Use Frequency: Rarely ED ROS GENERAL - Review of Systems Review Of Systems: See Below Constitutional: Reports: No Symptoms HEENT: Reports: No Symptoms Respiratory: Reports: No Symptoms Cardiovascular: Reports: No Symptoms Endocrine: Reports: No Symptoms GI/Abdominal: Reports: No Symptoms : Reports: Other (pt is having severe bladder spasms since the cath was changed last nite. He had several hours where he was comfortable and about 10 am hestarted having spasms and they have been continuous since that time. ) Musculoskeletal: Reports: No Symptoms Skin: Reports: No Symptoms Neurological: Reports: No Symptoms Psychiatric: Reports: No Symptoms ED EXAM, RENAL/ - Physical Exam Exam: See Below Text/Narrative:: pt arrived having severe bladder spasms . He has a known UTI which ihe is being treated. Exam Limited By: No Limitations General Appearance: Alert, Anxious Ears: Normal External Exam Nose: Normal Inspection Throat/Mouth: Normal Inspection Head: Atraumatic Neck: Normal Inspection GI/Abdominal: Other ( bladder did not appear distended. He had a bladder scn which show 40 some cc. ) (Male) Exam: Other ( supra pupic which is draining normally. ) Rectal (Males) Exam: Deferred Back Exam: Normal Inspection Extremities: Normal Inspection Neurological: Alert, Oriented, Normal Cognition Psychiatric: Anxious Course - Vital Signs Last Recorded V/S: Last Vital Signs Temp 37.4 C 01/08/17 21:03 Pulse 99 01/08/17 23:17 Resp 16 01/08/17 23:17 BP 114/73 01/08/17 23:17 Pulse Ox 98 01/08/17 23:17 - Orders/Labs/Meds Orders: Active Orders 24 hr Category Date Time Status Abdomen Pelvis wo Cont [CT] Stat Exams 01/08/17 21:30 Taken Acetaminophen/oxyCODONE [Percocet 325-10 MG] Med 01/08/17 22:11 Active 1 tab PO ONETIME PRN Sodium Chloride 0.9% [Normal Saline] 1,000 ml Med 01/08/17 18:15 Active IV ASDIRECTED Medication Orders Sodium Chloride (Normal Saline) 1,000 mls @ 300 mls/hr IV ASDIRECTED RUTHIE Last Admin: 01/08/17 18:24 Dose: 300 mls/hr Oxycodone/Acetaminophen (Percocet 325-10 Mg) 1 tab PO ONETIME PRN PRN Reason: Abdominal Pain Last Admin: 01/08/17 22:19 Dose: 1 tab Labs: Laboratory Tests 01/08/17 Range/Units 17:51 Urine Color Yellow Urine Appearance Slightly cloudy Urine pH 7.0 (4.5-8.0) Ur Specific [place] 1.010 (1.008-1.030) Urine Protein 30 H (NEGATIVE) mg/dL Urine Glucose (UA) Normal (NEGATIVE) mg/dL Urine Ketones Negative (NEGATIVE) mg/dL Urine Occult Blood Large (NEGATIVE) Urine Nitrite Positive H (NEGAITVE) Urine Bilirubin Negative (NEGATIVE) Urine Urobilinogen Normal (NORMAL) mg/dL Ur Leukocyte Esterase Large (NEGATIVE) Urine RBC 10-20 H (0-5) Urine WBC 10-20 H (0-5) Ur Epithelial Cells Rare Amorphous Sediment Not seen Urine Bacteria Few Urine Mucus Not seen Meds: Medications Generic Name Dose Route Start Last Admin Trade Name Freq PRN Reason Stop Dose Admin Sodium Chloride 1,000 mls @ 300 mls/hr 01/08/17 18:15 01/08/17 18:24 Normal Saline IV 300 mls/hr ASDIRECTED [facility] Administration Oxycodone/Acetaminophen 1 tab 01/08/17 22:11 01/08/17 22:19 Percocet 325-10 Mg PO 1 tab ONETIME PRN Administration Abdominal Pain Discontinued Medications Generic Name Dose Route Start Last Admin Trade Name Freq PRN Reason Stop Dose Admin Belladonna Alkaloids/Opium 1 supp 01/08/17 17:39 01/08/17 17:48 B & O Supprettes No. 15a RECTAL 01/08/17 17:40 1 supp ONETIME ONE Administration Diazepam 5 mg 01/08/17 20:06 01/08/17 20:31 Valium IVPUSH 01/08/17 20:07 5 mg ONETIME ONE Administration Hydromorphone HCl 1 mg 01/08/17 19:39 01/08/17 19:43 Dilaudid IVPUSH 01/08/17 19:40 1 mg ONETIME ONE Administration Hydromorphone HCl 1 mg 01/08/17 23:06 01/08/17 23:10 Dilaudid IVPUSH 01/08/17 23:07 1 mg ONETIME ONE Administration Ciprofloxacin/Dextrose 400 mg/ 200 mls @ 200 mls/hr 01/08/17 21:37 01/08/17 21:47 Premix IV 01/08/17 22:36 200 mls/hr ONETIME ONE Administration Oxybutynin Chloride 5 mg 01/08/17 19:11 Oxybutynin PO 01/08/17 19:12 NOW STA Oxybutynin Chloride 5 mg 01/08/17 21:38 01/08/17 21:46 Oxybutynin PO 01/08/17 21:39 5 mg NOW STA Administration - Re-Assessments/Exams Free Text/Narrative Re-Assessment/Exam: 01/08/17 18:09 pt was given a b and o supp. He had an iv started and a liter of fluid was given. Departure - Departure Disposition: Admitted As Inpatient 65 Clinical Impression: UTI, Urinary tract infectious disease, Bladder spasms - Discharge Information Referrals: PCP,None [Primary Care Provider] - Forms: ED Department Discharge - My Orders Last 24 Hours: My Active Orders 01/08/17 21:30 Abdomen Pelvis wo Cont [CT] Stat 01/08/17 22:11 Acetaminophen/oxyCODONE [Percocet 325-10 MG] 1 tab PO ONETIME PRN - Assessment/Plan Last 24 Hours: My Active Orders 01/08/17 21:30 Abdomen Pelvis wo Cont [CT] Stat 01/08/17 22:11 Acetaminophen/oxyCODONE [Percocet 325-10 MG] 1 tab PO ONETIME PRN <Aureliano Krause - Last Filed: 01/08/17 23:28> Course - Vital Signs Text/Narrative:: We've elected to admit Mr. ferraro to the hospital for pain control. I believe his spasms are likely due to a bladder infection. I did give him 400 mg of Cipro IV in the emergency room. He's had multiple doses of Dilaudid and Ditropan while here in the ER as well as benzodiazepines and still is suffering with the spasms. Hopefully the sensitivities will be out tomorrow on the culture that was obtained today and once his infection is under control the hope would be that spasms would resolve I think he would benefit from a [employer] pump tonight and in making that recommendation. Departure - Departure Time of Disposition: 23:28 Condition: Fair
[2017-01-08] MEDS ORDERED: Sodium Chloride 0.9% 1,000 ML IV SCH (18:15)
[2017-01-08] MEDS ORDERED: OXYBUTYNIN 5 MG/5 ML PO STA (19:11)
[2017-01-08] MEDS ORDERED: HYDROmorphone 1 MG/ML Syringe IVPUSH ONE ×2 (19:39→23:06)
[2017-01-08] MEDS ORDERED: Ciprofloxacin in D5W 400 MG in Premix Bag 1 BAG IV ONE ×2 (21:37)
[2017-01-08] MEDS ORDERED: Oxybutynin 5 MG Tab PO STA (21:38)
[2017-01-08] MEDS ORDERED: Acetaminophen/oxyCODONE 325-10 MG Tab PO PRN (22:11)
[2017-01-08] MEDS ORDERED: HYDROmorphone/Normal Saline 15 MG/30 ML PCA IV PRN (23:53)
[2017-01-08] MEDS ORDERED: Ondansetron 4 MG/2 ML SDV IV PRN (23:53)
[2017-01-08] MEDS ORDERED: Naloxone 0.4 MG/ML SDV IVPUSH PRN (23:53)
[2017-01-08] MEDS ORDERED: Albuterol 0.083% 2.5 MG/3 ML Neb Soln NEB PRN (23:53)
[2017-01-08] MEDS ORDERED: Ondansetron 4 MG Tab.DIS PO PRN (23:53)
[2017-01-08] MEDS ORDERED: Nitroglycerin 0.4 MG Tab.SL SL PRN (23:53)
[2017-01-08] MEDS ORDERED: Docusate Sodium 100 MG Cap PO PRN (23:53)
[2017-01-08] MEDS ORDERED: Temazepam 15 MG Cap PO PRN (23:53)
--- NOTE | 2017-01-08 23:54 | PCM.HP ---
H&P History of Present Illness - General Date of Service: 01/08/17 Admit Problem/Dx: Admission Diagnosis/Problem Admission Diagnosis/Problem Bladder spasm Source of Information: Patient, Provider, RN Notes Reviewed History Limitations: Reports: No Limitations - History of Present Illness Initial Comments - Free Text/Narative: pt is having nearly nonstop bladder spasms. He had his suprapubic for the past 2 years, changed last pm and he did well for a few hours and since that time he has been very uncomfortable. We've elected to admit Mr. cruz to the hospital for pain control. I believe his spasms are likely due to a bladder infection. I did give him 400 mg of Cipro IV in the emergency room. He's had multiple doses of Dilaudid and Ditropan while here in the ER as well as benzodiazepines and still is suffering with the spasms. Hopefully the sensitivities will be out tomorrow on the culture that was obtained today and once his infection is under control the hope would be that spasms would resolve I think he would benefit from a MACHINE ACCOUNTANT pump tonight and in making that recommendation. Onset of Symptoms: Reports: Today Duration of Symptoms: Reports: Hour(s): Location: Reports: Abdomen Quality: Reports: Sharp, Stabbing (spasm in bladder/pelvis) Severity: Severe Improves with: Reports: Medication (given frequent doses of pain medication to control spasm.) Worsens with: Reports: None Context: Reports: Other (bladder spasm with uncontrolled pain) Associated Symptoms: Reports: Other (current treatment for UTI) Pelvic Pain Score (Numeric/FACES): 9 - Related Data Allergies/Adverse Reactions: Allergies Allergy/AdvReac Type Severity Reaction Status Date / Time aspirin Allergy Unknown Hives Verified 01/05/17 00:12 piroxicam [From Feldene] Allergy Rash Verified 01/05/17 00:12 Home Medications: Home Meds Acetaminophen [Tylenol Extra Strength] 500 mg PO Q4H PRN 01/09/13 [History] Ascorbic Acid [Vitamin C] 250 mg PO DAILY 01/09/13 [History] Aspirin [Elías Chewable Aspirin] 81 mg PO DAILY 01/09/13 [History] Cholecalciferol (Vitamin D3) [Vitamin D3] 1,000 unit PO DAILY 01/09/13 [History] Losartan [Cozaar] 0.5 tab PO DAILY 01/09/13 [History] Nitroglycerin 0.4 mg SL ASDIRECTED PRN 01/09/13 [History] Sennosides/Docusate Sodium [Senna S] 8.6 mg PO ONETIME PRN 01/09/13 [History] diphenhydrAMINE [Benadryl] 25 mg PO BEDTIME PRN 01/09/13 [History] atorvaSTATin [Lipitor] 20 mg PO BEDTIME 07/01/14 [History] Clopidogrel Bisulfate [Clopidogrel] 75 mg PO DAILY 12/21/15 [History] Acetaminophen/oxyCODONE [Percocet 325-5 MG] 1 - 2 tab PO Q4H PRN #80 tablet [Rx] Carvedilol 3.125 mg PO BID 03/26/16 [History] Isosorbide Mononitrate [Imdur] 30 mg PO DAILY #30 tab.er 03/27/16 [Rx] Cyanocobalamin (Vitamin B12) [Vitamin B12] 1,000 mcg PO DAILY 05/06/16 [History] Pentoxifylline [TRENtal] 1 tab PO TID 05/07/16 [History] Benzocaine/Menthol [Cepacol Sore Throat Lozenge] 1 each MM Q4H PRN #30 lozenge 08/02/16 [Rx] Hyoscyamine [Hyomax-SL] 0.125 mg SL Q4H PRN #60 tab.sl 08/02/16 [Rx] oxyCODONE ER [OxyCONTIN] 10 mg PO Q12H #30 tab.er 08/02/16 [Rx] Pantoprazole Sodium [Protonix] 40 mg PO DAILY 11/21/16 [History] Past Medical History HEENT History: Reports: Cataract, Impaired Vision Cardiovascular History: Reports: Angina, Arrhythmia, CAD, High Cholesterol, Hypertension, SD, SOB on Exertion, Stents Respiratory History: Reports: Other (See Below) Other Respiratory History: seeing a lung specialist in [place]. Spot on lung to investigate Gastrointestinal History: Reports: GERD Genitourinary History: Reports: Retention, Urinary Other Genitourinary History: surapubic catheter Musculoskeletal History: Reports: Back Pain, Chronic, Fracture, Osteoarthritis Neurological History: Reports: None Psychiatric History: Reports: None Endocrine/Metabolic History: Reports: None Hematologic History: Reports: Blood Transfusion(s) Immunologic History: Reports: None Oncologic (Cancer) History: Reports: Prostate Dermatologic History: Reports: None - Infectious Disease History Infectious Disease History: Reports: Chicken Pox, Measles, Mumps - Past Surgical History HEENT Surgical History: Reports: Cataract Surgery, Oral Surgery, Tonsillectomy Cardiovascular Surgical History: Reports: Coronary Artery Bypass, Coronary Artery Stent GI Surgical History: Reports: Colonoscopy, EGD Male Surgical History: Reports: Suprapubic Catheter Placement Endocrine Surgical History: Reports: None Neurological Surgical History: Reports: None Musculoskeletal Surgical History: Reports: Knee Replacement Dermatological Surgical History: Reports: None Social & Family History - Family History Family Medical History: Noncontributory - Tobacco Use Smoking Status *Q: Never Smoker Second Hand Smoke Exposure: No - Caffeine Use Caffeine Use: Reports: None - Alcohol Use Days Per Week of Alcohol Use: 0 Number of Drinks Per Day: 1 Total Drinks Per Week: 0 - Recreational Drug Use Recreational Drug Use: No Recreational Drug Type: Reports: Marijuana/Hashish Recreational Drug Use Frequency: Rarely - Living Situation & Occupation Living situation: Reports: ( 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 ) Musculoskeletal: Reports: Back Pain (chronic), Muscle Pain Skin: Reports: Dryness Psychiatric: Reports: No Symptoms Neurological: Reports: Pre-Existing Deficit (ambulates with a cane) Hematologic/Lymphatic: Reports: No Symptoms Immunologic: Reports: No Symptoms Exam - Exam Exam: See Below - Vital Signs Vital Signs: Last Vital Signs Temp 37.4 C 01/08/17 21:03 Pulse 99 01/08/17 23:17 Resp 16 01/08/17 23:17 BP 114/73 01/08/17 23:17 Pulse Ox 98 01/08/17 23:17 Weight: 78 kg - Exam General: Alert, Oriented, Cooperative, Other (intermittent bladder spasm causing Mr. Light to clutch side rail and moan in laxmi) HEENT: EOMI, Pupils Equal, Pupils Reactive Neck: Supple, Trachea Midline Lungs: Clear to Auscultation, Normal Respiratory Effort Cardiovascular: Regular Rate, Regular Rhythm, Normal S1, Normal S2 GI/Abdominal Exam: Normal Bowel Sounds, Soft, Non-Tender, Other (pubic cath site ; well healed, no redness or rash is seen.) (Male) Exam: Deferred Rectal (Males) Exam: Deferred Extremities: Normal Inspection, Normal Range of Motion, Non-Tender, No Pedal Edema, Normal Capillary Refill Peripheral Pulses: 2+: Radial (L), Radial (R), Dorsalis Pedis (L), Dorsalis Pedis (R) Skin: Warm, Dry, Intact Neurological: Cranial Nerves Intact, Reflexes Equal Bilateral, Strength Equal Bilateral Neuro Extensive - Mental Status: Alert, Oriented x3, Normal Mood/Affect Psychiatric: Alert, Normal Affect, Normal Mood, Depressed (reports for the past year, low quality of life to illness and pain. 3 years ago.) *Q Meaningful Use (ADM) - VTE *Q VTE Criteria *Q: - Stroke *Q Stroke Criteria *Q: - AMI *Q AMI Criteria *Q: - Problem List (1) Bladder spasms Status: Acute Priority: High Current Visit: Yes (2) UTI, Urinary tract infectious disease SNOMED Code(s): 75711935 ICD Code: N39.0 - URINARY TRACT INFECTION, SITE NOT SPECIFIED Status: Acute Priority: High Current Visit: Yes (3) Suprapubic catheter dysfunction SNOMED Code(s): 781729005 ICD Code: T83.010A - BREAKDOWN (MECHANICAL) OF CYSTOSTOMY CATHETER, INIT ENCNTR Status: Acute Priority: High Current Visit: Yes Qualifiers: Encounter type: initial encounter Qualified Code(s): T83.010A - Breakdown ( mechanical) of cystostomy catheter, initial encounter Problem List Initiated/Reviewed/Updated: Yes Orders Last 24hrs: Active Orders 24 hr Category Date Time Status Patient Status [ADT] Routine ADT 01/08/17 23:53 Ordered Communication Order [RC] STAT Care 01/08/17 23:53 Ordered Intake and Output [RC] QSHIFT Care 01/08/17 23:53 Ordered Notify Provider [RC] PRN Care 01/08/17 23:53 Ordered Oxygen Therapy [RC] PRN Care 01/08/17 23:53 Ordered MACHINE ACCOUNTANT Record [RC] PER UNIT ROUTINE Care 01/08/17 23:53 Ordered Pulse Oximetry [RC] CONTINUOUS Care 01/08/17 23:53 Ordered RT Aerosol Therapy [RC] ASDIRECTED Care 01/08/17 23:53 Ordered Up With Assistance [RC] ASDIRECTED Care 01/08/17 23:53 Ordered VTE/DVT Education [RC] Per Unit Routine Care 01/08/17 23:53 Ordered Vital Signs [RC] Q4H Care 01/08/17 23:53 Ordered Consult to Spiritual Care [CONS] Routine Cons 01/08/17 23:53 Ordered Regular Diet [DIET] Diet 01/08/17 Breakfast Ordered Medication Discontinuation Instructions [OM.PC] Stat Oth 01/08/17 23:53 Ordered Resuscitation Status Routine Resus Stat 01/08/17 23:15 Ordered Assessment/Plan Comment:: ASSESSMENT AND PLAN OF CARE: BLADDER SPASM, URINARY TRACT INFECTION, SUPRAPUBIC CATH Mr. Cruz is having nearly nonstop bladder spasms. He had his suprapubic for the past 2 years, changed last pm and he did well for a few hours, since that time he has been very uncomfortable. Decision made to admit Mr. cruz to the hospital for pain control. His spasms are likely due to a bladder infection. He was treated with 400 mg of Cipro IV in the emergency room. He's had multiple doses of Dilaudid and Ditropan while here in the ER as well as benzodiazepines and still is suffering with the spasms. Hopefully the sensitivities will be out tomorrow on the culture that was obtained today and once his infection is under control, the hope would be that spasms would resolve I think he would benefit from a MACHINE ACCOUNTANT pump tonight and in making that recommendation. plan; will admit to Observation status for IV fluids, pain control and monitoring. Mr. Cruz agrees with plan of care. BLADDER SPASM, URINARY TRACT INFECTION, SUPRAPUBIC CATH -IV Normal Saline 125ml/hr -IV Cipro 400mg, next dose at 0900 -Dilaudid MACHINE ACCOUNTANT -am labs including cbc, bmp, urine culture and sensitivity pending Maintenance issues - - DVT prophylaxis - scd - GI prophylaxis - PPI , PO Protonix 40mg daily - Nutrition - regular diet - Christianson catheter - suprapubic cath -Spiritual consult CODE STATUS - DNR/DNI/COMFORT MEASURES Observation Status- This patient will be admitted for Observation services. I reasonably expect the patient will not require inpatient services that span a period time over 2 midnights. I reasonably expect this patient to be discharged or transferred within 48 hours after admission to the [facility]. Disposition - anticipate discharge back to home after the hospital stay Primary care physician - no Primary Care Provider listed Hospitalist: Sandra Jaramillo M.D.
[2017-01-09] MEDS: Sodium Chloride 0.9% 1,000 ML IV SCH ×2 (00:29→07:44)
[2017-01-09] MEDS: diphenhydrAMINE 25 MG Cap PO PRN ×2 (01:05→23:40)
[2017-01-09] MEDS: LORazepam 2 MG/ML MDV IV PRN ×3 (01:33→21:19)
[2017-01-09] MEDS: Pantoprazole 40 MG Tab.CR (PTOM) PO SCH (07:50)
[2017-01-09] MEDS ORDERED: Losartan 50 MG Tab PO SCH (09:00)
[2017-01-09] MEDS ORDERED: Ciprofloxacin in D5W 400 MG in Premix Bag 1 BAG IV SCH ×2 (09:00)
--- NOTE | 2017-01-09 10:54 | PCM.PN ---
- General Info Date of Service: 01/09/17 Functional Status: Denies: Pain Controlled - Review of Systems General: Reports: Weakness Gastrointestinal: Reports: Abdominal Pain Systems Review Comment:: Ongoing difficulty with bladder spasms overnight. These happen several times per hour and are quite intense. He does not think that the IV pain medications are helping much. He has not had any fevers. Urine culture is pending. We did deflate the balloon and made a slight readjustment with his suprapubic catheter. He has felt much better since that time and has not had a spasm as of yet. - Patient Data Vitals - Most Recent: Last Vital Signs Temp 36.8 C 01/09/17 07:51 Pulse 86 01/09/17 07:51 Resp 16 01/09/17 07:51 BP 110/84 01/09/17 07:51 Pulse Ox 99 01/09/17 07:51 Weight - Most Recent: 81.193 kg I&O - Last 24 Hours: Intake & Output 01/08/17 01/09/17 01/09/17 22:59 06:59 14:59 Intake Total 627 Output Total 400 Balance 227 Lab Results Last 24 Hours: Laboratory Results - last 24 hr 01/09/17 01/09/17 Range/Units 04:45 04:45 WBC 8.2 (4.5-11.0) K/uL RBC 3.20 L (4.30-5.90) M/uL Hgb 8.5 L (12.0-15.0) g/dL Hct 28.4 L (40.0-54.0) % MCV 89 (80-98) fL MCH 27 (27-31) pg MCHC 30 L (32-36) % Plt Count 293 (150-400) K/uL Sodium 140 (140-148) mmol/L Potassium 3.8 (3.6-5.2) mmol/L Chloride 108 (100-108) mmol/L Carbon Dioxide 26 (21-32) mmol/L Anion Gap 6.0 (5.0-14.0) mmol/L BUN 19 H (7-18) mg/dL Creatinine 1.2 (0.8-1.3) mg/dL Est Cr Clr Drug Dosing 49.01 mL/min Estimated GFR (MDRD) 57 L (>60) Glucose 115 H (74-106) mg/dL Calcium 7.6 L (8.5-10.1) mg/dL Med Orders - Current: Current Medications Albuterol (Proventil Neb Soln) 2.5 mg NEB Q4H PRN PRN Reason: Shortness Of Breath/wheezing Belladonna Alkaloids/Opium (B & O Supprettes No. 15a) 1 supp RECTAL Q4H PRN PRN Reason: Pain (moderate 4-6) Carvedilol (Coreg) 3.125 mg PO BID [facility] Clopidogrel Bisulfate (Plavix) 75 mg PO DAILY [facility] Cyanocobalamin (Vitamin B12) 1,000 mcg PO DAILY [facility] Diphenhydramine HCl (Benadryl) 25 mg PO BEDTIME PRN PRN Reason: Allergies Last Admin: 01/09/17 01:05 Dose: 25 mg Docusate Sodium (Colace) 100 mg PO BID PRN PRN Reason: Constipation Hyoscyamine (Hyomax-Sl) 0.125 mg SL Q4H PRN PRN Reason: Other Isosorbide Mononitrate (Imdur) 30 mg PO DAILY [facility] Lorazepam (Ativan) 0.5 - 1 mg IV Q4H PRN PRN Reason: Spasms Last Admin: 01/09/17 07:32 Dose: 0.5 mg Losartan Potassium (Cozaar) 12.5 mg PO DAILY [facility] Naloxone HCl (Narcan) 0.4 mg IVPUSH Q2M PRN PRN Reason: Respiratory Distress Nitroglycerin (Nitrostat) 0.4 mg SL Q5M PRN PRN Reason: Pain Ondansetron HCl (Zofran Odt) 4 mg PO Q6H PRN PRN Reason: Nausea able to take PO Ondansetron HCl (Zofran) 4 mg IV Q4H PRN PRN Reason: Nausea/Vomiting Pantoprazole Sodium (Protonix) 40 mg PO ACBREAKFAST [facility] Last Admin: 01/09/17 07:50 Dose: 40 mg Temazepam (Restoril) 15 mg PO BEDTIME PRN PRN Reason: Sleep Discontinued Medications Belladonna Alkaloids/Opium (B & O Supprettes No. 15a) 1 supp RECTAL ONETIME ONE Stop: 01/08/17 17:40 Last Admin: 01/08/17 17:48 Dose: 1 supp Diazepam (Valium) 5 mg IVPUSH ONETIME ONE Stop: 01/08/17 20:07 Last Admin: 01/08/17 20:31 Dose: 5 mg Hydromorphone HCl (Dilaudid) 1 mg IVPUSH ONETIME ONE Stop: 01/08/17 19:40 Last Admin: 01/08/17 19:43 Dose: 1 mg Hydromorphone HCl (Dilaudid) 1 mg IVPUSH ONETIME ONE Stop: 01/08/17 23:07 Last Admin: 01/08/17 23:10 Dose: 1 mg Hydromorphone HCl (Dilaudid Toddler Teacher 15 Mg In Ns 30 Ml) 0 mg IV ASDIRECTED PRN; Protocol PRN Reason: Pain Last Admin: 01/09/17 00:28 Dose: 15 mg Sodium Chloride (Normal Saline) 1,000 mls @ 300 mls/hr IV ASDIRECTED [facility] Last Admin: 01/08/17 18:24 Dose: 300 mls/hr Ciprofloxacin/Dextrose 400 mg/ (Premix) 200 mls @ 200 mls/hr IV ONETIME ONE Stop: 01/08/17 22:36 Last Admin: 01/08/17 21:47 Dose: 200 mls/hr Ciprofloxacin/Dextrose 400 mg/ (Premix) 200 mls @ 200 mls/hr IV Q12H [facility] Last Admin: 01/09/17 09:30 Dose: 200 mls/hr Sodium Chloride (Normal Saline) 1,000 mls @ 125 mls/hr IV ASDIRECTED [facility] Last Admin: 01/09/17 07:44 Dose: 125 mls/hr Oxybutynin Chloride (Oxybutynin) 5 mg PO NOW STA Stop: 01/08/17 19:12 Last Admin: 01/09/17 01:00 Dose: Not Given Oxybutynin Chloride (Oxybutynin) 5 mg PO NOW STA Stop: 01/08/17 21:39 Last Admin: 01/08/17 21:46 Dose: 5 mg Oxycodone/Acetaminophen (Percocet 325-10 Mg) 1 tab PO ONETIME PRN PRN Reason: Abdominal Pain Last Admin: 01/08/17 22:19 Dose: 1 tab - Exam Quality Assessment: Supplemental Oxygen General: Alert, Oriented, Cooperative, Moderate Distress Neck: Supple Lungs: Clear to Auscultation, Normal Respiratory Effort Cardiovascular: Regular Rate, Regular Rhythm, Murmurs GI/Abdominal Exam: Soft, No Distention (Male) Exam: Other (suprapubic catheter) Extremities: No Pedal Edema. No: Increased Warmth Skin: Warm, Dry Psy/Mental Status: Alert, Normal Affect - Problem List Review Problem List Initiated/Reviewed/Updated: Yes - My Orders Last 24 Hours: My Active Orders 01/09/17 10:50 Acetaminophen/oxyCODONE [Percocet 325-5 MG] 1 - 2 tab PO Q4H PRN 01/09/17 11:00 Pantoprazole [ProTONIX] 40 mg PO DAILY 01/09/17 14:00 Pentoxifylline [TRENtal] 1 tab PO TID 01/09/17 21:00 Ciprofloxacin [Ciprofloxacin HCl] 500 mg PO BID oxyCODONE ER [OxyCONTIN] 10 mg PO Q12H 01/10/17 09:00 Aspirin 81 mg PO DAILY - Plan Plan:: ASSESSMENT AND PLAN OF CARE: SEVERE BLADDER SPASM, URINARY TRACT INFECTION, SUPRAPUBIC CATH - suboptimal pain control and multiple episodes of spasm overnight but seems to be doing a little better as the morning has progressed, especially after slight repositioning of the catheter. Urine culture is pending. -Gentle IV fluids -Change ciprofloxacin to oral -DC the Dilaudid CARD SETTER -By mouth pain control -As needed antispasmodics Coronary artery disease - no obvious active symptoms at this time. -Continue medical management Chronic lower back pain - intermittent episodes overnight though this pain has been better controlled with the CARD SETTER. -Restart oxycodone/acetaminophen Maintenance issues - - DVT prophylaxis - scd - GI prophylaxis - PPI - Nutrition - regular diet - Christianson catheter - suprapubic cath -Spiritual consult CODE STATUS - DNR/DNI Observation Status- This patient will be admitted for Observation services. I reasonably expect the patient will not require inpatient services that span a period time over 2 midnights. I reasonably expect this patient to be discharged or transferred within 48 hours [facility]. Disposition - anticipate discharge back to home after the hospital stay, possibly later today or more likely tomorrow Bebo Jaramillo M.D.
[2017-01-09] MEDS ORDERED: Pantoprazole 40 MG Tab.CR PO SCH (11:30)
[2017-01-09] MEDS: CARVEDILOL 3.125 MG PO SCH ×2 (13:07→21:22)
[2017-01-09] MEDS: ISOSORBIDE MONO 30 MG PO SCH (13:07)
[2017-01-09] MEDS: Clopidogrel 75 MG Tab (PTOM) PO SCH ×2 (13:07→14:09)
[2017-01-09] MEDS: Cyanocobalamin (Vitamin B12) 1,000 MCG Tab PO SCH (13:08)
[2017-01-09] MEDS: LOSARTAN 25 MG PO SCH (14:06)
[2017-01-09] MEDS: PENTOXIFYLLINE 400 MG PO SCH ×2 (14:07→21:29)
[2017-01-09] MEDS: Ciprofloxacin 500 MG Tab PO SCH (17:04)
[2017-01-09] MEDS: Acetaminophen/oxyCODONE 325-5 MG Tab PO PRN (17:22)
[2017-01-09] MEDS: Belladonna Alkaloids/Opium 16.2-30 MG Supp RECTAL PRN (21:20)
[2017-01-09] MEDS: oxyCODONE ER 10 MG TAB.ER PO SCH (21:20)
[2017-01-10] MEDS: HYOSCYAMINE 0.125 MG SL PRN ×2 (00:35→00:39)
[2017-01-10] MEDS: Belladonna Alkaloids/Opium 16.2-30 MG Supp RECTAL PRN ×2 (06:20→12:31)
[2017-01-10] MEDS: Ciprofloxacin 500 MG Tab PO SCH ×2 (07:23→17:33)
[2017-01-10] MEDS: Pantoprazole 40 MG Tab.CR (PTOM) PO SCH (07:23)
[2017-01-10] MEDS: PENTOXIFYLLINE 400 MG PO SCH ×3 (09:16→20:43)
[2017-01-10] MEDS: Aspirin 81 MG Tab.Chew PO SCH (09:16)
[2017-01-10] MEDS: Clopidogrel 75 MG Tab (PTOM) PO SCH (09:17)
[2017-01-10] MEDS: Cyanocobalamin (Vitamin B12) 1,000 MCG Tab PO SCH (09:17)
[2017-01-10] MEDS: oxyCODONE ER 10 MG TAB.ER PO SCH ×2 (09:20→22:16)
--- NOTE | 2017-01-10 09:52 | PCM.PN ---
- General Info Date of Service: 01/10/17 Functional Status: Reports: Pain Controlled, Tolerating Diet - Review of Systems General: Reports: Weakness Genitourinary: Reports: Other (bladder spasms) Systems Review Comment:: no acute events overnight other than ongoing difficulty with bladder spasms. In general had a pretty good afternoon but bladder spasms increased as the day went on. Did have a fairly good night of sleep but woke up with more bladder spasms this morning. These last 3-5 minutes and are fairly intense. He's not had any fevers. Urine is nice and clear. - Patient Data Vitals - Most Recent: Last Vital Signs Temp 36.9 C 01/10/17 07:00 Pulse 92 01/10/17 07:00 Resp 18 01/10/17 07:00 BP 96/67 01/10/17 07:00 Pulse Ox 97 01/10/17 07:00 Weight - Most Recent: 81.193 kg I&O - Last 24 Hours: Intake & Output 01/09/17 01/10/17 01/10/17 22:59 06:59 14:59 Intake Total 1691 360 Output Total 1400 1000 Balance 291 -1000 360 Med Orders - Current: Current Medications Albuterol (Proventil Neb Soln) 2.5 mg NEB Q4H PRN PRN Reason: Shortness Of Breath/wheezing Aspirin (Aspirin) 81 mg PO DAILY [facility] Last Admin: 01/10/17 09:16 Dose: 81 mg Belladonna Alkaloids/Opium (B & O Supprettes No. 15a) 1 supp RECTAL Q4H PRN PRN Reason: Pain (moderate 4-6) Last Admin: 01/10/17 06:20 Dose: 1 supp Carvedilol (Coreg) 3.125 mg PO BID [facility] Last Admin: 01/09/17 21:22 Dose: 3.125 mg [facility] Admin: 01/10/17 07:23 Dose: 500 mg Clopidogrel Bisulfate (Plavix) 75 mg PO DAILY [facility] Last Admin: 01/10/17 09:17 Dose: 75 mg Cyanocobalamin (Vitamin B12) 1,000 mcg PO DAILY [facility] Last Admin: 01/10/17 09:17 Dose: 1,000 mcg Diphenhydramine HCl (Benadryl) 25 mg PO BEDTIME PRN PRN Reason: Allergies Last Admin: 01/09/17 23:40 Dose: 25 mg Docusate Sodium (Colace) 100 mg PO BID PRN PRN Reason: Constipation Isosorbide Mononitrate (Imdur) 30 mg PO DAILY [facility] Last Admin: 01/09/17 13:07 Dose: Not Given Lorazepam (Ativan) 0.5 - 1 mg IV Q4H PRN PRN Reason: Spasms Last Admin: 01/09/17 21:19 Dose: 0.5 mg Nitroglycerin (Nitrostat) 0.4 mg SL Q5M PRN PRN Reason: Pain Ondansetron HCl (Zofran Odt) 4 mg PO Q6H PRN PRN Reason: Nausea able to take PO Ondansetron HCl (Zofran) 4 mg IV Q4H PRN PRN Reason: Nausea/Vomiting Oxycodone HCl (Oxycontin) 10 mg PO Q12H [facility] Last Admin: 01/10/17 09:20 Dose: 10 mg Oxycodone/Acetaminophen (Percocet 325-5 Mg) 1 - 2 tab PO Q4H PRN PRN Reason: Pain Last Admin: 01/09/17 17:22 Dose: 2 tab Pantoprazole Sodium (Protonix) 40 mg PO ACBREAKFAST [facility] Last Admin: 01/10/17 07:23 Dose: 40 mg Losartan 25mg (Ptom 0 each PO DAILY [facility] Last Admin: 01/09/17 14:06 Dose: 1 each Pentoxifylline (Trental) 400 mg PO TID [facility] Last Admin: 01/10/17 09:16 Dose: 400 mg Temazepam (Restoril) 15 mg PO BEDTIME PRN PRN Reason: Sleep Discontinued Medications Belladonna Alkaloids/Opium (B & O Supprettes No. 15a) 1 supp RECTAL ONETIME ONE Stop: 01/08/17 17:40 Last Admin: 01/08/17 17:48 Dose: 1 supp Diazepam (Valium) 5 mg IVPUSH ONETIME ONE Stop: 01/08/17 20:07 Last Admin: 01/08/17 20:31 Dose: 5 mg Hydromorphone HCl (Dilaudid) 1 mg IVPUSH ONETIME ONE Stop: 01/08/17 19:40 Last Admin: 01/08/17 19:43 Dose: 1 mg Hydromorphone HCl (Dilaudid) 1 mg IVPUSH ONETIME ONE Stop: 01/08/17 23:07 Last Admin: 01/08/17 23:10 Dose: 1 mg Hydromorphone HCl (Dilaudid [employer] 15 Mg In Ns 30 Ml) 0 mg IV ASDIRECTED PRN; Protocol PRN Reason: Pain Last Admin: 01/09/17 00:28 Dose: 15 mg Hyoscyamine (Hyomax-Sl) 0.125 mg SL Q4H PRN PRN Reason: Other Last Admin: 01/10/17 00:39 Dose: 0.125 mg Sodium Chloride (Normal Saline) 1,000 mls @ 300 mls/hr IV ASDIRECTED [facility] Last Admin: 01/08/17 18:24 Dose: 300 mls/hr Ciprofloxacin/Dextrose 400 mg/ (Premix) 200 mls @ 200 mls/hr IV ONETIME ONE Stop: 01/08/17 22:36 Last Admin: 01/08/17 21:47 Dose: 200 mls/hr Ciprofloxacin/Dextrose 400 mg/ (Premix) 200 mls @ 200 mls/hr IV Q12H [facility] Last Admin: 01/09/17 09:30 Dose: 200 mls/hr Sodium Chloride (Normal Saline) 1,000 mls @ 125 mls/hr IV ASDIRECTED [facility] Last Admin: 01/09/17 07:44 Dose: 125 mls/hr Naloxone HCl (Narcan) 0.4 mg IVPUSH Q2M PRN PRN Reason: Respiratory Distress Oxybutynin Chloride (Oxybutynin) 5 mg PO NOW STA Stop: 01/08/17 19:12 Last Admin: 01/09/17 01:00 Dose: Not Given Oxybutynin Chloride (Oxybutynin) 5 mg PO NOW STA Stop: 01/08/17 21:39 Last Admin: 01/08/17 21:46 Dose: 5 mg Oxycodone/Acetaminophen (Percocet 325-10 Mg) 1 tab PO ONETIME PRN PRN Reason: Abdominal Pain Last Admin: 01/08/17 22:19 Dose: 1 tab - Exam Quality Assessment: No: Supplemental Oxygen General: Alert, Oriented, Cooperative, No Acute Distress Neck: Supple Lungs: Normal Respiratory Effort GI/Abdominal Exam: Soft, No Distention Extremities: No Pedal Edema Skin: Warm, Dry Psy/Mental Status: Alert, Normal Affect - Problem List Review Problem List Initiated/Reviewed/Updated: Yes - My Orders Last 24 Hours: My Active Orders 01/09/17 10:50 Acetaminophen/oxyCODONE [Percocet 325-5 MG] 1 - 2 tab PO Q4H PRN 01/09/17 14:00 Pentoxifylline [TRENtal] 400 mg PO TID 01/09/17 16:30 Ciprofloxacin [Ciprofloxacin HCl] 500 mg PO BIDAC 01/09/17 21:00 oxyCODONE ER [OxyCONTIN] 10 mg PO Q12H 01/10/17 09:00 Aspirin 81 mg PO DAILY 01/10/17 10:00 Oxybutynin 5 mg PO TID - Plan Plan:: ASSESSMENT AND PLAN OF CARE: SEVERE BLADDER SPASM, URINARY TRACT INFECTION, SUPRAPUBIC CATH - better today but still suboptimal pain control. Having frequent and intense episodes. Discussed case with Dr. Gomez and trial of tolterodine recommended. -trial of tolterodine -Continue cipro (No cx set up in the ER) -TID oxybutynin -By mouth pain controlsymmetric spelled oxybutyninthat gastric -As needed antispasmodics Coronary artery disease - no obvious active symptoms at this time. -Continue medical management Chronic lower back pain - intermittent episodes overnight though this pain has been better controlled with the SECURITY [employer]N. -continue oxycodone/acetaminophen Maintenance issues - - DVT prophylaxis - scd - GI prophylaxis - PPI - Nutrition - regular diet - Christians[place] catheter - suprapubic cath -Spiritual consult CODE STATUS - DNR/DNI Admission Status- This patient will be admitted for Observation services. I reasonably expect the patient will not require inpatient services that span a period time over 2 midnights. I reasonably expect this patient to be discharged or transferred within 48 hours [facility]. Disposition - anticipate discharge back to home after the hospital stay, hopefully tomorrow Bebo Jaramillo M.D.
[2017-01-10] MEDS: Oxybutynin 5 MG Tab PO SCH ×3 (10:37→20:42)
[2017-01-10] MEDS ORDERED: Tolterodine 2 MG Tab PO ONE (15:00)
[2017-01-10] MEDS: CARVEDILOL 3.125 MG PO SCH ×2 (17:04→20:40)
[2017-01-10] MEDS: LOSARTAN 25 MG PO SCH (17:05)
[2017-01-10] MEDS: ISOSORBIDE MONO 30 MG PO SCH (17:05)
[2017-01-10] MEDS: diphenhydrAMINE 25 MG Cap PO PRN (22:16)
[2017-01-11] MEDS: Belladonna Alkaloids/Opium 16.2-30 MG Supp RECTAL PRN ×2 (01:46→09:58)
[2017-01-11] MEDS: Acetaminophen/oxyCODONE 325-5 MG Tab PO PRN ×2 (01:46→09:57)
[2017-01-11] MEDS: Pantoprazole 40 MG Tab.CR (PTOM) PO SCH (08:20)
[2017-01-11] MEDS: Aspirin 81 MG Tab.Chew PO SCH (08:21)
[2017-01-11] MEDS: CARVEDILOL 3.125 MG PO SCH (08:21)
[2017-01-11] MEDS: ISOSORBIDE MONO 30 MG PO SCH (08:22)
[2017-01-11] MEDS: LOSARTAN 25 MG PO SCH (08:23)
[2017-01-11] MEDS: Clopidogrel 75 MG Tab (PTOM) PO SCH (08:23)
[2017-01-11] MEDS: Oxybutynin 5 MG Tab PO SCH (08:23)
[2017-01-11] MEDS: PENTOXIFYLLINE 400 MG PO SCH (08:24)
[2017-01-11] MEDS: Cyanocobalamin (Vitamin B12) 1,000 MCG Tab PO SCH (08:24)
[2017-01-11] MEDS: Ciprofloxacin 500 MG Tab PO SCH (08:25)
[2017-01-11] MEDS: oxyCODONE ER 10 MG TAB.ER PO SCH (08:26)
[2017-01-11] MEDS ORDERED: Tolterodine 2 MG Tab PO SCH (09:00)
[2017-01-11 11:01] VITALS: BP 116/74
--- NOTE | 2017-01-11 11:25 | PCM.DCSUM1 ---
Discharge Summary - Hospital Course Brief History: 86-year-old male with history of coronary artery disease, spinal stenosis with chronic back pain and indwelling suprapubic catheter due to bladder outlet obstruction who presented with severe bladder spasms and was admitted for pain control and management of a complicated urinary tract infection. - Discharge Data Discharge Date: 01/11/17 Discharge Disposition: Home, Self-Care 01 Condition: Fair - Discharge Diagnosis/Problem(s) (1) Acute cystitis SNOMED Code(s): 98539889 ICD Code: N30.00 - ACUTE CYSTITIS WITHOUT HEMATURIA Status: Acute Qualifiers: Hematuria presence: without hematuria Qualified Code(s): N30.00 - Acute cystitis without hematuria (2) Bladder spasms Status: Acute Priority: High (3) Suprapubic catheter dysfunction SNOMED Code(s): 523439405 ICD Code: T83.010A - BREAKDOWN (MECHANICAL) OF CYSTOSTOMY CATHETER, INIT ENCNTR Status: Acute Priority: High Qualifiers: Encounter type: initial encounter Qualified Code(s): T83.010A - Breakdown ( mechanical) of cystostomy catheter, initial encounter (4) Coronary artery disease SNOMED Code(s): 59841219 ICD Code: I25.10 - ATHSCL HEART DISEASE OF [place] CORONARY ARTERY W/O ANG PCTRS Status: Chronic Qualifiers: Coronary Disease-Associated Artery/Lesion type: [place] artery [place] vs. transplanted heart: [place] heart Associated angina: angina presence unspecified Qualified Code(s): I25.10 - Atherosclerotic heart disease of [place] coronary artery without angina pectoris (5) Lumbar stenosis with neurogenic claudication SNOMED Code(s): 52135769 ICD Code: M48.06 - SPINAL STENOSIS, LUMBAR REGION Status: Chronic - Patient Summary/Data Consults: Consultations 01/08/17 23:53 Consult to Spiritual Care [CONS] Routine Hospital Course: Ambrosio presented to the emergency room with severe lower abdominal pain and bladder spasms. Workup in the emergency room was suggestive of a urinary tract infection and antibiotics were initiated. He was admitted to the hospital for pain control. Overnight following admission there was not a significant improvement in his pain despite a trial of oxybutynin as well as B and O suppositories. The morning after admission we did deflate the balloon from his suprapubic catheter and readjusted his catheter slightly. This did provide some benefit but did not resolve the bladder spasms. Because he was doing better the day after we elected not to make many medication changes but with ongoing pain the next day I did contact the urology services at [facility]. Dr Gomez felt that complete relief from the spasms would be very unlikely unless the catheter was removed and he initiated intermittent catheterization. The patient was not excited about this idea and we elected additional medication trials. He was started on tolterodine in addition to the oxybutynin and as needed B and O suppositories. He had significant relief and improvement with this medication adjustment. On the day of discharge she is feeling much better and has had only 3 mild spasms over the past 16-18 hours. He feels well enough to be safe at home at this time. We elected to utilize tolterodine twice daily as the prophylactic medication and he will have B and O suppositories available as needed. If he has additional difficulties oxybutynin could be considered but we elected to hold off on this medication because of potential side effects. He is aware that the catheter in place is likely of the cause for his spasms but at this time feels that the benefits of the catheter away the spasms as they have been for the past 24 hours. He'll be discharged home with close clinic follow-up. I did also elect to treat his urinary tract infection for an additional 5 days. Unfortunately a urine culture was not set up at the time of admission. - Patient Instructions Diet: Heart Healthy Diet Activity: As Tolerated Driving: Do Not Drive (if taking pain pills) Showering/Bathing: May Shower Notify Provider of: Fever, Increased Pain, Nausea and/or Vomiting Other/Special Instructions: 1. You were in the hospital for management of severe bladder spasms likely caused by your chronic indwelling suprapubic catheter. We have made some medication adjustments to help relieve the spasm. As long as you have the catheter in place she will likely have some degree of spasm. Medication changes are listed below -. - Start taking tolterodine Detrol 2 mg twice daily to help reduce bladder spasms. - Use the belladonna suppositories for severe bladder spasms. - If you continue to have difficulty despite the above medication changes start taking oxybutynin 5 mg 3 times a day. I have hand written a prescription for this medication which you should have filled only if you have spasms not relieved by the above medications. 2. continue your other medications as previously prescribed. 3. Follow-up with Ashwini Rojas or one of her partners in the internal medicine clinic in the next week to ensure that you continue to do better. 4. Your urine sample was suggestive of infection and I recommend 5 additional days of antibiotic therapy with ciprofloxacin taken twice daily. 5. Please seek medical attention if you develop fever greater than 101 or if you have severe spasms not relieved by the new medications - Discharge Plan Prescriptions/Med Rec: Acetaminophen/oxyCODONE [Percocet 325-5 MG] 1 - 2 tab PO Q4H PRN #20 tablet PRN Reason: Pain Belladonna/Opium [Belladonna-Opium 16.2-30] 1 supp RECTAL Q4H PRN #30 supp PRN Reason: bladder spasm Belladonna/Opium [B & O Supprettes No. 15A] 1 supp RECTAL Q4H PRN #30 supp PRN Reason: bladder spasm Ciprofloxacin [Ciprofloxacin HCl] 500 mg PO BIDAC #10 tablet Tolterodine [Detrol] 2 mg PO DAILY #60 tablet Home Medications: Home Meds Acetaminophen [Tylenol Extra Strength] 500 mg PO Q4H PRN 01/09/13 [History] Ascorbic Acid [Vitamin C] 250 mg PO DAILY 01/09/13 [History] Aspirin [Elías Chewable Aspirin] 81 mg PO DAILY 01/09/13 [History] Cholecalciferol (Vitamin D3) [Vitamin D3] 1,000 unit PO DAILY 01/09/13 [History] Losartan [Cozaar] 0.5 tab PO DAILY 01/09/13 [History] Nitroglycerin 0.4 mg SL ASDIRECTED PRN 01/09/13 [History] Sennosides/Docusate Sodium [Senna S] 8.6 mg PO ONETIME PRN 01/09/13 [History] diphenhydrAMINE [Benadryl] 25 mg PO BEDTIME PRN 01/09/13 [History] atorvaSTATin [Lipitor] 20 mg PO BEDTIME 07/01/14 [History] Clopidogrel Bisulfate [Clopidogrel] 75 mg PO DAILY 12/21/15 [History] Carvedilol 3.125 mg PO BID 03/26/16 [History] Isosorbide Mononitrate [Imdur] 30 mg PO DAILY #30 tab.er 03/27/16 [Rx] Cyanocobalamin (Vitamin B12) [Vitamin B12] 1,000 mcg PO DAILY 05/06/16 [History] Pentoxifylline [TRENtal] 1 tab PO TID 05/07/16 [History] Hyoscyamine [Hyomax-SL] 0.125 mg SL Q4H PRN #60 tab.sl 08/02/16 [Rx] oxyCODONE ER [OxyCONTIN] 10 mg PO Q12H #30 tab.er 08/02/16 [Rx] Pantoprazole Sodium [Protonix] 40 mg PO DAILY 11/21/16 [History] Acetaminophen/oxyCODONE [Percocet 325-5 MG] 1 - 2 tab PO Q4H PRN #20 tablet [Rx] Belladonna/Opium [B & O Supprettes No. 15A] 1 supp RECTAL Q4H PRN #30 supp 01/11 [Rx] Belladonna/Opium [Belladonna-Opium 16.2-30] 1 supp RECTAL Q4H PRN #30 supp 01/11 [Rx] Ciprofloxacin [Ciprofloxacin HCl] 500 mg PO BIDAC #10 tablet 01/11/17 [Rx] Tolterodine [Detrol] 2 mg PO DAILY #60 tablet 01/11/17 [Rx] Patient Handouts: Tolterodine tablets, Oxybutynin tablets Referrals: PCP,None [Primary Care Provider] - - Discharge Summary/Plan Comment DC Time >30 min.: No (25) - Patient Data Vitals - Most Recent: Last Vital Signs Temp 36.2 C 01/11/17 11:00 Pulse 70 01/11/17 11:00 Resp 18 01/11/17 11:00 BP 116/74 01/11/17 11:00 Pulse Ox 95 01/11/17 11:00 Weight - Most Recent: 81.193 kg I&O - Last 24 hours: Intake & Output 01/10/17 01/11/17 01/11/17 22:59 06:59 14:59 Intake Total 150 600 240 Output Total 2100 900 Balance -1950 600 -660 Med Orders - Current: Current Medications Albuterol (Proventil Neb Soln) 2.5 mg NEB Q4H PRN PRN Reason: Shortness Of Breath/wheezing Aspirin (Aspirin) 81 mg PO DAILY [facility] Last Admin: 01/11/17 08:21 Dose: 81 mg Belladonna Alkaloids/Opium (B & O Supprettes No. 15a) 1 supp RECTAL Q4H PRN PRN Reason: Pain (moderate 4-6) Last Admin: 01/11/17 09:58 Dose: 1 supp Carvedilol (Coreg) 3.125 mg PO BID [facility] Last Admin: 01/11/17 08:21 Dose: 3.125 mg Ciprofloxacin (Ciprofloxacin Hcl) 500 mg PO BIDAC [facility] Last Admin: 01/11/17 08:25 Dose: 500 mg Clopidogrel Bisulfate (Plavix) 75 mg PO DAILY [facility] Last Admin: 01/11/17 08:23 Dose: 75 mg Cyanocobalamin (Vitamin B12) 1,000 mcg PO DAILY [facility] Last Admin: 01/11/17 08:24 Dose: 1,000 mcg Diphenhydramine HCl (Benadryl) 25 mg PO BEDTIME PRN PRN Reason: Allergies Last Admin: 01/10/17 22:16 Dose: 25 mg Docusate Sodium (Colace) 100 mg PO BID PRN PRN Reason: Constipation Isosorbide Mononitrate (Imdur) 30 mg PO DAILY [facility] Last Admin: 01/11/17 08:22 Dose: 30 mg Lorazepam (Ativan) 0.5 - 1 mg IV Q4H PRN PRN Reason: Spasms Last Admin: 01/09/17 21:19 Dose: 0.5 mg Nitroglycerin (Nitrostat) 0.4 mg SL Q5M PRN PRN Reason: Pain Ondansetron HCl (Zofran Odt) 4 mg PO Q6H PRN PRN Reason: Nausea able to take PO Ondansetron HCl (Zofran) 4 mg IV Q4H PRN PRN Reason: Nausea/Vomiting Oxybutynin Chloride (Oxybutynin) 5 mg PO TID [facility] Last Admin: 01/11/17 08:23 Dose: 5 mg Oxycodone HCl (Oxycontin) 10 mg PO Q12H [facility] Last Admin: 01/11/17 08:26 Dose: 10 mg Oxycodone/Acetaminophen (Percocet 325-5 Mg) 1 - 2 tab PO Q4H PRN PRN Reason: Pain Last Admin: 01/11/17 09:57 Dose: 1 tab Pantoprazole Sodium (Protonix) 40 mg PO ACBREAKFAST [facility] Last Admin: 01/11/17 08:20 Dose: 40 mg Losartan 25mg (Ptom 0 each PO DAILY [facility] Last Admin: 01/11/17 08:23 Dose: 1 each Pentoxifylline (Trental) 400 mg PO TID [facility] Last Admin: 01/11/17 08:24 Dose: 400 mg Temazepam (Restoril) 15 mg PO BEDTIME PRN PRN Reason: Sleep Tolterodine Tartrate (Detrol) 2 mg PO DAILY [facility] Last Admin: 01/11/17 08:22 Dose: 2 mg Discontinued Medications Belladonna Alkaloids/Opium (B & O Supprettes No. 15a) 1 supp RECTAL ONETIME ONE Stop: 01/08/17 17:40 Last Admin: 01/08/17 17:48 Dose: 1 supp Diazepam (Valium) 5 mg IVPUSH ONETIME ONE Stop: 01/08/17 20:07 Last Admin: 01/08/17 20:31 Dose: 5 mg Hydromorphone HCl (Dilaudid) 1 mg IVPUSH ONETIME ONE Stop: 01/08/17 19:40 Last Admin: 01/08/17 19:43 Dose: 1 mg Hydromorphone HCl (Dilaudid) 1 mg IVPUSH ONETIME ONE Stop: 01/08/17 23:07 Last Admin: 01/08/17 23:10 Dose: 1 mg Hydromorphone HCl (Dilaudid [employer] 15 Mg In Ns 30 Ml) 0 mg IV ASDIRECTED PRN; Protocol PRN Reason: Pain Last Admin: 01/09/17 00:28 Dose: 15 mg Hyoscyamine (Hyomax-Sl) 0.125 mg SL Q4H PRN PRN Reason: Other Last Admin: 01/10/17 00:39 Dose: 0.125 mg Sodium Chloride (Normal Saline) 1,000 mls @ 300 mls/hr IV ASDIRECTED [facility] Last Admin: 01/08/17 18:24 Dose: 300 mls/hr Ciprofloxacin/Dextrose 400 mg/ (Premix) 200 mls @ 200 mls/hr IV ONETIME ONE Stop: 01/08/17 22:36 Last Admin: 01/08/17 21:47 Dose: 200 mls/hr Ciprofloxacin/Dextrose 400 mg/ (Premix) 200 mls @ 200 mls/hr IV Q12H [facility] Last Admin: 01/09/17 09:30 Dose: 200 mls/hr Sodium Chloride (Normal Saline) 1,000 mls @ 125 mls/hr IV ASDIRECTED [facility] Last Admin: 01/09/17 07:44 Dose: 125 mls/hr Naloxone HCl (Narcan) 0.4 mg IVPUSH Q2M PRN PRN Reason: Respiratory Distress Oxybutynin Chloride (Oxybutynin) 5 mg PO NOW STA Stop: 01/08/17 19:12 Last Admin: 01/09/17 01:00 Dose: Not Given Oxybutynin Chloride (Oxybutynin) 5 mg PO NOW STA Stop: 01/08/17 21:39 Last Admin: 01/08/17 21:46 Dose: 5 mg Oxycodone/Acetaminophen (Percocet 325-10 Mg) 1 tab PO ONETIME PRN PRN Reason: Abdominal Pain Last Admin: 01/08/17 22:19 Dose: 1 tab Tolterodine Tartrate (Detrol) 2 mg PO ONETIME ONE Stop: 01/10/17 15:01 Last Admin: 01/10/17 15:19 Dose: 2 mg *Q Meaningful Use (DIS) - VTE *Q VTE Criteria *Q: - Stroke *Q Stroke Criteria *Q: - AMI *Q AMI Criteria *Q:
== END 2017-01-11 13:00 | disposition home or self-care (01) ==
LOC: JP.ED 17:05 → JP.MS 23:13
PROVIDERS: ADMIT Internal Medicine; ATTEND Internal Medicine
DX: N30.00 Acute cystitis without hematuria (principal); I25.10 Atherosclerotic heart disease of native coronary artery without angina pectoris; T83.010A Breakdown (mechanical) of cystostomy catheter, initial encounter; M48.06 Spinal stenosis, lumbar region; E78.00 Pure hypercholesterolemia, unspecified; I10 Essential (primary) hypertension; K21.9 Gastro-esophageal reflux disease without esophagitis; M19.90 Unspecified osteoarthritis, unspecified site; Z90.89 Acquired absence of other organs; Z98.41 Cataract extraction status, right eye; Z98.42 Cataract extraction status, left eye; Z95.1 Presence of aortocoronary bypass graft; Z95.5 Presence of coronary angioplasty implant and graft; Z98.890 Other specified postprocedural states; Z96.659 Presence of unspecified artificial knee joint
CPT/HCPCS: 36415; 51798; 74176; 80048; 81001; 85027; 96361; 96365; 96366; 96375; 96376; 99285; A9270; G0378; J0744; J1170; J2060; J3360; J7040; 99217; 99219; 99225; 99284

== ENCOUNTER 2017-01-27 18:15 | Emergency (ER) | payer MEDICARE, BC ==
[2017-01-27 18:33] VITALS: BP 119/47
--- NOTE | 2017-01-27 20:03 | EDM.PDOC ---
ED HPI GENERAL MEDICAL PROBLEM - General Chief Complaint: Genitourinary Problem Stated Complaint: NEEDS CATHETER CHANGE Time Seen by Provider: 01/27/17 19:30 Source of Information: Reports: Patient, Provider History Limitations: Reports: No Limitations - History of Present Illness INITIAL COMMENTS - FREE TEXT/NARRATIVE: 86-year-old male with chronic recurring bladder spasms due to a suprapubic catheter was seen at the clinic after being started on Pyridium to rule out a UTI. He just finished Cipro yesterday. He has no fever or chills. He took some medical marijuana earlier today prior to going to the clinic and has now had no bladder spasms over the past hour. They deflated the bulb at the clinic and tried to remove it and was unsuccessful. They therefore sent him over the emergency room. Onset: Unknown/Unsure (Spasms are waxing and waning) Severity: Moderate Associated Symptoms: Denies: Fever/Chills, Nausea/Vomiting Bladder Pain Score (Numeric/FACES): 10 - Related Data Allergies Allergy/AdvReac Type Severity Reaction Status Date / Time aspirin Allergy Unknown Hives Verified 01/27/17 20:36 piroxicam [From Feldene] Allergy Rash Verified 01/27/17 20:36 Home Meds: Home Meds Acetaminophen [Tylenol Extra Strength] 500 mg PO Q4H PRN 01/09/13 [History] Ascorbic Acid [Vitamin C] 250 mg PO DAILY 01/09/13 [History] Aspirin [Elías Chewable Aspirin] 81 mg PO DAILY 01/09/13 [History] Cholecalciferol (Vitamin D3) [Vitamin D3] 1,000 unit PO DAILY 01/09/13 [History] Losartan [Cozaar] 0.5 tab PO DAILY 01/09/13 [History] Nitroglycerin 0.4 mg SL ASDIRECTED PRN 01/09/13 [History] Sennosides/Docusate Sodium [Senna S] 8.6 mg PO ONETIME PRN 01/09/13 [History] diphenhydrAMINE [Benadryl] 25 mg PO BEDTIME PRN 01/09/13 [History] atorvaSTATin [Lipitor] 20 mg PO BEDTIME 07/01/14 [History] Clopidogrel Bisulfate [Clopidogrel] 75 mg PO DAILY 12/21/15 [History] Carvedilol 3.125 mg PO BID 03/26/16 [History] Isosorbide Mononitrate [Imdur] 30 mg PO DAILY #30 tab.er 03/27/16 [Rx] Cyanocobalamin (Vitamin B12) [Vitamin B12] 1,000 mcg PO DAILY 05/06/16 [History] Pentoxifylline [TRENtal] 1 tab PO TID 05/07/16 [History] Hyoscyamine [Hyomax-SL] 0.125 mg SL Q4H PRN #60 tab.sl 08/02/16 [Rx] Pantoprazole Sodium [Protonix] 40 mg PO DAILY 11/21/16 [History] Acetaminophen/oxyCODONE [Percocet 325-5 MG] 1 - 2 tab PO Q4H PRN #20 tablet [Rx] Belladonna/Opium [B & O Supprettes No. 15A] 1 supp RECTAL Q4H PRN #30 supp 01/11 [Rx] Belladonna/Opium [Belladonna-Opium 16.2-30] 1 supp RECTAL Q4H PRN #30 supp 01/11 [Rx] Ciprofloxacin [Ciprofloxacin HCl] 500 mg PO BIDAC #10 tablet 01/11/17 [Rx] Melatonin 10 mg PO BEDTIME 01/27/17 [History] Tolterodine [Detrol] 2 mg PO BID 01/27/17 [History] Past Medical History HEENT History: Reports: Cataract, Impaired Vision Cardiovascular History: Reports: Angina, Arrhythmia, CAD, High Cholesterol, Hypertension, DC, SOB on Exertion, Stents Respiratory History: Reports: Other (See Below) Other Respiratory History: seeing a lung specialist in [place]. Spot on lung to investigate Gastrointestinal History: Reports: GERD Genitourinary History: Reports: Retention, Urinary Other Genitourinary History: surapubic catheter Musculoskeletal History: Reports: Back Pain, Chronic, Fracture, Osteoarthritis Neurological History: Reports: None Psychiatric History: Reports: None Endocrine/Metabolic History: Reports: None Hematologic History: Reports: Blood Transfusion(s) Immunologic History: Reports: None Oncologic (Cancer) History: Reports: Prostate Dermatologic History: Reports: None - Infectious Disease History Infectious Disease History: Reports: C-Difficile, Mumps - Past Surgical History HEENT Surgical History: Reports: Cataract Surgery, Oral Surgery, Tonsillectomy Cardiovascular Surgical History: Reports: Coronary Artery Bypass, Coronary Artery Stent GI Surgical History: Reports: Colonoscopy, EGD Male Surgical History: Reports: Suprapubic Catheter Placement Endocrine Surgical History: Reports: None Neurological Surgical History: Reports: None Musculoskeletal Surgical History: Reports: Knee Replacement Dermatological Surgical History: Reports: None Social & Family History - Family History Family Medical History: Noncontributory - Tobacco Use Smoking Status *Q: Never Smoker Second Hand Smoke Exposure: No - Caffeine Use Caffeine Use: Reports: None - Alcohol Use Days Per Week of Alcohol Use: 0 Number of Drinks Per Day: 1 Total Drinks Per Week: 0 - Recreational Drug Use Recreational Drug Use: No Recreational Drug Type: Reports: Marijuana/Hashish Recreational Drug Use Frequency: Rarely - Living Situation & Occupation Living situation: Reports: ( 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 There is no lower abdominal distention, slight discomfort with palpation around the catheter) Neurological: Alert, Oriented Skin Exam: Warm, Dry Course - Vital Signs Last Recorded V/S: Last Vital Signs Temp 99.0 F 01/27/17 19:13 Pulse 66 01/27/17 19:13 Resp 20 01/27/17 19:13 BP 119/47 L 01/27/17 19:13 Pulse Ox 91 L 01/27/17 19:13 - Re-Assessments/Exams Free Text/Narrative Re-Assessment/Exam: 01/27/17 20:00 A bladder scan was done and showed no significant volume in the bladder. After discussion with urology, it was recommended to inflate the balloon partially with 8 mL and have the patient seen by urology tomorrow in [place]. Departure - Departure Time of Disposition: 20:32 Disposition: Home, Self-Care 01 Condition: Good Clinical Impression: Bladder spasms Suprapubic catheter dysfunction Qualifiers: Encounter type: initial encounter Qualified Code(s): T83.010A - Breakdown ( mechanical) of cystostomy catheter, initial encounter - Discharge Information Instructions: Suprapubic Catheter Home Guide Referrals: Jose Atwood MD [Primary Care Provider] - Forms: ED Department Discharge Care Plan Goals: Continue with your regular medications. Dr. Claire, urologist in [place], would like to see you at some point tomorrow to assess your catheter function. If symptoms are markedly improved and you are unable to travel to [place], you may recheck at your next available time you are able to get to urology.
== END 2017-01-27 20:32 | disposition home or self-care (01) ==
LOC: JP.ED 18:15
DX: T83.010A Breakdown (mechanical) of cystostomy catheter, initial encounter (principal); I10 Essential (primary) hypertension; I25.10 Atherosclerotic heart disease of native coronary artery without angina pectoris; E78.00 Pure hypercholesterolemia, unspecified; K21.9 Gastro-esophageal reflux disease without esophagitis; M19.90 Unspecified osteoarthritis, unspecified site; Z98.49 Cataract extraction status, unspecified eye; Z98.890 Other specified postprocedural states; Z95.1 Presence of aortocoronary bypass graft; Z95.5 Presence of coronary angioplasty implant and graft; Z96.659 Presence of unspecified artificial knee joint; Z79.02 Long term (current) use of antithrombotics/antiplatelets; Z79.899 Other long term (current) drug therapy; Z79.82 Long term (current) use of aspirin; Z88.6 Allergy status to analgesic agent; Z88.8 Allergy status to other drugs, medicaments and biological substances
CPT/HCPCS: 51798; 99283; 99283-25

== ENCOUNTER 2017-02-13 15:11 | Inpatient (IN) | payer MEDICARE, BC ==
[2017-02-13] MEDS ORDERED: Sodium Chloride 0.9% 1,000 ML IV SCH ×2 (16:30→19:23)
--- NOTE | 2017-02-13 16:32 | EDM.PDOC ---
ED HPI GENERAL MEDICAL PROBLEM - General Chief Complaint: Cardiovascular Problem Stated Complaint: ILLNESS Time Seen by Provider: 02/13/17 15:20 Source of Information: Reports: Patient, EMS History Limitations: Reports: No Limitations - History of Present Illness INITIAL COMMENTS - FREE TEXT/NARRATIVE: pt arrived slightly sob and having a history of shoulder pain after walking a short distance. As soon as he sat down the shoulder pain stopped. He was not sweaty . He did feel that he was going to pass out. The pt had been ok earlier in the day. Onset: Today, Sudden, Other (Pain accross the shoulder blades. ) Duration: Hour(s):, Getting Worse Location: Reports: Other ( Pain accross the shoulders. ) Quality: Reports: Sharp Severity: Moderate Associated Symptoms: Reports: Other ( shoulder pain which was rated at a 6-7/ ) Lower Back Pain Score (Numeric/FACES): 2 - Related Data Allergies Allergy/AdvReac Type Severity Reaction Status Date / Time aspirin Allergy Unknown Hives Verified 01/27/17 20:36 piroxicam [From Feldene] Allergy Rash Verified 01/27/17 20:36 Home Meds: Home Meds Acetaminophen [Tylenol Extra Strength] 500 mg PO Q4H PRN 01/09/13 [History] Ascorbic Acid [Vitamin C] 250 mg PO DAILY 01/09/13 [History] Aspirin [Elías Chewable Aspirin] 81 mg PO DAILY 01/09/13 [History] Cholecalciferol (Vitamin D3) [Vitamin D3] 1,000 unit PO DAILY 01/09/13 [History] Losartan [Cozaar] 0.5 tab PO DAILY 01/09/13 [History] Nitroglycerin 0.4 mg SL ASDIRECTED PRN 01/09/13 [History] Sennosides/Docusate Sodium [Senna S] 8.6 mg PO ONETIME PRN 01/09/13 [History] diphenhydrAMINE [Benadryl] 25 mg PO BEDTIME PRN 01/09/13 [History] atorvaSTATin [Lipitor] 20 mg PO BEDTIME 07/01/14 [History] Clopidogrel Bisulfate [Clopidogrel] 75 mg PO DAILY 12/21/15 [History] Carvedilol 3.125 mg PO BID 03/26/16 [History] Isosorbide Mononitrate [Imdur] 30 mg PO DAILY #30 tab.er 03/27/16 [Rx] Cyanocobalamin (Vitamin B12) [Vitamin B12] 1,000 mcg PO DAILY 05/06/16 [History] Pentoxifylline [TRENtal] 1 tab PO TID 05/07/16 [History] Hyoscyamine [Hyomax-SL] 0.125 mg SL Q4H PRN #60 tab.sl 08/02/16 [Rx] Pantoprazole Sodium [Protonix] 40 mg PO DAILY 11/21/16 [History] Acetaminophen/oxyCODONE [Percocet 325-5 MG] 1 - 2 tab PO Q4H PRN #20 tablet [Rx] Belladonna/Opium [B & O Supprettes No. 15A] 1 supp RECTAL Q4H PRN #30 supp 01/11 [Rx] Belladonna/Opium [Belladonna-Opium 16.2-30] 1 supp RECTAL Q4H PRN #30 supp 01/11 [Rx] Ciprofloxacin [Ciprofloxacin HCl] 500 mg PO BIDAC #10 tablet 01/11/17 [Rx] Melatonin 10 mg PO BEDTIME 01/27/17 [History] Tolterodine [Detrol] 2 mg PO BID 01/27/17 [History] Past Medical History HEENT History: Reports: Cataract, Impaired Vision Cardiovascular History: Reports: Angina, Arrhythmia, CAD, High Cholesterol, Hypertension, PA, SOB on Exertion, Stents Respiratory History: Reports: Other (See Below) Other Respiratory History: seeing a lung specialist in [place]. Spot on lung to investigate Gastrointestinal History: Reports: GERD Genitourinary History: Reports: Retention, Urinary Other Genitourinary History: surapubic catheter Musculoskeletal History: Reports: Back Pain, Chronic, Fracture, Osteoarthritis Neurological History: Reports: None Psychiatric History: Reports: None Endocrine/Metabolic History: Reports: None Hematologic History: Reports: Blood Transfusion(s) Immunologic History: Reports: None Oncologic (Cancer) History: Reports: Prostate Dermatologic History: Reports: None - Infectious Disease History Infectious Disease History: Reports: C-Difficile, Mumps - Past Surgical History HEENT Surgical History: Reports: Cataract Surgery, Oral Surgery, Tonsillectomy Cardiovascular Surgical History: Reports: Coronary Artery Bypass, Coronary Artery Stent GI Surgical History: Reports: Colonoscopy, EGD Male Surgical History: Reports: Suprapubic Catheter Placement Endocrine Surgical History: Reports: None Neurological Surgical History: Reports: None Musculoskeletal Surgical History: Reports: Knee Replacement Dermatological Surgical History: Reports: None Social & Family History - Family History Family Medical History: Noncontributory - Tobacco Use Smoking Status *Q: Never Smoker Second Hand Smoke Exposure: No - Caffeine Use Caffeine Use: Reports: Coffee - Alcohol Use Days Per Week of Alcohol Use: 0 Number of Drinks Per Day: 1 Total Drinks Per Week: 0 - Recreational Drug Use Recreational Drug Use: No Recreational Drug Type: Reports: Marijuana/Hashish Recreational Drug Use Frequency: Rarely - Living Situation & Occupation Living situation: Reports: ( 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 ) Endocrine: Reports: No Symptoms GI/Abdominal: Reports: No Symptoms : Reports: No Symptoms Musculoskeletal: Reports: No Symptoms Skin: Reports: No Symptoms Neurological: Reports: No Symptoms Psychiatric: Reports: No Symptoms ED EXAM, GENERAL - Physical Exam Exam: See Below Free Text/Narrative:: pt arrived with a history of pain accross his shoulder blades and feeling like he was going to pass out. Exam Limited By: No Limitations General Appearance: Alert, Anxious, Other ( no distress at this time. ) Ears: Normal TMs Nose: Normal Inspection Throat/Mouth: Normal Inspection Head: Atraumatic Neck: Normal Inspection Respiratory/Chest: Crackles Cardiovascular: Regular Rate, Rhythm GI/Abdominal: Soft, Non-Tender (Male) Exam: Deferred Rectal (Males) Exam: Deferred Back Exam: Normal Inspection Extremities: Normal Inspection Neurological: Alert, Oriented, Normal Cognition Psychiatric: Normal Affect Course - Vital Signs Last Recorded V/S: Last Vital Signs Temp 35.4 C 02/15/17 03:00 Pulse 64 02/15/17 03:00 Resp 16 02/15/17 03:00 BP 120/48 L 02/15/17 03:00 Pulse Ox 94 L 02/15/17 03:00 - Orders/Labs/Meds Orders: Medication Orders Acetaminophen (Tylenol) 650 mg PO Q4H PRN PRN Reason: Pain (Mild 1-3)/fever Aspirin (Aspirin) 81 mg PO DAILY [facility] Last Admin: 02/14/17 09:57 Dose: 81 mg Atorvastatin Calcium (Lipitor) 20 mg PO BEDTIME [facility] Last Admin: 02/14/17 21:15 Dose: 20 mg Admin: 02/13/17 21:09 Dose: 20 mg Belladonna Alkaloids/Opium (B & O Supprettes No. 15a) 1 supp RECTAL Q4H PRN PRN Reason: bladder spasm Carvedilol (Coreg) 3.125 mg PO BID [facility] Last Admin: 02/14/17 21:14 Dose: 3.125 mg Admin: 02/14/17 09:55 Dose: 3.125 mg Admin: 02/13/17 21:09 Dose: 3.125 mg Cephalexin (Keflex) 500 mg PO Q6H [facility] Last Admin: 02/15/17 03:30 Dose: 500 mg Admin: 02/14/17 21:14 Dose: 500 mg Admin: 02/14/17 16:45 Dose: 500 mg Admin: 02/14/17 10:35 Dose: 500 mg Clopidogrel Bisulfate (Plavix) 75 mg PO DAILY [facility] Last Admin: 02/14/17 09:56 Dose: 75 mg Admin: 02/13/17 22:02 Dose: 75 mg Diphenhydramine HCl (Benadryl) 25 mg PO BEDTIME PRN PRN Reason: Sleep Last Admin: 02/14/17 21:17 Dose: 25 mg Admin: 02/13/17 22:01 Dose: 25 mg Docusate Sodium (Colace) 100 mg PO BID PRN PRN Reason: Constipation Enoxaparin Sodium (Lovenox) 40 mg SUBCUT BEDTIME [facility] Last Admin: 02/14/17 21:16 Dose: 40 mg Admin: 02/13/17 21:09 Dose: 40 mg Isosorbide Mononitrate (Imdur) 30 mg PO DAILY@0730 [facility] Last Admin: 02/14/17 09:55 Dose: 30 mg Losartan Potassium (Cozaar) 12.5 mg PO DAILY [facility] Last Admin: 02/14/17 10:00 Dose: Not Given Magnesium Hydroxide (Milk Of Magnesia) 30 ml PO Q12H PRN PRN Reason: Constipation Melatonin (Melatonin) 9 mg PO BEDTIME [facility] Last Admin: 02/14/17 21:16 Dose: 9 mg Admin: 02/13/17 22:03 Dose: 9 mg Nitroglycerin (Nitrostat) 0.4 mg SL ASDIRECTED PRN PRN Reason: Pain Ondansetron HCl (Zofran) 4 mg IV Q4H PRN PRN Reason: Nausea/Vomiting Oxycodone/Acetaminophen (Percocet 325-5 Mg) 1 - 2 tab PO Q4H PRN PRN Reason: Pain Last Admin: 02/14/17 21:17 Dose: 2 tab Admin: 02/14/17 08:23 Dose: 2 tab Admin: 02/14/17 00:24 Dose: 2 tab Pantoprazole Sodium (Protonix) 40 mg PO DAILY@0730 [facility] Last Admin: 02/14/17 08:15 Dose: 40 mg Pentoxifylline (Trental) 400 mg PO TID [facility] Last Admin: 02/14/17 21:15 Dose: 400 mg Admin: 02/14/17 14:02 Dose: 400 mg Admin: 02/14/17 09:57 Dose: 400 mg Admin: 02/13/17 21:09 Dose: 400 mg Polyethylene Glycol (Miralax) 17 gm PO DAILY PRN PRN Reason: Constipation Senna/Docusate Sodium (Senna Plus) 1 tab PO ONETIME PRN PRN Reason: Constipation Sodium Chloride (Saline Flush) 10 ml FLUSH ASDIRECTED PRN PRN Reason: Keep Vein Open Labs: Laboratory Tests 02/13/17 02/13/17 02/13/17 Range/Units 15:38 15:38 15:38 WBC 5.9 (4.5-11.0) K/uL RBC 3.78 L (4.30-5.90) M/uL Hgb 9.4 L (12.0-15.0) g/dL Hct 32.3 L (40.0-54.0) % MCV 85 (80-98) fL MCH 25 L (27-31) pg MCHC 29 L (32-36) % Plt Count 352 (150-400) K/uL Neut % (Auto) 67 H (36-66) % Lymph % (Auto) 19 L (24-44) % [place] % (Auto) 12 H (2-6) % Eos % (Auto) 2 (2-4) % Baso % (Auto) 1 (0-1) % Sodium 138 L (140-148) mmol/L Potassium 4.3 (3.6-5.2) mmol/L Chloride 105 (100-108) mmol/L Carbon Dioxide 27 (21-32) mmol/L Anion Gap 10.3 (5.0-14.0) mmol/L BUN 27 H (7-18) mg/dL Creatinine 1.3 (0.8-1.3) mg/dL Est Cr Clr Drug Dosing 44.95 mL/min Estimated GFR (MDRD) 52 L (>60) Glucose 138 H (74-106) mg/dL Lactic Acid (0.4-2.0) mmol/L Calcium 8.1 L (8.5-10.1) mg/dL Total Bilirubin 0.4 (0.2-1.0) mg/dL AST 19 (15-37) U/L ALT 18 (12-78) U/L Alkaline Phosphatase 77 (46-116) U/L Creatine Kinase 34 L (39-308) U/L Troponin I < 0.017 (0.000-0.056) ng/mL NT-Pro-B Natriuret Pep (5-450) pg/mL Total Protein 6.4 (6.4-8.2) g/dL Albumin 2.8 L (3.4-5.0) g/dL Globulin 3.6 H (2.3-3.5) g/dL Albumin/Globulin Ratio 0.8 L (1.2-2.2) 02/13/17 02/13/17 Range/Units 15:38 16:43 WBC (4.5-11.0) K/uL RBC (4.30-5.90) M/uL Hgb (12.0-15.0) g/dL Hct (40.0-54.0) % MCV (80-98) fL MCH (27-31) pg MCHC (32-36) % Plt Count (150-400) K/uL Neut % (Auto) (36-66) % Lymph % (Auto) (24-44) % [place] % (Auto) (2-6) % Eos % (Auto) (2-4) % Baso % (Auto) (0-1) % Sodium (140-148) mmol/L Potassium (3.6-5.2) mmol/L Chloride (100-108) mmol/L Carbon Dioxide (21-32) mmol/L Anion Gap (5.0-14.0) mmol/L BUN (7-18) mg/dL Creatinine (0.8-1.3) mg/dL Est Cr Clr Drug Dosing mL/min Estimated GFR (MDRD) (>60) Glucose (74-106) mg/dL Lactic Acid 2.4 H (0.4-2.0) mmol/L Calcium (8.5-10.1) mg/dL Total Bilirubin (0.2-1.0) mg/dL AST (15-37) U/L ALT (12-78) U/L Alkaline Phosphatase (46-116) U/L Creatine Kinase (39-308) U/L Troponin I (0.000-0.056) ng/mL NT-Pro-B Natriuret Pep 676 H (5-450) pg/mL Total Protein (6.4-8.2) g/dL Albumin (3.4-5.0) g/dL Globulin (2.3-3.5) g/dL Albumin/Globulin Ratio (1.2-2.2) Meds: Medications Generic Name Dose Route Start Last Admin Trade Name Freq PRN Reason Stop Dose Admin Acetaminophen 650 mg 02/13/17 19:23 Tylenol PO Q4H PRN Pain (Mild 1-3)/fever Aspirin 81 mg 02/14/17 09:00 02/14/17 09:57 Aspirin PO 81 mg DAILY [facility]IE Administration Atorvastatin Calcium 20 mg 02/13/17 21:00 02/14/17 21:15 Lipitor PO 20 mg BEDTIME RUTHIE Administration Belladonna Alkaloids/Opium 1 supp 02/13/17 19:23 B & O Supprettes No. 15a RECTAL Q4H PRN bladder spasm Carvedilol 3.125 mg 02/13/17 21:00 02/14/17 21:14 Coreg PO 3.125 mg BID [facility]IE Administration Cephalexin 500 mg 02/14/17 10:00 02/15/17 03:30 Keflex PO 500 mg Q6H [facility]IE Administration Clopidogrel Bisulfate 75 mg 02/14/17 09:00 02/14/17 09:56 Plavix PO 75 mg DAILY [facility] Administration Diphenhydramine HCl 25 mg 02/13/17 21:44 02/14/17 21:17 Benadryl PO 25 mg BEDTIME PRN Administration Sleep Docusate Sodium 100 mg 02/13/17 19:23 Colace PO BID PRN Constipation Enoxaparin Sodium 40 mg 02/13/17 21:00 02/14/17 21:16 Lovenox SUBCUT 40 mg BEDTIME [facility] Administration Isosorbide Mononitrate 30 mg 02/14/17 07:30 02/14/17 09:55 Imdur PO 30 mg DAILY@0730 [facility] Administration Losartan Potassium 12.5 mg 02/14/17 09:00 02/14/17 10:00 Cozaar PO Not Given DAILY [facility] Magnesium Hydroxide 30 ml 02/13/17 19:23 Milk Of Magnesia PO Q12H PRN Constipation Melatonin 9 mg 02/13/17 21:00 02/14/17 21:16 Melatonin PO 9 mg BEDTIME [facility] Administration Nitroglycerin 0.4 mg 02/13/17 19:23 Nitrostat SL ASDIRECTED PRN Pain Ondansetron HCl 4 mg 02/13/17 19:23 Zofran IV Q4H PRN Nausea/Vomiting Oxycodone/Acetaminophen 1 - 2 tab 02/13/17 19:23 02/14/17 21:17 Percocet 325-5 Mg PO 2 tab Q4H PRN Administration Pain Pantoprazole Sodium 40 mg 02/14/17 07:30 02/14/17 08:15 Protonix PO 40 mg DAILY@0730 [facility] Administration Pentoxifylline 400 mg 02/13/17 21:00 02/14/17 21:15 Trental PO 400 mg TID [facility] Administration Polyethylene Glycol 17 gm 02/13/17 19:23 Miralax PO DAILY PRN Constipation Senna/Docusate Sodium 1 tab 02/13/17 19:23 Senna Plus PO ONETIME PRN Constipation Sodium Chloride 10 ml 02/13/17 19:23 Saline Flush FLUSH ASDIRECTED PRN Keep Vein Open Discontinued Medications Generic Name Dose Route Start Last Admin Trade Name Freq PRN Reason Stop Dose Admin Sodium Chloride 1,000 mls @ 400 mls/hr 02/13/17 16:30 02/13/17 16:32 Normal Saline IV 400 mls/hr ASDIRECTED RTUHIE Administration Sodium Chloride 1,000 mls @ 75 mls/hr 02/13/17 19:23 02/13/17 21:14 Normal Saline IV 75 mls/hr ASDIRECTED [facility]UTHIE Administration - Re-Assessments/Exams Free Text/Narrative Re-Assessment/Exam: 02/13/17 16:57 pt has a normal trop. He has a chest xray which may show some failure. He has no further pain. His bp continues to be low. Departure - Departure Time of Disposition: 16:59 Disposition: Admitted As Inpatient 65 Condition: Fair Clinical Impression: Acute shoulder pain, SOB (shortness of breath), Hypotension
--- NOTE | 2017-02-13 18:48 | PCM.HP ---
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 Symptoms of upper back pain lasted approximately 15 minutes and had resolved by the time he arrived in the emergency department. He does have a known history of severe coronary artery disease and occasionally still experiences some anginal pain. He had previous episodes of back pain but not as severe or as long in duration is seen had early this afternoon. When he was evaluated in the emergency department also found to be hypotensive with systolic pressures in the 80s. He get up relatively late today, approximately at noon, took his morning medications and had a small amount to eat. He was then physically active and this is when he developed the upper back pain and associated weakness with lightheadedness. He' s feeling better since having arrived in the emergency department, after IV fluid infusion his blood pressure is back to baseline. Initial troponin level was normal and EKG shows baseline bundle branch block with no acute ST segment changes. - Related Data Allergies/Adverse Reactions: Allergies Allergy/AdvReac Type Severity Reaction Status Date / Time aspirin Allergy Unknown Hives Verified 01/27/17 20:36 piroxicam [From Feldene] Allergy Rash Verified 01/27/17 20:36 Home Medications: Home Meds Acetaminophen [Tylenol Extra Strength] 500 mg PO Q4H PRN 01/09/13 [History] Ascorbic Acid [Vitamin C] 250 mg PO DAILY 01/09/13 [History] Aspirin [Elías Chewable Aspirin] 81 mg PO DAILY 01/09/13 [History] Cholecalciferol (Vitamin D3) [Vitamin D3] 1,000 unit PO DAILY 01/09/13 [History] Losartan [Cozaar] 0.5 tab PO DAILY 01/09/13 [History] Nitroglycerin 0.4 mg SL ASDIRECTED PRN 01/09/13 [History] Sennosides/Docusate Sodium [Senna S] 8.6 mg PO ONETIME PRN 01/09/13 [History] diphenhydrAMINE [Benadryl] 25 mg PO BEDTIME PRN 01/09/13 [History] atorvaSTATin [Lipitor] 20 mg PO BEDTIME 07/01/14 [History] Clopidogrel Bisulfate [Clopidogrel] 75 mg PO DAILY 12/21/15 [History] Carvedilol 3.125 mg PO BID 03/26/16 [History] Isosorbide Mononitrate [Imdur] 30 mg PO DAILY #30 tab.er 03/27/16 [Rx] Cyanocobalamin (Vitamin B12) [Vitamin B12] 1,000 mcg PO DAILY 05/06/16 [History] Pentoxifylline [TRENtal] 1 tab PO TID 05/07/16 [History] Hyoscyamine [Hyomax-SL] 0.125 mg SL Q4H PRN #60 tab.sl 08/02/16 [Rx] Pantoprazole Sodium [Protonix] 40 mg PO DAILY 11/21/16 [History] Acetaminophen/oxyCODONE [Percocet 325-5 MG] 1 - 2 tab PO Q4H PRN #20 tablet [Rx] Belladonna/Opium [B & O Supprettes No. 15A] 1 supp RECTAL Q4H PRN #30 supp 01/11 [Rx] Belladonna/Opium [Belladonna-Opium 16.2-30] 1 supp RECTAL Q4H PRN #30 supp 01/11 [Rx] Ciprofloxacin [Ciprofloxacin HCl] 500 mg PO BIDAC #10 tablet 01/11/17 [Rx] Melatonin 10 mg PO BEDTIME 01/27/17 [History] Tolterodine [Detrol] 2 mg PO BID 01/27/17 [History] Past Medical History HEENT History: Reports: Cataract, Impaired Vision Cardiovascular History: Reports: Angina, Arrhythmia, CAD, High Cholesterol, Hypertension, [place], SOB on Exertion, Stents Respiratory History: Reports: Other (See Below) Other Respiratory History: seeing a lung specialist in [place]. Spot on lung to investigate Gastrointestinal History: Reports: GERD Genitourinary History: Reports: Retention, Urinary Other Genitourinary History: surapubic catheter Musculoskeletal History: Reports: Back Pain, Chronic, Fracture, Osteoarthritis Neurological History: Reports: None Psychiatric History: Reports: None Endocrine/Metabolic History: Reports: None Hematologic History: Reports: Blood Transfusion(s) Immunologic History: Reports: None Oncologic (Cancer) History: Reports: Prostate Dermatologic History: Reports: None - Infectious Disease History Infectious Disease History: Reports: C-Difficile, Mumps - Past Surgical History HEENT Surgical History: Reports: Cataract Surgery, Oral Surgery, Tonsillectomy Cardiovascular Surgical History: Reports: Coronary Artery Bypass, Coronary Artery Stent GI Surgical History: Reports: Colonoscopy, EGD Male Surgical History: Reports: Suprapubic Catheter Placement Endocrine Surgical History: Reports: None Neurological Surgical History: Reports: None Musculoskeletal Surgical History: Reports: Knee Replacement Dermatological Surgical History: Reports: None Social & Family History - Family History Family Medical History: Noncontributory - Tobacco Use Smoking Status *Q: Never Smoker Second Hand Smoke Exposure: No - Caffeine Use Caffeine Use: Reports: Coffee - Alcohol Use Days Per Week of Alcohol Use: 0 Number of Drinks Per Day: 1 Total Drinks Per Week: 0 - Recreational Drug Use Recreational Drug Use: No Recreational Drug Type: Reports: Marijuana/Hashish Recreational Drug Use Frequency: Rarely - Living Situation & Occupation Living situation: Reports: ( 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 Denies: Fever, Chills HEENT: Reports: No Symptoms Pulmonary: Reports: Shortness of Breath, Cough. Denies: Wheezing, Pleuritic Chest Pain, Sputum, Hemoptysis Cardiovascular: Reports: Chest Pain, Dyspnea on Exertion, Lightheadedness. Denies: Palpitations, Orthopnea, PND, Edema, Syncope Gastrointestinal: Reports: No Symptoms Genitourinary: Reports: No Symptoms Musculoskeletal: Reports: No Symptoms Skin: Reports: No Symptoms Psychiatric: Reports: No Symptoms Neurological: Reports: No Symptoms Hematologic/Lymphatic: Reports: No Symptoms Immunologic: Reports: No Symptoms Exam - Exam Exam: See Below - Vital Signs Vital Signs: Last Vital Signs Temp 97.5 F 02/13/17 15:18 Pulse 73 02/13/17 16:43 Resp 20 02/13/17 16:43 BP 97/60 02/13/17 16:43 Pulse Ox 98 02/13/17 16:43 Weight: 175 lb - Exam Quality Assessment: Urinary Catheter, DVT Prophylaxis General: Alert, Oriented, Cooperative HEENT: Conjunctiva Clear, Hearing Intact, Mucosa Moist & Continental, Normal Nasal Septum, Posterior Pharynx Clear, Pupils Equal Neck: Supple, Trachea Midline, +2 Carotid Pulse wo Bruit Lungs: Clear to Auscultation, Normal Respiratory Effort Cardiovascular: Regular Rate, Regular Rhythm, Normal S1, Normal S2, Systolic Murmur. No: Tachycardia, Diastolic Murmur GI/Abdominal Exam: Normal Bowel Sounds, Soft, Non-Tender, No Organomegaly, No Distention Extremities: Non-Tender, No Pedal Edema Skin: Warm, Dry, Intact Neurological: Cranial Nerves Intact, Strength Equal Bilateral, Normal Speech, Normal Tone, Sensation Intact. No: Focal Deficit Neuro Extensive - Mental Status: Alert, Oriented x3, Normal Mood/Affect, Normal Cognition, Memory Intact - Patient Data Lab Results Last 24 hrs: Laboratory Results - last 24 hr 02/13/17 02/13/17 02/13/17 Range/Units 15:38 15:38 15:38 WBC 5.9 (4.5-11.0) K/uL RBC 3.78 L (4.30-5.90) M/uL Hgb 9.4 L (12.0-15.0) g/dL Hct 32.3 L (40.0-54.0) % MCV 85 (80-98) fL MCH 25 L (27-31) pg MCHC 29 L (32-36) % Plt Count 352 (150-400) K/uL Neut % (Auto) 67 H (36-66) % Lymph % (Auto) 19 L (24-44) % [place] % (Auto) 12 H (2-6) % Eos % (Auto) 2 (2-4) % Baso % (Auto) 1 (0-1) % Sodium 138 L (140-148) mmol/L Potassium 4.3 (3.6-5.2) mmol/L Chloride 105 (100-108) mmol/L Carbon Dioxide 27 (21-32) mmol/L Anion Gap 10.3 (5.0-14.0) mmol/L BUN 27 H (7-18) mg/dL Creatinine 1.3 (0.8-1.3) mg/dL Est Cr Clr Drug Dosing 44.95 mL/min Estimated GFR (MDRD) 52 L (>60) Glucose 138 H (74-106) mg/dL Lactic Acid (0.4-2.0) mmol/L Calcium 8.1 L (8.5-10.1) mg/dL Total Bilirubin 0.4 (0.2-1.0) mg/dL AST 19 (15-37) U/L ALT 18 (12-78) U/L Alkaline Phosphatase 77 (46-116) U/L Creatine Kinase 34 L (39-308) U/L Troponin I < 0.017 (0.000-0.056) ng/mL NT-Pro-B Natriuret Pep (5-450) pg/mL Total Protein 6.4 (6.4-8.2) g/dL Albumin 2.8 L (3.4-5.0) g/dL Globulin 3.6 H (2.3-3.5) g/dL Albumin/Globulin Ratio 0.8 L (1.2-2.2) 02/13/17 02/13/17 Range/Units 15:38 16:43 WBC (4.5-11.0) K/uL RBC (4.30-5.90) M/uL Hgb (12.0-15.0) g/dL Hct (40.0-54.0) % MCV (80-98) fL MCH (27-31) pg MCHC (32-36) % Plt Count (150-400) K/uL Neut % (Auto) (36-66) % Lymph % (Auto) (24-44) % [place] % (Auto) (2-6) % Eos % (Auto) (2-4) % Baso % (Auto) (0-1) % Sodium (140-148) mmol/L Potassium (3.6-5.2) mmol/L Chloride (100-108) mmol/L Carbon Dioxide (21-32) mmol/L Anion Gap (5.0-14.0) mmol/L BUN (7-18) mg/dL Creatinine (0.8-1.3) mg/dL Est Cr Clr Drug Dosing mL/min Estimated GFR (MDRD) (>60) Glucose (74-106) mg/dL Lactic Acid 2.4 H (0.4-2.0) mmol/L Calcium (8.5-10.1) mg/dL Total Bilirubin (0.2-1.0) mg/dL AST (15-37) U/L ALT (12-78) U/L Alkaline Phosphatase (46-116) U/L Creatine Kinase (39-308) U/L Troponin I (0.000-0.056) ng/mL NT-Pro-B Natriuret Pep 676 H (5-450) pg/mL Total Protein (6.4-8.2) g/dL Albumin (3.4-5.0) g/dL Globulin (2.3-3.5) g/dL Albumin/Globulin Ratio (1.2-2.2) Result Diagrams: 02/13/17 15:38 02/13/17 15:38 *Q Meaningful Use (ADM) - VTE *Q VTE Criteria *Q: - VTE Risk Assess *Q Each Risk Factor Represents 1 Point: None Total Score 1 Point Risk Factors: 0 Each Risk Factor Represents 2 Points: None Total Score 2 Point Risk Factors: 0 Each Risk Factor Represents 3 Points: Age 75 Years or Greater Total Score 3 Point Risk Factors: 3 Each Risk Factor Represents 5 Points: None Total Score 5 Point Risk Factors: 0 Venous Thromboembolism Risk Factor Score *Q: 3 - Stroke *Q Stroke Criteria *Q: - AMI *Q AMI Criteria *Q: Problem List Initiated/Reviewed/Updated: Yes Orders Last 24hrs: Active Orders 24 hr Category Date Time Status Patient Status Manage Transfer [TRANSFER] Routine ADT 02/13/17 18:19 Active EKG Documentation Completion [RC] ASDIRECTED Care 02/13/17 15:16 Active Chest 1V Frontal [CR] Stat Exams 02/13/17 15:44 Taken CULTURE BLOOD [BC] Urgent Lab 02/13/17 16:50 Received CULTURE BLOOD [BC] Urgent Lab 02/13/17 16:55 Received UA W/MICROSCOPIC [URIN] Urgent Lab 02/13/17 15:16 Uncollected Sodium Chloride 0.9% [Normal Saline] 1,000 ml Med 02/13/17 16:30 Active IV ASDIRECTED Blood Culture x2 Reflex Set [OM.PC] Urgent Oth 02/13/17 16:43 Ordered Resuscitation Status Routine Resus Stat 02/13/17 18:24 Ordered EKG 12 Lead [EK] Routine Ther 02/13/17 15:16 Ordered Medication Orders Sodium Chloride (Normal Saline) 1,000 mls @ 400 mls/hr IV ASDIRECTED RUTHIE Last Admin: 02/13/17 16:32 Dose: 400 mls/hr Assessment/Plan Comment:: ASSESSMENT AND PLAN UPPER BACK PAIN-occurred with activity and may represent an anginal equivalent. Associated with weakness, lightheadedness, and shortness of breath. Initial EKG and cardiac enzymes are unremarkable. 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 DISPOSITION-anticipate discharge to home after the hospital stay. PRIMARY CARE PROVIDER-Dr. Atwood
[2017-02-13] MEDS ORDERED: Acetaminophen 325 MG Tab PO PRN (19:23)
[2017-02-13] MEDS ORDERED: Ondansetron 4 MG/2 ML SDV IV PRN (19:23)
[2017-02-13] MEDS ORDERED: Polyethylene Glycol 3350 Powder 17 GM Packet PO PRN (19:23)
[2017-02-13] MEDS ORDERED: Magnesium Hydroxide 400 MG/5 ML Susp 30 ML Cup PO PRN (19:23)
[2017-02-13] MEDS ORDERED: Sodium Chloride 0.9% 10 ML Syringe FLUSH PRN (19:23)
[2017-02-13] MEDS ORDERED: Docusate Sodium 100 MG Cap PO PRN (19:23)
[2017-02-13] MEDS ORDERED: Belladonna Alkaloids/Opium 16.2-30 MG Supp RECTAL PRN (19:23)
[2017-02-13] MEDS ORDERED: Nitroglycerin 0.4 MG Tab.SL SL PRN (19:23)
[2017-02-13] MEDS ORDERED: MELATONIN 10 MG PO SCH (21:00)
[2017-02-13] MEDS: Enoxaparin 40 MG/0.4 ML Syringe SUBCUT SCH (21:09)
[2017-02-13] MEDS: Pentoxifylline 400 MG Tab.ER PO SCH (21:09)
[2017-02-13] MEDS: atorvaSTATin 20 MG Tab PO SCH (21:09)
[2017-02-13] MEDS: Carvedilol 3.125 MG Tab PO SCH (21:09)
[2017-02-13] MEDS: diphenhydrAMINE 25 MG Cap PO PRN (22:01)
[2017-02-13] MEDS: Clopidogrel 75 MG Tab PO SCH (22:02)
[2017-02-13] MEDS: Melatonin 3 MG Tab PO SCH (22:03)
[2017-02-14] MEDS: Acetaminophen/oxyCODONE 325-5 MG Tab PO PRN ×3 (00:24→21:17)
[2017-02-14] MEDS ORDERED: Isosorbide Mononitrate 30 MG Tab.ER PO SCH (07:30)
[2017-02-14] MEDS: Pantoprazole 40 MG Tab.CR PO SCH (08:15)
[2017-02-14] MEDS ORDERED: Losartan 50 MG Tab PO SCH (09:00)
--- NOTE | 2017-02-14 09:17 | CR ---
Cardiomegaly. Sternotomy. Fibrotic changes evident within the peripheries of the lungs similar. Faint density left midlung zone is likely scarring as well. Difficult to exclude developing pneumonitis. C onsider two-view chest x-ray follow-up
[2017-02-14] MEDS: Carvedilol 3.125 MG Tab PO SCH ×2 (09:55→21:14)
[2017-02-14] MEDS: Clopidogrel 75 MG Tab PO SCH (09:56)
[2017-02-14] MEDS: Aspirin 81 MG Tab.Chew PO SCH (09:57)
[2017-02-14] MEDS: Pentoxifylline 400 MG Tab.ER PO SCH ×3 (09:57→21:15)
--- NOTE | 2017-02-14 10:02 | PCM.PN ---
- General Info Date of Service: 02/14/17 Functional Status: Reports: Pain Controlled, Tolerating Diet - Review of Systems General: Reports: Weakness. Denies: Fever, Chills Pulmonary: Reports: No Symptoms Cardiovascular: Reports: Lightheadedness. Denies: Chest Pain, Palpitations, Dyspnea on Exertion, Orthopnea, PND, Edema Gastrointestinal: Reports: No Symptoms Systems Review Comment:: Rev. Nancy is been stable overnight, troponin levels were all within normal range and he is experienced no further upper back pain. Blood pressure remains somewhat low, denies current shortness of breath, but is not yet been up to determine if he feels lightheaded. Other than lower blood pressure vital signs have been stable and he has remained afebrile. - Patient Data Vitals - Most Recent: Last Vital Signs Temp 98.5 F 02/14/17 08:26 Pulse 87 02/14/17 08:26 Resp 14 02/14/17 08:26 BP 89/56 L 02/14/17 08:26 Pulse Ox 94 L 02/14/17 08:26 Weight - Most Recent: 165 lb 15.988 oz I&O - Last 24 Hours: Intake & Output 02/13/17 02/14/17 02/14/17 22:59 06:59 14:59 Intake Total 240 1305 Output Total 450 Balance 240 855 Lab Results Last 24 Hours: Laboratory Results - last 24 hr 02/13/17 02/13/17 02/14/17 Range/Units 18:49 21:00 05:12 WBC (4.5-11.0) K/uL RBC (4.30-5.90) M/uL Hgb (12.0-15.0) g/dL Hct (40.0-54.0) % MCV (80-98) fL MCH (27-31) pg MCHC (32-36) % Plt Count (150-400) K/uL Neut % (Auto) (36-66) % Lymph % (Auto) (24-44) % [place] % (Auto) (2-6) % Eos % (Auto) (2-4) % Baso % (Auto) (0-1) % Sodium (140-148) mmol/L Potassium (3.6-5.2) mmol/L Chloride (100-108) mmol/L Carbon Dioxide (21-32) mmol/L Anion Gap (5.0-14.0) mmol/L BUN (7-18) mg/dL Creatinine (0.8-1.3) mg/dL Est Cr Clr Drug Dosing mL/min Estimated GFR (MDRD) (>60) Glucose (74-106) mg/dL Lactic Acid 0.7 (0.4-2.0) mmol/L Calcium (8.5-10.1) mg/dL Troponin I < 0.017 (0.000-0.056) ng/mL Urine Color Yellow Urine Appearance Slightly cloudy Urine pH 5.0 (4.5-8.0) Ur Specific [place] 1.020 (1.008-1.030) Urine Protein Negative (NEGATIVE) mg/dL Urine Glucose (UA) Normal (NEGATIVE) mg/dL Urine Ketones Negative (NEGATIVE) mg/dL Urine Occult Blood Negative (NEGATIVE) Urine Nitrite Negative (NEGAITVE) Urine Bilirubin Negative (NEGATIVE) Urine Urobilinogen Normal (NORMAL) mg/dL Ur Leukocyte Esterase Large (NEGATIVE) Urine RBC 0-5 (0-5) Urine WBC Semi-packed H (0-5) Ur Epithelial Cells Few Amorphous Sediment Urine Bacteria Few Urine Mucus Few 02/14/17 02/14/17 02/14/17 Range/Units 05:12 05:12 08:14 WBC 6.3 (4.5-11.0) K/uL RBC 3.20 L (4.30-5.90) M/uL Hgb 7.9 L (12.0-15.0) g/dL Hct 27.3 L (40.0-54.0) % MCV 85 (80-98) fL MCH 25 L (27-31) pg MCHC 29 L (32-36) % Plt Count 302 (150-400) K/uL Neut % (Auto) 49 (36-66) % Lymph % (Auto) 34 (24-44) % [place] % (Auto) 12 H (2-6) % Eos % (Auto) 4 (2-4) % Baso % (Auto) 1 (0-1) % Sodium 138 L (140-148) mmol/L Potassium 4.3 (3.6-5.2) mmol/L Chloride 108 (100-108) mmol/L Carbon Dioxide 26 (21-32) mmol/L Anion Gap 8.3 (5.0-14.0) mmol/L BUN 25 H (7-18) mg/dL Creatinine 1.1 (0.8-1.3) mg/dL Est Cr Clr Drug Dosing 50.39 mL/min Estimated GFR (MDRD) > 60 (>60) Glucose 80 (74-106) mg/dL Lactic Acid (0.4-2.0) mmol/L Calcium 7.7 L (8.5-10.1) mg/dL Troponin I < 0.017 (0.000-0.056) ng/mL Urine Color Urine Appearance Urine pH (4.5-8.0) Ur Specific [place] (1.008-1.030) Urine Protein (NEGATIVE) mg/dL Urine Glucose (UA) (NEGATIVE) mg/dL Urine Ketones (NEGATIVE) mg/dL Urine Occult Blood (NEGATIVE) Urine Nitrite (NEGAITVE) Urine Bilirubin (NEGATIVE) Urine Urobilinogen (NORMAL) mg/dL Ur Leukocyte Esterase (NEGATIVE) Urine RBC (0-5) Urine WBC (0-5) Ur Epithelial Cells Amorphous Sediment Urine Bacteria Urine Mucus Med Orders - Current: Current Medications Acetaminophen (Tylenol) 650 mg PO Q4H PRN PRN Reason: Pain (Mild 1-3)/fever Aspirin (Aspirin) 81 mg PO DAILY [facility] Atorvastatin Calcium (Lipitor) 20 mg PO BEDTIME [facility] Last Admin: 02/13/17 21:09 Dose: 20 mg Belladonna Alkaloids/Opium (B & O Supprettes No. 15a) 1 supp RECTAL Q4H PRN PRN Reason: bladder spasm Carvedilol (Coreg) 3.125 mg PO BID [facility] Last Admin: 02/13/17 21:09 Dose: 3.125 mg Cephalexin (Keflex) 500 mg PO Q6H [facility] Clopidogrel Bisulfate (Plavix) 75 mg PO DAILY [facility] Last Admin: 02/13/17 22:02 Dose: 75 mg Diphenhydramine HCl (Benadryl) 25 mg PO BEDTIME PRN PRN Reason: Sleep Last Admin: 02/13/17 22:01 Dose: 25 mg Docusate Sodium (Colace) 100 mg PO BID PRN PRN Reason: Constipation Enoxaparin Sodium (Lovenox) 40 mg SUBCUT BEDTIME [facility] Last Admin: 02/13/17 21:09 Dose: 40 mg Isosorbide Mononitrate (Imdur) 30 mg PO DAILY@0730 [facility] Losartan Potassium (Cozaar) 12.5 mg PO DAILY [facility] Magnesium Hydroxide (Milk Of Magnesia) 30 ml PO Q12H PRN PRN Reason: Constipation Melatonin (Melatonin) 9 mg PO BEDTIME [facility] Last Admin: 02/13/17 22:03 Dose: 9 mg Nitroglycerin (Nitrostat) 0.4 mg SL ASDIRECTED PRN PRN Reason: Pain Ondansetron HCl (Zofran) 4 mg IV Q4H PRN PRN Reason: Nausea/Vomiting Oxycodone/Acetaminophen (Percocet 325-5 Mg) 1 - 2 tab PO Q4H PRN PRN Reason: Pain Last Admin: 02/14/17 08:23 Dose: 2 tab Pantoprazole Sodium (Protonix) 40 mg PO DAILY@0730 [facility] Last Admin: 02/14/17 08:15 Dose: 40 mg Pentoxifylline (Trental) 400 mg PO TID [facility] Last Admin: 02/13/17 21:09 Dose: 400 mg Polyethylene Glycol (Miralax) 17 gm PO DAILY PRN PRN Reason: Constipation Senna/Docusate Sodium (Senna Plus) 1 tab PO ONETIME PRN PRN Reason: Constipation Sodium Chloride (Saline Flush) 10 ml FLUSH ASDIRECTED PRN PRN Reason: Keep Vein Open Discontinued Medications Sodium Chloride (Normal Saline) 1,000 mls @ 400 mls/hr IV ASDIRECTED [facility] Last Admin: 02/13/17 16:32 Dose: 400 mls/hr Sodium Chloride (Normal Saline) 1,000 mls @ 75 mls/hr IV ASDIRECTED [facility] Last Admin: 02/13/17 21:14 Dose: 75 mls/hr - Exam Quality Assessment: Urine Catheter, DVT Prophylaxis General: Alert, Oriented, Cooperative, Mild Distress Lungs: Clear to Auscultation, Normal Respiratory Effort Cardiovascular: Regular Rate, Regular Rhythm, Murmurs. No: Irregular Rhythm, Bradycardia, Tachycardia GI/Abdominal Exam: Normal Bowel Sounds, Soft, Non-Tender, No Organomegaly, No Distention Extremities: Non-Tender, No Pedal Edema Skin: Warm, Dry, Intact - Problem List Review Problem List Initiated/Reviewed/Updated: Yes - My Orders Last 24 Hours: My Active Orders 02/13/17 18:24 Resuscitation Status Routine 02/13/17 19:23 Patient Status [ADT] Routine Ambulate [RC] QID Cardiac Monitoring [RC] Q6H Height and Weight [RC] DAILY Intake and Output [RC] QSHIFT Notify Provider Vital Signs [RC] ASDIRECTED Oxygen Therapy [RC] PRN Peripheral IV Care [RC] Q12H Up With Assistance [RC] ASDIRECTED Up to Chair [RC] QID VTE/DVT Education [RC] Per Unit Routine Vital Signs [RC] Q2H Acetaminophen [Tylenol] 650 mg PO Q4H PRN Docusate Sodium [Colace] 100 mg PO BID PRN Magnesium Hydroxide [Milk of Magnesia] 30 ml PO Q12H PRN Ondansetron [Zofran] 4 mg IV Q4H PRN Polyethylene Glycol 3350 [MiraLAX] 17 gm PO DAILY PRN Sodium Chloride 0.9% [Saline Flush] 10 ml FLUSH ASDIRECTED PRN Peripheral IV Insertion Adult [OM.PC] Routine 02/13/17 21:00 Enoxaparin [Lovenox] 40 mg SUBCUT BEDTIME Melatonin 9 mg PO BEDTIME 02/13/17 21:44 diphenhydrAMINE [Benadryl] 25 mg PO BEDTIME PRN 02/13/17 Dinner Regular Diet [DIET] 02/14/17 09:48 Consult to Physical Therapy [PT Evaluation and Treatment] [CONS] Routine 02/14/17 09:51 Convert IV to Saline Lock [OM.PC] Routine 02/14/17 10:00 Cephalexin [Keflex] 500 mg PO Q6H 02/15/17 05:00 BASIC METABOLIC PANEL,BMP [CHEM] Timed CBC WITH AUTO DIFF [HEME] Timed - Plan Plan:: ASSESSMENT AND PLAN UPPER BACK PAIN-occurred with activity and may represent an anginal equivalent. Associated with weakness, lightheadedness, and shortness of breath. No further episodes of pain since admission, serial troponin levels have been within normal range. HYPOTENSION-likely multifactorial, related to dehydration and medication effect. 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 DISPOSITION-anticipate discharge to home after the hospital stay. PRIMARY CARE PROVIDER-Dr. Atwood
[2017-02-14] MEDS: Cephalexin 250 MG Cap PO SCH ×3 (10:35→21:14)
[2017-02-14] MEDS: atorvaSTATin 20 MG Tab PO SCH (21:15)
[2017-02-14] MEDS: Melatonin 3 MG Tab PO SCH (21:16)
[2017-02-14] MEDS: Enoxaparin 40 MG/0.4 ML Syringe SUBCUT SCH (21:16)
[2017-02-14] MEDS: diphenhydrAMINE 25 MG Cap PO PRN (21:17)
[2017-02-15] MEDS: Cephalexin 250 MG Cap PO SCH ×2 (03:30→09:54)
[2017-02-15] MEDS: Aspirin 81 MG Tab.Chew PO SCH (08:09)
[2017-02-15] MEDS: Pantoprazole 40 MG Tab.CR PO SCH (08:09)
[2017-02-15] MEDS: Clopidogrel 75 MG Tab PO SCH (08:10)
[2017-02-15] MEDS: Pentoxifylline 400 MG Tab.ER PO SCH ×2 (08:10→15:42)
[2017-02-15] MEDS: Carvedilol 3.125 MG Tab PO SCH (08:10)
[2017-02-15] MEDS: Acetaminophen/oxyCODONE 325-5 MG Tab PO PRN (09:58)
--- NOTE | 2017-02-15 11:00 | PCM.DCSUM1 ---
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 - Discharge Data Discharge Date: 02/15/17 Discharge Disposition: Home, Self-Care 01 Condition: Fair - Discharge Diagnosis/Problem(s) (1) Hypotension SNOMED Code(s): 64117745 ICD Code: I95.9 - HYPOTENSION, UNSPECIFIED Status: Acute Current Visit: Yes (2) Chronic anemia SNOMED Code(s): 642035525 ICD Code: D64.9 - ANEMIA, UNSPECIFIED Status: Acute Current Visit: Yes (3) Lightheadedness SNOMED Code(s): 635620059 ICD Code: R42 - DIZZINESS AND GIDDINESS Status: Acute Current Visit: Yes (4) Coronary artery disease SNOMED Code(s): 07723437 ICD Code: I25.10 - ATHSCL HEART DISEASE OF [place] CORONARY ARTERY W/O ANG PCTRS Status: Chronic Current Visit: No (5) Lumbar radiculopathy, chronic SNOMED Code(s): 051449716 ICD Code: M54.16 - RADICULOPATHY, LUMBAR REGION Status: Chronic Current Visit: No - Patient Summary/Data Consults: Consultations 02/14/17 09:48 Consult to Physical Therapy [PT Evaluation and Treatment] [CONS] Routine Please Evaluate and Treat. PT Reason for Consult: weakness This query below is only for informational purposes and is not editable. 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 On the day of admission he had been exerting himself and then walking around for a period of time and noted onset of upper back pain associated with weakness and lightheadedness as well as shortness of breath. He came into the emergency department for further evaluation, by the time he arrived here the back pain and resolved but continued to feel weak and lightheaded. Blood pressure was noted to be low when he was given IV fluids for hydration. EKG was obtained which showed no acute ST segment changes and a troponin level was obtained which was within normal range. He was admitted to observation status, IV fluids were continued through the night and serial troponin levels were obtained which remained normal. He had no further symptoms of back pain, which was felt to represent a possible anginal equivalent. Blood pressure remained low the next day so he was changed to inpatient status, losartan was held in by the following morning his blood pressure was back to usual range. We'll plan to discharge him to home off of the losartan. The episode that he experienced was felt to be secondary to exertion and having just taken his morning medications. Hemoglobin and dropped to the 8 range after hydration, given his significant coronary artery disease it was felt that he would do better with a higher hemoglobin level. He was transfused one unit of red blood cells prior to discharge. Activity will be as tolerated and he will resume his usual diet. Follow-up appointment will be scheduled with his primary care provider within one week. - Patient Instructions Diet: Heart Healthy Diet Activity: As Tolerated Other/Special Instructions: Please schedule follow-up appointment with Dr. Atwood within one week. - Discharge Plan Home Medications: Home Meds Acetaminophen [Tylenol Extra Strength] 500 mg PO Q4H PRN 01/09/13 [History] Ascorbic Acid [Vitamin C] 250 mg PO DAILY 01/09/13 [History] Aspirin [Elías Chewable Aspirin] 81 mg PO DAILY 01/09/13 [History] Cholecalciferol (Vitamin D3) [Vitamin D3] 1,000 unit PO DAILY 01/09/13 [History] Nitroglycerin 0.4 mg SL ASDIRECTED PRN 01/09/13 [History] Sennosides/Docusate Sodium [Senna S] 8.6 mg PO ONETIME PRN 01/09/13 [History] diphenhydrAMINE [Benadryl] 25 mg PO BEDTIME PRN 01/09/13 [History] atorvaSTATin [Lipitor] 20 mg PO BEDTIME 07/01/14 [History] Clopidogrel Bisulfate [Clopidogrel] 75 mg PO DAILY 12/21/15 [History] Carvedilol 3.125 mg PO BID 03/26/16 [History] Isosorbide Mononitrate [Imdur] 30 mg PO DAILY #30 tab.er 03/27/16 [Rx] Cyanocobalamin (Vitamin B12) [Vitamin B12] 1,000 mcg PO DAILY 05/06/16 [History] Pentoxifylline [TRENtal] 1 tab PO TID 05/07/16 [History] Hyoscyamine [Hyomax-SL] 0.125 mg SL Q4H PRN #60 tab.sl 08/02/16 [Rx] Pantoprazole Sodium [Protonix] 40 mg PO DAILY 11/21/16 [History] Acetaminophen/oxyCODONE [Percocet 325-5 MG] 1 - 2 tab PO Q4H PRN #20 tablet [Rx] Belladonna/Opium [Belladonna-Opium 16.2-30] 1 supp RECTAL Q4H PRN #30 supp 01/11 [Rx] Belladonna/Opium [Belladonna-Opium 16.2-30] 1 supp RECTAL Q4H PRN #30 supp 01/11 [Rx] Melatonin 10 mg PO BEDTIME 01/27/17 [History] Tolterodine [Detrol] 2 mg PO BID 01/27/17 [History] Referrals: Jose Atwood MD [Physician] - - Patient Data Vitals - Most Recent: Last Vital Signs Temp 96.2 F 02/15/17 08:34 Pulse 70 02/15/17 08:34 Resp 16 02/15/17 08:34 BP 119/82 02/15/17 08:34 Pulse Ox 95 02/15/17 08:34 Weight - Most Recent: 171 lb I&O - Last 24 hours: Intake & Output 02/14/17 02/15/17 02/15/17 22:59 06:59 14:59 Intake Total 2118 1500 Output Total 250 975 Balance 1868 -975 1500 Lab Results - Last 24 hrs: Laboratory Results - last 24 hr 02/15/17 02/15/17 Range/Units 05:30 05:30 WBC 5.7 (4.5-11.0) K/uL RBC 3.20 L (4.30-5.90) M/uL Hgb 8.1 L (12.0-15.0) g/dL Hct 27.5 L (40.0-54.0) % MCV 86 (80-98) fL MCH 25 L (27-31) pg MCHC 30 L (32-36) % Plt Count 269 (150-400) K/uL Neut % (Auto) 42 (36-66) % Lymph % (Auto) 38 (24-44) % Converse % (Auto) 14 H (2-6) % Eos % (Auto) 6 H (2-4) % Baso % (Auto) 1 (0-1) % Sodium 142 (140-148) mmol/L Potassium 4.0 (3.6-5.2) mmol/L Chloride 109 H (100-108) mmol/L Carbon Dioxide 26 (21-32) mmol/L Anion Gap 11.0 (5.0-14.0) mmol/L BUN 21 H (7-18) mg/dL Creatinine 1.0 (0.8-1.3) mg/dL Est Cr Clr Drug Dosing 55.43 mL/min Estimated GFR (MDRD) > 60 (>60) Glucose 87 (74-106) mg/dL Calcium 8.1 L (8.5-10.1) mg/dL Med Orders - Current: Current Medications Acetaminophen (Tylenol) 650 mg PO Q4H PRN PRN Reason: Pain (Mild 1-3)/fever Aspirin (Aspirin) 81 mg PO DAILY [facility] Last Admin: 02/15/17 08:09 Dose: 81 mg Atorvastatin Calcium (Lipitor) 20 mg PO BEDTIME [facility] Last Admin: 02/14/17 21:15 Dose: 20 mg Belladonna Alkaloids/Opium (B & O Supprettes No. 15a) 1 supp RECTAL Q4H PRN PRN Reason: bladder spasm Carvedilol (Coreg) 3.125 mg PO BID [facility] Last Admin: 02/15/17 08:10 Dose: 3.125 mg Cephalexin (Keflex) 500 mg PO Q6H [facility] Last Admin: 02/15/17 09:54 Dose: 500 mg Clopidogrel Bisulfate (Plavix) 75 mg PO DAILY [facility] Last Admin: 02/15/17 08:10 Dose: 75 mg Diphenhydramine HCl (Benadryl) 25 mg PO BEDTIME PRN PRN Reason: Sleep Last Admin: 02/14/17 21:17 Dose: 25 mg Docusate Sodium (Colace) 100 mg PO BID PRN PRN Reason: Constipation Enoxaparin Sodium (Lovenox) 40 mg SUBCUT BEDTIME [facility] Last Admin: 02/14/17 21:16 Dose: 40 mg Isosorbide Mononitrate (Imdur) 30 mg PO DAILY@0730 [facility] Last Admin: 02/14/17 09:55 Dose: 30 mg Losartan Potassium (Cozaar) 12.5 mg PO DAILY [facility] Last Admin: 02/14/17 10:00 Dose: Not Given Magnesium Hydroxide (Milk Of Magnesia) 30 ml PO Q12H PRN PRN Reason: Constipation Melatonin (Melatonin) 9 mg PO BEDTIME [facility] Last Admin: 02/14/17 21:16 Dose: 9 mg Nitroglycerin (Nitrostat) 0.4 mg SL ASDIRECTED PRN PRN Reason: Pain Ondansetron HCl (Zofran) 4 mg IV Q4H PRN PRN Reason: Nausea/Vomiting Oxycodone/Acetaminophen (Percocet 325-5 Mg) 1 - 2 tab PO Q4H PRN PRN Reason: Pain Last Admin: 02/15/17 09:58 Dose: 2 tab Pantoprazole Sodium (Protonix) 40 mg PO DAILY@0730 [facility] Last Admin: 02/15/17 08:09 Dose: 40 mg Pentoxifylline (Trental) 400 mg PO TID [facility] Last Admin: 02/15/17 08:10 Dose: 400 mg Polyethylene Glycol (Miralax) 17 gm PO DAILY PRN PRN Reason: Constipation Senna/Docusate Sodium (Senna Plus) 1 tab PO ONETIME PRN PRN Reason: Constipation Sodium Chloride (Saline Flush) 10 ml FLUSH ASDIRECTED PRN PRN Reason: Keep Vein Open Discontinued Medications Sodium Chloride (Normal Saline) 1,000 mls @ 400 mls/hr IV ASDIRECTED [facility] Last Admin: 02/13/17 16:32 Dose: 400 mls/hr Sodium Chloride (Normal Saline) 1,000 mls @ 75 mls/hr IV ASDIRECTED [facility] Last Admin: 02/13/17 21:14 Dose: 75 mls/hr *Q Meaningful Use (DIS) - VTE *Q VTE Criteria *Q: - Stroke *Q Stroke Criteria *Q: - AMI *Q AMI Criteria *Q:
[2017-02-15 14:39] VITALS: BP 105/60
== END 2017-02-15 15:43 | disposition home or self-care (01) | DRG 316 ==
LOC: JP.ED 15:11 → JP.ICU 18:19 → UNDOADMIN 18:19 → JP.ICU 18:19 → OBSVTOIN 02-14 09:45 → JP.ICU 02-14 14:26 → JP.MS 02-14 14:26 → UNDODISIN 02-15 15:43
PROVIDERS: ADMIT Hospitalist; ATTEND Hospitalist
PROC: 30233N1 Transfusion of Nonautologous Red Blood Cells into Peripheral Vein, Percutaneous Approach (ICD-10-PCS; principal; 2017-02-15)
DX: I95.9 Hypotension, unspecified (principal); D64.9 Anemia, unspecified; I25.119 Atherosclerotic heart disease of native coronary artery with unspecified angina pectoris; I10 Essential (primary) hypertension; R42 Dizziness and giddiness; R06.02 Shortness of breath; R53.1 Weakness; M54.89 Other dorsalgia; E78.00 Pure hypercholesterolemia, unspecified; I25.2 Old myocardial infarction; M19.90 Unspecified osteoarthritis, unspecified site; G89.29 Other chronic pain; K21.9 Gastro-esophageal reflux disease without esophagitis; Z95.5 Presence of coronary angioplasty implant and graft; Z95.1 Presence of aortocoronary bypass graft; H54.7 Unspecified visual loss; Z96.659 Presence of unspecified artificial knee joint; Z79.82 Long term (current) use of aspirin; Z88.6 Allergy status to analgesic agent; Z88.8 Allergy status to other drugs, medicaments and biological substances; M54.16 Radiculopathy, lumbar region; Z85.46 Personal history of malignant neoplasm of prostate; R33.9 Retention of urine, unspecified; E86.0 Dehydration
CPT/HCPCS: 36415 ×2; 71010 ×2; 80048; 80053; 81001; 82550; 83605 ×2; 83880; 84484 ×3; 85025 ×2; 87040 ×2; 93005; 96360; 99285; A9270 ×9; J1650; J7040 ×2; 36430; 86850; 86900; 86901; 86920; 86922; 93010; 97161-GP; 97530-GP; 99284; P9016

== ENCOUNTER 2017-03-07 16:51 | Emergency (ER) | payer MEDICARE, BC ==
[2017-03-07 17:17] VITALS: BP 156/89
--- NOTE | 2017-03-07 17:46 | EDM.PDOC ---
ED HPI GENERAL MEDICAL PROBLEM - General Chief Complaint: Genitourinary Problem Stated Complaint: FAILED CATHETER Time Seen by Provider: 03/07/17 17:37 Source of Information: Reports: Patient, RN Notes Reviewed History Limitations: Reports: No Limitations - History of Present Illness INITIAL COMMENTS - FREE TEXT/NARRATIVE: 86-year-old gentleman presents emergency department today with difficulty with his suprapubic catheter, he has had difficulty with any outflow he is experiencing abdominal pain - Related Data Allergies Allergy/AdvReac Type Severity Reaction Status Date / Time aspirin Allergy Unknown Hives Verified 01/27/17 20:36 piroxicam [From Feldene] Allergy Rash Verified 01/27/17 20:36 Home Meds: Home Meds Acetaminophen [Tylenol Extra Strength] 500 mg PO Q4H PRN 01/09/13 [History] Ascorbic Acid [Vitamin C] 250 mg PO DAILY 01/09/13 [History] Aspirin [Elías Chewable Aspirin] 81 mg PO DAILY 01/09/13 [History] Cholecalciferol (Vitamin D3) [Vitamin D3] 1,000 unit PO DAILY 01/09/13 [History] Nitroglycerin 0.4 mg SL ASDIRECTED PRN 01/09/13 [History] Sennosides/Docusate Sodium [Senna S] 8.6 mg PO ONETIME PRN 01/09/13 [History] diphenhydrAMINE [Benadryl] 25 mg PO BEDTIME PRN 01/09/13 [History] atorvaSTATin [Lipitor] 20 mg PO BEDTIME 07/01/14 [History] Clopidogrel Bisulfate [Clopidogrel] 75 mg PO DAILY 12/21/15 [History] Carvedilol 3.125 mg PO BID 03/26/16 [History] Isosorbide Mononitrate [Imdur] 30 mg PO DAILY #30 tab.er 03/27/16 [Rx] Cyanocobalamin (Vitamin B12) [Vitamin B12] 1,000 mcg PO DAILY 05/06/16 [History] Pentoxifylline [TRENtal] 1 tab PO TID 05/07/16 [History] Hyoscyamine [Hyomax-SL] 0.125 mg SL Q4H PRN #60 tab.sl 08/02/16 [Rx] Pantoprazole Sodium [Protonix] 40 mg PO DAILY 11/21/16 [History] Acetaminophen/oxyCODONE [Percocet 325-5 MG] 1 - 2 tab PO Q4H PRN #20 tablet [Rx] Belladonna/Opium [Belladonna-Opium 16.2-30] 1 supp RECTAL Q4H PRN #30 supp 01/11 [Rx] Belladonna/Opium [Belladonna-Opium 16.2-30] 1 supp RECTAL Q4H PRN #30 supp 01/11 [Rx] Melatonin 10 mg PO BEDTIME 01/27/17 [History] Tolterodine [Detrol] 2 mg PO BID 01/27/17 [History] Past Medical History HEENT History: Reports: Cataract, Impaired Vision Cardiovascular History: Reports: Angina, Arrhythmia, CAD, High Cholesterol, Hypertension, [place], SOB on Exertion, Stents Respiratory History: Reports: Other (See Below) Other Respiratory History: seeing a lung specialist in [place]. Spot on lung to investigate Gastrointestinal History: Reports: GERD Genitourinary History: Reports: Retention, Urinary Other Genitourinary History: surapubic catheter Musculoskeletal History: Reports: Back Pain, Chronic, Fracture, Osteoarthritis Neurological History: Reports: None Psychiatric History: Reports: None Endocrine/Metabolic History: Reports: None Hematologic History: Reports: Blood Transfusion(s) Immunologic History: Reports: None Oncologic (Cancer) History: Reports: Prostate Dermatologic History: Reports: None - Infectious Disease History Infectious Disease History: Reports: C-Difficile, Mumps - Past Surgical History HEENT Surgical History: Reports: Cataract Surgery, Oral Surgery, Tonsillectomy Cardiovascular Surgical History: Reports: Coronary Artery Bypass, Coronary Artery Stent GI Surgical History: Reports: Colonoscopy, EGD Male Surgical History: Reports: Suprapubic Catheter Placement Endocrine Surgical History: Reports: None Neurological Surgical History: Reports: None Musculoskeletal Surgical History: Reports: Knee Replacement Dermatological Surgical History: Reports: None Social & Family History - Family History Family Medical History: Noncontributory - Tobacco Use Smoking Status *Q: Never Smoker Second Hand Smoke Exposure: No - Caffeine Use Caffeine Use: Reports: Coffee - Alcohol Use Days Per Week of Alcohol Use: 0 Number of Drinks Per Day: 1 Total Drinks Per Week: 0 - Recreational Drug Use Recreational Drug Use: No Recreational Drug Type: Reports: Marijuana/Hashish Recreational Drug Use Frequency: Rarely - Living Situation & Occupation Living situation: Reports: ( 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) ED ROS GENERAL - Review of Systems Review Of Systems: See Below Constitutional: Reports: No Symptoms GI/Abdominal: Reports: Abdominal Pain : Reports: Urinary Retention ED EXAM, RENAL/ - Physical Exam Exam: See Below Exam Limited By: No Limitations General Appearance: Alert, WD/WN, No Apparent Distress Respiratory/Chest: No Respiratory Distress GI/Abdominal: Soft, Non-Tender Course - Vital Signs Last Recorded V/S: Last Vital Signs Temp 98.1 F 03/07/17 17:15 Pulse 111 H 03/07/17 17:15 Resp 16 03/07/17 17:15 BP 156/89 H 03/07/17 17:15 Pulse Ox 97 03/07/17 17:15 - Orders/Labs/Meds Orders: Active Orders 24 hr Category Date Time Status Bladder Scan [RC] ONETIME Care 03/07/17 17:25 Active - Re-Assessments/Exams Free Text/Narrative Re-Assessment/Exam: 03/07/17 17:43 Initial evaluation by nursing staff the catheter was flushed and then a large amount of over 600 mL of urine was collected abdominal pain resolved Departure - Departure Time of Disposition: 17:44 Disposition: Home, Self-Care 01 Condition: Good Clinical Impression: Urinary retention - Discharge Information Referrals: Jose Atwood MD [Primary Care Provider] - Additional Instructions: Follow-up with her primary care as needed, call or return to the emergency department with worsening of symptoms - My Orders Last 24 Hours: My Active Orders 03/07/17 17:25 Bladder Scan [RC] ONETIME - Assessment/Plan Last 24 Hours: My Active Orders 03/07/17 17:25 Bladder Scan [RC] ONETIME Plan: Assessment Acuity = acute Site and laterality = urinary retention Etiology = [secondary to Christianson catheter dysfunction Manifestations = none Location of injury = Home Lab values = none Plan Follow-up with his primary care as needed Patient was in agreement with the plan all questions were answered, they were instructed to return to the emergency department or call for worsening symptoms. This note was dictated using [employer] voice recognition software please call with any questions.
== END 2017-03-07 18:24 | disposition home or self-care (01) ==
LOC: JP.ED 16:51
DX: T83.098A Other mechanical complication of other urinary catheter, initial encounter (principal); R33.9 Retention of urine, unspecified; I10 Essential (primary) hypertension; E78.00 Pure hypercholesterolemia, unspecified; Z79.899 Other long term (current) drug therapy; Z79.82 Long term (current) use of aspirin; Z88.6 Allergy status to analgesic agent; Z88.8 Allergy status to other drugs, medicaments and biological substances
CPT/HCPCS: 51700; 51798; 99284; A4217; 99283

== ENCOUNTER 2017-03-16 20:27 | Emergency (ER) | payer MEDICARE, BC ==
[2017-03-16 20:40] VITALS: BP 100/71
[2017-03-16] MEDS ORDERED: Aspirin 81 MG Tab.Chew PO ONE (21:01)
[2017-03-16] MEDS ORDERED: Nitroglycerin 0.4 MG Tab.SL SL PRN (21:01)
[2017-03-16] MEDS ORDERED: Sodium Chloride 0.9% 10 ML Syringe FLUSH PRN (21:01)
[2017-03-16] MEDS ORDERED: Belladonna Alkaloids/Opium 16.2-30 MG Supp RECTAL ONE (21:14)
--- NOTE | 2017-03-16 21:19 | EDM.PDOC ---
ED HPI GENERAL MEDICAL PROBLEM - General Chief Complaint: Genitourinary Problem Stated Complaint: BLADDER SPASMS Time Seen by Provider: 03/16/17 21:10 Source of Information: Reports: Patient, Old Records, RN History Limitations: Reports: No Limitations - History of Present Illness INITIAL COMMENTS - FREE TEXT/NARRATIVE: 86 yo male here with bladder spasms that he has had before. Has a suprapubic catheter. No fever. Take Detrol without apparent relief. His insurance will not pay for B&O suppositories, but he has gotten relief from them in the past. Spasms worse and more frequent today since 6 pm. Is currently taking cephalexin for surgical wound prophylaxis after placement this past week of a pain pump in his back. Onset: Today Onset Date: 03/16/17 Duration: Week(s):, Getting Worse Location: Reports: Abdomen (bladder) Quality: Reports: Other (cramping) Severity: Moderate Improves with: Reports: None Worsens with: Reports: Other (? 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: Reports: Other Medication(s) (Detrol, generic) - Related Data Allergies Allergy/AdvReac Type Severity Reaction Status Date / Time aspirin Allergy Unknown Hives Verified 03/16/17 20:45 piroxicam [From Feldene] Allergy Rash Verified 03/16/17 20:45 Home Meds: Home Meds Acetaminophen [Tylenol Extra Strength] 500 mg PO Q4H PRN 01/09/13 [History] Ascorbic Acid [Vitamin C] 250 mg PO DAILY 01/09/13 [History] Aspirin [Elías Chewable Aspirin] 81 mg PO DAILY 01/09/13 [History] Cholecalciferol (Vitamin D3) [Vitamin D3] 1,000 unit PO DAILY 01/09/13 [History] Nitroglycerin 0.4 mg SL ASDIRECTED PRN 01/09/13 [History] Sennosides/Docusate Sodium [Senna S] 8.6 mg PO ONETIME PRN 01/09/13 [History] diphenhydrAMINE [Benadryl] 25 mg PO BEDTIME PRN 01/09/13 [History] atorvaSTATin [Lipitor] 20 mg PO BEDTIME 07/01/14 [History] Clopidogrel Bisulfate [Clopidogrel] 75 mg PO DAILY 12/21/15 [History] Carvedilol 3.125 mg PO BID 03/26/16 [History] Isosorbide Mononitrate [Imdur] 30 mg PO DAILY #30 tab.er 03/27/16 [Rx] Cyanocobalamin (Vitamin B12) [Vitamin B12] 1,000 mcg PO DAILY 05/06/16 [History] Pentoxifylline [TRENtal] 1 tab PO TID 05/07/16 [History] Pantoprazole Sodium [Protonix] 40 mg PO DAILY 11/21/16 [History] Acetaminophen/oxyCODONE [Percocet 325-5 MG] 1 - 2 tab PO Q4H PRN #20 tablet [Rx] Melatonin 10 mg PO BEDTIME 01/27/17 [History] Tolterodine [Detrol] 2 mg PO BID 01/27/17 [History] Cephalexin [Cephalexin] 1 tab PO TID 03/16/17 [History] Ciprofloxacin [Ciprofloxacin HCl] 250 mg PO BID #9 tab 03/16/17 [Rx] Past Medical History HEENT History: Reports: Cataract, Impaired Vision Cardiovascular History: Reports: Angina, Arrhythmia, CAD, High Cholesterol, Hypertension, [place], SOB on Exertion, Stents Respiratory History: Reports: Other (See Below) Other Respiratory History: seeing [place] lung specialist in [place]. Spot on lung to investigate = growth on bottom on lungs, nothing to do aboutit Gastrointestinal History: Reports: GERD Genitourinary History: Reports: Prostate Disorder, Retention, Urinary, Other ( See Below) Other Genitourinary History: surapubic catheter. pt has bladder spasms Musculoskeletal History: Reports: Back Pain, Chronic, Fracture, Osteoarthritis Neurological History: Reports: Other (See Below) Other Neuro History: ciatic pain - with a nerve blocking unit placed on 2016 in [place], [place] Psychiatric History: Reports: None Endocrine/Metabolic History: Reports: None Hematologic History: Reports: Anemia, Blood Transfusion(s) Immunologic History: Reports: None Oncologic (Cancer) History: Reports: Prostate Dermatologic History: Reports: None - Infectious Disease History Infectious Disease History: Reports: Chicken Pox, Measles, Mumps - Past Surgical History HEENT Surgical History: Reports: Cataract Surgery, Oral Surgery, Tonsillectomy Cardiovascular Surgical History: Reports: Coronary Artery Bypass, Coronary Artery Stent GI Surgical History: Reports: Colonoscopy, EGD Male Surgical History: Reports: Prostate Biopsy, Suprapubic Catheter Placement Endocrine Surgical History: Reports: None Neurological Surgical History: Reports: None Musculoskeletal Surgical History: Reports: Knee Replacement Dermatological Surgical History: Reports: None Social & Family History - Family History Family Medical History: Noncontributory - Tobacco Use Smoking Status *Q: Never Smoker Second Hand Smoke Exposure: No - Caffeine Use Caffeine Use: Reports: None - Alcohol Use Days Per Week of Alcohol Use: 0 Number of Drinks Per Day: 1 Total Drinks Per Week: 0 - Recreational Drug Use Recreational Drug Use: No Recreational Drug Type: Reports: Marijuana/Hashish Recreational Drug Use Frequency: Rarely - Living Situation & Occupation Living situation: Reports: ( 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) ED ROS GENERAL - Review of Systems Review Of Systems: See Below Constitutional: Reports: No Symptoms Respiratory: Reports: No Symptoms Cardiovascular: Reports: No Symptoms GI/Abdominal: Reports: No Symptoms : Reports: Other (Bladder spasms) Skin: Reports: No Symptoms ED EXAM, RENAL/ - Physical Exam Exam: See Below Exam Limited By: No Limitations General Appearance: Alert, WD/WN, No Apparent Distress Eye Exam: Bilateral Eye: Normal Inspection Ears: Normal External Exam, Normal Canal, Hearing Grossly Normal Nose: Normal Inspection, Normal Mucosa, No Blood Throat/Mouth: Normal Inspection, Normal Lips, Normal Oropharynx, Normal Voice, No Airway Compromise Head: Atraumatic, Normocephalic Neck: Normal Inspection Respiratory/Chest: No Respiratory Distress, Lungs Clear, Normal Breath Sounds, No Accessory Muscle Use Cardiovascular: Regular Rate, Rhythm GI/Abdominal: Soft Back Exam: Normal Inspection. No: CVA Tenderness (R), CVA Tenderness (L) Extremities: Normal Inspection Neurological: Alert, Oriented, CN II-XII Intact, Normal Cognition, No Motor/ Sensory Deficits Psychiatric: Normal Affect, Normal Mood Skin Exam: Warm, Dry, Intact, Normal Color, No Rash Lymphatic: No Adenopathy Course - Vital Signs Last Recorded V/S: Last Vital Signs Temp 37.1 C 03/16/17 20:56 Pulse 116 H 03/16/17 20:56 Resp 18 03/16/17 20:56 BP 100/71 03/16/17 20:56 Pulse Ox 94 L 03/16/17 20:56 - Orders/Labs/Meds Orders: Active Orders 24 hr Category Date Time Status CULTURE URINE [RM] Stat Lab 03/16/17 21:31 Received Labs: Laboratory Tests 03/16/17 Range/Units 21:20 Urine Color Yellow Urine Appearance Slightly cloudy Urine pH 6.0 (4.5-8.0) Ur Specific [place] 1.015 (1.008-1.030) Urine Protein 500 H (NEGATIVE) mg/dL Urine Glucose (UA) Normal (NEGATIVE) mg/dL Urine Ketones Negative (NEGATIVE) mg/dL Urine Occult Blood Large (NEGATIVE) Urine Nitrite Positive H (NEGAITVE) Urine Bilirubin Moderate (NEGATIVE) Urine Urobilinogen 4 (NORMAL) mg/dL Ur Leukocyte Esterase Large (NEGATIVE) Urine RBC 10-20 H (0-5) Urine WBC 5-10 H (0-5) Ur Epithelial Cells Not seen Amorphous Sediment Not seen Urine Bacteria Rare Urine Mucus Not seen Urine Other Meds: Medications Discontinued Medications Generic Name Dose Route Start Last Admin Trade Name Freq PRN Reason Stop Dose Admin Aspirin 324 mg 03/16/17 21:01 03/16/17 21:46 Aspirin PO 03/16/17 21:02 Not Given ONETIME ONE Belladonna Alkaloids/Opium 1 supp 03/16/17 21:14 03/16/17 21:39 B & O Supprettes No. 15a RECTAL 03/16/17 21:15 1 supp ONETIME ONE Administration Ciprofloxacin 500 mg 03/16/17 21:31 03/16/17 21:39 Ciprofloxacin Hcl PO 03/16/17 21:32 500 mg ONETIME ONE Administration Nitroglycerin 0.4 mg 03/16/17 21:01 Nitrostat SL Q5M PRN Chest Pain Sodium Chloride 10 ml 03/16/17 21:01 Saline Flush FLUSH ASDIRECTED PRN Keep Vein Open Departure - Departure Time of Disposition: 22:06 Disposition: Home, Self-Care 01 Condition: Good Clinical Impression: Bladder spasms - Discharge Information Prescriptions: Ciprofloxacin [Ciprofloxacin HCl] 250 mg PO BID #9 tab Referrals: Jose Atwood MD [Primary Care Provider] - Forms: ED Department Discharge Additional Instructions: Hold your cephalexin. Take ciprofloxacin as directed until gone. Drink ample fluids so your urine is light yellow. Continue your current other meds. Consider a trial of AZO per package instructions if cramping continues. See your doctor for recheck early in the week. - My Orders Last 24 Hours: My Active Orders 03/16/17 21:31 CULTURE URINE [RM] Stat - Assessment/Plan Last 24 Hours: My Active Orders 03/16/17 21:31 CULTURE URINE [RM] Stat
[2017-03-16] MEDS ORDERED: Ciprofloxacin 500 MG Tab PO ONE (21:31)
== END 2017-03-16 22:21 | disposition home or self-care (01) ==
LOC: JP.ED 20:27
DX: N32.89 Other specified disorders of bladder (principal); I10 Essential (primary) hypertension; E78.00 Pure hypercholesterolemia, unspecified; Z88.8 Allergy status to other drugs, medicaments and biological substances; Z79.899 Other long term (current) drug therapy
CPT/HCPCS: 81001; 87086; 99284; A9270; 87088; 87186; 99283

== ENCOUNTER 2017-03-17 18:50 | Observation (INO) | payer MEDICARE, BC ==
[2017-03-17] MEDS ORDERED: Belladonna Alkaloids/Opium 16.2-30 MG Supp RECTAL ONE (19:56)
[2017-03-17] MEDS ORDERED: Ondansetron 4 MG/2 ML SDV IVPUSH ONE (19:58)
[2017-03-17] MEDS ORDERED: HYDROmorphone 1 MG/ML Syringe IVPUSH ONE ×2 (19:58→21:02)
[2017-03-17] MEDS ORDERED: Sodium Chloride 0.9% 1,000 ML IV SCH ×2 (20:00→23:06)
--- NOTE | 2017-03-17 21:05 | EDM.PDOC ---
ED HPI GENERAL MEDICAL PROBLEM - General Chief Complaint: Genitourinary Problem Stated Complaint: ILLNESS Time Seen by Provider: 03/17/17 19:23 Source of Information: Reports: Patient History Limitations: Reports: No Limitations - History of Present Illness INITIAL COMMENTS - FREE TEXT/NARRATIVE: bladder spasms; this is a 86 year old male present to ER via POV, report uncontrolled bladder spasms for the past two days, was seen last night in the ER. He has supra pubic cath due to be change next week. current UTI with treatment with Cipro. He reports urine squirting around the opening, has change his underwear 12 times in the 24 hours, now wearing a diaper to control leakage. denies any current fever, but has had fevers in the past week. Onset: Gradual Duration: Day(s): (2) Location: Reports: Abdomen (bladder spasm.) Quality: Reports: Sharp, Stabbing, Throbbing Severity: Severe Improves with: Reports: None Worsens with: Reports: Immobilization Lower Abdominal Pain Score (Numeric/FACES): 4 - Related Data Allergies Allergy/AdvReac Type Severity Reaction Status Date / Time aspirin Allergy Unknown Hives Verified 03/16/17 20:45 piroxicam [From Feldene] Allergy Rash Verified 03/16/17 20:45 Home Meds: Home Meds Ascorbic Acid [Vitamin C] 250 mg PO DAILY 01/09/13 [History] Aspirin [Elías Chewable Aspirin] 81 mg PO DAILY 01/09/13 [History] Cholecalciferol (Vitamin D3) [Vitamin D3] 1,000 unit PO DAILY 01/09/13 [History] Nitroglycerin 0.4 mg SL ASDIRECTED PRN 01/09/13 [History] Sennosides/Docusate Sodium [Senna S] 8.6 mg PO DAILY PRN 01/09/13 [History] diphenhydrAMINE [Benadryl] 25 mg PO BEDTIME PRN 01/09/13 [History] atorvaSTATin [Lipitor] 20 mg PO BEDTIME 07/01/14 [History] Clopidogrel Bisulfate [Clopidogrel] 75 mg PO DAILY 12/21/15 [History] Carvedilol 3.125 mg PO BID 03/26/16 [History] Isosorbide Mononitrate [Imdur] 30 mg PO DAILY #30 tab.er 03/27/16 [Rx] Cyanocobalamin (Vitamin B12) [Vitamin B12] 1,000 mcg PO DAILY 05/06/16 [History] Pentoxifylline [TRENtal] 1 tab PO TID 05/07/16 [History] Pantoprazole Sodium [Protonix] 40 mg PO DAILY 11/21/16 [History] Acetaminophen/oxyCODONE [Percocet 325-5 MG] 1 - 2 tab PO Q4H PRN #20 tablet [Rx] Melatonin 10 mg PO BEDTIME 01/27/17 [History] Cephalexin [Cephalexin] 1 tab PO TID 03/16/17 [History] Ciprofloxacin [Ciprofloxacin HCl] 250 mg PO BID #9 tab 03/16/17 [Rx] Past Medical History HEENT History: Reports: Cataract, Impaired Vision Cardiovascular History: Reports: Angina, Arrhythmia, CAD, High Cholesterol, Hypertension, [place], SOB on Exertion, Stents Respiratory History: Reports: Other (See Below) Other Respiratory History: seeing a lung specialist in [place]. Spot on lung to investigate = growth on bottom on lungs, nothing to do aboutit Gastrointestinal History: Reports: GERD Genitourinary History: Reports: Prostate Disorder, Retention, Urinary, Other ( See Below) Other Genitourinary History: surapubic catheter. pt has bladder spasms Musculoskeletal History: Reports: Back Pain, Chronic, Fracture, Osteoarthritis Neurological History: Reports: Other (See Below) Other Neuro History: ciatic pain - with a nerve blocking unit placed on 2016 in [place], [place] Psychiatric History: Reports: None Endocrine/Metabolic History: Reports: None Hematologic History: Reports: Anemia, Blood Transfusion(s) Immunologic History: Reports: None Oncologic (Cancer) History: Reports: Prostate Dermatologic History: Reports: None - Infectious Disease History Infectious Disease History: Reports: Chicken Pox, Measles, Mumps - Past Surgical History HEENT Surgical History: Reports: Cataract Surgery, Oral Surgery, Tonsillectomy Cardiovascular Surgical History: Reports: Coronary Artery Bypass, Coronary Artery Stent GI Surgical History: Reports: Colonoscopy, EGD Male Surgical History: Reports: Prostate Biopsy, Suprapubic Catheter Placement Endocrine Surgical History: Reports: None Neurological Surgical History: Reports: None Musculoskeletal Surgical History: Reports: Knee Replacement Dermatological Surgical History: Reports: None Social & Family History - Family History Family Medical History: Noncontributory - Tobacco Use Smoking Status *Q: Never Smoker Second Hand Smoke Exposure: No - Caffeine Use Caffeine Use: Reports: None - Alcohol Use Days Per Week of Alcohol Use: 0 Number of Drinks Per Day: 1 Total Drinks Per Week: 0 - Recreational Drug Use Recreational Drug Use: No Recreational Drug Type: Reports: Marijuana/Hashish Recreational Drug Use Frequency: Rarely - Living Situation & Occupation Living situation: Reports: ( 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 with leakage of urine) Musculoskeletal: Reports: Back Pain Skin: Reports: No Symptoms Neurological: Reports: No Symptoms Psychiatric: Reports: No Symptoms Hematologic/Lymphatic: Reports: No Symptoms Immunologic: Reports: No Symptoms ED EXAM, GENERAL - Physical Exam Exam: See Below Exam Limited By: No Limitations General Appearance: Severe Distress (moan and cries out in pain during a bladder spasm.) Eye Exam: Bilateral Eye: Normal Inspection Ears: Normal External Exam Nose: Normal Inspection Throat/Mouth: Normal Inspection Head: Atraumatic, Normocephalic Neck: Normal Inspection, Supple, Non-Tender, Full Range of Motion Respiratory/Chest: No Respiratory Distress, Lungs Clear, Normal Breath Sounds, No Accessory Muscle Use, Chest Non-Tender Cardiovascular: Normal Peripheral Pulses, Regular Rate, Rhythm, No Edema, No Murmur GI/Abdominal: Soft, No Distention, Other (supra pubic cath noted with urine leakage present. continuous flow of urine from ostomy, urine bag with orage urine.) (Male) Exam: Deferred Rectal (Males) Exam: Deferred Back Exam: Normal Inspection Extremities: Normal Inspection, Normal Range of Motion, Non-Tender, No Pedal Edema, Normal Capillary Refill Neurological: No Motor/Sensory Deficits Psychiatric: Normal Affect, Normal Mood Skin Exam: Warm, Dry, Intact, Normal Color, No Rash Lymphatic: No Adenopathy Course - Vital Signs Last Recorded V/S: Last Vital Signs Temp 36.6 C 03/18/17 04:14 Pulse 100 03/18/17 04:14 Resp 20 03/18/17 04:14 BP 98/46 L 03/18/17 04:14 Pulse Ox 93 L 03/18/17 04:14 - Orders/Labs/Meds Orders: Active Orders 24 hr Category Date Time Status Sodium Chloride 0.9% [Normal Saline] 1,000 ml Med 03/17/17 20:00 Active IV ASDIRECTED Medication Orders Acetaminophen (Tylenol) 650 mg PO Q4H PRN PRN Reason: Pain (Mild 1-3)/fever Albuterol (Proventil Neb Soln) 2.5 mg NEB Q4H PRN PRN Reason: Shortness Of Breath/wheezing Bisacodyl (Dulcolax) 5 mg PO DAILY PRN PRN Reason: Constipation Carvedilol (Coreg) 3.125 mg PO BIDMEALS [facility] Clopidogrel Bisulfate (Plavix) 75 mg PO DAILY [facility] Cyanocobalamin (Vitamin B12) 1,000 mcg PO DAILY [facility] Docusate Sodium (Colace) 100 mg PO BID PRN PRN Reason: Constipation Hydromorphone HCl (Dilaudid Order Dispatcher 15 Mg In Ns 30 Ml) 0 mg IV ASDIRECTED PRN; Protocol PRN Reason: Pain Sodium Chloride (Normal Saline) 1,000 mls @ 999 mls/hr IV ASDIRECTED [facility] Last Admin: 03/17/17 20:46 Dose: 999 mls/hr Ceftriaxone Sodium 1 gm/ (Sodium Chloride) 50 mls @ 100 mls/hr IV Q24H [facility] Last Admin: 03/18/17 00:14 Dose: 100 mls/hr Sodium Chloride (Normal Saline) 1,000 mls @ 125 mls/hr IV ASDIRECTED [facility] Isosorbide Mononitrate (Imdur) 30 mg PO DAILY [facility] Lorazepam (Ativan) 1 mg IV Q6H PRN PRN Reason: Nausea/Vomiting Naloxone HCl (Narcan) 0.4 mg IVPUSH Q2M PRN PRN Reason: Respiratory Distress Naloxone HCl (Narcan) 0.4 mg IVPUSH Q2M PRN PRN Reason: Respiratory Distress Nitroglycerin (Nitrostat) 0.4 mg SL ASDIRECTED PRN PRN Reason: Pain Non-Formulary Medication (Melatonin [Melatonin]) 10 mg PO BEDTIME [facility] Ondansetron HCl (Zofran Odt) 4 mg PO Q6H PRN PRN Reason: Nausea able to take PO Ondansetron HCl (Zofran) 4 mg IV Q4H PRN PRN Reason: Nausea/Vomiting Pantoprazole Sodium (Protonix) 40 mg PO DAILY@0730 [facility] Pentoxifylline (Trental) 400 mg PO TID [facility] Zolpidem Tartrate (Ambien) 5 mg PO BEDTIME [facility] Last Admin: 03/18/17 00:07 Dose: 5 mg Labs: Laboratory Tests 03/17/17 03/17/17 03/17/17 Range/Units 20:10 20:10 20:47 WBC 6.6 (4.5-11.0) K/uL RBC 3.89 L (4.30-5.90) M/uL Hgb 10.0 L (12.0-15.0) g/dL Hct 33.1 L (40.0-54.0) % MCV 85 (80-98) fL MCH 26 L (27-31) pg MCHC 30 L (32-36) % Plt Count 345 (150-400) K/uL Neut % (Auto) 59 (36-66) % Lymph % (Auto) 22 L (24-44) % [place] % (Auto) 16 H (2-6) % Eos % (Auto) 2 (2-4) % Baso % (Auto) 1 (0-1) % Sodium 141 (140-148) mmol/L Potassium 3.8 (3.6-5.2) mmol/L Chloride 103 (100-108) mmol/L Carbon Dioxide 24 (21-32) mmol/L Anion Gap 14.3 H (5.0-14.0) mmol/L BUN 16 (7-18) mg/dL Creatinine 1.5 H (0.8-1.3) mg/dL Est Cr Clr Drug Dosing TNP Estimated GFR (MDRD) 44 L (>60) Glucose 105 (74-106) mg/dL Calcium 9.0 (8.5-10.1) mg/dL Urine Color [place] Urine Appearance Cloudy Urine pH 8.0 (4.5-8.0) Ur Specific [place] 1.015 (1.008-1.030) Urine Protein 100 H (NEGATIVE) mg/dL Urine Glucose (UA) Normal (NEGATIVE) mg/dL Urine Ketones Negative (NEGATIVE) mg/dL Urine Occult Blood Moderate (NEGATIVE) Urine Nitrite Positive H (NEGAITVE) Urine Bilirubin Moderate (NEGATIVE) Urine Urobilinogen 4 (NORMAL) mg/dL Ur Leukocyte Esterase Large (NEGATIVE) Urine RBC 10-20 H (0-5) Urine WBC 30-40 H (0-5) Ur Epithelial Cells Moderate Amorphous Sediment Few Urine Bacteria Moderate Urine Mucus Few Urine Other See note Meds: Medications Generic Name Dose Route Start Last Admin Trade Name Freq PRN Reason Stop Dose Admin Acetaminophen 650 mg 03/17/17 23:06 Tylenol PO Q4H PRN Pain (Mild 1-3)/fever Albuterol 2.5 mg 03/17/17 23:06 Proventil Neb Soln NEB Q4H PRN Shortness Of Breath/wheezing Bisacodyl 5 mg 03/17/17 23:06 Dulcolax PO DAILY PRN Constipation Carvedilol 3.125 mg 03/18/17 08:00 Coreg PO BIDMEALS [facility] Clopidogrel Bisulfate 75 mg 03/18/17 09:00 Plavix PO DAILY [facility] Cyanocobalamin 1,000 mcg 03/18/17 09:00 Vitamin B12 PO DAILY [facility] Docusate Sodium 100 mg 03/17/17 23:06 Colace PO BID PRN Constipation Hydromorphone HCl 0 mg 03/17/17 23:06 Dilaudid Order Dispatcher 15 Mg In Ns 30 Ml IV ASDIRECTED PRN Pain Protocol Sodium Chloride 1,000 mls @ 999 mls/hr 03/17/17 20:00 03/17/17 20:46 Normal Saline IV 999 mls/hr ASDIRECTED RUTHIE Administration Ceftriaxone Sodium 1 gm/ 50 mls @ 100 mls/hr 03/17/17 23:30 03/18/17 00:14 Sodium Chloride IV 100 mls/hr Q24H RUTHIE Administration Sodium Chloride 1,000 mls @ 125 mls/hr 03/17/17 23:06 Normal Saline IV ASDIRECTED [facility] Isosorbide Mononitrate 30 mg 03/18/17 09:00 Imdur PO DAILY RUTHIE Lorazepam 1 mg 03/17/17 23:06 Ativan IV Q6H PRN Nausea/Vomiting Naloxone HCl 0.4 mg 03/17/17 23:06 Narcan IVPUSH Q2M PRN Respiratory Distress Naloxone HCl 0.4 mg 03/17/17 23:06 Narcan IVPUSH Q2M PRN Respiratory Distress Nitroglycerin 0.4 mg 03/17/17 23:06 Nitrostat SL ASDIRECTED PRN Pain Non-Formulary Medication 10 mg 03/18/17 21:00 Melatonin [Melatonin] PO BEDTIME RUTHIE Ondansetron HCl 4 mg 03/17/17 23:06 Zofran Odt PO Q6H PRN Nausea able to take PO Ondansetron HCl 4 mg 03/17/17 23:06 Zofran IV Q4H PRN Nausea/Vomiting Pantoprazole Sodium 40 mg 03/18/17 07:30 Protonix PO DAILY@0730 RUTHIE Pentoxifylline 400 mg 03/18/17 09:00 Trental PO TID RUTHIE Zolpidem Tartrate 5 mg 03/17/17 23:06 03/18/17 00:07 Ambien PO 5 mg BEDTIME RUTHIE Administration Discontinued Medications Generic Name Dose Route Start Last Admin Trade Name Freq PRN Reason Stop Dose Admin Belladonna Alkaloids/Opium 1 supp 03/17/17 19:56 03/17/17 20:30 B & O Supprettes No. 15a RECTAL 03/17/17 19:57 1 supp ONETIME ONE Administration Hydromorphone HCl 1 mg 03/17/17 19:58 03/17/17 20:20 Dilaudid IVPUSH 03/17/17 19:59 1 mg ONETIME ONE Administration Hydromorphone HCl 1 mg 03/17/17 21:02 03/17/17 21:09 Dilaudid IVPUSH 03/17/17 21:03 1 mg ONETIME ONE Administration Ondansetron HCl 4 mg 03/17/17 19:58 03/17/17 20:24 Zofran IVPUSH 03/17/17 19:59 4 mg ONETIME ONE Administration - Re-Assessments/Exams Free Text/Narrative Re-Assessment/Exam: 03/17/17 21:18 upon arrival given one liter of normal saline, IV Dilaudid 1mg, IV Zofran 4mg. repeat IV Dilaudid 1 grm bladder scan; scant amount of urine in bladder will change supra pubic cath. will assess comfort level. Mr. Cruz is still having intermittent bladder spasms, doesn't feel safe at home , will admit observation for pain control and uti Departure - Departure Time of Disposition: 22:45 Disposition: Refer to Observation Clinical Impression: UTI, Urinary tract infectious disease, Bladder spasms - Discharge Information - My Orders Last 24 Hours: My Active Orders 03/17/17 20:00 Sodium Chloride 0.9% [Normal Saline] 1,000 ml IV ASDIRECTED - Assessment/Plan Last 24 Hours: My Active Orders 03/17/17 20:00 Sodium Chloride 0.9% [Normal Saline] 1,000 ml IV ASDIRECTED
--- NOTE | 2017-03-17 23:02 | PCM.HP ---
H&P History of Present Illness - General Date of Service: 03/17/17 Admit Problem/Dx: Admission Diagnosis/Problem Admission Diagnosis/Problem Bladder spasm Source of Information: Patient History Limitations: Reports: No Limitations - History of Present Illness Initial Comments - Free Text/Narative: bladder spasms; this is a 86 year old male present to ER via POV, report uncontrolled bladder spasms for the past two days, was seen last night in the ER. He has supra pubic cath due to be change next week. current UTI with treatment with Cipro. He reports urine squirting around the opening, has change his underwear 12 times in the 24 hours, now wearing a diaper to control leakage. denies any current fever, but has had fevers in the past week. labs; no acute changes Mr. Cruz was given IV Dilaudid 1mg x2, IV Zofran 4 mg, 1 liter of Normal Saline , B& O supp., changed supra pubic cath, he persists with bladder spasm. He doesn't feel safe home alone with this intense pain. will admit observation for bladder spasms and urinary tract infection. Onset of Symptoms: Reports: Gradual Duration of Symptoms: Reports: Day(s):, Waxing/Waning Location: Reports: Abdomen (low mid abdomen.) Quality: Reports: Same as Previous Episode, Sharp, Stabbing Improves with: Reports: None Worsens with: Reports: None Associated Symptoms: Reports: Loss of Appetite (last meal at breakfast), Weakness Lower Abdominal Pain Score (Numeric/FACES): 4 - Related Data Allergies/Adverse Reactions: Allergies Allergy/AdvReac Type Severity Reaction Status Date / Time aspirin Allergy Unknown Hives Verified 03/16/17 20:45 piroxicam [From Feldene] Allergy Rash Verified 03/16/17 20:45 Home Medications: Home Meds Ascorbic Acid [Vitamin C] 250 mg PO DAILY 01/09/13 [History] Aspirin [Elías Chewable Aspirin] 81 mg PO DAILY 01/09/13 [History] Cholecalciferol (Vitamin D3) [Vitamin D3] 1,000 unit PO DAILY 01/09/13 [History] Nitroglycerin 0.4 mg SL ASDIRECTED PRN 01/09/13 [History] Sennosides/Docusate Sodium [Senna S] 8.6 mg PO DAILY PRN 01/09/13 [History] diphenhydrAMINE [Benadryl] 25 mg PO BEDTIME PRN 01/09/13 [History] atorvaSTATin [Lipitor] 20 mg PO BEDTIME 07/01/14 [History] Clopidogrel Bisulfate [Clopidogrel] 75 mg PO DAILY 12/21/15 [History] Carvedilol 3.125 mg PO BID 03/26/16 [History] Isosorbide Mononitrate [Imdur] 30 mg PO DAILY #30 tab.er 03/27/16 [Rx] Cyanocobalamin (Vitamin B12) [Vitamin B12] 1,000 mcg PO DAILY 05/06/16 [History] Pentoxifylline [TRENtal] 1 tab PO TID 05/07/16 [History] Pantoprazole Sodium [Protonix] 40 mg PO DAILY 11/21/16 [History] Acetaminophen/oxyCODONE [Percocet 325-5 MG] 1 - 2 tab PO Q4H PRN #20 tablet [Rx] Melatonin 10 mg PO BEDTIME 01/27/17 [History] Cephalexin [Cephalexin] 1 tab PO TID 03/16/17 [History] Ciprofloxacin [Ciprofloxacin HCl] 250 mg PO BID #9 tab 03/16/17 [Rx] Past Medical History HEENT History: Reports: Cataract, Impaired Vision Cardiovascular History: Reports: Angina, Arrhythmia, CAD, High Cholesterol, Hypertension, [place], SOB on Exertion, Stents Respiratory History: Reports: Other (See Below) Other Respiratory History: seeing a lung specialist in [place]. Spot on lung to investigate = growth on bottom on lungs, nothing to do aboutit Gastrointestinal History: Reports: GERD Genitourinary History: Reports: Prostate Disorder, Retention, Urinary, Other ( See Below) Other Genitourinary History: surapubic catheter. pt has bladder spasms Musculoskeletal History: Reports: Back Pain, Chronic, Fracture, Osteoarthritis Neurological History: Reports: Other (See Below) Other Neuro History: ciatic pain - with a nerve blocking unit placed on 2016 in [place], [place] Psychiatric History: Reports: None Endocrine/Metabolic History: Reports: None Hematologic History: Reports: Anemia, Blood Transfusion(s) Immunologic History: Reports: None Oncologic (Cancer) History: Reports: Prostate Dermatologic History: Reports: None - Infectious Disease History Infectious Disease History: Reports: Chicken Pox, Measles, Mumps - Past Surgical History HEENT Surgical History: Reports: Cataract Surgery, Oral Surgery, Tonsillectomy Cardiovascular Surgical History: Reports: Coronary Artery Bypass, Coronary Artery Stent GI Surgical History: Reports: Colonoscopy, EGD Male Surgical History: Reports: Prostate Biopsy, Suprapubic Catheter Placement Endocrine Surgical History: Reports: None Neurological Surgical History: Reports: None Musculoskeletal Surgical History: Reports: Knee Replacement Dermatological Surgical History: Reports: None Social & Family History - Family History Family Medical History: Noncontributory - Tobacco Use Smoking Status *Q: Never Smoker Second Hand Smoke Exposure: No - Caffeine Use Caffeine Use: Reports: None - Alcohol Use Days Per Week of Alcohol Use: 0 Number of Drinks Per Day: 1 Total Drinks Per Week: 0 - Recreational Drug Use Recreational Drug Use: No Recreational Drug Type: Reports: Marijuana/Hashish Recreational Drug Use Frequency: Rarely - Living Situation & Occupation Living situation: Reports: ( 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) H&P Review of Systems - Review of Systems: Review Of Systems: See Below General: Reports: Decreased Appetite (secondary to pain) HEENT: Reports: No Symptoms Pulmonary: Reports: No Symptoms Cardiovascular: Reports: No Symptoms Gastrointestinal: Reports: Abdominal Pain Genitourinary: Reports: Frequency, Urgency, Other (leakage of urine around supra pubic cath.) Musculoskeletal: Reports: No Symptoms Skin: Reports: No Symptoms Psychiatric: Reports: No Symptoms Hematologic/Lymphatic: Reports: No Symptoms Immunologic: Reports: No Symptoms Exam - Exam Exam: See Below - Vital Signs Vital Signs: Last Vital Signs Temp 37.0 C 03/17/17 22:55 Pulse 100 03/17/17 22:55 Resp 18 03/17/17 22:55 BP 108/63 03/17/17 22:55 Pulse Ox 100 03/17/17 22:55 Weight: 72.575 kg - Exam General: Alert, Oriented, Severe Distress (during bladder spasms, holloring and moaining in pain) HEENT: PERRLA, Hearing Intact, Mucosa Moist & Goff, Nares Patent, Normal Nasal Septum, Posterior Pharynx Clear, Conjunctiva Clear, EOMI, EACs Clear, TMs Clear Neck: Supple, Trachea Midline, 2 Lungs: Clear to Auscultation, Normal Respiratory Effort Cardiovascular: Regular Rate GI/Abdominal Exam: Normal Bowel Sounds, Soft, Non-Tender, No Organomegaly, No Distention, No Abnormal Bruit, No Mass, Pelvis Stable (Male) Exam: Deferred Rectal (Males) Exam: Deferred Back Exam: Normal Inspection, Full Range of Motion Extremities: Normal Inspection, Normal Range of Motion, Non-Tender, No Pedal Edema, Normal Capillary Refill Skin: Warm, Dry, Intact Neurological: Strength Equal Bilateral Neuro Extensive - Mental Status: Alert, Oriented x3, Normal Mood/Affect, Normal Cognition Neuro Extensive - Motor, Sensory, Reflexes: CN II-XII Intact, Normal Gait, Normal Reflexes Psychiatric: Alert, Normal Affect, Normal Mood - Patient Data Result Diagrams: 03/18/17 05:00 03/18/17 05:00 *Q Meaningful Use (ADM) - VTE *Q VTE Criteria *Q: - Stroke *Q Stroke Criteria *Q: - AMI *Q AMI Criteria *Q: - Problem List (1) Bladder spasms Status: Acute Priority: High Current Visit: Yes (2) UTI, Urinary tract infectious disease SNOMED Code(s): 63894391 ICD Code: N39.0 - URINARY TRACT INFECTION, SITE NOT SPECIFIED Status: Acute Priority: High Current Visit: Yes Problem List Initiated/Reviewed/Updated: Yes Orders Last 24hrs: Active Orders 24 hr Category Date Time Status Bladder Scan [RC] ONETIME Care 03/17/17 22:23 Active Resuscitation Status Routine Resus Stat 03/17/17 22:04 Ordered Medication Orders Sodium Chloride (Normal Saline) 1,000 mls @ 999 mls/hr IV ASDIRECTED RUTHIE Last Admin: 03/17/17 20:46 Dose: 999 mls/hr Assessment/Plan Comment:: Assessment and plan - Assessment/Plan Comment:: bladder spasms; this is a 86 year old male present to ER via POV, report uncontrolled bladder spasms for the past two days, was seen last night in the ER. He has supra pubic cath due to be change next week. current UTI with treatment with Cipro. He reports urine squirting around the opening, has change his underwear 12 times in the 24 hours, now wearing a diaper to control leakage. denies any current fever, but has had fevers in the past week. labs; no acute changes Mr. Cruz was given IV Dilaudid 1mg x2, IV Zofran 4 mg, 1 liter of Normal Saline , B& O supp., changed supra pubic cath, he persists with bladder spasm. He doesn't feel safe home alone with this intense pain. will admit observation for bladder spasms, pain control and urinary tract infection. 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 Cruz would like appointment with Urology at [facility] UTI -Rocephin 1 gram IV -urine culture pending Maintenance issues - - DVT prophylaxis -SCD - GI prophylaxis - PPI - Nutrition - regular diet - Christianson catheter - Supra Pubic cath CODE STATUS - FULL Admission status: Admit to Observation -I expect this patient to stay less than 24 hours, not to exceed 96 hours for evaluation and management of this problem. Disposition - anticipate discharge back to home after the hospital stay Primary care physician - Dr. Atwood Hospitialist: Genaro Jaramillo M.D.
[2017-03-17] MEDS ORDERED: Acetaminophen 325 MG Tab PO PRN (23:06)
[2017-03-17] MEDS ORDERED: Ondansetron 4 MG/2 ML SDV IV PRN (23:06)
[2017-03-17] MEDS ORDERED: Naloxone 0.4 MG/ML SDV IVPUSH PRN ×2 (23:06)
[2017-03-17] MEDS ORDERED: Albuterol 0.083% 2.5 MG/3 ML Neb Soln NEB PRN (23:06)
[2017-03-17] MEDS ORDERED: Bisacodyl 5 MG Tab PO PRN (23:06)
[2017-03-17] MEDS ORDERED: Zolpidem 5 MG Tab PO SCH (23:06)
[2017-03-17] MEDS ORDERED: LORazepam 2 MG/ML MDV IV PRN (23:06)
[2017-03-17] MEDS ORDERED: Nitroglycerin 0.4 MG Tab.SL SL PRN (23:06)
[2017-03-17] MEDS ORDERED: Docusate Sodium 100 MG Cap PO PRN (23:06)
[2017-03-17] MEDS ORDERED: HYDROmorphone/Normal Saline 15 MG/30 ML PCA IV PRN (23:06)
[2017-03-17] MEDS ORDERED: Ondansetron 4 MG Tab.DIS PO PRN (23:06)
[2017-03-17] MEDS ORDERED: cefTRIAXone 1 GM in Sodium Chloride 0.9% 50 ML IV SCH (23:30)
[2017-03-18] MEDS ORDERED: Pantoprazole 40 MG Tab.CR PO SCH (07:30)
[2017-03-18] MEDS ORDERED: Carvedilol 3.125 MG Tab PO SCH (08:00)
[2017-03-18] MEDS ORDERED: Clopidogrel 75 MG Tab PO SCH (09:00)
[2017-03-18] MEDS ORDERED: Isosorbide Mononitrate 30 MG Tab.ER PO SCH (09:00)
[2017-03-18] MEDS ORDERED: Cyanocobalamin (Vitamin B12) 1,000 MCG Tab PO SCH (09:00)
[2017-03-18] MEDS ORDERED: Pentoxifylline 400 MG Tab.ER PO SCH (09:00)
[2017-03-18 11:08] VITALS: BP 118/68
--- NOTE | 2017-03-18 11:37 | PCM.DCSUM1 ---
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 He was admitted for management of bladder spasm pain and suspected infection. - Discharge Data Discharge Date: 03/18/17 Discharge Disposition: Home, Self-Care 01 Condition: Good - Discharge Diagnosis/Problem(s) (1) Bladder spasms Status: Acute Priority: High (2) UTI, Urinary tract infectious disease SNOMED Code(s): 37393245 ICD Code: N39.0 - URINARY TRACT INFECTION, SITE NOT SPECIFIED Status: Acute Priority: High - Patient Summary/Data Labs Pending at D/C: Urine culture Hospital Course: Ambrosio presented to the emergency room with worsening bladder spasms. Workup in the emergency room suggested a possible acute cystitis with abnormal urinalysis. He was given a dose of ceftriaxone to empirically cover the infection. His urinary catheter was removed in the emergency room and a new one was inserted. After the new catheter was inserted he had resolution of his bladder spasms. He has not had significant spasm since that time and feels well the morning after admission. He has not had any fevers and blood pressures and vital signs have been relatively stable. He is interested in outpatient management at this time and I think he is safe for outpatient management. He will be on ciprofloxacin empirically until we see what his urine culture grows. I will contact him in 2-3 days time with culture results and antibiotic adjustments if necessary. He will follow-up as needed. - Patient Instructions Diet: Heart Healthy Diet Activity: As Tolerated Showering/Bathing: May Shower Notify Provider of: Fever, Increased Pain, Nausea and/or Vomiting Other/Special Instructions: 1. You were in the hospital for management of bladder spasms caused by your chronic suprapubic catheter. Symptoms have improved after the old catheter was removed and a new one was inserted. 2. Please continue your usual home medications as previously prescribed. 3. Please seek medical attention if you develop fever greater than 101, have severe pain associated with spasms or if you are unable to pass urine through the catheter. - Discharge Plan Prescriptions/Med Rec: Ciprofloxacin [Ciprofloxacin HCl] 500 mg PO BID #14 tab Home Medications: Home Meds Ascorbic Acid [Vitamin C] 250 mg PO DAILY 01/09/13 [History] Aspirin [Elías Chewable Aspirin] 81 mg PO DAILY 01/09/13 [History] Cholecalciferol (Vitamin D3) [Vitamin D3] 1,000 unit PO DAILY 01/09/13 [History] Nitroglycerin 0.4 mg SL ASDIRECTED PRN 01/09/13 [History] Sennosides/Docusate Sodium [Senna S] 8.6 mg PO DAILY PRN 01/09/13 [History] diphenhydrAMINE [Benadryl] 25 mg PO BEDTIME PRN 01/09/13 [History] atorvaSTATin [Lipitor] 20 mg PO BEDTIME 07/01/14 [History] Clopidogrel Bisulfate [Clopidogrel] 75 mg PO DAILY 12/21/15 [History] Carvedilol 3.125 mg PO BID 03/26/16 [History] Isosorbide Mononitrate [Imdur] 30 mg PO DAILY #30 tab.er 03/27/16 [Rx] Cyanocobalamin (Vitamin B12) [Vitamin B12] 1,000 mcg PO DAILY 05/06/16 [History] Pentoxifylline [TRENtal] 1 tab PO TID 05/07/16 [History] Pantoprazole Sodium [Protonix] 40 mg PO DAILY 11/21/16 [History] Acetaminophen/oxyCODONE [Percocet 325-5 MG] 1 - 2 tab PO Q4H PRN #20 tablet [Rx] Melatonin 10 mg PO BEDTIME 01/27/17 [History] Cephalexin 1 tab PO TID 03/16/17 [History] Ciprofloxacin [Ciprofloxacin HCl] 250 mg PO BID #9 tab 03/16/17 [Rx] Ciprofloxacin [Ciprofloxacin HCl] 500 mg PO BID #14 tab 03/18/17 [Rx] Patient Handouts: Urinary Tract Infection, Adult, [id number], Suprapubic Catheter Replacement, Care After Referrals: Jose Atwood MD [Primary Care Provider] - (f/u if symptoms do not continue to get better or if they get worse) - Discharge Summary/Plan Comment DC Time >30 min.: No (25) - Patient Data Vitals - Most Recent: Last Vital Signs Temp 36.8 C 03/18/17 11:08 Pulse 89 03/18/17 11:08 Resp 16 03/18/17 11:08 BP 118/68 03/18/17 11:08 Pulse Ox 90 L 03/18/17 11:08 Weight - Most Recent: 72.575 kg I&O - Last 24 hours: Intake & Output 03/17/17 03/18/17 03/18/17 22:59 06:59 14:59 Intake Total 844 608 Output Total 650 400 175 Balance -650 444 433 Lab Results - Last 24 hrs: Laboratory Results - last 24 hr 03/18/17 03/18/17 Range/Units 05:00 05:00 WBC 6.5 (4.5-11.0) K/uL RBC 3.40 L (4.30-5.90) M/uL Hgb 8.7 L (12.0-15.0) g/dL Hct 29.5 L (40.0-54.0) % MCV 87 (80-98) fL MCH 26 L (27-31) pg MCHC 30 L (32-36) % Plt Count 275 (150-400) K/uL Neut % (Auto) 56 (36-66) % Lymph % (Auto) 21 L (24-44) % [place] % (Auto) 18 H (2-6) % Eos % (Auto) 4 (2-4) % Baso % (Auto) 0 (0-1) % Sodium 144 (140-148) mmol/L Potassium 3.5 L (3.6-5.2) mmol/L Chloride 109 H (100-108) mmol/L Carbon Dioxide 28 (21-32) mmol/L Anion Gap 10.5 (5.0-14.0) mmol/L BUN 14 (7-18) mg/dL Creatinine 1.3 (0.8-1.3) mg/dL Est Cr Clr Drug Dosing 41.09 mL/min Estimated GFR (MDRD) 52 L (>60) Glucose 97 (74-106) mg/dL Calcium 8.1 L (8.5-10.1) mg/dL Med Orders - Current: Current Medications Acetaminophen (Tylenol) 650 mg PO Q4H PRN PRN Reason: Pain (Mild 1-3)/fever Albuterol (Proventil Neb Soln) 2.5 mg NEB Q4H PRN PRN Reason: Shortness Of Breath/wheezing Bisacodyl (Dulcolax) 5 mg PO DAILY PRN PRN Reason: Constipation Carvedilol (Coreg) 3.125 mg PO BIDMEALS [facility] Last Admin: 03/18/17 10:31 Dose: Not Given Clopidogrel Bisulfate (Plavix) 75 mg PO DAILY [facility] Last Admin: 03/18/17 10:31 Dose: Not Given Cyanocobalamin (Vitamin B12) 1,000 mcg PO DAILY [facility] Last Admin: 03/18/17 10:32 Dose: Not Given Docusate Sodium (Colace) 100 mg PO BID PRN PRN Reason: Constipation Hydromorphone HCl (Dilaudid Resident Care Aid 15 Mg In Ns 30 Ml) 0 mg IV ASDIRECTED PRN; Protocol PRN Reason: Pain Ceftriaxone Sodium 1 gm/ (Sodium Chloride) 50 mls @ 100 mls/hr IV Q24H [facility] Last Admin: 03/18/17 00:14 Dose: 100 mls/hr Sodium Chloride (Normal Saline) 1,000 mls @ 125 mls/hr IV ASDIRECTED [facility] Last Admin: 03/18/17 06:57 Dose: 125 mls/hr Isosorbide Mononitrate (Imdur) 30 mg PO DAILY [facility] Last Admin: 03/18/17 10:31 Dose: Not Given Lorazepam (Ativan) 1 mg IV Q6H PRN PRN Reason: Nausea/Vomiting Melatonin (Melatonin) 9 mg PO BEDTIME [facility] Naloxone HCl (Narcan) 0.4 mg IVPUSH Q2M PRN PRN Reason: Respiratory Distress Nitroglycerin (Nitrostat) 0.4 mg SL ASDIRECTED PRN PRN Reason: Pain Ondansetron HCl (Zofran Odt) 4 mg PO Q6H PRN PRN Reason: Nausea able to take PO Ondansetron HCl (Zofran) 4 mg IV Q4H PRN PRN Reason: Nausea/Vomiting Pantoprazole Sodium (Protonix) 40 mg PO DAILY@0730 [facility] Last Admin: 03/18/17 08:47 Dose: Not Given Pentoxifylline (Trental) 400 mg PO TID [facility] Last Admin: 03/18/17 10:31 Dose: Not Given Zolpidem Tartrate (Ambien) 5 mg PO BEDTIME [facility] Last Admin: 03/18/17 00:07 Dose: 5 mg Discontinued Medications Belladonna Alkaloids/Opium (B & O Supprettes No. 15a) 1 supp RECTAL ONETIME ONE Stop: 03/17/17 19:57 Last Admin: 03/17/17 20:30 Dose: 1 supp Hydromorphone HCl (Dilaudid) 1 mg IVPUSH ONETIME ONE Stop: 03/17/17 19:59 Last Admin: 03/17/17 20:20 Dose: 1 mg Hydromorphone HCl (Dilaudid) 1 mg IVPUSH ONETIME ONE Stop: 03/17/17 21:03 Last Admin: 03/17/17 21:09 Dose: 1 mg Sodium Chloride (Normal Saline) 1,000 mls @ 999 mls/hr IV ASDIRECTED [facility] Last Admin: 03/17/17 20:46 Dose: 999 mls/hr Ondansetron HCl (Zofran) 4 mg IVPUSH ONETIME ONE Stop: 03/17/17 19:59 Last Admin: 03/17/17 20:24 Dose: 4 mg - Exam Quality Assessment: Denies: Supplemental Oxygen General: Reports: Alert, Oriented, Cooperative, No Acute Distress Neck: Reports: Supple Lungs: Reports: Normal Respiratory Effort GI/Abdominal Exam: No Distention Psy/Mental Status: Reports: Alert, Normal Affect *Q Meaningful Use (DIS) - VTE *Q VTE Criteria *Q: - Stroke *Q Stroke Criteria *Q: - AMI *Q AMI Criteria *Q:
[2017-03-18] MEDS ORDERED: Melatonin 3 MG Tab PO SCH (21:00)
== END 2017-03-18 12:30 | disposition home or self-care (01) ==
LOC: JP.ED 18:50 → JP.MS 22:03
PROVIDERS: ADMIT Hospitalist; ATTEND Hospitalist
DX: N32.89 Other specified disorders of bladder (principal); N39.0 Urinary tract infection, site not specified; I25.10 Atherosclerotic heart disease of native coronary artery without angina pectoris; I10 Essential (primary) hypertension; E78.00 Pure hypercholesterolemia, unspecified; K21.9 Gastro-esophageal reflux disease without esophagitis; Z79.82 Long term (current) use of aspirin; Z79.899 Other long term (current) drug therapy; Z79.2 Long term (current) use of antibiotics; Z88.8 Allergy status to other drugs, medicaments and biological substances; Z95.5 Presence of coronary angioplasty implant and graft; Z96.659 Presence of unspecified artificial knee joint
CPT/HCPCS: 36415; 51702; 51798; 80048; 81001; 85025; 87086; 87088; 87186; 96361; 96365; 96375; 96376; 99283; 99284; A9270; G0378; J0696; J1170; J2405; J7040; J7050; 96374; 99217; 99219

== ENCOUNTER 2017-07-06 15:06 | Emergency (ER) | payer MEDICARE, BC ==
[2017-07-06 15:26] VITALS: BP 120/71
--- NOTE | 2017-07-06 15:58 | EDM.PDOC ---
ED HPI GENERAL MEDICAL PROBLEM - General Chief Complaint: Genitourinary Problem Stated Complaint: BLADDER SPASMS Time Seen by Provider: 07/06/17 15:45 Source of Information: Reports: Patient, Old Records, RN History Limitations: Reports: No Limitations - History of Present Illness INITIAL COMMENTS - FREE TEXT/NARRATIVE: 87 yo male here with bladder spasms and a plugged indwelling mosley catheter. No fever. No vomiting. Has some light-headedness that has been reported to his primary and an ECHO is pending to rule out aortic stenosis. Onset: Today Onset Date: 07/06/17 Duration: Hour(s): Location: Reports: Abdomen (low) Quality: Reports: Other (spasms intermittently) Severity: Moderate Improves with: Reports: Medication (Taking AZO with partial relief.) Worsens with: Reports: Other (uncertain) Context: Reports: Other (indwelling mosley chronically) Associated Symptoms: Reports: No Other Symptoms Treatments ENROLLMENT MANAGEMENT COORDINATOR: Reports: Other (see below) (AZO OTC) - Related Data Allergies Allergy/AdvReac Type Severity Reaction Status Date / Time aspirin Allergy Unknown Hives Verified 07/06/17 15:56 piroxicam [From Feldene] Allergy Rash Verified 07/06/17 15:56 Home Meds: Home Meds Ascorbic Acid [Vitamin C] 250 mg PO DAILY 01/09/13 [History] Aspirin [Elías Chewable Aspirin] 81 mg PO DAILY 01/09/13 [History] Cholecalciferol (Vitamin D3) [Vitamin D3] 1,000 unit PO DAILY 01/09/13 [History] Nitroglycerin 0.4 mg SL ASDIRECTED PRN 01/09/13 [History] Sennosides/Docusate Sodium [Senna S] 8.6 mg PO DAILY PRN 01/09/13 [History] diphenhydrAMINE [Benadryl] 25 mg PO BEDTIME PRN 01/09/13 [History] atorvaSTATin [Lipitor] 20 mg PO BEDTIME 07/01/14 [History] Clopidogrel Bisulfate [Clopidogrel] 75 mg PO DAILY 12/21/15 [History] Carvedilol 3.125 mg PO BID 03/26/16 [History] Isosorbide Mononitrate [Imdur] 30 mg PO DAILY #30 tab.er 03/27/16 [Rx] Cyanocobalamin (Vitamin B12) [Vitamin B12] 1,000 mcg PO DAILY 05/06/16 [History] Pentoxifylline [TRENtal] 1 tab PO TID 05/07/16 [History] Pantoprazole Sodium [Protonix] 40 mg PO DAILY 11/21/16 [History] Acetaminophen/oxyCODONE [Percocet 325-5 MG] 1 - 2 tab PO Q4H PRN #20 tablet [Rx] Melatonin 10 mg PO BEDTIME 01/27/17 [History] Ciprofloxacin [IJP: Ciprofloxacin HCl] 250 mg PO .TWICE DAILY #10 tab 07/06/17 [ Rx] Oxybutynin [Oxybutynin ER] 1 tab PO DAILY 07/06/17 [History] Past Medical History HEENT History: Reports: Cataract, Impaired Vision Cardiovascular History: Reports: Angina, Arrhythmia, CAD, High Cholesterol, Hypertension, PA, SOB on Exertion, Stents Respiratory History: Reports: Other (See Below) Other Respiratory History: seeing a lung specialist in [place]. Spot on lung to investigate = growth on bottom on lungs, nothing to do aboutit Gastrointestinal History: Reports: GERD Genitourinary History: Reports: Prostate Disorder, Retention, Urinary, Other ( See Below) Other Genitourinary History: surapubic catheter. pt has bladder spasms Musculoskeletal History: Reports: Back Pain, Chronic, Fracture, Osteoarthritis Neurological History: Reports: Other (See Below) Other Neuro History: ciatic pain - with a nerve blocking unit placed on 2016 in [place], [place] Psychiatric History: Reports: None Endocrine/Metabolic History: Reports: None Hematologic History: Reports: Anemia, Blood Transfusion(s) Immunologic History: Reports: None Oncologic (Cancer) History: Reports: Prostate Dermatologic History: Reports: None - Infectious Disease History Infectious Disease History: Reports: Chicken Pox, Measles, Mumps - Past Surgical History HEENT Surgical History: Reports: Cataract Surgery, Oral Surgery, Tonsillectomy Cardiovascular Surgical History: Reports: Coronary Artery Bypass, Coronary Artery Stent GI Surgical History: Reports: Colonoscopy, EGD Male Surgical History: Reports: Prostate Biopsy, Suprapubic Catheter Placement Endocrine Surgical History: Reports: None Neurological Surgical History: Reports: None Musculoskeletal Surgical History: Reports: Knee Replacement Dermatological Surgical History: Reports: None Social & Family History - Family History Family Medical History: Noncontributory HEENT: Reports: None - Tobacco Use Smoking Status *Q: Never Smoker Second Hand Smoke Exposure: No - Caffeine Use Caffeine Use: Reports: None - Alcohol Use Days Per Week of Alcohol Use: 0 Number of Drinks Per Day: 1 Total Drinks Per Week: 0 - Recreational Drug Use Recreational Drug Use: No Recreational Drug Type: Reports: Marijuana/Hashish Recreational Drug Use Frequency: Rarely - Living Situation & Occupation Living situation: Reports: ( 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) ED ROS GENERAL - Review of Systems Review Of Systems: See Below Constitutional: Reports: No Symptoms HEENT: Reports: No Symptoms Respiratory: Reports: No Symptoms Cardiovascular: Reports: No Symptoms GI/Abdominal: Reports: No Symptoms : Reports: Other (catheter plugged, bladder spasms) ED EXAM, RENAL/ - Physical Exam Exam: See Below Exam Limited By: No Limitations General Appearance: Alert, WD/WN, No Apparent Distress Ears: Normal External Exam, Normal Canal, Hearing Grossly Normal Nose: Normal Inspection, Normal Mucosa Throat/Mouth: Normal Inspection, Normal Lips, Normal Voice, No Airway Compromise Head: Atraumatic, Normocephalic Neck: Normal Inspection Respiratory/Chest: No Respiratory Distress, Lungs Clear, Normal Breath Sounds, No Accessory Muscle Use Cardiovascular: Regular Rate, Rhythm, Systolic Murmur. No: No Murmur GI/Abdominal: Normal Bowel Sounds, Soft, Non-Tender, No Distention Back Exam: Normal Inspection Extremities: Normal Inspection, Normal Range of Motion, Non-Tender, No Pedal Edema Neurological: Alert, Oriented, CN II-XII Intact, Normal Cognition, No Motor/ Sensory Deficits Psychiatric: Normal Affect, Normal Mood Course - Vital Signs Text/Narrative:: Catheter changed with good urine flow and a reduction in his presenting sx's. Last Recorded V/S: Last Vital Signs Temp 37.7 C 07/06/17 16:11 Pulse 93 07/06/17 16:11 Resp 17 07/06/17 16:11 BP 120/71 07/06/17 16:11 Pulse Ox 96 07/06/17 16:11 - Orders/Labs/Meds Orders: Active Orders 24 hr Category Date Time Status Mosley Catheter Insertion [Insert Urinary Catheter] [OM. Care 07/06/17 15:45 Ordered PC] Q24H Urinary Catheter Assessment [RC] ASDIRECTED Care 07/06/17 15:41 Active CULTURE URINE [RM] Stat Lab 07/06/17 16:42 Ordered Labs: Laboratory Tests 07/06/17 Range/Units 16:34 Urine Color [place] Urine Appearance Cloudy Urine pH 6.5 (4.5-8.0) Ur Specific [place] 1.010 (1.008-1.030) Urine Protein 500 H (NEGATIVE) mg/dL Urine Glucose (UA) Normal (NEGATIVE) mg/dL Urine Ketones Negative (NEGATIVE) mg/dL Urine Occult Blood Large (NEGATIVE) Urine Nitrite Positive H (NEGAITVE) Urine Bilirubin Moderate (NEGATIVE) Urine Urobilinogen 4 (NORMAL) mg/dL Ur Leukocyte Esterase Large (NEGATIVE) Urine RBC 30-40 H (0-5) Urine WBC Packed H (0-5) Ur Epithelial Cells Not seen Amorphous Sediment Not seen Urine Bacteria Many Urine Mucus Not seen Meds: Medications Discontinued Medications Generic Name Dose Route Start Last Admin Trade Name Freq PRN Reason Stop Dose Admin Ciprofloxacin 500 mg 07/06/17 16:43 Ciprofloxacin Hcl PO 07/06/17 16:44 ONETIME ONE Departure - Departure Time of Disposition: 16:45 Disposition: Home, Self-Care 01 Condition: Fair Clinical Impression: UTI (urinary tract infection) Qualifiers: Urinary tract infection type: acute cystitis Hematuria presence: without hematuria Qualified Code(s): N30.00 - Acute cystitis without hematuria Obstructed Mosley catheter Qualifiers: Encounter type: initial encounter Qualified Code(s): T83.091A - Other mechanical complication of indwelling urethral catheter, initial encounter - Discharge Information Prescriptions: Ciprofloxacin [IJP: Ciprofloxacin HCl] 250 mg PO .TWICE DAILY #10 tab Referrals: Jose Atwood MD [Primary Care Provider] - Forms: ED Department Discharge - My Orders Last 24 Hours: My Active Orders 07/06/17 15:41 Urinary Catheter Assessment [RC] ASDIRECTED 07/06/17 15:45 Mosley Catheter Insertion [Insert Urinary Catheter] [OM.PC] Q24H 07/06/17 16:42 CULTURE URINE [RM] Stat - Assessment/Plan Last 24 Hours: My Active Orders 07/06/17 15:41 Urinary Catheter Assessment [RC] ASDIRECTED 07/06/17 15:45 Mosley Catheter Insertion [Insert Urinary Catheter] [OM.PC] Q24H 07/06/17 16:42 CULTURE URINE [RM] Stat
[2017-07-06] MEDS ORDERED: Ciprofloxacin 500 MG Tab PO ONE (16:43)
== END 2017-07-06 17:00 | disposition home or self-care (01) ==
LOC: JP.ED 15:06
DX: T83.091A Other mechanical complication of indwelling urethral catheter, initial encounter (principal); N30.00 Acute cystitis without hematuria; I10 Essential (primary) hypertension; K21.9 Gastro-esophageal reflux disease without esophagitis; I25.2 Old myocardial infarction; I25.10 Atherosclerotic heart disease of native coronary artery without angina pectoris; Z79.899 Other long term (current) drug therapy; Z79.82 Long term (current) use of aspirin; Z88.6 Allergy status to analgesic agent
CPT/HCPCS: 51702; 51798; 81001; 87086; 87088; 87186; 99284; A9270

== ENCOUNTER 2017-07-14 13:30 | Emergency (ER) | payer MEDICARE, BC ==
[2017-07-14 13:55] VITALS: BP 112/61
--- NOTE | 2017-07-14 13:56 | EDM.PDOC ---
ED HPI GENERAL MEDICAL PROBLEM - General Chief Complaint: General Stated Complaint: HEART Time Seen by Provider: 07/14/17 13:40 Source of Information: Reports: Patient, Old Records, RN History Limitations: Reports: No Limitations - History of Present Illness INITIAL COMMENTS - FREE TEXT/NARRATIVE: 87 yo male who lives alone in [place], [place] presents via EMS after awakening with dizziness, mild disorientation, and says he just felt "scrambled". He drank and ate and when he still didn't feel right decided to come in via EMS. He had no diaphoresis or worsening of his chronic SOB. No chest pain or diarrhea. He recently was tx'd with an unknown antibiotic for a UTI with E.Coli R to Cipro. Has not had a test of cure since finishing his antibiotic. Slept about 12 hrs last night which is not normal for him. Got a liter of IV NS before arrival per EMS. Onset: Today Onset Date: 07/14/17 Onset Time: 11:45 Duration: Hour(s): Location: Reports: Generalized Quality: Reports: Other (no pain) Severity: Moderate Improves with: Reports: Other (? time) Worsens with: Reports: None Context: Reports: Other (unknown context, recent ECHO for with no need discovered with this test for any immediate intervention. ) Associated Symptoms: Reports: Confusion (mild, now resolved), Cough (chronic, not worse. ), Shortness of Breath (chronic, not worse. ). 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: Reports: Other (see below) (food and water) - Related Data Allergies Allergy/AdvReac Type Severity Reaction Status Date / Time aspirin Allergy Unknown Hives Verified 07/06/17 15:56 piroxicam [From Feldene] Allergy Rash Verified 07/06/17 15:56 Home Meds: Home Meds Ascorbic Acid [Vitamin C] 250 mg PO DAILY 01/09/13 [History] Aspirin [Elías Chewable Aspirin] 81 mg PO DAILY 01/09/13 [History] Cholecalciferol (Vitamin D3) [Vitamin D3] 1,000 unit PO DAILY 01/09/13 [History] Nitroglycerin 0.4 mg SL ASDIRECTED PRN 01/09/13 [History] Sennosides/Docusate Sodium [Senna S] 8.6 mg PO DAILY PRN 01/09/13 [History] diphenhydrAMINE [Benadryl] 25 mg PO BEDTIME PRN 01/09/13 [History] atorvaSTATin [Lipitor] 20 mg PO BEDTIME 07/01/14 [History] Clopidogrel Bisulfate [Clopidogrel] 75 mg PO DAILY 12/21/15 [History] Carvedilol 3.125 mg PO BID 03/26/16 [History] Isosorbide Mononitrate [Imdur] 30 mg PO DAILY #30 tab.er 03/27/16 [Rx] Cyanocobalamin (Vitamin B12) [Vitamin B12] 1,000 mcg PO DAILY 05/06/16 [History] Pentoxifylline [TRENtal] 1 tab PO TID 05/07/16 [History] Pantoprazole Sodium [Protonix] 40 mg PO DAILY 11/21/16 [History] Acetaminophen/oxyCODONE [Percocet 325-5 MG] 1 - 2 tab PO Q4H PRN #20 tablet [Rx] Melatonin 10 mg PO BEDTIME 01/27/17 [History] Ciprofloxacin [IJP: Ciprofloxacin HCl] 250 mg PO .TWICE DAILY #10 tab 07/06/17 [ Rx] Oxybutynin [Oxybutynin ER] 1 tab PO DAILY 07/06/17 [History] Past Medical History HEENT History: Reports: Cataract, Impaired Vision Cardiovascular History: Reports: Angina, Arrhythmia, CAD, High Cholesterol, Hypertension, [place], SOB on Exertion, Stents Respiratory History: Reports: Other (See Below) Other Respiratory History: seeing a lung specialist in [place]. Spot on lung to investigate = growth on bottom on lungs, nothing to do aboutit Gastrointestinal History: Reports: GERD Genitourinary History: Reports: Prostate Disorder, Retention, Urinary, Other ( See Below) Other Genitourinary History: surapubic catheter. pt has bladder spasms Musculoskeletal History: Reports: Back Pain, Chronic, Fracture, Osteoarthritis Neurological History: Reports: Other (See Below) Other Neuro History: ciatic pain - with a nerve blocking unit placed on 2016 in [place], [place] Psychiatric History: Reports: None Endocrine/Metabolic History: Reports: None Hematologic History: Reports: Anemia, Blood Transfusion(s) Immunologic History: Reports: None Oncologic (Cancer) History: Reports: Prostate Dermatologic History: Reports: None - Infectious Disease History Infectious Disease History: Reports: Chicken Pox, Measles, Mumps - Past Surgical History HEENT Surgical History: Reports: Cataract Surgery, Oral Surgery, Tonsillectomy Cardiovascular Surgical History: Reports: Coronary Artery Bypass, Coronary Artery Stent GI Surgical History: Reports: Colonoscopy, EGD Male Surgical History: Reports: Prostate Biopsy, Suprapubic Catheter Placement Endocrine Surgical History: Reports: None Neurological Surgical History: Reports: None Musculoskeletal Surgical History: Reports: Knee Replacement Dermatological Surgical History: Reports: None Social & Family History - Family History Family Medical History: Noncontributory HEENT: Reports: None - Tobacco Use Smoking Status *Q: Never Smoker Second Hand Smoke Exposure: No - Caffeine Use Caffeine Use: Reports: None - Alcohol Use Days Per Week of Alcohol Use: 0 Number of Drinks Per Day: 1 Total Drinks Per Week: 0 - Recreational Drug Use Recreational Drug Use: No Recreational Drug Type: Reports: Marijuana/Hashish Recreational Drug Use Frequency: Rarely - Living Situation & Occupation Living situation: Reports: ( 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 Denies: Wheezing Cardiovascular: Reports: No Symptoms Endocrine: Reports: No Symptoms GI/Abdominal: Reports: No Symptoms : Reports: Other (indwelling mosley) Musculoskeletal: Reports: No Symptoms Skin: Reports: No Symptoms Neurological: Reports: No Symptoms Psychiatric: Reports: No Symptoms ED EXAM, GENERAL - Physical Exam Exam: See Below Exam Limited By: No Limitations General Appearance: Alert, WD/WN, No Apparent Distress, Thin Eye Exam: Bilateral Eye: Normal Inspection Ears: Normal External Exam, Normal Canal, Hearing Grossly Normal Ear Exam: Bilateral Ear: Auricle Normal, Canal Normal Nose: Normal Inspection, Normal Mucosa, No Blood Throat/Mouth: Normal Inspection, Normal Lips, Normal Oropharynx, Normal Voice, No Airway Compromise Head: Atraumatic, Normocephalic Neck: Normal Inspection, Supple, Non-Tender Respiratory/Chest: No Respiratory Distress, Lungs Clear, Normal Breath Sounds, No Accessory Muscle Use Cardiovascular: Regular Rate, Rhythm, No Edema GI/Abdominal: Normal Bowel Sounds, Soft, Non-Tender, No Distention (Male) Exam: Other (indwelling mosley present) Back Exam: Normal Inspection. No: CVA Tenderness (R), CVA Tenderness (L) Extremities: Normal Inspection, Normal Range of Motion, Non-Tender, No Pedal Edema Neurological: Alert, Oriented, CN II-XII Intact, Normal Cognition, No Motor/ Sensory Deficits Psychiatric: Normal Affect, Normal Mood Skin Exam: Warm, Dry, Intact, Normal Color, No Rash Lymphatic: No Adenopathy Course - Vital Signs Last Recorded V/S: Last Vital Signs Temp 35.4 C 07/14/17 13:55 Pulse 81 07/14/17 13:55 Resp 16 07/14/17 13:55 BP 112/61 07/14/17 13:55 Pulse Ox 95 07/14/17 13:55 Orthostatic Blood Pressure [ 94/52 Standing] Orthostatic Blood Pressure [ 108/53 Sitting] Orthostatic Blood Pressure [ 102/57 Supine] - Orders/Labs/Meds Orders: Active Orders 24 hr Category Date Time Status Cardiac Monitoring [RC] .As Directed Care 07/14/17 13:50 Active Orthostatic Vital Signs [RC] ASDIRECTED Care 07/14/17 13:49 Active Labs: Laboratory Tests 07/14/17 07/14/17 07/14/17 Range/Units 14:03 14:03 15:16 WBC 8.1 (4.5-11.0) K/uL RBC 3.61 L (4.30-5.90) M/uL Hgb 8.7 L (12.0-15.0) g/dL Hct 30.7 L (40.0-54.0) % MCV 85 (80-98) fL MCH 24 L (27-31) pg MCHC 28 L (32-36) % Plt Count 321 (150-400) K/uL Sodium 141 (140-148) mmol/L Potassium 4.1 (3.6-5.2) mmol/L Chloride 106 (100-108) mmol/L Carbon Dioxide 26 (21-32) mmol/L Anion Gap 9.3 (5.0-14.0) mmol/L BUN 21 H (7-18) mg/dL Creatinine 1.3 (0.8-1.3) mg/dL Est Cr Clr Drug Dosing 41.83 mL/min Estimated GFR (MDRD) 52 L (>60) Glucose 108 H (74-106) mg/dL Calcium 8.1 L (8.5-10.1) mg/dL Troponin I < 0.017 (0.000-0.056) ng/mL Urine Color Yellow Urine Appearance Turbid Urine pH 7.0 (4.5-8.0) Ur Specific [place] 1.010 (1.008-1.030) Urine Protein 100 H (NEGATIVE) mg/dL Urine Glucose (UA) Normal (NEGATIVE) mg/dL Urine Ketones Negative (NEGATIVE) mg/dL Urine Occult Blood Large (NEGATIVE) Urine Nitrite Positive H (NEGAITVE) Urine Bilirubin Small (NEGATIVE) Urine Urobilinogen 4 (NORMAL) mg/dL Ur Leukocyte Esterase Large (NEGATIVE) Urine RBC Semi-packed H (0-5) Urine WBC 10-20 H (0-5) Ur Epithelial Cells Rare Amorphous Sediment Not seen Urine Bacteria Many Urine Mucus Rare Meds: Medications Discontinued Medications Generic Name Dose Route Start Last Admin Trade Name Sandra PRN Reason Stop Dose Admin Lactated Ringer's 1,000 mls @ 1,000 mls/hr 07/14/17 14:34 07/14/17 14:40 Ringers, Lactated IV 07/14/17 15:33 1,000 mls/hr BOLUS ONE Administration Departure - Departure Time of Disposition: 15:44 Disposition: Home, Self-Care 01 Condition: Good Clinical Impression: Dehydration, mild, Orthostasis - Discharge Information Referrals: PCP,None [Primary Care Provider] - Forms: ED Department Discharge - My Orders Last 24 Hours: My Active Orders 07/14/17 13:49 Orthostatic Vital Signs [RC] ASDIRECTED 07/14/17 13:50 Cardiac Monitoring [RC] .As Directed - Assessment/Plan Last 24 Hours: My Active Orders 07/14/17 13:49 Orthostatic Vital Signs [RC] ASDIRECTED 07/14/17 13:50 Cardiac Monitoring [RC] .As Directed
[2017-07-14] MEDS ORDERED: Lactated Ringers 1,000 ML IV ONE (14:34)
== END 2017-07-14 16:39 | disposition home or self-care (01) ==
LOC: JP.ED 13:30
DX: E86.0 Dehydration (principal); E78.00 Pure hypercholesterolemia, unspecified; I10 Essential (primary) hypertension; I25.2 Old myocardial infarction; K21.9 Gastro-esophageal reflux disease without esophagitis; Z88.8 Allergy status to other drugs, medicaments and biological substances; Z79.899 Other long term (current) drug therapy
CPT/HCPCS: 36415; 80048; 81001; 84484; 85027; 96360; 99284; J7120

== ENCOUNTER 2017-09-01 11:30 | Inpatient (IN) | payer MEDICARE, BC ==
--- NOTE | 2017-09-01 12:32 | EDM.PDOC ---
ED HPI GENERAL MEDICAL PROBLEM - General Chief Complaint: Neuro Symptoms/Deficits Stated Complaint: MEDICAL VIA TRI Time Seen by Provider: 09/01/17 12:15 Source of Information: Reports: Patient, Old Records, RN History Limitations: Reports: No Limitations - History of Present Illness INITIAL COMMENTS - FREE TEXT/NARRATIVE: 87 yo male with indwelling mosley catheter who lives alone with some assistance presents after a shaking spell at his home this morning. He had similar episodes over the past 2 mornings, less severe. All of these episodes occurred in the morning while attempting to ambulate with his walker. Later after the spells resolved he had no futher issues with walking or these spells. With each spell he was fully awake and aware. He apparently fell with today's shaking spell so comes in from [facility] via EMS for evaluation. He does not report any injury due to this fall today. Here in the ER and during transport he was fully back to his baseline. He has no hx of seizures. He denies any recent fever or chills. These shaking spells included abnormal head movements. No ALMODOVAR reported. No new meds reported. Says in general he is doing well living alone with some assistance from a neighbor. No tongue biting. No hx of pseudoseizures. Denies muscle cramps. Onset Date: 08/30/17 Duration: Minutes: Location: Reports: Generalized Quality: Reports: Other (no reported pain) Severity: Moderate Improves with: Reports: Rest (Usually goes away when he sits down again. ) Worsens with: Reports: Other (Getting up to walk with his walker first thing in the mornings x 3 days.) Context: Reports: Other (unknown) Associated Symptoms: Reports: No Other Symptoms Treatments MECHANICAL INTERN: Reports: Other (see below) (none) - Related Data Allergies Allergy/AdvReac Type Severity Reaction Status Date / Time aspirin Allergy Unknown Hives Verified 09/01/17 11:51 piroxicam [From Feldene] Allergy Rash Verified 09/01/17 11:51 Home Meds: Home Meds Ascorbic Acid [Vitamin C] 250 mg PO DAILY 01/09/13 [History] Aspirin [Elías Chewable Aspirin] 81 mg PO DAILY 01/09/13 [History] Cholecalciferol (Vitamin D3) [Vitamin D3] 1,000 unit PO DAILY 01/09/13 [History] Nitroglycerin 0.4 mg SL ASDIRECTED PRN 01/09/13 [History] Sennosides/Docusate Sodium [Senna S] 8.6 mg PO DAILY PRN 01/09/13 [History] diphenhydrAMINE [Benadryl] 25 mg PO BEDTIME PRN 01/09/13 [History] atorvaSTATin [Lipitor] 20 mg PO BEDTIME 07/01/14 [History] Clopidogrel Bisulfate [Clopidogrel] 75 mg PO DAILY 12/21/15 [History] Carvedilol 3.125 mg PO BID 03/26/16 [History] Isosorbide Mononitrate [Imdur] 30 mg PO DAILY #30 tab.er 03/27/16 [Rx] Cyanocobalamin (Vitamin B12) [Vitamin B12] 1,000 mcg PO DAILY 05/06/16 [History] Pentoxifylline [TRENtal] 400 mg PO TID 05/07/16 [History] Melatonin 10 mg PO BEDTIME 01/27/17 [History] Oxybutynin [Oxybutynin ER] 5 mg PO DAILY 07/06/17 [History] Past Medical History HEENT History: Reports: Cataract, Impaired Vision Cardiovascular History: Reports: Angina, Arrhythmia, CAD, High Cholesterol, Hypertension, [place], SOB on Exertion, Stents Respiratory History: Reports: Other (See Below) Other Respiratory History: seeing a lung specialist in [place]. Spot on lung to investigate = growth on bottom on lungs, nothing to do aboutit Gastrointestinal History: Reports: GERD Genitourinary History: Reports: Prostate Disorder, Retention, Urinary, Other ( See Below) Other Genitourinary History: surapubic catheter. pt has bladder spasms Musculoskeletal History: Reports: Back Pain, Chronic, Fracture, Osteoarthritis Neurological History: Reports: Other (See Below) Other Neuro History: ciatic pain - with a nerve blocking unit placed on 2016 in [place], [place] Psychiatric History: Reports: None Endocrine/Metabolic History: Reports: None Hematologic History: Reports: Anemia, Blood Transfusion(s) Immunologic History: Reports: None Oncologic (Cancer) History: Reports: Prostate Dermatologic History: Reports: None - Infectious Disease History Infectious Disease History: Reports: Chicken Pox, Measles, Mumps - Past Surgical History HEENT Surgical History: Reports: Cataract Surgery, Oral Surgery, Tonsillectomy Cardiovascular Surgical History: Reports: Coronary Artery Bypass, Coronary Artery Stent GI Surgical History: Reports: Colonoscopy, EGD Male Surgical History: Reports: Prostate Biopsy, Suprapubic Catheter Placement Endocrine Surgical History: Reports: None Neurological Surgical History: Reports: None Musculoskeletal Surgical History: Reports: Knee Replacement Dermatological Surgical History: Reports: None Social & Family History - Family History Family Medical History: Noncontributory HEENT: Reports: None - Tobacco Use Smoking Status *Q: Never Smoker Second Hand Smoke Exposure: No - Caffeine Use Caffeine Use: Reports: None - Alcohol Use Days Per Week of Alcohol Use: 0 Number of Drinks Per Day: 1 Total Drinks Per Week: 0 - Recreational Drug Use Recreational Drug Use: No Recreational Drug Type: Reports: Marijuana/Hashish Recreational Drug Use Frequency: Rarely - Living Situation & Occupation Living situation: Reports: ( 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) ED ROS GENERAL - Review of Systems Review Of Systems: See Below Constitutional: Reports: No Symptoms HEENT: Reports: No Symptoms Respiratory: Reports: No Symptoms Cardiovascular: Reports: No Symptoms Endocrine: Reports: No Symptoms GI/Abdominal: Reports: No Symptoms : Reports: No Symptoms, Other (indwelling mosley catheter) Musculoskeletal: Reports: No Symptoms Skin: Reports: No Symptoms Neurological: Reports: Tremors (generalized shaking of limbs/head/neck) Psychiatric: Reports: No Symptoms - Physical Exam Exam: See Below Exam Limited By: No Limitations General Appearance: Alert, WD/WN, No Apparent Distress, Thin Eye Exam: Bilateral Eye: Normal Inspection Ears: Normal External Exam, Normal Canal, Hearing Grossly Normal Nose: Normal Inspection, Normal Mucosa, No Blood Throat/Mouth: Normal Lips, Normal Voice, No Airway Compromise Head Exam: Atraumatic, Normocephalic Neck: Normal Inspection Respiratory/Chest: No Respiratory Distress, Lungs Clear, Normal Breath Sounds, No Accessory Muscle Use Cardiovascular: Regular Rate, Rhythm, No Edema, Irregularly Irregular GI/Abdominal: Normal Bowel Sounds, Non-Tender, No Distention (Male) Exam: Other (indwelling mosley catheter present.) Neuro Exam (Abbreviated): Alert, Oriented, CN II-XII Intact, Normal Cognition, No Motor/Sensory Deficits Back Exam: Normal Inspection Extremities: Normal Inspection, Normal Range of Motion, Non-Tender, No Pedal Edema Psychiatric: Normal Affect, Normal Mood Skin Exam: Warm, Dry, Intact, Normal Color, No Rash Course - Vital Signs Text/Narrative:: Dr. Jaramillo called @ 1400h Last Recorded V/S: Last Vital Signs Temp 36.2 C 09/01/17 11:57 Pulse 69 09/01/17 12:05 Resp 16 09/01/17 11:57 BP 118/56 L 09/01/17 12:05 Pulse Ox 95 09/01/17 12:05 Orthostatic Blood Pressure [ 87/50 Standing] Orthostatic Blood Pressure [ 105/55 Sitting] Orthostatic Blood Pressure [ 129/73 Supine] - Orders/Labs/Meds Orders: Active Orders 24 hr Category Date Time Status Orthostatic Vital Signs [RC] ASDIRECTED Care 09/01/17 12:25 Active CULTURE URINE [RM] Stat Lab 09/01/17 13:51 Received UA W/MICROSCOPIC [URIN] Stat Lab 09/01/17 13:14 Ordered Ciprofloxacin in D5W [Cipro in D5W 400 MG/200 ML] 400 Med 09/01/17 13:51 Active mg Premix Bag 1 bag IV ONETIME Medication Orders Ciprofloxacin/Dextrose 400 mg/ (Premix) 200 mls @ 200 mls/hr IV ONETIME ONE Stop: 09/01/17 14:50 Last Admin: 09/01/17 14:06 Dose: 200 mls/hr Labs: Laboratory Tests 09/01/17 09/01/17 09/01/17 Range/Units 12:30 12:30 12:36 WBC 8.0 (4.5-11.0) K/uL RBC 3.94 L (4.30-5.90) M/uL Hgb 9.4 L (12.0-15.0) g/dL Hct 32.5 L (40.0-54.0) % MCV 83 (80-98) fL MCH 24 L (27-31) pg MCHC 29 L (32-36) % Plt Count 377 (150-400) K/uL Sodium 141 (140-148) mmol/L Potassium 4.4 (3.6-5.2) mmol/L Chloride 105 (100-108) mmol/L Carbon Dioxide 33 H (21-32) mmol/L Anion Gap 7.4 (5.0-14.0) mmol/L BUN 19 H (7-18) mg/dL Creatinine 1.1 (0.8-1.3) mg/dL Est Cr Clr Drug Dosing 50.63 mL/min Estimated GFR (MDRD) > 60 (>60) Glucose 100 (74-106) mg/dL Calcium 8.4 L (8.5-10.1) mg/dL Magnesium 2.2 (1.8-2.4) mg/dL Total Bilirubin 0.4 (0.2-1.0) mg/dL AST 24 (15-37) U/L ALT 21 (12-78) U/L Alkaline Phosphatase 81 (46-116) U/L Total Protein 6.1 L (6.4-8.2) g/dL Albumin 2.5 L (3.4-5.0) g/dL Globulin 3.6 H (2.3-3.5) g/dL Albumin/Globulin Ratio 0.7 L (1.2-2.2) Urine Color Urine Appearance Urine pH (4.5-8.0) Ur Specific [place] (1.008-1.030) Urine Protein (NEGATIVE) mg/dL Urine Glucose (UA) (NEGATIVE) mg/dL Urine Ketones (NEGATIVE) mg/dL Urine Occult Blood (NEGATIVE) Urine Nitrite (NEGAITVE) Urine Bilirubin (NEGATIVE) Urine Urobilinogen (NORMAL) mg/dL Ur Leukocyte Esterase (NEGATIVE) Urine RBC (0-5) Urine WBC (0-5) Ur Epithelial Cells Amorphous Sediment Urine Bacteria Urine Mucus 09/01/17 Range/Units 13:14 WBC (4.5-11.0) K/uL RBC (4.30-5.90) M/uL Hgb (12.0-15.0) g/dL Hct (40.0-54.0) % MCV (80-98) fL MCH (27-31) pg MCHC (32-36) % Plt Count (150-400) K/uL Sodium (140-148) mmol/L Potassium (3.6-5.2) mmol/L Chloride (100-108) mmol/L Carbon Dioxide (21-32) mmol/L Anion Gap (5.0-14.0) mmol/L BUN (7-18) mg/dL Creatinine (0.8-1.3) mg/dL Est Cr Clr Drug Dosing mL/min Estimated GFR (MDRD) (>60) Glucose (74-106) mg/dL Calcium (8.5-10.1) mg/dL Magnesium (1.8-2.4) mg/dL Total Bilirubin (0.2-1.0) mg/dL AST (15-37) U/L ALT (12-78) U/L Alkaline Phosphatase (46-116) U/L Total Protein (6.4-8.2) g/dL Albumin (3.4-5.0) g/dL Globulin (2.3-3.5) g/dL Albumin/Globulin Ratio (1.2-2.2) Urine Color Yellow Urine Appearance Turbid Urine pH 7.0 (4.5-8.0) Ur Specific [place] 1.015 (1.008-1.030) Urine Protein 30 H (NEGATIVE) mg/dL Urine Glucose (UA) Normal (NEGATIVE) mg/dL Urine Ketones Negative (NEGATIVE) mg/dL Urine Occult Blood Negative (NEGATIVE) Urine Nitrite Positive H (NEGAITVE) Urine Bilirubin Small (NEGATIVE) Urine Urobilinogen 1 (NORMAL) mg/dL Ur Leukocyte Esterase Large (NEGATIVE) Urine RBC 0-5 (0-5) Urine WBC Packed H (0-5) Ur Epithelial Cells Not seen Amorphous Sediment Not seen Urine Bacteria Many Urine Mucus Not seen Meds: Medications Generic Name Dose Route Start Last Admin Trade Name Freq PRN Reason Stop Dose Admin Ciprofloxacin/Dextrose 400 mg/ 200 mls @ 200 mls/hr 09/01/17 13:51 09/01/17 14:06 Premix IV 09/01/17 14:50 200 mls/hr ONETIME ONE Administration Discontinued Medications Generic Name Dose Route Start Last Admin Trade Name Freq PRN Reason Stop Dose Admin Lactated Ringer's 1,000 mls @ 1,000 mls/hr 09/01/17 13:07 09/01/17 13:13 Ringers, Lactated IV 09/01/17 14:06 1,000 mls/hr BOLUS ONE Administration Departure - Departure Time of Disposition: 14:15 Disposition: Refer to Observation Condition: Fair Clinical Impression: Orthostasis, Episode of shaking UTI (urinary tract infection) Qualifiers: Urinary tract infection type: acute cystitis Hematuria presence: without hematuria Qualified Code(s): N30.00 - Acute cystitis without hematuria - Discharge Information Referrals: PCP,None [Primary Care Provider] - Forms: ED Department Discharge - My Orders Last 24 Hours: My Active Orders 09/01/17 12:25 Orthostatic Vital Signs [RC] ASDIRECTED 09/01/17 13:14 UA W/MICROSCOPIC [URIN] Stat 09/01/17 13:51 CULTURE URINE [RM] Stat Ciprofloxacin in D5W [Cipro in D5W 400 MG/200 ML] 400 mg Premix Bag 1 bag IV ONETIME - Assessment/Plan Last 24 Hours: My Active Orders 09/01/17 12:25 Orthostatic Vital Signs [RC] ASDIRECTED 09/01/17 13:14 UA W/MICROSCOPIC [URIN] Stat 09/01/17 13:51 CULTURE URINE [RM] Stat Ciprofloxacin in D5W [Cipro in D5W 400 MG/200 ML] 400 mg Premix Bag 1 bag IV ONETIME
[2017-09-01] MEDS ORDERED: Lactated Ringers 1,000 ML IV ONE (13:07)
[2017-09-01] MEDS ORDERED: Ciprofloxacin in D5W 400 MG in Premix Bag 1 BAG IV ONE ×2 (13:51)
--- NOTE | 2017-09-01 14:57 | PCM.HP ---
H&P History of Present Illness - General Date of Service: 09/01/17 Admit Problem/Dx: Admission Diagnosis/Problem Admission Diagnosis/Problem Complicated urinary tract infection Source of Information: Patient, Provider History Limitations: Reports: No Limitations - History of Present Illness Initial Comments - Free Text/Narative: Ambrosio presents to the emergency room this morning with 3 days of progressive shaking spells that happened in the morning. He reports that for the past 3 days when he has woke up he has felt okay when he gets up to try to go to the bathroom he is very shaky and unsteady on his feet. He feels lightheaded but does not report any dizziness. The symptoms have become progressively more intense and lasted longer each day for 3 days. This morning he was so weak and so shaky that he fell down trying to get to the bathroom. He has never had episodes like this in the past. He is not taking new medications. He does not report shortness of breath that has changed from his baseline. He has not had recent episodes of chest pain. He doesn't think he's had any fevers. He does note that he had a change in the odor of his urine but not a significant change in color. He has been trying to remain hydrated. Workup in the emergency room revealed significant orthostatic changes as well as reproduction of his symptoms with going from sitting to standing. Urine sample suggestive of a urinary tract infection. Antibiotics initiated and he was admitted for further management. - Related Data Allergies/Adverse Reactions: Allergies Allergy/AdvReac Type Severity Reaction Status Date / Time aspirin Allergy Unknown Hives Verified 09/01/17 11:51 piroxicam [From Feldene] Allergy Rash Verified 09/01/17 11:51 Home Medications: Home Meds Ascorbic Acid [Vitamin C] 250 mg PO DAILY 01/09/13 [History] Aspirin [Elías Chewable Aspirin] 81 mg PO DAILY 01/09/13 [History] Cholecalciferol (Vitamin D3) [Vitamin D3] 1,000 unit PO DAILY 01/09/13 [History] Nitroglycerin 0.4 mg SL ASDIRECTED PRN 01/09/13 [History] Sennosides/Docusate Sodium [Senna S] 8.6 mg PO DAILY PRN 01/09/13 [History] diphenhydrAMINE [Benadryl] 25 mg PO BEDTIME PRN 01/09/13 [History] atorvaSTATin [Lipitor] 20 mg PO BEDTIME 07/01/14 [History] Clopidogrel Bisulfate [Clopidogrel] 75 mg PO DAILY 12/21/15 [History] Carvedilol 3.125 mg PO BID 03/26/16 [History] Isosorbide Mononitrate [Imdur] 30 mg PO DAILY #30 tab.er 03/27/16 [Rx] Cyanocobalamin (Vitamin B12) [Vitamin B12] 1,000 mcg PO DAILY 05/06/16 [History] Pentoxifylline [TRENtal] 400 mg PO TID 05/07/16 [History] Melatonin 10 mg PO BEDTIME 01/27/17 [History] Oxybutynin [Oxybutynin ER] 5 mg PO DAILY 07/06/17 [History] Past Medical History HEENT History: Reports: Cataract, Impaired Vision Cardiovascular History: Reports: Angina, Arrhythmia, CAD, High Cholesterol, Hypertension, MS, SOB on Exertion, Stents Respiratory History: Reports: Other (See Below) Other Respiratory History: seeing a lung specialist in [place]. Spot on lung to investigate = growth on bottom on lungs, nothing to do aboutit Gastrointestinal History: Reports: GERD Genitourinary History: Reports: Prostate Disorder, Retention, Urinary, Other ( See Below) Other Genitourinary History: surapubic catheter. pt has bladder spasms Musculoskeletal History: Reports: Back Pain, Chronic, Fracture, Osteoarthritis Neurological History: Reports: Other (See Below) Other Neuro History: ciatic pain - with a nerve blocking unit placed on 2016 in [place], [place] Psychiatric History: Reports: None Endocrine/Metabolic History: Reports: None Hematologic History: Reports: Anemia, Blood Transfusion(s) Immunologic History: Reports: None Oncologic (Cancer) History: Reports: Prostate Dermatologic History: Reports: None - Infectious Disease History Infectious Disease History: Reports: Chicken Pox, Measles, Mumps - Past Surgical History HEENT Surgical History: Reports: Cataract Surgery, Oral Surgery, Tonsillectomy Cardiovascular Surgical History: Reports: Coronary Artery Bypass, Coronary Artery Stent GI Surgical History: Reports: Colonoscopy, EGD Male Surgical History: Reports: Prostate Biopsy, Suprapubic Catheter Placement Endocrine Surgical History: Reports: None Neurological Surgical History: Reports: None Musculoskeletal Surgical History: Reports: Knee Replacement Dermatological Surgical History: Reports: None Social & Family History - Family History Family Medical History: Noncontributory HEENT: Reports: None - Tobacco Use Smoking Status *Q: Never Smoker Second Hand Smoke Exposure: No - Caffeine Use Caffeine Use: Reports: None - Alcohol Use Days Per Week of Alcohol Use: 0 Number of Drinks Per Day: 1 Total Drinks Per Week: 0 - Recreational Drug Use Recreational Drug Use: No Recreational Drug Type: Reports: Marijuana/Hashish Recreational Drug Use Frequency: Rarely - Living Situation & Occupation Living situation: Reports: ( 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 Pertinent positives and negatives are noted in the history of present illness. All other systems were reviewed and were negative except as noted. Exam - Exam Exam: See Below - Vital Signs Vital Signs: Last Vital Signs Temp 35.5 C 09/01/17 14:09 Pulse 94 09/01/17 14:09 Resp 18 09/01/17 14:09 BP 111/63 09/01/17 14:09 Pulse Ox 93 L 09/01/17 14:09 Orthostatic Blood Pressure [ 87/50 Standing] Orthostatic Blood Pressure [ 105/55 Sitting] Orthostatic Blood Pressure [ 129/73 Supine] Weight: 77.111 kg - Exam Quality Assessment: No: Supplemental Oxygen General: Alert, Oriented, Cooperative. No: Mild Distress HEENT: Conjunctiva Clear, Mucosa Moist & [place]. No: Scleral Icterus Neck: Supple, Trachea Midline. No: Lymphadenopathy Lungs: Clear to Auscultation, Normal Respiratory Effort Cardiovascular: Regular Rate, Regular Rhythm, Systolic Murmur GI/Abdominal Exam: Soft, Non-Tender, No Distention Back Exam: No: Full Range of Motion Extremities: No Pedal Edema. No: Increased Warmth Peripheral Pulses: 2+: Dorsalis Pedis (L), Dorsalis Pedis (R) Skin: Warm, Dry, Intact Neuro Extensive - Mental Status: Alert, Oriented x3, Nl Response to Commands Neuro Extensive - Motor, Sensory, Reflexes: No: Dysarthria, Abnormal Motor, Tremor Psychiatric: Alert, Normal Affect - Patient Data Lab Results Last 24 hrs: Laboratory Results - last 24 hr 09/01/17 09/01/17 09/01/17 Range/Units 12:30 12:30 12:36 WBC 8.0 (4.5-11.0) K/uL RBC 3.94 L (4.30-5.90) M/uL Hgb 9.4 L (12.0-15.0) g/dL Hct 32.5 L (40.0-54.0) % MCV 83 (80-98) fL MCH 24 L (27-31) pg MCHC 29 L (32-36) % Plt Count 377 (150-400) K/uL Sodium 141 (140-148) mmol/L Potassium 4.4 (3.6-5.2) mmol/L Chloride 105 (100-108) mmol/L Carbon Dioxide 33 H (21-32) mmol/L Anion Gap 7.4 (5.0-14.0) mmol/L BUN 19 H (7-18) mg/dL Creatinine 1.1 (0.8-1.3) mg/dL Est Cr Clr Drug Dosing 50.63 mL/min Estimated GFR (MDRD) > 60 (>60) Glucose 100 (74-106) mg/dL Calcium 8.4 L (8.5-10.1) mg/dL Magnesium 2.2 (1.8-2.4) mg/dL Total Bilirubin 0.4 (0.2-1.0) mg/dL AST 24 (15-37) U/L ALT 21 (12-78) U/L Alkaline Phosphatase 81 (46-116) U/L Total Protein 6.1 L (6.4-8.2) g/dL Albumin 2.5 L (3.4-5.0) g/dL Globulin 3.6 H (2.3-3.5) g/dL Albumin/Globulin Ratio 0.7 L (1.2-2.2) Urine Color Urine Appearance Urine pH (4.5-8.0) Ur Specific [place] (1.008-1.030) Urine Protein (NEGATIVE) mg/dL Urine Glucose (UA) (NEGATIVE) mg/dL Urine Ketones (NEGATIVE) mg/dL Urine Occult Blood (NEGATIVE) Urine Nitrite (NEGAITVE) Urine Bilirubin (NEGATIVE) Urine Urobilinogen (NORMAL) mg/dL Ur Leukocyte Esterase (NEGATIVE) Urine RBC (0-5) Urine WBC (0-5) Ur Epithelial Cells Amorphous Sediment Urine Bacteria Urine Mucus 09/01/17 Range/Units 13:14 WBC (4.5-11.0) K/uL RBC (4.30-5.90) M/uL Hgb (12.0-15.0) g/dL Hct (40.0-54.0) % MCV (80-98) fL MCH (27-31) pg MCHC (32-36) % Plt Count (150-400) K/uL Sodium (140-148) mmol/L Potassium (3.6-5.2) mmol/L Chloride (100-108) mmol/L Carbon Dioxide (21-32) mmol/L Anion Gap (5.0-14.0) mmol/L BUN (7-18) mg/dL Creatinine (0.8-1.3) mg/dL Est Cr Clr Drug Dosing mL/min Estimated GFR (MDRD) (>60) Glucose (74-106) mg/dL Calcium (8.5-10.1) mg/dL Magnesium (1.8-2.4) mg/dL Total Bilirubin (0.2-1.0) mg/dL AST (15-37) U/L ALT (12-78) U/L Alkaline Phosphatase (46-116) U/L Total Protein (6.4-8.2) g/dL Albumin (3.4-5.0) g/dL Globulin (2.3-3.5) g/dL Albumin/Globulin Ratio (1.2-2.2) Urine Color Yellow Urine Appearance Turbid Urine pH 7.0 (4.5-8.0) Ur Specific [place] 1.015 (1.008-1.030) Urine Protein 30 H (NEGATIVE) mg/dL Urine Glucose (UA) Normal (NEGATIVE) mg/dL Urine Ketones Negative (NEGATIVE) mg/dL Urine Occult Blood Negative (NEGATIVE) Urine Nitrite Positive H (NEGAITVE) Urine Bilirubin Small (NEGATIVE) Urine Urobilinogen 1 (NORMAL) mg/dL Ur Leukocyte Esterase Large (NEGATIVE) Urine RBC 0-5 (0-5) Urine WBC Packed H (0-5) Ur Epithelial Cells Not seen Amorphous Sediment Not seen Urine Bacteria Many Urine Mucus Not seen Result Diagrams: 09/02/17 04:30 09/02/17 04:30 *Q Meaningful Use (ADM) - VTE Risk Assess *Q Each Risk Factor Represents 1 Point: None Total Score 1 Point Risk Factors: 0 Each Risk Factor Represents 2 Points: None Total Score 2 Point Risk Factors: 0 Each Risk Factor Represents 3 Points: Age 75 Years or Greater Total Score 3 Point Risk Factors: 3 Each Risk Factor Represents 5 Points: None Total Score 5 Point Risk Factors: 0 Venous Thromboembolism Risk Factor Score *Q: 3 - Problem List (1) Complicated urinary tract infection SNOMED Code(s): 00363712 ICD Code: N39.0 - URINARY TRACT INFECTION, SITE NOT SPECIFIED Status: Acute Current Visit: Yes (2) Orthostatic hypotension SNOMED Code(s): 03900068 ICD Code: I95.1 - ORTHOSTATIC HYPOTENSION Status: Acute Current Visit: Yes (3) Neurogenic bladder SNOMED Code(s): 770564515 ICD Code: N31.9 - NEUROMUSCULAR DYSFUNCTION OF BLADDER, UNSPECIFIED Status : Chronic Current Visit: Yes (4) Stage III chronic kidney disease SNOMED Code(s): 248443886 ICD Code: N18.3 - CHRONIC KIDNEY DISEASE, STAGE 3 (MODERATE) Status: Chronic Current Visit: Yes (5) Coronary artery disease SNOMED Code(s): 52169385 ICD Code: I25.10 - ATHSCL HEART DISEASE OF [place] CORONARY ARTERY W/O ANG PCTRS Status: Chronic Current Visit: No Qualifiers: Coronary Disease-Associated Artery/Lesion type: [place] artery [place] vs. transplanted heart: [place] heart Associated angina: without angina Qualified Code(s): I25.10 - Atherosclerotic heart disease of [place] coronary artery without angina pectoris (6) Lumbar stenosis with neurogenic claudication SNOMED Code(s): 801567360049339 ICD Code: M48.06 - SPINAL STENOSIS, LUMBAR REGION * DO NOT USE * Status: Chronic Current Visit: No Problem List Initiated/Reviewed/Updated: Yes Orders Last 24hrs: Active Orders 24 hr Category Date Time Status Patient Status Manage Transfer [TRANSFER] Routine ADT 09/01/17 14:43 Ordered Orthostatic Vital Signs [RC] ASDIRECTED Care 09/01/17 12:25 Active CULTURE URINE [RM] Stat Lab 09/01/17 13:51 Received UA W/MICROSCOPIC [URIN] Stat Lab 09/01/17 13:14 Ordered Resuscitation Status Routine Resus Stat 09/01/17 14:45 Ordered Assessment/Plan Comment:: ASSESSMENT AND PLAN - Complicated urinary tract infection - 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 Patient did notice change in odor. No evidence for sepsis at this time. History of organisms resistant to fluoroquinolones including Pseudomonas and Escherichia coli. -ceftazidime -Follow-up cultures -Patient is well hydrated and does not require additional IV fluids Orthostatic hypotension - likely cause for his episodes of shakiness and weakness. Probably a result of his infection. -Hold isosorbide -Infection management as above Chronic ischemic heart disease - no active symptoms at this time. Clinically stable. -Hold isosorbide as above -Continue beta shruthi and antiplatelet agents Spinal stenosis with neurogenic claudication - poor functional status due to severe lower back issues. These are stable from baseline. -Pain control Stage III chronic kidney disease - kidney function actually improved from recent measurements. He is well-hydrated. -Repeat labs in the morning Maintenance issues - - DVT prophylaxis - mechanical - GI prophylaxis - PPI - Nutrition - regular diet - Christianson catheter - chronic suprapubic catheter CODE STATUS - DNR/DNI Admission justification - This patient will be admitted for inpatient services and is medically appropriate meeting medical necessity for inpatient admission as outlined in my documentation. I reasonably expect the patient will require inpatient services that span a period time over 2 midnights. I reasonably expect this patient to be discharged or transferred within 96 hours [facility]. Disposition - anticipate discharge to home after the hospital stay Primary care physician - Dr Rai Jaramillo M.D.
[2017-09-01] MEDS: cefTAZidime 1 GM in Sodium Chloride 0.9% 50 ML IV SCH (17:05)
[2017-09-01] MEDS ORDERED: Acetaminophen 500 MG Tab ONE (22:53)
[2017-09-01] MEDS: Acetaminophen 325 MG Tab PO PRN (23:00)
[2017-09-02] MEDS ORDERED: Carvedilol 3.125 MG Tab ONE (00:31)
[2017-09-02] MEDS: Carvedilol 3.125 MG Tab PO SCH ×3 (00:40→20:39)
[2017-09-02] MEDS ORDERED: Melatonin 3 MG Tab ONE (01:43)
[2017-09-02] MEDS ORDERED: diphenhydrAMINE 25 MG Cap PO PRN (03:14)
[2017-09-02] MEDS ORDERED: cefTAZidime 1 GM in Sodium Chloride 0.9% 50 ML IV SCH (03:14)
[2017-09-02] MEDS ORDERED: Acetaminophen 500 MG Tab PO PRN (03:42)
[2017-09-02] MEDS: cefTAZidime 1 GM in Sodium Chloride 0.9% 50 ML IV SCH ×2 (05:00→17:06)
[2017-09-02] MEDS: Clopidogrel 75 MG Tab PO SCH (10:31)
[2017-09-02] MEDS: Pentoxifylline 400 MG Tab.ER PO SCH ×4 (10:31→20:42)
[2017-09-02] MEDS: Oxybutynin 5 MG Tab PO SCH ×3 (10:31→20:39)
[2017-09-02] MEDS: Cyanocobalamin (Vitamin B12) 1,000 MCG Tab PO SCH (10:32)
[2017-09-02] MEDS: Aspirin 81 MG Tab.Chew PO SCH (10:32)
--- NOTE | 2017-09-02 10:45 | PCM.PN ---
- General Info Date of Service: 09/02/17 Functional Status: Reports: Pain Controlled, Tolerating Diet - Review of Systems General: Reports: Weakness Cardiovascular: Denies: Chest Pain Systems Review Comment:: There were no acute events overnight. Blood pressure was stable and patient did not have any episodes of weakness or shakiness. When he got up with physical therapy to test his orthostatic vitals he became very lightheaded and systolic blood pressure dropped from 110 down to 70. He has not had any fevers. Urine culture is growing to gram-negative rods with identification pending. - Patient Data Vitals - Most Recent: Last Vital Signs Temp 35.5 C 09/02/17 07:45 Pulse 90 09/02/17 10:33 Resp 18 09/02/17 08:32 BP 101/78 09/02/17 10:33 Pulse Ox 98 09/02/17 08:32 Orthostatic Blood Pressure [ 87/50 Standing] Orthostatic Blood Pressure [ 105/55 Sitting] Orthostatic Blood Pressure [ 129/73 Supine] Weight - Most Recent: 77.111 kg I&O - Last 24 Hours: Intake & Output 09/01/17 09/02/17 09/02/17 22:59 06:59 14:59 Intake Total 250 581 360 Output Total 300 600 Balance -50 -19 360 Lab Results Last 24 Hours: Laboratory Results - last 24 hr 09/01/17 09/01/17 09/01/17 Range/Units 12:30 12:30 12:36 WBC 8.0 (4.5-11.0) K/uL RBC 3.94 L (4.30-5.90) M/uL Hgb 9.4 L (12.0-15.0) g/dL Hct 32.5 L (40.0-54.0) % MCV 83 (80-98) fL MCH 24 L (27-31) pg MCHC 29 L (32-36) % Plt Count 377 (150-400) K/uL Sodium 141 (140-148) mmol/L Potassium 4.4 (3.6-5.2) mmol/L Chloride 105 (100-108) mmol/L Carbon Dioxide 33 H (21-32) mmol/L Anion Gap 7.4 (5.0-14.0) mmol/L BUN 19 H (7-18) mg/dL Creatinine 1.1 (0.8-1.3) mg/dL Est Cr Clr Drug Dosing 50.63 mL/min Estimated GFR (MDRD) > 60 (>60) Glucose 100 (74-106) mg/dL Calcium 8.4 L (8.5-10.1) mg/dL Magnesium 2.2 (1.8-2.4) mg/dL Total Bilirubin 0.4 (0.2-1.0) mg/dL AST 24 (15-37) U/L ALT 21 (12-78) U/L Alkaline Phosphatase 81 (46-116) U/L Total Protein 6.1 L (6.4-8.2) g/dL Albumin 2.5 L (3.4-5.0) g/dL Globulin 3.6 H (2.3-3.5) g/dL Albumin/Globulin Ratio 0.7 L (1.2-2.2) Urine Color Urine Appearance Urine pH (4.5-8.0) Ur Specific [place] (1.008-1.030) Urine Protein (NEGATIVE) mg/dL Urine Glucose (UA) (NEGATIVE) mg/dL Urine Ketones (NEGATIVE) mg/dL Urine Occult Blood (NEGATIVE) Urine Nitrite (NEGAITVE) Urine Bilirubin (NEGATIVE) Urine Urobilinogen (NORMAL) mg/dL Ur Leukocyte Esterase (NEGATIVE) Urine RBC (0-5) Urine WBC (0-5) Ur Epithelial Cells Amorphous Sediment Urine Bacteria Urine Mucus 09/01/17 09/02/17 09/02/17 Range/Units 13:14 04:30 04:30 WBC 6.2 (4.5-11.0) K/uL RBC 3.59 L (4.30-5.90) M/uL Hgb 8.4 L (12.0-15.0) g/dL Hct 29.7 L (40.0-54.0) % MCV 83 (80-98) fL MCH 23 L (27-31) pg MCHC 28 L (32-36) % Plt Count 342 (150-400) K/uL Sodium 142 (140-148) mmol/L Potassium 4.5 (3.6-5.2) mmol/L Chloride 106 (100-108) mmol/L Carbon Dioxide 33 H (21-32) mmol/L Anion Gap 7.5 (5.0-14.0) mmol/L BUN 17 (7-18) mg/dL Creatinine 1.0 (0.8-1.3) mg/dL Est Cr Clr Drug Dosing 55.69 mL/min Estimated GFR (MDRD) > 60 (>60) Glucose 93 (74-106) mg/dL Calcium 8.3 L (8.5-10.1) mg/dL Magnesium (1.8-2.4) mg/dL Total Bilirubin (0.2-1.0) mg/dL AST (15-37) U/L ALT (12-78) U/L Alkaline Phosphatase (46-116) U/L Total Protein (6.4-8.2) g/dL Albumin (3.4-5.0) g/dL Globulin (2.3-3.5) g/dL Albumin/Globulin Ratio (1.2-2.2) Urine Color Yellow Urine Appearance Turbid Urine pH 7.0 (4.5-8.0) Ur Specific [place] 1.015 (1.008-1.030) Urine Protein 30 H (NEGATIVE) mg/dL Urine Glucose (UA) Normal (NEGATIVE) mg/dL Urine Ketones Negative (NEGATIVE) mg/dL Urine Occult Blood Negative (NEGATIVE) Urine Nitrite Positive H (NEGAITVE) Urine Bilirubin Small (NEGATIVE) Urine Urobilinogen 1 (NORMAL) mg/dL Ur Leukocyte Esterase Large (NEGATIVE) Urine RBC 0-5 (0-5) Urine WBC Packed H (0-5) Ur Epithelial Cells Not seen Amorphous Sediment Not seen Urine Bacteria Many Urine Mucus Not seen Alphonse Results Last 24 Hours: Microbiology 09/01/17 13:51 Urine Culture - Preliminary Urine, Christianson Cath ([place]) Med Orders - Current: Current Medications Acetaminophen (Tylenol) 650 mg PO Q4H PRN PRN Reason: Pain (Mild 1-3)/fever Aspirin (Aspirin) 81 mg PO DAILY [facility] Last Admin: 09/02/17 10:32 Dose: 81 mg Atorvastatin Calcium (Lipitor) 20 mg PO BEDTIME [facility] Carvedilol (Coreg) 3.125 mg PO BID [facility] Last Admin: 09/02/17 10:33 Dose: 3.125 mg Clopidogrel Bisulfate (Plavix) 75 mg PO DAILY [facility] Last Admin: 09/02/17 10:31 Dose: 75 mg Cyanocobalamin (Vitamin B12) 1,000 mcg PO DAILY [facility] Last Admin: 09/02/17 10:32 Dose: 1,000 mcg Diphenhydramine HCl (Benadryl) 25 mg PO BEDTIME PRN PRN Reason: Allergies Ceftazidime 1 gm/ Sodium (Chloride) 50 mls @ 100 mls/hr IV Q12H [facility] Melatonin (Melatonin) 9 mg PO BEDTIME PRN PRN Reason: Sleep Ondansetron HCl (Zofran Odt) 4 mg PO Q6H PRN PRN Reason: Nausea able to take PO Oxybutynin Chloride (Oxybutynin) 2.5 mg PO BID [facility] Last Admin: 09/02/17 10:31 Dose: 2.5 mg Oxycodone HCl (Oxycodone) 5 mg PO Q4H PRN PRN Reason: Pain (moderate 4-6) Pentoxifylline (Trental) 400 mg PO TID [facility] Last Admin: 09/02/17 10:32 Dose: 400 mg Polyethylene Glycol (Miralax) 17 gm PO DAILY PRN PRN Reason: Constipation Senna/Docusate Sodium (Senna Plus) 8.6 tab PO DAILY PRN PRN Reason: Constipation Discontinued Medications Acetaminophen (Tylenol Extra Strength) 1,000 mg PO Q6H PRN PRN Reason: Pain Acetaminophen (Tylenol Extra Strength) Confirm Administered Dose 1,000 mg .ROUTE .STK-MED ONE Stop: 09/01/17 22:54 Carvedilol (Coreg) Confirm Administered Dose 3.125 mg .ROUTE .STK-MED ONE Stop: 09/02/17 00:32 Last Admin: 09/02/17 10:31 Dose: 3.125 mg Lactated Ringer's (Ringers, Lactated) 1,000 mls @ 1,000 mls/hr IV BOLUS ONE Stop: 09/01/17 14:06 Last Admin: 09/01/17 13:13 Dose: 1,000 mls/hr Ciprofloxacin/Dextrose 400 mg/ (Premix) 200 mls @ 200 mls/hr IV ONETIME ONE Stop: 09/01/17 14:50 Last Admin: 09/01/17 14:06 Dose: 200 mls/hr Melatonin (Melatonin) Confirm Administered Dose 9 mg .ROUTE .STK-MED ONE Stop: 09/02/17 01:44 - Exam Quality Assessment: No: Supplemental Oxygen General: Alert, Oriented, Cooperative, No Acute Distress Neck: Supple Lungs: Normal Respiratory Effort Cardiovascular: Regular Rate, Regular Rhythm GI/Abdominal Exam: Soft, No Distention Extremities: No Pedal Edema Psy/Mental Status: Alert, Normal Affect - Problem List & Annotations (1) Complicated urinary tract infection SNOMED Code(s): 74593159 Code(s): N39.0 - URINARY TRACT INFECTION, SITE NOT SPECIFIED Status: Acute Current Visit: Yes (2) Orthostatic hypotension SNOMED Code(s): 72242409 Code(s): I95.1 - ORTHOSTATIC HYPOTENSION Status: Acute Current Visit: Yes (3) Neurogenic bladder SNOMED Code(s): 553650506 Code(s): N31.9 - NEUROMUSCULAR DYSFUNCTION OF [place], UNSPECIFIED Status: Chronic Current Visit: Yes (4) Stage III chronic kidney disease SNOMED Code(s): 705128105 Code(s): N18.3 - CHRONIC KIDNEY DISEASE, STAGE 3 (MODERATE) Status: Chronic Current Visit: Yes (5) Coronary artery disease SNOMED Code(s): 38629792 Code(s): I25.10 - ATHSCL HEART DISEASE OF [place] CORONARY ARTERY W/O ANG PCTRS Status: Chronic Current Visit: No Qualifiers: Coronary Disease-Associated Artery/Lesion type: [place] artery [place] vs. transplanted heart: [place] heart Associated angina: without angina Qualified Code(s): I25.10 - Atherosclerotic heart disease of [place] coronary artery without angina pectoris (6) Lumbar stenosis with neurogenic claudication SNOMED Code(s): 197185473141916 Code(s): M48.06 - SPINAL STENOSIS, LUMBAR REGION * DO NOT USE * Status: Chronic Current Visit: No - Problem List Review Problem List Initiated/Reviewed/Updated: Yes - My Orders Last 24 Hours: My Active Orders 09/01/17 14:45 Resuscitation Status Routine 09/01/17 17:00 cefTAZidime [Fortaz] 1 gm Sodium Chloride 0.9% [Normal Saline] 50 ml IV Q12H 09/02/17 03:14 Patient Status [ADT] Routine Intake and Output [RC] QSHIFT Notify Provider Vital Signs [RC] ASDIRECTED Oxygen Therapy [RC] PRN Up With Assistance [RC] ASDIRECTED VTE/DVT Education [RC] Per Unit Routine Vital Signs [RC] Q4H Acetaminophen [Tylenol] 650 mg PO Q4H PRN Carvedilol [Coreg] 3.125 mg PO BID Docusate Sodium/Sennosides [Senna Plus] 8.6 tab PO DAILY PRN Ondansetron [Zofran ODT] 4 mg PO Q6H PRN Pentoxifylline [TRENtal] 400 mg PO TID Polyethylene Glycol 3350 [MiraLAX] 17 gm PO DAILY PRN diphenhydrAMINE [Benadryl] 25 mg PO BEDTIME PRN oxyCODONE 5 mg PO Q4H PRN Sequential Compression Device [OM.PC] Per Unit Routine 09/02/17 03:45 Oxybutynin 2.5 mg PO BID 09/02/17 07:00 PT Evaluation and Treatment [CONS] Routine 09/02/17 09:00 Aspirin 81 mg PO DAILY Clopidogrel [Plavix] 75 mg PO DAILY Cyanocobalamin (Vitamin B12) [Vitamin B12] 1,000 mcg PO DAILY 09/02/17 21:00 Melatonin 9 mg PO BEDTIME PRN atorvaSTATin [Lipitor] 20 mg PO BEDTIME 09/02/17 Dinner Regular Diet [DIET] 09/03/17 05:00 BASIC METABOLIC PANEL,BMP [CHEM] Timed HGB [HEMOGLOBIN] [HEME] Timed - Plan Plan:: ASSESSMENT AND PLAN - Complicated urinary tract infection - 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 Urine culture growing 2 different gram-negative rods with identification pending. -ceftazidime -Follow-up cultures -Patient is well hydrated and does not require additional IV fluids Orthostatic hypotension - likely cause for his episodes of shakiness and weakness. Probably a result of his infection. Symptoms and vital sign abnormalities persist despite holding the isosorbide. -Orthostatic vitals again in the morning -Hold isosorbide -Infection management as above Chronic ischemic heart disease - no active symptoms at this time. Clinically stable. -Hold isosorbide as above -Continue beta shruthi and antiplatelet agents Spinal stenosis with neurogenic claudication - poor functional status due to severe lower back issues. These are stable from baseline. -Pain control Stage III chronic kidney disease - kidney function actually improved from recent measurements. -Repeat labs in the morning Maintenance issues - - DVT prophylaxis - mechanical - GI prophylaxis - PPI - Nutrition - regular diet - Christianson catheter - chronic suprapubic catheter Disposition - anticipate discharge to home after the hospital stay Bebo Jaramillo M.D.
[2017-09-02] MEDS: Melatonin 3 MG Tab PO PRN ×2 (12:56→20:52)
[2017-09-02] MEDS: atorvaSTATin 20 MG Tab PO SCH (20:42)
[2017-09-02] MEDS: Acetaminophen 325 MG Tab PO PRN (20:50)
[2017-09-02] MEDS: Ondansetron 4 MG Tab.DIS PO PRN (20:52)
[2017-09-02] MEDS: oxyCODONE 5 MG Tab PO PRN (20:53)
[2017-09-03] MEDS: Calcium Carbonate 500 MG Tab.Chew PO PRN (00:11)
[2017-09-03] MEDS: cefTAZidime 1 GM in Sodium Chloride 0.9% 50 ML IV SCH ×2 (05:02→16:14)
[2017-09-03] MEDS: Carvedilol 3.125 MG Tab PO SCH ×2 (08:12→20:46)
[2017-09-03] MEDS: Aspirin 81 MG Tab.Chew PO SCH (08:12)
[2017-09-03] MEDS: Clopidogrel 75 MG Tab PO SCH (08:14)
[2017-09-03] MEDS: Oxybutynin 5 MG Tab PO SCH ×2 (08:14→20:46)
[2017-09-03] MEDS: Pentoxifylline 400 MG Tab.ER PO SCH ×3 (08:15→20:46)
[2017-09-03] MEDS: Cyanocobalamin (Vitamin B12) 1,000 MCG Tab PO SCH (08:15)
--- NOTE | 2017-09-03 12:15 | PCM.PN ---
- General Info Date of Service: 09/03/17 Functional Status: Reports: Pain Controlled, Tolerating Diet. Denies: Ambulating - Review of Systems General: Reports: Weakness Neurological: Denies: Dizziness Systems Review Comment:: There were no acute events overnight. Patient reports he did not sleep very well again but better than the night before. No episodes of dizziness or shaking this morning. Orthostatic vital signs were stable and normal today with no significant drop noted. Vital signs have otherwise been stable. Urine culture is still pending and 2 different gram-negative rods are growing with identification pending. He has not had any fevers. - Patient Data Vitals - Most Recent: Last Vital Signs Temp 35.4 C 09/03/17 11:00 Pulse 54 L 09/03/17 11:00 Resp 18 09/03/17 11:00 BP 121/59 L 09/03/17 11:00 Pulse Ox 98 09/03/17 11:00 Orthostatic Blood Pressure [ 104/43 Standing] Orthostatic Blood Pressure [ 99/56 Sitting] Orthostatic Blood Pressure [ 106/51 Supine] Weight - Most Recent: 77.111 kg I&O - Last 24 Hours: Intake & Output 09/02/17 09/03/17 09/03/17 22:59 06:59 14:59 Intake Total 650 50 Output Total 400 900 Balance 250 -850 Lab Results Last 24 Hours: Laboratory Results - last 24 hr 09/03/17 09/03/17 Range/Units 05:48 05:48 Hgb 8.2 L (12.0-15.0) g/dL Sodium 143 (140-148) mmol/L Potassium 4.1 (3.6-5.2) mmol/L Chloride 107 (100-108) mmol/L Carbon Dioxide 29 (21-32) mmol/L Anion Gap 6.9 (5.0-14.0) mmol/L BUN 16 (7-18) mg/dL Creatinine 1.0 (0.8-1.3) mg/dL Est Cr Clr Drug Dosing 55.69 mL/min Estimated GFR (MDRD) > 60 (>60) Glucose 96 (74-106) mg/dL Calcium 8.3 L (8.5-10.1) mg/dL Alphonse Results Last 24 Hours: Microbiology 09/01/17 13:51 Urine Culture - Preliminary Urine, Christianson Cath (Indwelling) Med Orders - Current: Current Medications Acetaminophen (Tylenol) 650 mg PO Q4H PRN PRN Reason: Pain (Mild 1-3)/fever Last Admin: 09/02/17 20:50 Dose: 650 mg Aspirin (Aspirin) 81 mg PO DAILY [facility] Last Admin: 09/03/17 08:12 Dose: 81 mg Atorvastatin Calcium (Lipitor) 20 mg PO BEDTIME [facility] Last Admin: 09/02/17 20:42 Dose: 20 mg Calcium Carbonate/Glycine (Tums) 500 mg PO Q2H PRN PRN Reason: Indigestion Last Admin: 09/03/17 00:11 Dose: 500 mg Carvedilol (Coreg) 3.125 mg PO BID [facility] Last Admin: 09/03/17 08:12 Dose: 3.125 mg Clopidogrel Bisulfate (Plavix) 75 mg PO DAILY [facility] Last Admin: 09/03/17 08:14 Dose: 75 mg Cyanocobalamin (Vitamin B12) 1,000 mcg PO DAILY [facility] Last Admin: 09/03/17 08:15 Dose: 1,000 mcg Diphenhydramine HCl (Benadryl) 25 mg PO BEDTIME PRN PRN Reason: Allergies Ceftazidime 1 gm/ Sodium (Chloride) 50 mls @ 100 mls/hr IV Q12H [facility] Last Admin: 09/03/17 05:02 Dose: 100 mls/hr Melatonin (Melatonin) 9 mg PO BEDTIME PRN PRN Reason: Sleep Last Admin: 09/02/17 20:52 Dose: 9 mg Ondansetron HCl (Zofran Odt) 4 mg PO Q6H PRN PRN Reason: Nausea able to take PO Last Admin: 09/02/17 20:52 Dose: 4 mg Oxybutynin Chloride (Oxybutynin) 2.5 mg PO BID [facility] Last Admin: 09/03/17 08:14 Dose: 2.5 mg Oxycodone HCl (Oxycodone) 5 mg PO Q4H PRN PRN Reason: Pain (moderate 4-6) Last Admin: 09/02/17 20:53 Dose: 5 mg Pentoxifylline (Trental) 400 mg PO TID [facility] Last Admin: 09/03/17 08:15 Dose: 400 mg Polyethylene Glycol (Miralax) 17 gm PO DAILY PRN PRN Reason: Constipation Senna/Docusate Sodium (Senna Plus) 8.6 tab PO DAILY PRN PRN Reason: Constipation Discontinued Medications Acetaminophen (Tylenol Extra Strength) 1,000 mg PO Q6H PRN PRN Reason: Pain Acetaminophen (Tylenol Extra Strength) Confirm Administered Dose 1,000 mg .ROUTE .STK-MED ONE Stop: 09/01/17 22:54 Last Admin: 09/02/17 12:58 Dose: Not Given Carvedilol (Coreg) Confirm Administered Dose 3.125 mg .ROUTE .STK-MED ONE Stop: 09/02/17 00:32 Last Admin: 09/02/17 10:31 Dose: 3.125 mg Lactated Ringer's (Ringers, Lactated) 1,000 mls @ 1,000 mls/hr IV BOLUS ONE Stop: 09/01/17 14:06 Last Admin: 09/01/17 13:13 Dose: 1,000 mls/hr Ciprofloxacin/Dextrose 400 mg/ (Premix) 200 mls @ 200 mls/hr IV ONETIME ONE Stop: 09/01/17 14:50 Last Admin: 09/01/17 14:06 Dose: 200 mls/hr Melatonin (Melatonin) Confirm Administered Dose 9 mg .ROUTE .STK-MED ONE Stop: 09/02/17 01:44 Last Admin: 09/02/17 12:56 Dose: Not Given - Exam Quality Assessment: Supplemental Oxygen General: Alert, Oriented, Cooperative, No Acute Distress Neck: Supple Lungs: Normal Respiratory Effort Cardiovascular: Regular Rate, Regular Rhythm GI/Abdominal Exam: Soft, No Distention Extremities: No Pedal Edema Psy/Mental Status: Alert, Normal Affect - Problem List & Annotations (1) Complicated urinary tract infection SNOMED Code(s): 73218108 Code(s): N39.0 - URINARY TRACT INFECTION, SITE NOT SPECIFIED Status: Acute Current Visit: Yes (2) Orthostatic hypotension SNOMED Code(s): 36215367 Code(s): I95.1 - ORTHOSTATIC HYPOTENSION Status: Acute Current Visit: Yes (3) Neurogenic bladder SNOMED Code(s): 703527808 Code(s): N31.9 - NEUROMUSCULAR DYSFUNCTION OF [place], UNSPECIFIED Status: Chronic Current Visit: Yes (4) Stage III chronic kidney disease SNOMED Code(s): 235962655 Code(s): N18.3 - CHRONIC KIDNEY DISEASE, STAGE 3 (MODERATE) Status: Chronic Current Visit: Yes (5) Coronary artery disease SNOMED Code(s): 07551660 Code(s): I25.10 - ATHSCL HEART DISEASE OF [place] CORONARY ARTERY W/O ANG PCTRS Status: Chronic Current Visit: No Qualifiers: Coronary Disease-Associated Artery/Lesion type: [place] artery [place] vs. transplanted heart: [place] heart Associated angina: without angina Qualified Code(s): I25.10 - Atherosclerotic heart disease of [place] coronary artery without angina pectoris (6) Lumbar stenosis with neurogenic claudication SNOMED Code(s): 371135820909227 Code(s): M48.06 - SPINAL STENOSIS, LUMBAR REGION * DO NOT USE * Status: Chronic Current Visit: No - Problem List Review Problem List Initiated/Reviewed/Updated: Yes - My Orders Last 24 Hours: My Active Orders 09/02/17 21:00 Melatonin 9 mg PO BEDTIME PRN atorvaSTATin [Lipitor] 20 mg PO BEDTIME 09/02/17 23:41 Calcium Carbonate [Tums] 500 mg PO Q2H PRN 09/02/17 Dinner Regular Diet [DIET] 09/03/17 07:00 Orthostatic Vital Signs [RC] DAILY - Plan Plan:: ASSESSMENT AND PLAN - Complicated urinary tract infection - 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 Urine culture growing 2 different gram-negative rods with identification pending. -ceftazidime -Follow-up cultures -Patient is well hydrated and does not require additional IV fluids Orthostatic hypotension - probably secondary to infection, clinically better today. -Orthostatic vitals again in the morning -Hold isosorbide -Infection management as above Chronic ischemic heart disease - no active symptoms at this time. Clinically stable. -Hold isosorbide as above -Continue beta shruthi and antiplatelet agents Spinal stenosis with neurogenic claudication - poor functional status due to severe lower back issues. These are stable from baseline. -Pain control Stage III chronic kidney disease - kidney function actually improved from recent measurements. -Repeat labs in the morning Maintenance issues - - DVT prophylaxis - mechanical - GI prophylaxis - PPI - Nutrition - regular diet - Christianson catheter - chronic suprapubic catheter Disposition - anticipate discharge to home with home care after the hospital stay, hopefully tomorrow if stable overnight Bebo Jaramillo M.D.
[2017-09-03] MEDS: atorvaSTATin 20 MG Tab PO SCH (20:47)
[2017-09-03] MEDS: Acetaminophen 325 MG Tab PO PRN (20:50)
[2017-09-03] MEDS: oxyCODONE 5 MG Tab PO PRN (20:52)
[2017-09-03] MEDS: Melatonin 3 MG Tab PO PRN (20:58)
[2017-09-04] MEDS: cefTAZidime 1 GM in Sodium Chloride 0.9% 50 ML IV SCH ×2 (04:24→17:23)
[2017-09-04] MEDS: Cyanocobalamin (Vitamin B12) 1,000 MCG Tab PO SCH (09:18)
[2017-09-04] MEDS: Pentoxifylline 400 MG Tab.ER PO SCH ×3 (09:18→22:25)
[2017-09-04] MEDS: Oxybutynin 5 MG Tab PO SCH ×2 (09:19→20:40)
[2017-09-04] MEDS: Aspirin 81 MG Tab.Chew PO SCH (09:20)
[2017-09-04] MEDS: Clopidogrel 75 MG Tab PO SCH (09:20)
[2017-09-04] MEDS: Carvedilol 3.125 MG Tab PO SCH ×2 (09:20→20:39)
--- NOTE | 2017-09-04 12:34 | PCM.PN ---
- General Info Date of Service: 09/04/17 Functional Status: Reports: Pain Controlled, Tolerating Diet - Review of Systems General: Reports: Weakness Gastrointestinal: Reports: Constipation Systems Review Comment:: no acute events overnight. Still a little weak today but otherwise stable. Orthostatic pressures were acceptable. No fevers. Urine culture did return with Escherichia coli that is resistant to a few antibiotics as well as Pseudomonas that's resistant to all oral antibiotic options. - Patient Data Vitals - Most Recent: Last Vital Signs Temp 35.6 C 09/04/17 10:13 Pulse 61 09/04/17 10:13 Resp 20 09/04/17 10:13 BP 116/67 09/04/17 10:13 Pulse Ox 98 09/04/17 10:13 Orthostatic Blood Pressure [ 99/44 Standing] Orthostatic Blood Pressure [ 110/53 Sitting] Orthostatic Blood Pressure [ 112/51 Supine] Weight - Most Recent: 56.155 kg I&O - Last 24 Hours: Intake & Output 09/03/17 09/04/17 09/04/17 22:59 06:59 14:59 Intake Total 410 317 880 Output Total 150 500 Balance 260 -183 880 Alphonse Results Last 24 Hours: Microbiology 09/01/17 13:51 Urine Culture - Final Urine, Christianson Cath (Indwelling) Escherichia Coli Pseudomonas Aeruginosa Med Orders - Current: Current Medications Acetaminophen (Tylenol) 650 mg PO Q4H PRN PRN Reason: Pain (Mild 1-3)/fever Last Admin: 09/03/17 20:50 Dose: 650 mg Aspirin (Aspirin) 81 mg PO DAILY [facility] Last Admin: 09/04/17 09:20 Dose: 81 mg Atorvastatin Calcium (Lipitor) 20 mg PO BEDTIME [facility] Last Admin: 09/03/17 20:47 Dose: 20 mg Calcium Carbonate/Glycine (Tums) 500 mg PO Q2H PRN PRN Reason: Indigestion Last Admin: 09/03/17 00:11 Dose: 500 mg Carvedilol (Coreg) 3.125 mg PO BID [facility] Last Admin: 09/04/17 09:20 Dose: 3.125 mg Clopidogrel Bisulfate (Plavix) 75 mg PO DAILY [facility] Last Admin: 09/04/17 09:20 Dose: 75 mg Cyanocobalamin (Vitamin B12) 1,000 mcg PO DAILY [facility] Last Admin: 09/04/17 09:18 Dose: 1,000 mcg Diphenhydramine HCl (Benadryl) 25 mg PO BEDTIME PRN PRN Reason: Allergies Ceftazidime 1 gm/ Sodium (Chloride) 50 mls @ 100 mls/hr IV Q12H [facility] Last Admin: 09/04/17 04:24 Dose: 100 mls/hr Melatonin (Melatonin) 9 mg PO BEDTIME PRN PRN Reason: Sleep Last Admin: 09/03/17 20:58 Dose: 9 mg Ondansetron HCl (Zofran Odt) 4 mg PO Q6H PRN PRN Reason: Nausea able to take PO Last Admin: 09/02/17 20:52 Dose: 4 mg Oxybutynin Chloride (Oxybutynin) 2.5 mg PO BID [facility] Last Admin: 09/04/17 09:19 Dose: 2.5 mg Oxycodone HCl (Oxycodone) 5 mg PO Q4H PRN PRN Reason: Pain (moderate 4-6) Last Admin: 09/03/17 20:52 Dose: 5 mg Pentoxifylline (Trental) 400 mg PO TID [facility] Last Admin: 09/04/17 09:18 Dose: 400 mg Polyethylene Glycol (Miralax) 17 gm PO DAILY PRN PRN Reason: Constipation Senna/Docusate Sodium (Senna Plus) 8.6 tab PO DAILY PRN PRN Reason: Constipation Last Admin: 09/03/17 19:32 Dose: 2 tab Discontinued Medications Acetaminophen (Tylenol Extra Strength) 1,000 mg PO Q6H PRN PRN Reason: Pain Acetaminophen (Tylenol Extra Strength) Confirm Administered Dose 1,000 mg .ROUTE .STK-MED ONE Stop: 09/01/17 22:54 Last Admin: 09/02/17 12:58 Dose: Not Given Carvedilol (Coreg) Confirm Administered Dose 3.125 mg .ROUTE .STK-MED ONE Stop: 09/02/17 00:32 Last Admin: 09/02/17 10:31 Dose: 3.125 mg Lactated Ringer's (Ringers, Lactated) 1,000 mls @ 1,000 mls/hr IV BOLUS ONE Stop: 09/01/17 14:06 Last Admin: 09/01/17 13:13 Dose: 1,000 mls/hr Ciprofloxacin/Dextrose 400 mg/ (Premix) 200 mls @ 200 mls/hr IV ONETIME ONE Stop: 09/01/17 14:50 Last Admin: 09/01/17 14:06 Dose: 200 mls/hr Melatonin (Melatonin) Confirm Administered Dose 9 mg .ROUTE .STK-MED ONE Stop: 09/02/17 01:44 Last Admin: 09/02/17 12:56 Dose: Not Given - Exam Quality Assessment: Supplemental Oxygen General: Alert, Oriented, Cooperative, No Acute Distress Neck: Supple Lungs: Clear to Auscultation, Normal Respiratory Effort, Crackles (rare both bases (dry crackles)) Cardiovascular: Regular Rate, Regular Rhythm, Murmurs GI/Abdominal Exam: Soft, No Distention Extremities: No Pedal Edema Psy/Mental Status: Alert, Normal Affect - Problem List & Annotations (1) Complicated urinary tract infection SNOMED Code(s): 54606044 Code(s): N39.0 - URINARY TRACT INFECTION, SITE NOT SPECIFIED Status: Acute Current Visit: Yes (2) Orthostatic hypotension SNOMED Code(s): 77651126 Code(s): I95.1 - ORTHOSTATIC HYPOTENSION Status: Acute Current Visit: Yes (3) Neurogenic bladder SNOMED Code(s): 749509834 Code(s): N31.9 - NEUROMUSCULAR DYSFUNCTION OF [place], UNSPECIFIED Status: Chronic Current Visit: Yes (4) Stage III chronic kidney disease SNOMED Code(s): 196258041 Code(s): N18.3 - CHRONIC KIDNEY DISEASE, STAGE 3 (MODERATE) Status: Chronic Current Visit: Yes (5) Coronary artery disease SNOMED Code(s): 03823737 Code(s): I25.10 - ATHSCL HEART DISEASE OF [place] CORONARY ARTERY W/O ANG PCTRS Status: Chronic Current Visit: No Qualifiers: Coronary Disease-Associated Artery/Lesion type: [place] artery [place] vs. transplanted heart: [place] heart Associated angina: without angina Qualified Code(s): I25.10 - Atherosclerotic heart disease of [place] coronary artery without angina pectoris (6) Lumbar stenosis with neurogenic claudication SNOMED Code(s): 633264185022425 Code(s): M48.06 - SPINAL STENOSIS, LUMBAR REGION * DO NOT USE * Status: Chronic Current Visit: No - Problem List Review Problem List Initiated/Reviewed/Updated: Yes - My Orders Last 24 Hours: My Active Orders 09/04/17 09:22 Dietary Supplements [RC] BIDAC 09/04/17 10:45 Central Line PICC Insertion [Central Venous Line Insertion] [OM.PC] Routine 09/04/17 10:46 Central Line Assessment [RC] QSHIFT - Plan Plan:: ASSESSMENT AND PLAN - Complicated urinary tract infection - 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 Urine culture grew out partially resistant Escherichia coli and Pseudomonas resistant to all oral medications. -Place PICC line -ceftazidime times total of 1 week (end after dose on 09/08) -Patient is well hydrated and does not require additional IV fluids Orthostatic hypotension - probably secondary to infection, clinically stable the past 2 days. -Orthostatic vitals again in the morning -Hold isosorbide -Infection management as above Chronic ischemic heart disease - no active symptoms at this time. Clinically stable. -Hold isosorbide as above -Continue beta shruthi and antiplatelet agents Spinal stenosis with neurogenic claudication - poor functional status due to severe lower back issues. These are stable from baseline. -Pain control Stage III chronic kidney disease - kidney function actually improved from recent measurements. -Repeat labs in the morning Maintenance issues - - DVT prophylaxis - mechanical - GI prophylaxis - PPI - Nutrition - regular diet - Christianson catheter - chronic suprapubic catheter Disposition - anticipate discharge to home with home care after the hospital stay, hopefully tomorrow if stable overnight. discharge will be delayed one day to acquire outpatient antibiotics. Bebo Jaramillo M.D.
[2017-09-04] MEDS: Polyethylene Glycol 3350 Powder 17 GM Packet PO PRN (14:30)
--- NOTE | 2017-09-04 14:50 | CR ---
Chest 1V Frontal INDICATION: confirm PICC placement COMPARISON: 02/13/2017 FINDINGS: AP portable chest. Mild cardiomegaly unchanged. Sternotomy. Left upper extremity PICC line with tip coiled in the mid SVC. PICC line could be retracted approxima tely 3 cm. Increase in interstitial infiltrates in both lungs. Findings may be due to mild CHF. Small bilateral pleural effusions.
--- NOTE | 2017-09-04 14:58 | CR ---
Chest 1V Frontal INDICATION: piccplacement COMPARISON: 02/13/2017 FINDINGS: AP portable chest. Left upper extremity PICC line has been retracted with coiled tip now in the superior SVC. Interstiti al infiltrates, right greater than left, unchanged.
--- NOTE | 2017-09-04 14:59 | CR ---
Chest 1V Frontal INDICATION: confirm picc placement COMPARISON: Exam same day FINDINGS: AP portable chest. PICC line has been re-oriented now with tip extending inferiorly in good position in the mid SVC. No other change in the chest.
[2017-09-04] MEDS: Calcium Carbonate 500 MG Tab.Chew PO PRN (20:36)
[2017-09-04] MEDS: oxyCODONE 5 MG Tab PO PRN (20:37)
[2017-09-04] MEDS: Acetaminophen 325 MG Tab PO PRN (20:37)
[2017-09-04] MEDS: Melatonin 3 MG Tab PO PRN (20:38)
[2017-09-04] MEDS: atorvaSTATin 20 MG Tab PO SCH (20:39)
[2017-09-05] MEDS: Calcium Carbonate 500 MG Tab.Chew PO PRN ×2 (00:24→22:56)
[2017-09-05] MEDS: cefTAZidime 1 GM in Sodium Chloride 0.9% 50 ML IV SCH ×2 (05:10→17:15)
[2017-09-05] MEDS: Clopidogrel 75 MG Tab PO SCH (09:17)
[2017-09-05] MEDS: Cyanocobalamin (Vitamin B12) 1,000 MCG Tab PO SCH (09:17)
[2017-09-05] MEDS: Carvedilol 3.125 MG Tab PO SCH (09:18)
[2017-09-05] MEDS: Pentoxifylline 400 MG Tab.ER PO SCH ×3 (09:18→20:10)
[2017-09-05] MEDS: Oxybutynin 5 MG Tab PO SCH ×2 (09:18→20:10)
[2017-09-05] MEDS: Aspirin 81 MG Tab.Chew PO SCH (09:20)
--- NOTE | 2017-09-05 10:46 | PCM.PN ---
- General Info Date of Service: 09/05/17 Functional Status: Reports: Pain Controlled, Tolerating Diet - Review of Systems General: Reports: Weakness Neurological: Reports: Dizziness Systems Review Comment:: No acute events overnight. Blood pressures have been better. Patient reports severe dizziness this morning and feels unsafe on his feet at this time. He has not had fevers. Outpatient antibiotics will be delivered this afternoon. Tolerating current antibiotics well. - Patient Data Vitals - Most Recent: Last Vital Signs Temp 36.2 C 09/05/17 07:08 Pulse 55 L 09/05/17 09:22 Resp 18 09/05/17 07:08 BP 124/63 09/05/17 09:22 Pulse Ox 98 09/05/17 07:08 Orthostatic Blood Pressure [ 75/47 Standing] Orthostatic Blood Pressure [ 97/48 Sitting] Orthostatic Blood Pressure [ 102/56 Supine] Weight - Most Recent: 56.155 kg I&O - Last 24 Hours: Intake & Output 09/04/17 09/05/17 09/05/17 22:59 06:59 14:59 Intake Total 410 50 Output Total 800 575 Balance -390 -525 Med Orders - Current: Current Medications Acetaminophen (Tylenol) 650 mg PO Q4H PRN PRN Reason: Pain (Mild 1-3)/fever Last Admin: 09/04/17 20:37 Dose: 650 mg Aspirin (Aspirin) 81 mg PO DAILY [facility] Last Admin: 09/05/17 09:20 Dose: 81 mg Atorvastatin Calcium (Lipitor) 20 mg PO BEDTIME [facility] Last Admin: 09/04/17 20:39 Dose: 20 mg Calcium Carbonate/Glycine (Tums) 500 mg PO Q2H PRN PRN Reason: Indigestion Last Admin: 09/05/17 00:24 Dose: 500 mg Clopidogrel Bisulfate (Plavix) 75 mg PO DAILY [facility] Last Admin: 09/05/17 09:17 Dose: 75 mg Cyanocobalamin (Vitamin B12) 1,000 mcg PO DAILY [facility] Last Admin: 09/05/17 09:17 Dose: 1,000 mcg Diphenhydramine HCl (Benadryl) 25 mg PO BEDTIME PRN PRN Reason: Allergies Ceftazidime 1 gm/ Sodium (Chloride) 50 mls @ 100 mls/hr IV Q12H [facility] Last Admin: 09/05/17 05:10 Dose: 100 mls/hr Melatonin (Melatonin) 9 mg PO BEDTIME PRN PRN Reason: Sleep Last Admin: 09/04/17 20:38 Dose: 9 mg Ondansetron HCl (Zofran Odt) 4 mg PO Q6H PRN PRN Reason: Nausea able to take PO Last Admin: 09/02/17 20:52 Dose: 4 mg Oxybutynin Chloride (Oxybutynin) 2.5 mg PO BID [facility] Last Admin: 09/05/17 09:18 Dose: 2.5 mg Oxycodone HCl (Oxycodone) 5 mg PO Q4H PRN PRN Reason: Pain (moderate 4-6) Last Admin: 09/04/17 20:37 Dose: 5 mg Pentoxifylline (Trental) 400 mg PO TID [facility] Last Admin: 09/05/17 09:18 Dose: 400 mg Polyethylene Glycol (Miralax) 17 gm PO DAILY PRN PRN Reason: Constipation Last Admin: 09/04/17 14:30 Dose: 17 gm Senna/Docusate Sodium (Senna Plus) 8.6 tab PO DAILY PRN PRN Reason: Constipation Last Admin: 09/03/17 19:32 Dose: 2 tab Discontinued Medications Acetaminophen (Tylenol Extra Strength) 1,000 mg PO Q6H PRN PRN Reason: Pain Acetaminophen (Tylenol Extra Strength) Confirm Administered Dose 1,000 mg .ROUTE .STK-MED ONE Stop: 09/01/17 22:54 Last Admin: 09/02/17 12:58 Dose: Not Given Carvedilol (Coreg) 3.125 mg PO BID [facility] Last Admin: 09/05/17 09:18 Dose: 3.125 mg Carvedilol (Coreg) Confirm Administered Dose 3.125 mg .ROUTE .STK-MED ONE Stop: 09/02/17 00:32 Last Admin: 09/02/17 10:31 Dose: 3.125 mg Lactated Ringer's (Ringers, Lactated) 1,000 mls @ 1,000 mls/hr IV BOLUS ONE Stop: 09/01/17 14:06 Last Admin: 09/01/17 13:13 Dose: 1,000 mls/hr Ciprofloxacin/Dextrose 400 mg/ (Premix) 200 mls @ 200 mls/hr IV ONETIME ONE Stop: 09/01/17 14:50 Last Admin: 09/01/17 14:06 Dose: 200 mls/hr Melatonin (Melatonin) Confirm Administered Dose 9 mg .ROUTE .STK-MED ONE Stop: 09/02/17 01:44 Last Admin: 09/02/17 12:56 Dose: Not Given - Exam Quality Assessment: Supplemental Oxygen General: Alert, Oriented, Cooperative, No Acute Distress Lungs: Normal Respiratory Effort, Crackles (few dry crackles at bases) Cardiovascular: Regular Rhythm, Bradycardia, Murmurs GI/Abdominal Exam: Soft, No Distention Extremities: No Pedal Edema Skin: Warm, Dry Psy/Mental Status: Alert, Normal Affect - Problem List & Annotations (1) Complicated urinary tract infection SNOMED Code(s): 00986962 Code(s): N39.0 - URINARY TRACT INFECTION, SITE NOT SPECIFIED Status: Acute Current Visit: Yes (2) Orthostatic hypotension SNOMED Code(s): 20926918 Code(s): I95.1 - ORTHOSTATIC HYPOTENSION Status: Acute Current Visit: Yes (3) Neurogenic bladder SNOMED Code(s): 568175325 Code(s): N31.9 - NEUROMUSCULAR DYSFUNCTION OF [place]AD[place], UNSPECIFIED Status: Chronic Current Visit: Yes (4) Stage III chronic kidney disease SNOMED Code(s): 576107168 Code(s): N18.3 - CHRONIC KIDNEY DISEASE, STAGE 3 (MODERATE) Status: Chronic Current Visit: Yes (5) Coronary artery disease SNOMED Code(s): 13717495 Code(s): I25.10 - ATHSCL HEART DISEASE OF [place] CORONARY ARTERY W/O ANG PCTRS Status: Chronic Current Visit: No Qualifiers: Coronary Disease-Associated Artery/Lesion type: [place] artery [place] vs. transplanted heart: [place] heart Associated angina: without angina Qualified Code(s): I25.10 - Atherosclerotic heart disease of [place] coronary artery without angina pectoris (6) Lumbar stenosis with neurogenic claudication SNOMED Code(s): 842712528431535 Code(s): M48.06 - SPINAL STENOSIS, LUMBAR REGION * DO NOT USE * Status: Chronic Current Visit: No - Problem List Review Problem List Initiated/Reviewed/Updated: Yes - My Orders Last 24 Hours: My Active Orders 09/04/17 10:45 Central Line PICC Insertion [Central Venous Line Insertion] [OM.PC] Routine 09/04/17 10:46 Central Line Assessment [RC] Q12H - Plan Plan:: ASSESSMENT AND PLAN - Complicated urinary tract infection - 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 Urine culture grew out partially resistant Escherichia coli and Pseudomonas resistant to all oral medications. -Place PICC line -ceftazidime times total of 1 week (end after dose on 09/08) -Patient is well hydrated and does not require additional IV fluids Orthostatic hypotension - probably secondary to infection, clinically stable the past 2 days but patient reports severe dizziness this morning. -Orthostatic vitals again in the morning -Hold carvedilol -Hold isosorbide -Infection management as above Chronic ischemic heart disease - no active symptoms at this time. Clinically stable. -Hold isosorbide and carvedilol as above -antiplatelet agents Spinal stenosis with neurogenic claudication - poor functional status due to severe lower back issues. These are stable from baseline. -Pain control Stage III chronic kidney disease - kidney function actually improved from recent measurements. -Repeat labs in the morning Maintenance issues - - DVT prophylaxis - mechanical - GI prophylaxis - PPI - Nutrition - regular diet - Christianson catheter - chronic suprapubic catheter Disposition - anticipate discharge to home with home care after the hospital stay, hopefully tomorrow if stable overnight. discharge will be delayed another day because of severe dizziness. Patient does not feel safe at home given this level of dizziness. Bebo Jaramillo M.D.
[2017-09-05] MEDS: Acetaminophen 325 MG Tab PO PRN ×2 (17:10→22:53)
[2017-09-05] MEDS: oxyCODONE 5 MG Tab PO PRN ×2 (17:11→22:52)
[2017-09-05] MEDS: guaiFENesin 600 MG Tab.ER PO PRN (20:09)
[2017-09-05] MEDS: atorvaSTATin 20 MG Tab PO SCH (20:10)
[2017-09-05] MEDS: Melatonin 3 MG Tab PO PRN (22:53)
[2017-09-06] MEDS: cefTAZidime 1 GM in Sodium Chloride 0.9% 50 ML IV SCH ×3 (05:41→17:04)
[2017-09-06] MEDS: oxyCODONE 5 MG Tab PO PRN ×3 (06:29→21:08)
[2017-09-06] MEDS: Acetaminophen 325 MG Tab PO PRN ×3 (06:30→21:07)
[2017-09-06] MEDS: Aspirin 81 MG Tab.Chew PO SCH (09:19)
[2017-09-06] MEDS: Oxybutynin 5 MG Tab PO SCH (09:19)
[2017-09-06] MEDS: Pentoxifylline 400 MG Tab.ER PO SCH ×3 (09:20→21:06)
[2017-09-06] MEDS: Clopidogrel 75 MG Tab PO SCH (09:20)
[2017-09-06] MEDS: Cyanocobalamin (Vitamin B12) 1,000 MCG Tab PO SCH (09:20)
[2017-09-06] MEDS: guaiFENesin 600 MG Tab.ER PO PRN ×2 (09:31→21:06)
[2017-09-06] MEDS: Polyethylene Glycol 3350 Powder 17 GM Packet PO PRN (09:33)
--- NOTE | 2017-09-06 11:55 | PCM.PN ---
- General Info Date of Service: 09/06/17 Functional Status: Reports: Pain Controlled - Review of Systems General: Reports: Weakness. Denies: Fever Neurological: Reports: Dizziness Systems Review Comment:: There were no acute events overnight. When the patient tried to go from lying to sitting he became very dizzy again this morning. Orthostatic vital signs showed significant drop in blood pressure and rise in heart rate with one from lying to sitting position. He did not have a fall and lost his balance. He does not complain of chest pain. He does complain of fatigue. No major issues with bladder spasm at this time. - Patient Data Vitals - Most Recent: Last Vital Signs Temp 36.2 C 09/06/17 07:59 Pulse 57 L 09/06/17 07:59 Resp 16 09/06/17 07:59 BP 86/39 L 09/06/17 09:07 Pulse Ox 94 L 09/06/17 07:59 Orthostatic Blood Pressure [ 74/38 Standing] Orthostatic Blood Pressure [ 96/51 Sitting] Orthostatic Blood Pressure [ 120/61 Supine] Weight - Most Recent: 56.155 kg I&O - Last 24 Hours: Intake & Output 09/05/17 09/06/17 09/06/17 22:59 06:59 14:59 Intake Total 470 250 480 Output Total 750 525 100 Balance -280 -275 380 Med Orders - Current: Current Medications Acetaminophen (Tylenol) 650 mg PO Q4H PRN PRN Reason: Pain (Mild 1-3)/fever Last Admin: 09/06/17 06:30 Dose: 650 mg Aspirin (Aspirin) 81 mg PO DAILY [facility] Last Admin: 09/06/17 09:19 Dose: 81 mg Atorvastatin Calcium (Lipitor) 20 mg PO BEDTIME [facility] Last Admin: 09/05/17 20:10 Dose: 20 mg Calcium Carbonate/Glycine (Tums) 500 mg PO Q2H PRN PRN Reason: Indigestion Last Admin: 09/05/17 22:56 Dose: 500 mg Clopidogrel Bisulfate (Plavix) 75 mg PO DAILY [facility] Last Admin: 09/06/17 09:20 Dose: 75 mg Cyanocobalamin (Vitamin B12) 1,000 mcg PO DAILY [facility] Last Admin: 09/06/17 09:20 Dose: 1,000 mcg Diphenhydramine HCl (Benadryl) 25 mg PO BEDTIME PRN PRN Reason: Allergies Guaifenesin (Mucinex) 600 mg PO BID PRN PRN Reason: Cough Last Admin: 09/06/17 09:31 Dose: 600 mg Ceftazidime 1 gm/ Sodium (Chloride) 50 mls @ 100 mls/hr IV Q12H [facility] Last Admin: 09/06/17 05:41 Dose: 100 mls/hr Melatonin (Melatonin) 9 mg PO BEDTIME PRN PRN Reason: Sleep Last Admin: 09/05/17 22:53 Dose: 9 mg Ondansetron HCl (Zofran Odt) 4 mg PO Q6H PRN PRN Reason: Nausea able to take PO Last Admin: 09/02/17 20:52 Dose: 4 mg Oxycodone HCl (Oxycodone) 5 mg PO Q4H PRN PRN Reason: Pain (moderate 4-6) Last Admin: 09/06/17 06:29 Dose: 5 mg Pentoxifylline (Trental) 400 mg PO TID [facility] Last Admin: 09/06/17 09:20 Dose: 400 mg Polyethylene Glycol (Miralax) 17 gm PO DAILY PRN PRN Reason: Constipation Last Admin: 09/06/17 09:33 Dose: 17 gm Senna/Docusate Sodium (Senna Plus) 8.6 tab PO DAILY PRN PRN Reason: Constipation Last Admin: 09/06/17 09:32 Dose: 8.6 tab Discontinued Medications Acetaminophen (Tylenol Extra Strength) 1,000 mg PO Q6H PRN PRN Reason: Pain Acetaminophen (Tylenol Extra Strength) Confirm Administered Dose 1,000 mg .ROUTE .STK-MED ONE Stop: 09/01/17 22:54 Last Admin: 09/02/17 12:58 Dose: Not Given Carvedilol (Coreg) 3.125 mg PO BID [facility] Last Admin: 09/05/17 09:18 Dose: 3.125 mg Carvedilol (Coreg) Confirm Administered Dose 3.125 mg .ROUTE .STK-MED ONE Stop: 09/02/17 00:32 Last Admin: 09/02/17 10:31 Dose: 3.125 mg Lactated Ringer's (Ringers, Lactated) 1,000 mls @ 1,000 mls/hr IV BOLUS ONE Stop: 09/01/17 14:06 Last Admin: 09/01/17 13:13 Dose: 1,000 mls/hr Ciprofloxacin/Dextrose 400 mg/ (Premix) 200 mls @ 200 mls/hr IV ONETIME ONE Stop: 09/01/17 14:50 Last Admin: 09/01/17 14:06 Dose: 200 mls/hr Melatonin (Melatonin) Confirm Administered Dose 9 mg .ROUTE .STK-MED ONE Stop: 09/02/17 01:44 Last Admin: 09/02/17 12:56 Dose: Not Given Oxybutynin Chloride (Oxybutynin) 2.5 mg PO BID [facility] Last Admin: 09/06/17 09:19 Dose: 2.5 mg - Exam Quality Assessment: Supplemental Oxygen General: Alert, Oriented, Cooperative, No Acute Distress Neck: Supple Lungs: Normal Respiratory Effort, Crackles (dry crackles both bases) Cardiovascular: Regular Rate, Regular Rhythm, Murmurs GI/Abdominal Exam: Soft, No Distention Extremities: No Pedal Edema Skin: Warm, Dry Psy/Mental Status: Alert, Normal Affect - Problem List & Annotations (1) Complicated urinary tract infection SNOMED Code(s): 66372008 Code(s): N39.0 - URINARY TRACT INFECTION, SITE NOT SPECIFIED Status: Acute Current Visit: Yes (2) Orthostatic hypotension SNOMED Code(s): 95470889 Code(s): I95.1 - ORTHOSTATIC HYPOTENSION Status: Acute Current Visit: Yes (3) Neurogenic bladder SNOMED Code(s): 427465112 Code(s): N31.9 - NEUROMUSCULAR DYSFUNCTION OF [place]AD[place], UNSPECIFIED Status: Chronic Current Visit: Yes (4) Stage III chronic kidney disease SNOMED Code(s): 102480294 Code(s): N18.3 - CHRONIC KIDNEY DISEASE, STAGE 3 (MODERATE) Status: Chronic Current Visit: Yes (5) Coronary artery disease SNOMED Code(s): 02517831 Code(s): I25.10 - ATHSCL HEART DISEASE OF [place] CORONARY ARTERY W/O ANG PCTRS Status: Chronic Current Visit: No Qualifiers: Coronary Disease-Associated Artery/Lesion type: [place] artery [place] vs. transplanted heart: [place] heart Associated angina: without angina Qualified Code(s): I25.10 - Atherosclerotic heart disease of [place] coronary artery without angina pectoris (6) Lumbar stenosis with neurogenic claudication SNOMED Code(s): 218857474370321 Code(s): M48.06 - SPINAL STENOSIS, LUMBAR REGION * DO NOT USE * Status: Chronic Current Visit: No - Problem List Review Problem List Initiated/Reviewed/Updated: Yes - My Orders Last 24 Hours: My Active Orders 09/05/17 18:57 guaiFENesin [Mucinex] 600 mg PO BID PRN 09/07/17 05:00 BASIC METABOLIC PANEL,BMP [CHEM] Timed CBC W/O DIFF,HEMOGRAM [HEME] Timed (1) 09/08/17 07:00 Echo Comp wo Cont [US] Routine - Plan Plan:: ASSESSMENT AND PLAN - Complicated urinary tract infection - 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 Urine culture grew out partially resistant Escherichia coli and Pseudomonas resistant to all oral medications. -Place PICC line -ceftazidime times total of 1 week (end after dose on 09/08) -Patient is well hydrated and does not require additional IV fluids Orthostatic hypotension - probably secondary to infection, clinically stable during the middle portion of the hospital stay but positive orthostatic findings have returned. Medications could be contributing. He does have an aortic stenosis murmur and history of heart issues. There is no evidence for volume overload at this time. Volume-samson he appears euvolemic. 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 Clinically stable. -Hold isosorbide and carvedilol as above -antiplatelet agents Spinal stenosis with neurogenic claudication - poor functional status due to severe lower back issues. These are stable from baseline. -Pain control Stage III chronic kidney disease - kidney function actually improved from recent measurements. -Repeat labs in the morning Maintenance issues - - DVT prophylaxis - mechanical - GI prophylaxis - PPI - Nutrition - regular diet - Christianson catheter - chronic suprapubic catheter Disposition - discharge pending at this time with persistent dizziness and recurrence of abnormal orthostatic vital sig without obvious cause at this point. He needs additional workup and is not safe for outpatient management. Bebo Jaramillo M.D.
[2017-09-06] MEDS: atorvaSTATin 20 MG Tab PO SCH (21:06)
[2017-09-06] MEDS: Calcium Carbonate 500 MG Tab.Chew PO PRN (21:07)
[2017-09-06] MEDS: Melatonin 3 MG Tab PO PRN (21:08)
[2017-09-07] MEDS: cefTAZidime 1 GM in Sodium Chloride 0.9% 50 ML IV SCH ×2 (04:59→17:18)
[2017-09-07] MEDS: Polyethylene Glycol 3350 Powder 17 GM Packet PO PRN (09:50)
[2017-09-07] MEDS: Aspirin 81 MG Tab.Chew PO SCH (09:51)
[2017-09-07] MEDS: Pentoxifylline 400 MG Tab.ER PO SCH ×3 (09:51→20:22)
[2017-09-07] MEDS: Clopidogrel 75 MG Tab PO SCH (09:52)
[2017-09-07] MEDS: Cyanocobalamin (Vitamin B12) 1,000 MCG Tab PO SCH (09:52)
[2017-09-07] MEDS: Acetaminophen 325 MG Tab PO PRN ×3 (09:56→22:09)
[2017-09-07] MEDS: oxyCODONE 5 MG Tab PO PRN ×3 (09:57→22:10)
[2017-09-07] MEDS: guaiFENesin 600 MG Tab.ER PO PRN (10:33)
--- NOTE | 2017-09-07 11:13 | PCM.PN ---
- General Info Date of Service: 09/07/17 Functional Status: Reports: Pain Controlled - Review of Systems Neurological: Reports: Dizziness Systems Review Comment:: there were no acute events overnight. Patient reported dizziness when standing this morning and orthostatic vital signs were abnormal again today. No fevers. Tolerating antibiotics. Kidney function stable. No abdominal pain or nausea. Looks better today. Remains very weak. - Patient Data Vitals - Most Recent: Last Vital Signs Temp 36.3 C 09/07/17 07:00 Pulse 67 09/07/17 07:00 Resp 16 09/07/17 07:00 BP 115/62 09/07/17 07:00 Pulse Ox 96 09/07/17 07:00 Orthostatic Blood Pressure [ 78/42 Standing] Orthostatic Blood Pressure [ 101/59 Sitting] Orthostatic Blood Pressure [ 128/65 Supine] Weight - Most Recent: 56.155 kg I&O - Last 24 Hours: Intake & Output 09/06/17 09/07/17 09/07/17 22:59 06:59 14:59 Intake Total 1060 530 480 Output Total 750 900 Balance 310 -370 480 Lab Results Last 24 Hours: Laboratory Results - last 24 hr 09/07/17 09/07/17 Range/Units 05:45 05:45 WBC 6.0 (4.5-11.0) K/uL RBC 3.62 L (4.30-5.90) M/uL Hgb 8.4 L (12.0-15.0) g/dL Hct 29.9 L (40.0-54.0) % MCV 83 (80-98) fL MCH 23 L (27-31) pg MCHC 28 L (32-36) % Plt Count 340 (150-400) K/uL Sodium 142 (140-148) mmol/L Potassium 4.1 (3.6-5.2) mmol/L Chloride 104 (100-108) mmol/L Carbon Dioxide 33 H (21-32) mmol/L Anion Gap 9.1 (5.0-14.0) mmol/L BUN 18 (7-18) mg/dL Creatinine 0.9 (0.8-1.3) mg/dL Est Cr Clr Drug Dosing 45.06 mL/min Estimated GFR (MDRD) > 60 (>60) Glucose 81 (74-106) mg/dL Calcium 8.5 (8.5-10.1) mg/dL Med Orders - Current: Current Medications Acetaminophen (Tylenol) 650 mg PO Q4H PRN PRN Reason: Pain (Mild 1-3)/fever Last Admin: 09/07/17 09:56 Dose: 650 mg Aspirin (Aspirin) 81 mg PO DAILY [facility] Last Admin: 09/07/17 09:51 Dose: 81 mg Atorvastatin Calcium (Lipitor) 20 mg PO BEDTIME [facility] Last Admin: 09/06/17 21:06 Dose: 20 mg Calcium Carbonate/Glycine (Tums) 500 mg PO Q2H PRN PRN Reason: Indigestion Last Admin: 09/06/17 21:07 Dose: 500 mg Clopidogrel Bisulfate (Plavix) 75 mg PO DAILY [facility] Last Admin: 09/07/17 09:52 Dose: 75 mg Cyanocobalamin (Vitamin B12) 1,000 mcg PO DAILY [facility] Last Admin: 09/07/17 09:52 Dose: 1,000 mcg Diphenhydramine HCl (Benadryl) 25 mg PO BEDTIME PRN PRN Reason: Allergies Guaifenesin (Mucinex) 600 mg PO BID PRN PRN Reason: Cough Last Admin: 09/07/17 10:33 Dose: 600 mg Ceftazidime 1 gm/ Sodium (Chloride) 50 mls @ 100 mls/hr IV Q12H [facility] Last Admin: 09/07/17 04:59 Dose: 100 mls/hr Melatonin (Melatonin) 9 mg PO BEDTIME PRN PRN Reason: Sleep Last Admin: 09/06/17 21:08 Dose: 9 mg Ondansetron HCl (Zofran Odt) 4 mg PO Q6H PRN PRN Reason: Nausea able to take PO Last Admin: 09/02/17 20:52 Dose: 4 mg Oxycodone HCl (Oxycodone) 5 mg PO Q4H PRN PRN Reason: Pain (moderate 4-6) Last Admin: 09/07/17 09:57 Dose: 5 mg Pentoxifylline (Trental) 400 mg PO TID [facility] Last Admin: 09/07/17 09:51 Dose: 400 mg Polyethylene Glycol (Miralax) 17 gm PO DAILY PRN PRN Reason: Constipation Last Admin: 09/07/17 09:50 Dose: 17 gm Senna/Docusate Sodium (Senna Plus) 8.6 tab PO DAILY PRN PRN Reason: Constipation Last Admin: 09/07/17 09:52 Dose: 8.6 tab Discontinued Medications Acetaminophen (Tylenol Extra Strength) 1,000 mg PO Q6H PRN PRN Reason: Pain Acetaminophen (Tylenol Extra Strength) Confirm Administered Dose 1,000 mg .ROUTE .STK-MED ONE Stop: 09/01/17 22:54 Last Admin: 09/02/17 12:58 Dose: Not Given Carvedilol (Coreg) 3.125 mg PO BID [facility] Last Admin: 09/05/17 09:18 Dose: 3.125 mg Carvedilol (Coreg) Confirm Administered Dose 3.125 mg .ROUTE .STK-MED ONE Stop: 09/02/17 00:32 Last Admin: 09/02/17 10:31 Dose: 3.125 mg Lactated Ringer's (Ringers, Lactated) 1,000 mls @ 1,000 mls/hr IV BOLUS ONE Stop: 09/01/17 14:06 Last Admin: 09/01/17 13:13 Dose: 1,000 mls/hr Ciprofloxacin/Dextrose 400 mg/ (Premix) 200 mls @ 200 mls/hr IV ONETIME ONE Stop: 09/01/17 14:50 Last Admin: 09/01/17 14:06 Dose: 200 mls/hr Melatonin (Melatonin) Confirm Administered Dose 9 mg .ROUTE .STK-MED ONE Stop: 09/02/17 01:44 Last Admin: 09/02/17 12:56 Dose: Not Given Oxybutynin Chloride (Oxybutynin) 2.5 mg PO BID [facility] Last Admin: 09/06/17 09:19 Dose: 2.5 mg - Exam Quality Assessment: Supplemental Oxygen General: Alert, Oriented, Cooperative, No Acute Distress Neck: Supple Lungs: Normal Respiratory Effort Cardiovascular: Regular Rate, Regular Rhythm GI/Abdominal Exam: No Distention Extremities: No Pedal Edema Psy/Mental Status: Alert, Normal Affect - Problem List & Annotations (1) Complicated urinary tract infection SNOMED Code(s): 99320540 Code(s): N39.0 - URINARY TRACT INFECTION, SITE NOT SPECIFIED Status: Acute Current Visit: Yes (2) Orthostatic hypotension SNOMED Code(s): 63918403 Code(s): I95.1 - ORTHOSTATIC HYPOTENSION Status: Acute Current Visit: Yes (3) Neurogenic bladder SNOMED Code(s): 895004686 Code(s): N31.9 - NEUROMUSCULAR DYSFUNCTION OF [place], UNSPECIFIED Status: Chronic Current Visit: Yes (4) Stage III chronic kidney disease SNOMED Code(s): 591709923 Code(s): N18.3 - CHRONIC KIDNEY DISEASE, STAGE 3 (MODERATE) Status: Chronic Current Visit: Yes (5) Coronary artery disease SNOMED Code(s): 52629700 Code(s): I25.10 - ATHSCL HEART DISEASE OF [place] CORONARY ARTERY W/O ANG PCTRS Status: Chronic Current Visit: No Qualifiers: Coronary Disease-Associated Artery/Lesion type: [place] artery [place] vs. transplanted heart: [place] heart Associated angina: without angina Qualified Code(s): I25.10 - Atherosclerotic heart disease of [place] coronary artery without angina pectoris (6) Lumbar stenosis with neurogenic claudication SNOMED Code(s): 854263845620275 Code(s): M48.06 - SPINAL STENOSIS, LUMBAR REGION * DO NOT USE * Status: Chronic Current Visit: No - Problem List Review Problem List Initiated/Reviewed/Updated: Yes - My Orders Last 24 Hours: My Active Orders 09/07/17 11:30 Midodrine 5 mg PO TIDAC 09/08/17 07:00 Echo Comp wo Cont [US] Routine - Plan Plan:: ASSESSMENT AND PLAN - Complicated urinary tract infection - 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 Urine culture grew out partially resistant Escherichia coli and Pseudomonas resistant to all oral medications. -Place PICC line -ceftazidime times total of 1 week (end after dose on 09/08) -oxybutynin is on hold with concern it may be contributing to orthostatic hypotension -Patient is well hydrated and does not require additional IV fluids Orthostatic hypotension - probably multifactorial and has not improved after holding isosorbide and carvedilol. Infection seems to be well-controlled. Echocardiogram pending. -Orthostatic vitals daily -Hold carvedilol -Hold isosorbide -hold oxybutynin -trial of midodrine -Echo on Friday -Infection management as above Chronic ischemic heart disease - no active symptoms at this time. Clinically stable. -Hold isosorbide and carvedilol as above -antiplatelet agents Spinal stenosis with neurogenic claudication - poor functional status due to severe lower back issues. These are stable from baseline. -Pain control Stage III chronic kidney disease - kidney function actually improved from recent measurements. -Repeat labs in the morning Maintenance issues - - DVT prophylaxis - mechanical - GI prophylaxis - PPI - Nutrition - regular diet - Christianson catheter - chronic suprapubic catheter Disposition - discharge pending at this time with persistent dizziness and recurrence of abnormal orthostatic vital signs without obvious cause at this point. He needs additional workup and is not safe for outpatient management. he will likely need subacute rehabilitation after the hospital stay. Bebo Jaramillo M.D.
[2017-09-07] MEDS ORDERED: Midodrine 5 MG Tab PO SCH (11:30)
[2017-09-07] MEDS: Midodrine 5 MG Tab PO SCH ×2 (12:16→15:33)
[2017-09-07] MEDS: atorvaSTATin 20 MG Tab PO SCH (20:22)
[2017-09-07] MEDS: Calcium Carbonate 500 MG Tab.Chew PO PRN (22:09)
[2017-09-07] MEDS: Melatonin 3 MG Tab PO PRN (22:10)
[2017-09-07] MEDS: Ondansetron 4 MG Tab.DIS PO PRN (23:17)
[2017-09-08] MEDS: cefTAZidime 1 GM in Sodium Chloride 0.9% 50 ML IV SCH ×2 (04:56→16:47)
[2017-09-08] MEDS: Clopidogrel 75 MG Tab PO SCH (08:46)
[2017-09-08] MEDS: Midodrine 5 MG Tab PO SCH ×3 (08:46→16:47)
[2017-09-08] MEDS: Cyanocobalamin (Vitamin B12) 1,000 MCG Tab PO SCH (08:47)
[2017-09-08] MEDS: Pentoxifylline 400 MG Tab.ER PO SCH ×3 (08:47→21:09)
[2017-09-08] MEDS: Aspirin 81 MG Tab.Chew PO SCH (08:47)
--- NOTE | 2017-09-08 13:01 | PCM.PN ---
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 Perhaps modestly improved since admission but continues to experience symptoms with activity. Blood pressure lowering medications have been held and he's been started on Midodrine. Remains on IV antibiotic therapy for resistant organisms in the urine, Escherichia coli and Pseudomonas Functional Status: Reports: Tolerating Diet - Review of Systems General: Reports: Weakness. Denies: Fever, Chills Pulmonary: Reports: No Symptoms Cardiovascular: Reports: Lightheadedness. Denies: Chest Pain, Palpitations, Dyspnea on Exertion, Orthopnea, PND Gastrointestinal: Reports: Constipation, Decreased Appetite, Nausea. Denies: Abdominal Pain, Diarrhea, Difficulty Swallowing, Hematochezia, Vomiting - Patient Data Vitals - Most Recent: Last Vital Signs Temp 96.4 F 09/08/17 12:00 Pulse 70 09/08/17 12:00 Resp 20 09/08/17 12:00 BP 101/46 L 09/08/17 12:00 Pulse Ox 92 L 09/08/17 12:00 Orthostatic Blood Pressure [ 78/42 Standing] Orthostatic Blood Pressure [ 125/81 Sitting] Orthostatic Blood Pressure [ 135/61 Supine] Weight - Most Recent: 123 lb 12.8 oz I&O - Last 24 Hours: Intake & Output 09/07/17 09/08/17 09/08/17 22:59 06:59 14:59 Intake Total 770 50 Output Total 550 1000 Balance 220 -950 Med Orders - Current: Current Medications Acetaminophen (Tylenol) 650 mg PO Q4H PRN PRN Reason: Pain (Mild 1-3)/fever Last Admin: 09/07/17 22:09 Dose: 650 mg Aspirin (Aspirin) 81 mg PO DAILY [facility] Last Admin: 09/08/17 08:47 Dose: 81 mg Atorvastatin Calcium (Lipitor) 20 mg PO BEDTIME [facility] Last Admin: 09/07/17 20:22 Dose: 20 mg Calcium Carbonate/Glycine (Tums) 500 mg PO Q2H PRN PRN Reason: Indigestion Last Admin: 09/07/17 22:09 Dose: 500 mg Cetirizine HCl (Zyrtec) 10 mg PO DAILY [facility] Clopidogrel Bisulfate (Plavix) 75 mg PO DAILY [facility] Last Admin: 09/08/17 08:46 Dose: 75 mg Cyanocobalamin (Vitamin B12) 1,000 mcg PO DAILY [facility] Last Admin: 09/08/17 08:47 Dose: 1,000 mcg Diphenhydramine HCl (Benadryl) 25 mg PO BEDTIME PRN PRN Reason: Allergies Guaifenesin (Mucinex) 600 mg PO BID PRN PRN Reason: Cough Last Admin: 09/07/17 10:33 Dose: 600 mg Ceftazidime 1 gm/ Sodium (Chloride) 50 mls @ 100 mls/hr IV Q12H [facility] Last Admin: 09/08/17 04:56 Dose: 100 mls/hr Melatonin (Melatonin) 9 mg PO BEDTIME PRN PRN Reason: Sleep Last Admin: 09/07/17 22:10 Dose: 9 mg Midodrine (Midodrine) 2.5 mg PO TIDAC [facility] Last Admin: 09/08/17 11:13 Dose: 2.5 mg Mometasone Furoate (Nasonex [place]) 0 gm YOAV BID [facility] Ondansetron HCl (Zofran Odt) 4 mg PO Q6H PRN PRN Reason: Nausea able to take PO Last Admin: 09/07/17 23:17 Dose: 4 mg Oxycodone HCl (Oxycodone) 5 mg PO Q4H PRN PRN Reason: Pain (moderate 4-6) Last Admin: 09/07/17 22:10 Dose: 5 mg Pentoxifylline (Trental) 400 mg PO TID [facility] Last Admin: 09/08/17 08:47 Dose: 400 mg Polyethylene Glycol (Miralax) 17 gm PO DAILY PRN PRN Reason: Constipation Last Admin: 09/07/17 09:50 Dose: 17 gm Senna/Docusate Sodium (Senna Plus) 2 tab PO DAILY [facility] Discontinued Medications Acetaminophen (Tylenol Extra Strength) 1,000 mg PO Q6H PRN PRN Reason: Pain Acetaminophen (Tylenol Extra Strength) Confirm Administered Dose 1,000 mg .ROUTE .STK-MED ONE Stop: 09/01/17 22:54 Last Admin: 09/02/17 12:58 Dose: Not Given Carvedilol (Coreg) 3.125 mg PO BID [facility] Last Admin: 09/05/17 09:18 Dose: 3.125 mg Carvedilol (Coreg) Confirm Administered Dose 3.125 mg .ROUTE .STK-MED ONE Stop: 09/02/17 00:32 Last Admin: 09/02/17 10:31 Dose: 3.125 mg Lactated Ringer's (Ringers, Lactated) 1,000 mls @ 1,000 mls/hr IV BOLUS ONE Stop: 09/01/17 14:06 Last Admin: 09/01/17 13:13 Dose: 1,000 mls/hr Ciprofloxacin/Dextrose 400 mg/ (Premix) 200 mls @ 200 mls/hr IV ONETIME ONE Stop: 09/01/17 14:50 Last Admin: 09/01/17 14:06 Dose: 200 mls/hr Melatonin (Melatonin) Confirm Administered Dose 9 mg .ROUTE .STK-MED ONE Stop: 09/02/17 01:44 Last Admin: 09/02/17 12:56 Dose: Not Given Midodrine (Midodrine) 5 mg PO TIDAC [facility] Oxybutynin Chloride (Oxybutynin) 2.5 mg PO BID [facility] Last Admin: 09/06/17 09:19 Dose: 2.5 mg Senna/Docusate Sodium (Senna Plus) 8.6 tab PO DAILY PRN PRN Reason: Constipation Last Admin: 09/07/17 09:52 Dose: 8.6 tab - Exam Quality Assessment: Urine Catheter, DVT Prophylaxis General: Alert, Oriented, Cooperative, Mild Distress Lungs: Clear to Auscultation, Normal Respiratory Effort Cardiovascular: Regular Rate, Regular Rhythm, No Murmurs GI/Abdominal Exam: Soft, Non-Tender, No Organomegaly, No Distention Extremities: Non-Tender, No Pedal Edema Skin: Warm, Dry, Intact - Problem List Review Problem List Initiated/Reviewed/Updated: Yes - My Orders Last 24 Hours: My Active Orders 09/08/17 12:45 Docusate Sodium/Sennosides [Senna Plus] 2 tab PO DAILY [facility] Hose [Antiembolic Hose] [OM.PC] Routine 09/08/17 12:46 Communication Order [RC] ASDIRECTED 09/08/17 13:00 Cetirizine [ZyrTEC] 10 mg PO DAILY Mometasone Furoate [Nasonex [place]] See Dose Instructions YOAV BID 09/08/17 Dinner Regular Diet [DIET] - Plan Plan:: ASSESSMENT AND PLAN - Complicated urinary tract infection - 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 Urine culture grew out partially resistant Escherichia coli and Pseudomonas resistant to all oral medications. -PICC line -ceftazidime times total of 1 week (end after dose on 09/08) -oxybutynin is on hold with concern it may be contributing to orthostatic hypotension -Patient is well hydrated and does not require additional IV fluids Orthostatic hypotension - probably multifactorial and has not improved after holding isosorbide and carvedilol. Infection seems to be well-controlled. Echocardiogram echocardiogram shows decreased left ventricular function with at least mild aortic stenosis -Orthostatic vitals daily -Increase sodium in diet -Keep head of bed elevated at 45 at all times -Thigh high WILDA hose -Hold carvedilol -Hold isosorbide -hold oxybutynin -trial of midodrine 2.5 mg by mouth 3 times a day -Infection management as above Chronic ischemic heart disease - no active symptoms at this time. Clinically stable. -Hold isosorbide and carvedilol as above -antiplatelet agents Spinal stenosis with neurogenic claudication - poor functional status due to severe lower back issues. These are stable from baseline. -Pain control Stage III chronic kidney disease - kidney function actually improved from recent measurements. -Repeat labs in the morning Maintenance issues - - DVT prophylaxis - mechanical - GI prophylaxis - PPI - Nutrition - regular diet - Christianson catheter - chronic suprapubic catheter Disposition - discharge pending at this time with persistent dizziness and recurrence of abnormal orthostatic vital signs without obvious cause at this point. He needs additional workup and is not safe for outpatient management. he will likely need subacute rehabilitation after the hospital stay.
[2017-09-08] MEDS: Cetirizine 10 MG Tab PO SCH (13:18)
[2017-09-08] MEDS: Mometasone Furoate Nasal Spray 17 GM Canister NAS SCH ×2 (13:18→21:09)
[2017-09-08] MEDS: Polyethylene Glycol 3350 Powder 17 GM Packet PO PRN (14:37)
[2017-09-08] MEDS ORDERED: Bisacodyl 10 MG Supp RECTAL ONE (19:50)
[2017-09-08] MEDS ORDERED: Sodium Phosphate,Monobasic/Sodium Phosphate,Dibasic Enema 133 ML Bottle RECTAL ONE (19:51)
[2017-09-08] MEDS: Acetaminophen 325 MG Tab PO PRN (21:07)
[2017-09-08] MEDS: oxyCODONE 5 MG Tab PO PRN (21:07)
[2017-09-08] MEDS: atorvaSTATin 20 MG Tab PO SCH (21:09)
[2017-09-09] MEDS: cefTAZidime 1 GM in Sodium Chloride 0.9% 50 ML IV SCH (05:08)
[2017-09-09] MEDS: Acetaminophen 325 MG Tab PO PRN ×2 (05:08→12:12)
[2017-09-09] MEDS: oxyCODONE 5 MG Tab PO PRN ×2 (05:09→12:12)
[2017-09-09 07:40] VITALS: BP 100/57
[2017-09-09] MEDS: Midodrine 5 MG Tab PO SCH ×2 (07:44→11:18)
[2017-09-09] MEDS: Pentoxifylline 400 MG Tab.ER PO SCH (09:11)
[2017-09-09] MEDS: Cyanocobalamin (Vitamin B12) 1,000 MCG Tab PO SCH (09:12)
[2017-09-09] MEDS: Mometasone Furoate Nasal Spray 17 GM Canister NAS SCH ×2 (09:12→09:13)
[2017-09-09] MEDS: Cetirizine 10 MG Tab PO SCH (09:12)
[2017-09-09] MEDS: Clopidogrel 75 MG Tab PO SCH (09:12)
[2017-09-09] MEDS: Aspirin 81 MG Tab.Chew PO SCH (09:12)
--- NOTE | 2017-09-09 12:09 | PCM.DCSUM1 ---
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 - Discharge Data Discharge Date: 09/09/17 Discharge Disposition: Home, Self-Care 01 Condition: Fair - Discharge Diagnosis/Problem(s) (1) Complicated urinary tract infection SNOMED Code(s): 79761349 ICD Code: N39.0 - URINARY TRACT INFECTION, SITE NOT SPECIFIED Status: Acute Current Visit: Yes (2) Orthostatic hypotension SNOMED Code(s): 68144906 ICD Code: I95.1 - ORTHOSTATIC HYPOTENSION Status: Acute Current Visit: Yes (3) Neurogenic bladder SNOMED Code(s): 495799881 ICD Code: N31.9 - NEUROMUSCULAR DYSFUNCTION OF BLADDER, UNSPECIFIED Status : Chronic Current Visit: Yes (4) Stage III chronic kidney disease SNOMED Code(s): 115446723 ICD Code: N18.3 - CHRONIC KIDNEY DISEASE, STAGE 3 (MODERATE) Status: Chronic Current Visit: Yes (5) Dehydration, mild SNOMED Code(s): 3833494766666 ICD Code: E86.0 - DEHYDRATION Status: Acute Current Visit: No (6) CHF (congestive heart failure) SNOMED Code(s): 15698579 ICD Code: I50.9 - HEART FAILURE, UNSPECIFIED Status: Acute Current Visit : Yes (7) Aortic stenosis SNOMED Code(s): 69966155 ICD Code: I35.0 - NONRHEUMATIC AORTIC (VALVE) STENOSIS Status: Acute Current Visit: Yes (8) Coronary artery disease SNOMED Code(s): 30032510 ICD Code: I25.10 - ATHSCL HEART DISEASE OF [place] CORONARY ARTERY W/O ANG PCTRS Status: Chronic Current Visit: No Qualifiers: Coronary Disease-Associated Artery/Lesion type: [place] artery [place] vs. transplanted heart: [place] heart Associated angina: without angina Qualified Code(s): I25.10 - Atherosclerotic heart disease of [place] coronary artery without angina pectoris - Patient Summary/Data Consults: Consultations 09/02/17 07:00 PT Evaluation and Treatment [CONS] Routine Please Evaluate and Treat. PT Reason for Consult: Strengthening This query below is only for informational purposes and is not editable. Hospital Course: Ambrosio presented to the emergency room with 3 days of progressive shaking spells that happened in the morning. He reports that for the past 3 days when he has woke up he has felt okay when he gets up to try to go to the bathroom he is very shaky and unsteady on his feet. He feels lightheaded but does not report any dizziness. The symptoms have become progressively more intense and lasted longer each day for 3 days. This morning he was so weak and so shaky that he fell down trying to get to the bathroom. He has never had episodes like this in the past. He is not taking new medications. He does not report shortness of breath that has changed from his baseline. He has not had recent episodes of chest pain. He doesn't think he's had any fevers. He does note that he had a change in the odor of his urine but not a significant change in color. He has been trying to remain hydrated.Workup in the emergency room revealed significant orthostatic changes as well as reproduction of his symptoms with going from sitting to standing. Urine sample suggestive of a urinary tract infection. Antibiotics initiated and he was admitted for further management. On admission he was given IV fluids for hydration as well as IV antibiotic therapy. Urine cultures returned growing semi-resistant Escherichia coli as well as Pseudomonas that was resistant to all oral antibiotics. He was treated with IV Ceftazidime for a total of 1 week. Despite IV fluids he continued to experience episodes of weakness and lightheadedness. Medications thought to cause lower blood pressure including Imdur, Coreg, and oxybutynin were discontinued. Orthostatic vital signs showed ongoing drop with lying to standing. He was felt to have a component of orthostatic hypotension and Midodrine was initiated 3 times daily. In addition he was placed on a higher sodium diet, placed in thigh-high WILDA hose, in the head of his bed was kept elevated 45 at all times. With these interventions he felt improved and was able to ambulate without significant lightheadedness. He remained fairly weak and felt that senior living stay for restorative physical therapy and occupational therapy will be of benefit. Activity will be as tolerated and he will resume a regular diet. Follow-up will be at the senior living as needed. - Patient Instructions Diet: Regular Diet as Tolerated Activity: As Tolerated Other/Special Instructions: daily physical therapy and occupational therapy while at the senior living. Thigh-high WILDA hose daily, on in a.m. off at at bedtime. Keep head of bed elevated at 45 at all times even while sleeping. - Discharge Plan Prescriptions/Med Rec: Cetirizine [ZyrTEC] 10 mg PO DAILY #30 tablet Midodrine 2.5 mg PO TIDAC #90 tablet Mometasone Furoate [Nasonex Mounds] 2 sprays YOAV DAILY #1 canister Home Medications: Home Meds Ascorbic Acid [Vitamin C] 250 mg PO DAILY 01/09/13 [History] Aspirin [Elías Chewable Aspirin] 81 mg PO DAILY 01/09/13 [History] Cholecalciferol (Vitamin D3) [Vitamin D3] 1,000 unit PO DAILY 01/09/13 [History] Nitroglycerin 0.4 mg SL ASDIRECTED PRN 01/09/13 [History] Sennosides/Docusate Sodium [Senna S] 8.6 mg PO DAILY PRN 01/09/13 [History] diphenhydrAMINE [Benadryl] 25 mg PO BEDTIME PRN 01/09/13 [History] atorvaSTATin [Lipitor] 20 mg PO BEDTIME 07/01/14 [History] Clopidogrel Bisulfate [Clopidogrel] 75 mg PO DAILY 12/21/15 [History] Cyanocobalamin (Vitamin B12) [Vitamin B12] 1,000 mcg PO DAILY 05/06/16 [History] Pentoxifylline [TRENtal] 400 mg PO TID 05/07/16 [History] Melatonin 10 mg PO BEDTIME 01/27/17 [History] Cetirizine [ZyrTEC] 10 mg PO DAILY #30 tablet 09/09/17 [Rx] Midodrine 2.5 mg PO TIDAC #90 tablet 09/09/17 [Rx] Mometasone Furoate [Nasonex Mounds] 2 sprays YOAV DAILY #1 canister 09/09/17 [Rx] Referrals: Jose Atwood MD [Physician] - 09/12/17 12:00 pm - Discharge Summary/Plan Comment DC Time >30 min.: No - Patient Data Vitals - Most Recent: Last Vital Signs Temp 97.2 F 09/09/17 11:20 Pulse 78 09/09/17 07:38 Resp 16 09/09/17 07:38 BP 100/57 L 09/09/17 07:38 Pulse Ox 92 L 09/09/17 07:38 Orthostatic Blood Pressure [ 86/51 Standing] Orthostatic Blood Pressure [ 103/57 Sitting] Orthostatic Blood Pressure [ 106/72 Supine] Weight - Most Recent: 123 lb 12.8 oz I&O - Last 24 hours: Intake & Output 09/08/17 09/09/17 09/09/17 22:59 06:59 14:59 Intake Total 530 240 Output Total 800 500 Balance -270 -260 Med Orders - Current: Current Medications Acetaminophen (Tylenol) 650 mg PO Q4H PRN PRN Reason: Pain (Mild 1-3)/fever Last Admin: 09/09/17 05:08 Dose: 650 mg Aspirin (Aspirin) 81 mg PO DAILY [facility] Last Admin: 09/09/17 09:12 Dose: 81 mg Atorvastatin Calcium (Lipitor) 20 mg PO BEDTIME [facility] Last Admin: 09/08/17 21:09 Dose: 20 mg Calcium Carbonate/Glycine (Tums) 500 mg PO Q2H PRN PRN Reason: Indigestion Last Admin: 09/07/17 22:09 Dose: 500 mg Cetirizine HCl (Zyrtec) 10 mg PO DAILY [facility] Last Admin: 09/09/17 09:12 Dose: 10 mg Clopidogrel Bisulfate (Plavix) 75 mg PO DAILY [facility] Last Admin: 09/09/17 09:12 Dose: 75 mg Cyanocobalamin (Vitamin B12) 1,000 mcg PO DAILY [facility] Last Admin: 09/09/17 09:12 Dose: 1,000 mcg Diphenhydramine HCl (Benadryl) 25 mg PO BEDTIME PRN PRN Reason: Allergies Guaifenesin (Mucinex) 600 mg PO BID PRN PRN Reason: Cough Last Admin: 09/07/17 10:33 Dose: 600 mg Ceftazidime 1 gm/ Sodium (Chloride) 50 mls @ 100 mls/hr IV Q12H [facility] Last Admin: 09/09/17 05:08 Dose: 100 mls/hr Melatonin (Melatonin) 9 mg PO BEDTIME PRN PRN Reason: Sleep Last Admin: 09/07/17 22:10 Dose: 9 mg Midodrine (Midodrine) 2.5 mg PO TIDAC [facility] Last Admin: 09/09/17 11:18 Dose: 2.5 mg Mometasone Furoate (Nasonex Mounds) 0 gm YOAV BID [facility] Last Admin: 09/09/17 09:13 Dose: Not Given Ondansetron HCl (Zofran Odt) 4 mg PO Q6H PRN PRN Reason: Nausea able to take PO Last Admin: 09/07/17 23:17 Dose: 4 mg Oxycodone HCl (Oxycodone) 5 mg PO Q4H PRN PRN Reason: Pain (moderate 4-6) Last Admin: 09/09/17 05:09 Dose: 5 mg Pentoxifylline (Trental) 400 mg PO TID [facility] Last Admin: 09/09/17 09:11 Dose: 400 mg Polyethylene Glycol (Miralax) 17 gm PO DAILY PRN PRN Reason: Constipation Last Admin: 09/08/17 14:37 Dose: 17 gm Senna/Docusate Sodium (Senna Plus) 2 tab PO DAILY [facility] Last Admin: 09/09/17 09:12 Dose: 2 tab Discontinued Medications Acetaminophen (Tylenol Extra Strength) 1,000 mg PO Q6H PRN PRN Reason: Pain Acetaminophen (Tylenol Extra Strength) Confirm Administered Dose 1,000 mg .ROUTE .STK-MED ONE Stop: 09/01/17 22:54 Last Admin: 09/02/17 12:58 Dose: Not Given Bisacodyl (Dulcolax) 10 mg RECTAL ONETIME ONE Stop: 09/08/17 19:51 Last Admin: 09/08/17 21:18 Dose: 10 mg Carvedilol (Coreg) 3.125 mg PO BID [facility] Last Admin: 09/05/17 09:18 Dose: 3.125 mg Carvedilol (Coreg) Confirm Administered Dose 3.125 mg .ROUTE .STK-MED ONE Stop: 09/02/17 00:32 Last Admin: 09/02/17 10:31 Dose: 3.125 mg Lactated Ringer's (Ringers, Lactated) 1,000 mls @ 1,000 mls/hr IV BOLUS ONE Stop: 09/01/17 14:06 Last Admin: 09/01/17 13:13 Dose: 1,000 mls/hr Ciprofloxacin/Dextrose 400 mg/ (Premix) 200 mls @ 200 mls/hr IV ONETIME ONE Stop: 09/01/17 14:50 Last Admin: 09/01/17 14:06 Dose: 200 mls/hr Melatonin (Melatonin) Confirm Administered Dose 9 mg .ROUTE .STK-MED ONE Stop: 09/02/17 01:44 Last Admin: 09/02/17 12:56 Dose: Not Given Midodrine (Midodrine) 5 mg PO TIDAC [facility]UTHIE Oxybutynin Chloride (Oxybutynin) 2.5 mg PO BID [facility] Last Admin: 09/06/17 09:19 Dose: 2.5 mg Senna/Docusate Sodium (Senna Plus) 8.6 tab PO DAILY PRN PRN Reason: Constipation Last Admin: 09/07/17 09:52 Dose: 8.6 tab Sodium Biphosphate/Sodium Phosphate (Fleet Enema) 133 ml RECTAL ONETIME ONE Stop: 09/08/17 19:52 Last Admin: 09/08/17 22:05 Dose: 1 applic - Exam Quality Assessment: Reports: Urine Catheter General: Reports: Alert, Oriented, Cooperative, No Acute Distress Lungs: Reports: Clear to Auscultation, Normal Respiratory Effort Cardiovascular: Reports: Regular Rate, Regular Rhythm, Murmurs GI/Abdominal Exam: Soft, Non-Tender, No Organomegaly, No Distention Extremities: Non-Tender, No Pedal Edema Skin: Reports: Warm, Dry, Intact
== END 2017-09-09 14:40 | disposition home or self-care (01) | DRG 690 ==
LOC: JP.ED 11:30 → JP.MS 14:43
PROVIDERS: ADMIT Internal Medicine; ATTEND Hospitalist
PROC: 02HV33Z Insertion of Infusion Device into Superior Vena Cava, Percutaneous Approach (ICD-10-PCS; principal; 2017-09-04)
DX: N39.0 Urinary tract infection, site not specified (principal); I12.9 Hypertensive chronic kidney disease with stage 1 through stage 4 chronic kidney disease, or unspecified chronic kidney disease; I13.0 Hypertensive heart and chronic kidney disease with heart failure and stage 1 through stage 4 chronic kidney disease, or unspecified chronic kidney disease; Z66 Do not resuscitate; B96.20 Unspecified Escherichia coli [E. coli] as the cause of diseases classified elsewhere; B96.5 Pseudomonas (aeruginosa) (mallei) (pseudomallei) as the cause of diseases classified elsewhere; Z16.29 Resistance to other single specified antibiotic; N18.3 Chronic kidney disease, stage 3 (moderate); I50.9 Heart failure, unspecified; E86.0 Dehydration; I35.0 Nonrheumatic aortic (valve) stenosis; N31.9 Neuromuscular dysfunction of bladder, unspecified; I95.1 Orthostatic hypotension; W19.XXXA Unspecified fall, initial encounter; Y92.009 Unspecified place in unspecified non-institutional (private) residence as the place of occurrence of the external cause; M48.062 Spinal stenosis, lumbar region with neurogenic claudication; R42 Dizziness and giddiness; R53.1 Weakness; I25.9 Chronic ischemic heart disease, unspecified; I25.2 Old myocardial infarction; M54.9 Dorsalgia, unspecified; G89.29 Other chronic pain; Z85.46 Personal history of malignant neoplasm of prostate; Z95.1 Presence of aortocoronary bypass graft; M19.90 Unspecified osteoarthritis, unspecified site; Z95.5 Presence of coronary angioplasty implant and graft; H54.7 Unspecified visual loss; Z96.659 Presence of unspecified artificial knee joint; Z79.82 Long term (current) use of aspirin; Z88.6 Allergy status to analgesic agent; Z88.8 Allergy status to other drugs, medicaments and biological substances
CPT/HCPCS: 36415; 80053; 81001; 83735; 85027; 87086; 87088 ×2; 87186 ×2; 96361; 96365; 99284; 99285; J0744; J7120; 71045; 71045-26; 80048; 85018; 93306; 97110-GP; 97116-GP; 97162-GP; 97530-GP; A9270-GY; C1751; J0713; J7050